=== PATIENT | female | born 1950 | race Caucasian/White ===

== ENCOUNTER → 2016-11-26 | Outpatient (CLI) | payer MEDICARE, BC ==
--- NOTE | 2016-11-26 14:54 | XR ---
EXAMINATION TYPE: XR chest 2V DATE OF EXAM: 11/26/2016 2:44 PM COMPARISON: NONE INDICATION: Short of breath TECHNIQUE: Single frontal view of the chest is obtained. FINDINGS: The heart size is normal. The pulmonary vasculature is normal. The lungs are clear. IMPRESSION: 1. No acute pulmonary process.
[2016-11-26 14:58] LABS: Anion Gap 9 mmol/L; Blood Urea Nitrogen 14 mg/dL (7-17); Calcium 9.4 mg/dL (8.4-10.2); Carbon Dioxide 26 mmol/L (22-30); Chloride 107 mmol/L (98-107); Glucose 111 mg/dL (74-99); Non-African American GFR(MDRD) >60 (>60 ml/min/1.73 sqM); Potassium 4.6 mmol/L (3.5-5.1); Sodium 142 mmol/L (137-145)
== END | disposition home or self-care (01) ==
LOC: LABWHC1 13:59
PROVIDERS: ATTEND Internal Medicine Cardiovascular Disease
DX: R06.02 Shortness of breath (principal); I10 Essential (primary) hypertension
CPT/HCPCS: 36415; 71020; 80048; 83880

== ENCOUNTER 2017-01-16 13:18 | Observation (INO) | payer MEDICARE, BC ==
[2017-01-16] MEDS ORDERED: NITROGLYCERIN OINT 1 INCH/GM PACKET TOPICAL STA (14:20)
[2017-01-16] MEDS ORDERED: ASPIRIN 81 MG CHEW PO STA (14:20)
--- NOTE | 2017-01-16 14:23 | ED ---
General Adult HPI - General Chief complaint: Chest Pain Stated complaint: Chest Pain Time Seen by Provider: 01/16/17 14:09 Source: patient, family, RN notes reviewed Mode of arrival: ambulatory Limitations: no limitations - History of Present Illness Initial comments: Patient is a pleasant 66-year-old female presenting to the emergency department complaining of chest discomfort. Onset was while mowing the lawn prior to arrival. Discomfort was 7/10 however is improved now to 3/10. Discomfort feels sharp. There is some radiation towards the back. Patient was short of breath however that has resolved. Patient has had some minimal shortness of breath over the past week or so. Otherwise no history of similar symptoms previously. Patient did have routine stress test done in the beginning of the week however results are unknown. No associated nausea or diaphoresis. No calf pain. - Related Data Home Medications Medication Instructions Recorded Confirmed Aspirin EC [Ecotrin] 81 mg PO QAM 01/22/16 01/16/17 Baclofen [Lioresal] 20 mg PO 01/22/16 01/16/17 Pioglitazone [Actos] 30 mg PO QA 01/22/16 01/16/17 Simvastatin [Zocor] 20 mg PO HS 01/22/16 01/16/17 Furosemide [Lasix] 40 mg PO [facility] 01/16/17 01/16/17 Lisinopril [Zestril] 2.5 mg PO DAILY 01/16/17 01/16/17 Magnesium Oxide [Magnesium] 250 mg PO [facility] 01/16/17 01/16/17 Metoprolol Tartrate [Lopressor] 25 mg PO BID 01/16/17 01/16/17 Multivitamins, Thera [Multivitamin 1 tab PO [facility] 01/16/17 01/16/17 (formulary)] Potassium Chloride ER [K-Dur 20] 20 meq PO M 01/16/17 01/16/17 Pramipexole [Mirapex] 0.25 mg PO 01/16/17 01/16/17 Allergies Allergy/AdvReac Type Severity Reaction Status Date / Time Penicillins Allergy Unknown Verified 01/16/17 14:34 Childhood Review of Systems ROS Statement: Those systems with pertinent positive or pertinent negative responses have been documented in the HPI. ROS Other: All systems not noted in ROS Statement are negative. Constitutional: Denies: fever Eyes: Denies: eye pain ENT: Denies: ear pain Respiratory: Reports: dyspnea. Denies: cough Cardiovascular: Reports: chest pain Endocrine: Denies: fatigue Gastrointestinal: Denies: abdominal pain Genitourinary: Denies: urgency Musculoskeletal: Reports: arthralgia Skin: Denies: rash Neurological: Denies: headache Past Medical History Past Medical History: Diabetes Mellitus, Osteoarthritis (OA) Additional Past Medical History / Comment(s): varicose veins, neuropathy History of Any Multi-Drug Resistant Organisms: None Reported Additional Past Surgical History / Comment(s): carpal tunnel release Past Psychological History: No Psychological Hx Reported Smoking Status: Former smoker Past Alcohol Use History: Occasional Past Drug Use History: None Reported General Exam Limitations: no limitations General appearance: alert, in no apparent distress Head exam: Present: atraumatic Eye exam: Present: normal appearance, PERRL ENT exam: Present: normal oropharynx Neck exam: Present: normal inspection Respiratory exam: Present: normal lung sounds bilaterally. Absent: chest wall tenderness Cardiovascular Exam: Present: regular rate, normal rhythm Expanded Peripheral pulses: 2+: Radial (R), Radial (L), Posterior Tibialis (R), Posterior Tibialis (L) GI/Abdominal exam: Present: soft. Absent: tenderness Extremities exam: Present: normal inspection. Absent: pedal edema, calf tenderness Neurological exam: Present: alert Psychiatric exam: Present: normal affect, normal mood Skin exam: Present: normal color Course Vital Signs 01/16/17 13:42 Temperature 98.1 F Pulse Rate 65 Respiratory 18 Rate Blood Pressure 142/65 O2 Sat by Pulse 94 L Oximetry EKG Findings - EKG Comments: EKG Findings:: Normal sinus rhythm 63. Normal intervals. Normal axis. Normal QRS. Nonspecific ST-T. Medical Decision Making - Medical Decision Making Patient reevaluated and resting comfortably in bed. Patient and family updated on results and plan. Case discussed in detail with Dr. Gibson, who will admit for Dr. Abbasi. Admission orders written. Cardiology will be consult - Lab Data Result diagrams: 01/16/17 14:25 01/16/17 14:25 Lab Results 01/16/17 01/16/17 01/16/17 Range/Units 14:25 14:25 14:25 WBC 3.6 L (3.8-10.6) k/uL RBC 4.35 (3.80-5.40) m/uL Hgb 13.4 (11.4-16.0) gm/dL Hct 41.2 (34.0-46.0) % MCV 94.7 (80.0-100.0) fL MCH 30.9 (25.0-35.0) pg MCHC 32.6 (31.0-37.0) g/dL RDW 14.6 (11.5-15.5) % Plt Count 107 L (150-450) k/uL Neutrophils % 52 % Lymphocytes % 28 % Monocytes % 8 % Eosinophils % 9 % Basophils % 1 % Neutrophils # 1.9 (1.3-7.7) k/uL Lymphocytes # 1.0 (1.0-4.8) k/uL Monocytes # 0.3 (0-1.0) k/uL Eosinophils # 0.3 (0-0.7) k/uL Basophils # 0.0 (0-0.2) k/uL PT (9.0-12.0) sec INR (<1.1) APTT (22.0-30.0) sec D-Dimer (<0.60) mg/L FEU Sodium 140 (137-145) mmol/L Potassium 4.7 (3.5-5.1) mmol/L Chloride 108 H (98-107) mmol/L Carbon Dioxide 23 (22-30) mmol/L Anion Gap 9 mmol/L BUN 17 (7-17) mg/dL Creatinine 0.70 (0.52-1.04) mg/dL Est GFR (MDRD) Af Amer >60 (>60 ml/min/1.73 sqM) Est GFR (MDRD) Non-Af >60 (>60 ml/min/1.73 sqM) Glucose 119 H (74-99) mg/dL Calcium 9.2 (8.4-10.2) mg/dL Magnesium 1.9 (1.6-2.3) mg/dL Total Bilirubin 1.8 H (0.2-1.3) mg/dL AST 55 H (14-36) U/L ALT 35 (9-52) U/L Alkaline Phosphatase 119 (38-126) U/L Total Creatine Kinase 140 H (30-135) U/L CK-MB (CK-2) 1.6 (0.0-2.4) ng/mL CK-MB (CK-2) Rel Index 1.1 Troponin I 0.014 (0.000-0.034) ng/mL NT-Pro-B Natriuret Pep pg/mL Total Protein 6.8 (6.3-8.2) g/dL Albumin 3.8 (3.5-5.0) g/dL 01/16/17 01/16/17 Range/Units 14:25 14:25 WBC (3.8-10.6) k/uL RBC (3.80-5.40) m/uL Hgb (11.4-16.0) gm/dL Hct (34.0-46.0) % MCV (80.0-100.0) fL MCH (25.0-35.0) pg MCHC (31.0-37.0) g/dL RDW (11.5-15.5) % Plt Count (150-450) k/uL Neutrophils % % Lymphocytes % % Monocytes % % Eosinophils % % Basophils % % Neutrophils # (1.3-7.7) k/uL Lymphocytes # (1.0-4.8) k/uL Monocytes # (0-1.0) k/uL Eosinophils # (0-0.7) k/uL Basophils # (0-0.2) k/uL PT 12.0 (9.0-12.0) sec INR 1.2 (<1.1) APTT 25.4 (22.0-30.0) sec D-Dimer 0.84 H (<0.60) mg/L FEU Sodium (137-145) mmol/L Potassium (3.5-5.1) mmol/L Chloride (98-107) mmol/L Carbon Dioxide (22-30) mmol/L Anion Gap mmol/L BUN (7-17) mg/dL Creatinine (0.52-1.04) mg/dL Est GFR (MDRD) Af Amer (>60 ml/min/1.73 sqM) Est GFR (MDRD) Non-Af (>60 ml/min/1.73 sqM) Glucose (74-99) mg/dL Calcium (8.4-10.2) mg/dL Magnesium (1.6-2.3) mg/dL Total Bilirubin (0.2-1.3) mg/dL AST (14-36) U/L ALT (9-52) U/L Alkaline Phosphatase (38-126) U/L Total Creatine Kinase (30-135) U/L CK-MB (CK-2) (0.0-2.4) ng/mL CK-MB (CK-2) Rel Index Troponin I (0.000-0.034) ng/mL NT-Pro-B Natriuret Pep 189 pg/mL Total Protein (6.3-8.2) g/dL Albumin (3.5-5.0) g/dL - Radiology Data Radiology results: image reviewed (Chest x-ray shows no acute process.) Critical Care Time Critical Care Time: Yes Total Critical Care Time: 31 Disposition Clinical Impression: Unstable angina pectoris Disposition: ADMITTED IP TO THIS HOSP Referrals: Hector Abbasi MD [Primary Care Provider] - 1-2 days Time of Disposition: 15:42
[2017-01-16 14:43] LABS: Basophils % (A) 1 %; CH 31.8; CHCM 33.7; Eosinophils # (A) 0.3 k/uL (0-0.7); Eosinophils % (A) 9 %; HCT 41.2 % (34.0-46.0); HDW 2.45; HGB 13.4 gm/dL (11.4-16.0); Luc % (Auto) 3; Lymphocytes % (A) 28 %; MCH 30.9 pg (25.0-35.0); MCHC 32.6 g/dL (31.0-37.0); MCV 94.7 fL (80.0-100.0); Mean Platelet Volume 7.7; Monocytes # (A) 0.3 k/uL (0-1.0); Monocytes % (A) 8 %; Neutrophils # (A) 1.9 k/uL (1.3-7.7); Neutrophils % (A) 52 %; RBC 4.35 m/uL (3.80-5.40); RDW 14.6 % (11.5-15.5); WBC 3.6 k/uL (3.8-10.6); WBC (Perox) 4.04
--- NOTE | 2017-01-16 14:49 | XR ---
EXAMINATION TYPE: XR chest 2V DATE OF EXAM: 01/16/2017 COMPARISON: Prior chest x-ray 26 November 2016 HISTORY: Chest pain and shortness of breath TECHNIQUE: Frontal and lateral views of the chest are obtained. FINDINGS: There is no focal air space opacity, pleural effusion, or pneumothorax seen. There are ove rlying cardiac leads. The cardiac silhouette size is stable, patient is rotated. The osseous struct ures are intact. IMPRESSION: No acute cardiopulmonary process. Stable exam, no acute abnormality
[2017-01-16 14:53] LABS: ALT 35 U/L (9-52); AST 55 U/L (14-36); Alkaline Phosphatase 119 U/L (38-126); Anion Gap 9 mmol/L; Blood Urea Nitrogen 17 mg/dL (7-17); Calcium 9.2 mg/dL (8.4-10.2); Carbon Dioxide 23 mmol/L (22-30); Chloride 108 mmol/L (98-107); Glucose 119 mg/dL (74-99); Magnesium 1.9 mg/dL (1.6-2.3); Non-African American GFR(MDRD) >60 (>60 ml/min/1.73 sqM); Potassium 4.7 mmol/L (3.5-5.1); Sodium 140 mmol/L (137-145); Total Bilirubin 1.8 mg/dL (0.2-1.3); Total Protein 6.8 g/dL (6.3-8.2)
[2017-01-16 14:55] LABS: INR 1.2 (<1.1); Partial Thromboplastin Time 25.4 sec (22.0-30.0)
[2017-01-16 15:12] LABS: Creatine Kinase MB 1.6 ng/mL (0.0-2.4)
[2017-01-16 15:17] LABS: Troponin I 0.014 ng/mL (0.000-0.034)
[2017-01-16] MEDS ORDERED: RX INFO: IV CONTRAST WAS GIVEN 1 EACH MISC MISCELLANE PRN (15:38)
[2017-01-16] MEDS ORDERED: NITROGLYCERIN SL TABS 0.4 MG TAB SUBLINGUAL PRN (15:42)
--- NOTE | 2017-01-16 16:41 | CT ---
EXAMINATION TYPE: CT angio chest DATE OF EXAM: 01/16/2017 COMPARISON: Chest x-ray same date HISTORY: 2 views of the chest CT DLP: 457.90 mGycm Automated exposure control for dose reduction was used. CONTRAST: CTA scan of the thorax is performed with IV Contrast, patient injected with 81 mL of Omnipaque 350, p ulmonary embolism protocol. MIP images are created and reviewed. 3D reconstructed images are create d on an independent workstation and reviewed. FINDINGS: LUNGS: The lungs are grossly clear, there is no concerning parenchymal mass or nodule identified. T here is no pleural effusion or pneumothorax seen. The tracheobronchial tree is patent. AORTA: No additional significant abnormality is seen. MEDIASTINUM: There is satisfactory enhancement of the pulmonary artery and its branches, there is no CT evidence for pulmonary embolism. There are no greater than 1 cm hilar or mediastinal lymph nodes. There are coronary artery calcifications present. 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 No pericardial effusion is seen. OTHER: The liver shows a nodular contour compatible with underlying cirrhosis. Spleen is enlarged.. There may be some ascites. IMPRESSION: CORRELATE FOR CIRRHOSIS. APPARENT ANATOMY. CORONARY ARTERY DISEASE. POSSIBLE UNDERLYING PORTAL HYPERT ENSION.
[2017-01-16] MEDS ORDERED: HEPARIN SODIUM,PORCINE 5,000 UNIT/ML 1 ML VIAL IV PRN (16:43)
[2017-01-16] MEDS ORDERED: HEPARIN SODIUM,PORCINE 5,000 UNIT/ML 1 ML VIAL IV ONE (16:43)
[2017-01-16] MEDS ORDERED: HEPARIN SODIUM,PORCINE/D5W PMX 25,000 UNIT in DEXTROSE/WATER 1 500ML.BAG IV SCH (16:45)
[2017-01-16 17:46] LABS: Glucose,Whole Blood 86 mg/dL (75-99)
[2017-01-16 18:00] VITALS: BMI 35.7
[2017-01-16] MEDS: METOPROLOL TARTRATE 25 MG TAB PO SCH (19:54)
[2017-01-16 20:02] LABS: Glucose,Whole Blood 201 mg/dL (75-99)
[2017-01-16] MEDS ORDERED: ATORVASTATIN 10 MG TAB PO SCH (21:00)
[2017-01-16] MEDS ORDERED: PRAMIPEXOLE 0.25 MG TAB PO SCH (21:00)
[2017-01-16] MEDS ORDERED: BACLOFEN 10 MG TAB PO SCH (21:00)
[2017-01-16] MEDS: INSULIN LISPRO (humaLOG) 300 UNIT/3 ML VIAL SQ SCH (21:14)
[2017-01-16 21:43] LABS: Creatine Kinase MB 1.5 ng/mL (0.0-2.4); Troponin I 0.015 ng/mL (0.000-0.034)
[2017-01-17] MEDS: NITROGLYCERIN OINT 1 INCH/GM PACKET TOPICAL SCH ×3 (00:06→12:14)
[2017-01-17 03:36] LABS: Basophils % (A) 1 %; CH 32.2; CHCM 34.6; Eosinophils # (A) 0.3 k/uL (0-0.7); Eosinophils % (A) 8 %; HCT 40.6 % (34.0-46.0); HDW 2.55; HGB 14.1 gm/dL (11.4-16.0); Luc % (Auto) 3; Lymphocytes # (A) 1.3 k/uL (1.0-4.8); Lymphocytes % (A) 38 %; MCH 32.4 pg (25.0-35.0); MCHC 34.6 g/dL (31.0-37.0); MCV 93.6 fL (80.0-100.0); Mean Platelet Volume 7.1; Monocytes # (A) 0.2 k/uL (0-1.0); Monocytes % (A) 7 %; Neutrophils # (A) 1.5 k/uL (1.3-7.7); Neutrophils % (A) 43 %; RBC 4.34 m/uL (3.80-5.40); RDW 14.7 % (11.5-15.5); WBC 3.5 k/uL (3.8-10.6); WBC (Perox) 3.61
[2017-01-17 03:39] LABS: Creatine Kinase 138 U/L (30-135)
[2017-01-17 03:49] LABS: Cholesterol 147 mg/dL (<200); HDL Cholesterol 94 mg/dL (40-60); Triglycerides 54 mg/dL (<150)
[2017-01-17 03:51] LABS: Creatine Kinase MB 1.2 ng/mL (0.0-2.4); Troponin I <0.012 ng/mL (0.000-0.034)
[2017-01-17 04:05] LABS: Manual Review Performed
[2017-01-17 06:49] LABS: Glucose,Whole Blood 132 mg/dL (75-99)
[2017-01-17 08:01] VITALS: RESP 16
[2017-01-17] MEDS: METOPROLOL TARTRATE 25 MG TAB PO SCH (08:02)
[2017-01-17] MEDS: INSULIN LISPRO (humaLOG) 300 UNIT/3 ML VIAL SQ SCH ×2 (08:05→12:14)
--- NOTE | 2017-01-17 08:08 | P.PN ---
Progress Note - Text Patient interviewed and examined Impression 66-year-old obese female resenting with exertional chest discomfort with a somewhat pleuritic nature lasting for one or 2 hours. First ECG has a baseline artifact that they may be very subtle ST segment depression inferolaterally. Second ECG is completely normal. LDL 42, no evidence for acute myocardial infarction , cardiac enzymes are normal. A recent stress test in the office last week, awaiting results. Diabetes adult onset Hypertension Computed tomography scan suggests liver cirrhosis with splenomegaly Plan Stop heparin await results of the stress test, if stress is normal she may go home and follow-up with Dr. Lindsay early this week See my full consultation
[2017-01-17] MEDS ORDERED: ASPIRIN 325 MG TAB PO SCH (09:00)
[2017-01-17] MEDS ORDERED: MAGNESIUM OXIDE 400 MG TAB PO SCH (09:00)
[2017-01-17] MEDS ORDERED: LISINOPRIL 2.5 MG TAB PO SCH (09:00)
[2017-01-17] MEDS ORDERED: POTASSIUM CHLORIDE ER 20 MEQ TAB.ER PO SCH (09:00)
[2017-01-17] MEDS ORDERED: FUROSEMIDE 40 MG TAB PO SCH (09:00)
[2017-01-17] MEDS ORDERED: PIOGLITAZONE 30 MG TAB PO SCH (09:00)
--- NOTE | 2017-01-17 11:00 | HP ---
DATE OF ADMISSION: 01/16/2017 I am covering for Dr. Abbasi. CHIEF COMPLAINT: Chest pain. This 66-year-old woman with a past history medical history of multiple medical problems including diabetes, hypertension, hyperlipidemia, history of degenerative joint disease , history of varicose veins, history of nicotine dependence, being followed by Dr. Abbasi in the outpatient setting recently had a cardiac stress test. The results are not available at this time. Today, the patient was complaining of discomfort about 7 out of 10 in intensity which improved to 3 out of 10 in intensity. right side of the chest mostly and radiating to the right back of the right side back. Discomfort mostly sharp in nature and increasing with respirations. Because of concerns, the patient came to [facility] and admitted for further evaluation and treatment. There is some minimal shortness of breath, no history of palpitations, no history of any headache, loss of consciousness, no history of any radiation of pain elsewhere. The initial troponins are negative. PAST MEDICAL HISTORY: History of recent stress test. Type 2 diabetes mellitus. Hypertension, hyperlipidemia, history of degenerative joint disease, history of varicose veins. MEDICATIONS: Prior to admission include home medications are: 1. Zocor 20 mg p.o. q.h.s. 2. Mirapex 0.5 mg. 3. K-Dur 20 meq p.o. in the morning. 4. Actos 30 mg in the morning. 5. Multivitamins 1 p.o. daily. 6. Lopressor 25 mg p.o. b.i.d. 7. Magnesium 250 mg in the morning. 8. Zestril 2.5 mg daily. 9. Lasix 40 mg in the morning. 10. Lioresal 20 mg q.h.s., 11. Ecotrin 81 mg p.o. daily. ALLERGIES: PENICILLIN. FAMILY HISTORY: No history of heart disease or strokes in the family. SOCIAL HISTORY: Previous history of smoking. No history of current smoking. No alcohol intake. REVIEW OF SYSTEMS: ENT: No diminishing hearing. No diminished vision. CARDIOVASCULAR: No angina. Otherwise as mentioned earlier. RESPIRATORY: As mentioned earlier. GI: No nausea. : No dysuria. CENTRAL NERVOUS SYSTEM: No numbness or weakness. ALLERGY/IMMUNOLOGY: No asthma or hayfever. MUSCULOSKELETAL: As mentioned earlier. HEMATOLOGY/ONCOLOGY: No history of anemia. ENDOCRINE: Diabetes mellitus. CONSTITUTIONAL: As mentioned earlier. DERMATOLOGY: Negative. RHEUMATOLOGY: Negative. PSYCHIATRY: As mentioned earlier. HISTORY OF PRESENT ILLNESS: The patient is alert and oriented times three. Pulse 59, blood pressure 141/52, respirations 18, temperature 98.2. Pulse ox 99% on room air. HEENT: Conjunctivae normal. Oral mucosa moist. NECK: No jugular venous distention. No carotid bruit. No lymph node enlargement. CARDIOVASCULAR: S1, S2 muffled. No S3, no S4. RESPIRATORY: Breath sounds diminished in the bases. No rhonchi. No crackles. ABDOMEN: Soft, nontender. No mass palpable. Legs: No edema, no swelling. CENTRAL NERVOUS SYSTEM: Higher functions as mentioned earlier. Moves all four limbs. No focal deficits. SKIN: No ulcer, rash or bleeding. LYMPHATICS: No lymph nodes palpable in the neck, axillae or groin. LABS: WBC 3.6, hemoglobin 13.4, total bilirubin is 1.8. AST 55. ASSESSMENT: 1. Left-sided chest pain; rule out unstable angina, rule out pleurisy. 2. History of recent stress test. 3. Increased bilirubin. 4. Increased AST. 5. Increased creatinine kinase. 6. Diabetes mellitus type 2. 7. Mild leukopenia. 8. Mild thrombocytopenia. 9. Hypertension. 10. Hyperlipidemia. 11. History of degenerative joint disease. 12. History of varicose veins. 13. Carpal tunnel syndrome. 14. Remote history of nicotine dependence. 15. Obesity with body mass index of 34.8. 16. FULL CODE. RECOMMENDATIONS AND DISCUSSION: This 66-year-old woman presented with multiple complex medical issues, we will monitor the patient closely, continue with current medications, continue symptomatic treatment. Otherwise, we will resume the home medications, rule out myocardial infarction. Unstable angina protocol. Closely follow with cardiology. Guarded prognosis because of the multiple complex medical issues. Further recommendations to follow. See orders for further details; I recommend the patient to follow-up closely with Dr. Abbasi in the outpatient setting as well. Prognosis guarded. See orders for further details. Discussed with family, understands and agrees. Discussed with staff. KAMRYN
--- NOTE | 2017-01-17 11:59 | CONS ---
DATE OF CONSULTATION: Ms. Thomas is a 66-year-old female, a patient of Dr. Lindsay, who came in with chest discomfort when she was mowing the lawn. She had discomfort in the middle of the chest which was somewhat pleuritic in nature and this pain had stopped and she came to the hospital. She had no dizziness, lightheadedness. No loss of consciousness. No palpitations. Past history of diabetes and hypertension. She recently had a stress test in the office. I obtained report of the stress test. This only shows a fixed defect. There is no reversible ischemia. Probably soft tissue attenuation. Medications at home include: 1. Simvastatin. 2. Mirapex. 3. Potassium. 4. Actos. 5. Multivitamin. 6. Metoprolol. 7. Magnesium. 8. Lisinopril. 9. Lasix. 10. Baclofen. 11. Aspirin. REVIEW OF SYSTEMS: No fever, chills, rigors. No cough or expectoration. No nausea and diarrhea. No hematuria, dysuria, strokes or seizures. No skin lesions or musculoskeletal complaints. On examination, her blood pressure is 128/69 millimeters of mercury, pulse rate is in the 60s, afebrile, 97.6 degrees Fahrenheit. Head and neck examination is normal. Heart sounds are normal. LUNGS: Clear to auscultation. EXTREMITIES: Warm. No edema. Please see the impression and plan separately.
[2017-01-17] MEDS ORDERED: MULTIVITAMINS, THERA 1 EACH TAB PO SCH (12:00)
[2017-01-17 12:02] LABS: Glucose,Whole Blood 80 mg/dL (75-99)
[2017-01-17 12:18] VITALS: BP 106/59; PULSE 51; TEMP 97.5
--- NOTE | 2017-01-18 15:19 | DS ---
DATE OF ADMISSION: 01/16/2017 DATE OF DISCHARGE: 01/17/2017 FINAL DIAGNOSES: 1. Left-sided chest pain, possibly musculoskeletal and possible pleurisy. 2. History of recent stress test with fixed defect. 3. Increased bilirubin. 4. Increased AST. 5. Increased creatine kinase. 6. Rule out portal hypertension. 7. Diabetes mellitus type 2. 8. Mild leukopenia. 9. Mild thrombocytopenia. 10. Hypertension. 11. Hyperlipidemia. 12. History of degenerative joint disease. 13. History of varicose veins. 14. Carpal tunnel syndrome. 15. Remote history of nicotine dependence. 16. Obesity with body mass of 34.9. 17. FULL CODE. DISCHARGE DISPOSITION: The patient will be discharged in a stable condition with guarded prognosis. Cardiology cleared the patient for discharge. HISTORY OF PRESENT ILLNESS: This 66-year-old gentleman with past medical history of multiple medical problems being followed with Dr. Abbasi in the outpatient setting admitted with chest pain. Myocardial infarction ruled out. The pain was mostly on the right side and Cardiology saw the patient. Recent stress test apparently showed a fixed defect. The patient also had a CTA that showed suspicion portal hypertension also. Vitals are stable. CARDIOVASCULAR: S1, S2. ABDOMEN: Soft. NERVOUS SYSTEM: No focal deficits. DISCHARGE ADVICE: 1. Diet is cardiac. 2. Activity limited until follow-up. 3. Follow up with Dr. Abbasi in 1 to 2 days. 4. Follow up with Dr. Lindsay, Cardiology, in one week. MEDICATIONS: 1. Ecotrin 81 mg q.a.m. 2. Lioresal 20 mg q.h.s. 3. Lasix 40 mg q.a.m. 4. Zestril 2.5 mg daily. 5. Magnesium oxide 250 mg p.o. daily. 6. Lopressor 25 mg p.o. b.i.d. 7. Multivitamin 1 p.o. daily. 8. Actos 30 mg q.a.m. 9. K-Dur 20 mEq q.a.m. 10. Mirapex 0.5 mg q.h.s. 11. Zocor 20 mg q.h.s. Further follow-up regarding apparent fixed defect in the stress test as well as suspicious portal hypertension as an outpatient with Dr. Abbasi and Cardiology. [facility]
== END 2017-01-17 13:02 | disposition home or self-care (01) ==
LOC: EC 13:18 → 3SUR 15:43
PROVIDERS: ADMIT Family Medicine; ATTEND Family Medicine
DX: R07.89 Other chest pain (principal); E11.9 Type 2 diabetes mellitus without complications; D72.819 Decreased white blood cell count, unspecified; D69.6 Thrombocytopenia, unspecified; E66.9 Obesity, unspecified; E78.5 Hyperlipidemia, unspecified; I10 Essential (primary) hypertension; R06.02 Shortness of breath; M25.50 Pain in unspecified joint; M19.90 Unspecified osteoarthritis, unspecified site; I83.90 Asymptomatic varicose veins of unspecified lower extremity; G62.9 Polyneuropathy, unspecified; Z79.82 Long term (current) use of aspirin; Z79.899 Other long term (current) drug therapy; Z87.891 Personal history of nicotine dependence; Z68.34 Body mass index [BMI] 34.0-34.9, adult; Z88.0 Allergy status to penicillin
CPT/HCPCS: 96365; 96366 ×2; 96376; 99285; 36415; 85379; 83880; 80061; 80053; 82550 ×2; 82553 ×2; 83735; 84484 ×2; 85025 ×2; 85610; 85730 ×2; 71020; 71275; G0378 ×2; J1644 ×2; Q9967; 93005

== ENCOUNTER 2017-01-26 10:21 | Day surgery (SDC) | payer MEDICARE, BC ==
[2017-01-22 11:44] VITALS: BMI 36.6
[~2017-01-26 10:21] MED LIST: ALPRAZolam 0.25 MG TAB PO PRN; ALPRAZolam 0.5 MG TAB PO PRN; ASPIRIN 325 MG TAB PO STA; ATORVASTATIN 80 MG TAB PO STA; NITROGLYCERIN SL TABS 0.4 MG TAB SUBLINGUAL PRN; SODIUM CHLORIDE 0.9% 1,000 ML in EMPTY BAG 1 BAG IV ONE
[2017-01-26 10:54] LABS: Glucose,Whole Blood 110 mg/dL (75-99)
[2017-01-26] MEDS ORDERED: MIDAZOLAM 2 MG/2 ML VIAL ONE (12:04)
[2017-01-26] MEDS ORDERED: diphenhydrAMINE 50 MG/ML 1 ML VIAL ONE (12:05)
[2017-01-26] MEDS ORDERED: LIDOCAINE 2% INJ 20 MG/ML (20 ML MDV) ONE (12:05)
[2017-01-26] MEDS: MIDAZOLAM 2 MG/2 ML VIAL IV ONE ×2 (12:08→12:52)
[2017-01-26] MEDS ORDERED: fentaNYL (PF) 50 MCG/ML 2 ML AMP ONE (12:09)
[2017-01-26] MEDS ORDERED: fentaNYL (PF) 50 MCG/ML 2 ML AMP IV ONE ×2 (12:11→12:14)
[2017-01-26] MEDS ORDERED: LIDOCAINE 2% INJ 20 MG/ML SQ ONE ×2 (12:14→12:18)
[2017-01-26] MEDS ORDERED: RX INFO: IV CONTRAST WAS GIVEN 1 EACH MISC MISCELLANE PRN (12:50)
[2017-01-26] MEDS ORDERED: HEPARIN SODIUM 1,000 UNIT/ML VIAL ONE (12:56)
[2017-01-26] MEDS ORDERED: SODIUM CHLORIDE 0.9% 1,000 ML IV SCH ×2 (13:00→13:35)
--- NOTE | 2017-01-26 13:04 | P.PCN ---
Date of Procedure: 01/26/17 Preoperative Diagnosis: Positive stress test and symptoms of chest pain and shortness of breath Postoperative Diagnosis: Critical lesion involving the first diagonal branch with intermediate lesion in the LAD. Mild disease involving the proximal RCA. Mild diffuse plaque and calcification Procedure(s) Performed: Left heart catheterization with selective coronary arteriography Implants: Indications for Procedure: Operative Findings: Description of Procedure: HISTORY: This is a 66-year-old female with history of hypertension, diabetes and hypercholesterolemia who was seen in the office for evaluation of symptoms of edema and shortness of breath. Subsequently she was admitted to [facility] with complaints of chest pain but with negative enzymes. She had a subsequent a nuclear stress test which was positive for ischemia on the EKGs with evidence of reversible ischemia involving the anterolateral wall. Patient is advised to have a cardiac catheterization for definitive diagnosis. CONSENT:I have discussed the risks, benefits and alternative therapies for the above-mentioned procedure and for both sedation/analgesia as well as necessary blood product administration, if indicated, as they pertain to this patient. The patient has indicated understanding and acceptance of the risks and procedures discussed. PROCEDURE: Patient was brought to the lab in a fasting state. Patient was given some IV sedation. The right groin is infiltrated with lidocaine and right femoral artery was entered using Seldinger technique. A 6-Finnish catheter was left in place and selective coronary arteriography and left ventriculography was performed. Patient tolerated the procedure well. Femoral angiogram was performed and Angio-Seal was applied for hemostasis. No immediate complications were noted . Patient is found to have critical lesion involving the diagonal and mild to moderate disease in the LAD. Because of the ostial lesion of the diagonal, It was felt that percutaneous intervention could result jeopardizing the LAD. Dr. Marie is doing. FFR to assess the significance of the LAD lesion. If the LAD lesion appears to be significant, patient may need revascularization with bypass to the LAD and diagonal. If not maximum medical therapy be continued. HEMODYNAMICS: The aortic pressure is 123/67. Left ankle end-diastolic pressure is 15. There was no gradient across the aortic valve SELECTIVE CORONARY ARTERIOGRAPHY: LEFT MAIN: This is a normal length and patent THE LEFT ANTERIOR DESCENDING CORONARY ARTERY:. This is a good caliber vessel with calcification and diffuse plaque in the proximal and midportion. It gives rise to good-sized first diagonal branch which has ostial stenosis of about 90-95%. The LAD itself has diffuse disease. Following the diagonal branch with probably about 40-50% lesion. Dr. Marie is doing FFR to assess the significance of this lesion. THE LEFT CIRCUMFLEX AND IS CORONARY ARTERY: This is a good caliber vessel free of any significant occlusive disease. THE RIGHT CORONARY ARTERY: This is a codominant vessel with mild ostial stenosis and mild calcification proximally. No critical lesions were noted. LEFT VENTRICULOGRAPHY: This revealed normal-sized cardiac silhouette with good systolic function. No segmental wall motion defects were noted. FINAL IMPRESSION: Critical lesion involving the first diagonal at the ostium. The LAD has an intermediate lesion. PLAN: Continue current medical therapy. FFR of the LAD. If the LAD lesion is significant, patient may undergo bypass surgery with the graft to the LAD and to the diagonal. If not maximum medical therapy would be considered . PROGNOSIS: Guarded
[2017-01-26] MEDS ORDERED: IOHEXOL 350 MG/ML 125ML BOTTLE INJ ONE (13:15)
[2017-01-26] MEDS ORDERED: ISOSORBIDE MONONITRATE ER 30 MG TAB.ER.24H PO STA (13:42)
[2017-01-26] MEDS ORDERED: LISINOPRIL 2.5 MG TAB PO STA (13:43)
[2017-01-26 14:11] LABS: Glucose,Whole Blood 90 mg/dL (75-99)
[2017-01-26 17:34] LABS: Glucose,Whole Blood 138 mg/dL (75-99)
[2017-01-26 19:40] VITALS: BP 148/59; RESP 18; TEMP 97.9
[2017-01-26 19:50] VITALS: PULSE 74
--- NOTE | 2017-01-27 10:03 | CE ---
DATE OF SERVICE: FRACTION FLOW RESERVE MEASUREMENT. Mrs. Thomas is a 66-year-old female with known history of hypertension, diabetes mellitus, who is complaining of progressive dyspnea on exertion, underwent myocardial perfusion imaging that revealed evidence of inducible ischemia involving the anterolateral wall with transient cavity dilatation. She underwent cardiac catheterization by Dr. Lindsay, was found to have critical stenosis involving the ostium of the diagonal branch with a lesion in the LAD proximally at the takeoff of the diagonal branch because of the location of the lesion and the appearance, recommendation made regarding fraction flow reserve measurement for further decision. The plan as well as the procedure was discussed with the patient and she was in full understanding and agreement. PROCEDURE: A 6 Albanian FR4 guiding catheter was introduced into the system. After cannulating the left main, the Doppler flow wire was introduced in the LAD, positioned distally. Following that, the IFR was measured and the IFR was 0.53 and 0.66. The FFR without any infusion of adenosine was 0.63 and those findings are consistent with severe hemodynamic lesion. At that point the guiding catheter and the guidewire were removed, the sheath was removed. Hemostasis was obtained with deployment of an Angio-Seal. There was no immediate complication. Patient is returned to her room in stable condition. Of note, patient received 5000 units of intravenous heparin. She has no chest discomfort. RESULT: Hemodynamically significant lesion involving the proximal LAD. RECOMMENDATION: In view of the finding, I have recommended to proceed with evaluation for possible coronary artery bypass grafting involving the LAD and diagonal branch in view of the location of the lesions as well as the history of diabetes mellitus. Those findings and recommendations were discussed with the patient and her family.
--- NOTE | 2017-01-27 10:07 | LTR ---
January 26, 2017 RE: WilliamLenora Dear Dr. Abbasi; I had the pleasure to perform fraction flow reserve measurement on Mrs. Thomas at [facility] on January 26, 2017 for her LAD lesion. She was found to have hemodynamically significant lesion. In view of that, she will undergo evaluation for possible coronary artery bypass grafting. I will keep you updated on her progress and thank you again for allowing me to participate in this patient's care. Please feel free to call for any questions. Sincerely yours, MICHAEL SHIRLEY MD
--- NOTE | 2017-02-01 07:14 | CDI ---
Per the anesthesia report/plan, local and IV sedation are check marked. Fentanyl is noted to be administered. Per new CMS ([employer] and Medicaid Services) guidelines there is a change by which the work of moderate/conscious sedation will be reimbursed separately. Further clarification of the documentation of IV sedation is needed for proper reporting purposes. Please clarify the type of sedation this patient received during the cardiac catheterization. Moderate/conscious sedation MAC (unconscious sedation) General Anesthesia Other (please specify) Please document your findings in an addendum to the Procedure Note. If you have any questions about this query, you may contact Director Learning Services, Shanae Salvador at between 8am and 6pm Wednesday-Wednesday Thank you for your time. YINKA Miranda
== END 2017-01-26 20:19 | disposition home or self-care (01) ==
LOC: CATHCVL 10:21 → 3OBS 13:15 → CATHCVL 20:19
PROVIDERS: ATTEND Internal Medicine Cardiovascular Disease
DX: I25.10 Atherosclerotic heart disease of native coronary artery without angina pectoris (principal); I25.84 Coronary atherosclerosis due to calcified coronary lesion; I10 Essential (primary) hypertension; E11.9 Type 2 diabetes mellitus without complications; E78.00 Pure hypercholesterolemia, unspecified; I73.9 Peripheral vascular disease, unspecified; E78.2 Mixed hyperlipidemia; E66.9 Obesity, unspecified; Z68.37 Body mass index [BMI] 37.0-37.9, adult; I50.32 Chronic diastolic (congestive) heart failure; Z88.0 Allergy status to penicillin; Z87.891 Personal history of nicotine dependence; Z82.49 Family history of ischemic heart disease and other diseases of the circulatory system; Z79.82 Long term (current) use of aspirin; Z79.899 Other long term (current) drug therapy
CPT/HCPCS: 93571; 93458; 99152; 99153 ×3; C1760; C1894; C1769; J2001; J2250; J3010; J1644; Q9967

== ENCOUNTER → 2017-02-18 | Outpatient (CLI) | payer MEDICARE, BC ==
[2017-02-18 08:25] LABS: EKG EKG PERFORMED
[2017-02-18 10:09] LABS: Appearance,Urine Cloudy (Clear); Bacteria,Urine Occasional /hpf; Bilirubin,Urine Negative (Negative); Glucose,Urine (UA) 4+ (Negative); INR 1.2 (<1.1); Ketones,Urine Negative (Negative); Leukocyte Esterase,Urine Large (Negative); Mucus,Urine Rare /hpf; Nitrite,Urine Negative (Negative); Partial Thromboplastin Time 26.2 sec (22.0-30.0); Particle Count 4989; Protein,Urine Negative (Negative); Prothrombin Time 12.1 sec (9.0-12.0); Specific Gravity,Urine 1.012 (1.001-1.035); Squamous Epithelial Cell,Urine 2 /hpf (0-4); UA Billing (MACRO vs. MICRO) MICRO; Urobilinogen,Urine <2.0 mg/dL (<2.0); WBC,Urine 5 /hpf (0-5)
[2017-02-18 10:13] LABS: ALT 37 U/L (9-52); AST 53 U/L (14-36); Alkaline Phosphatase 139 U/L (38-126); Anion Gap 12 mmol/L; Blood Urea Nitrogen 16 mg/dL (7-17); Calcium 9.1 mg/dL (8.4-10.2); Carbon Dioxide 25 mmol/L (22-30); Chloride 105 mmol/L (98-107); Cholesterol 180 mg/dL (<200); Glucose 167 mg/dL (74-99); HDL Cholesterol 95 mg/dL (40-60); Non-African American GFR(MDRD) >60 (>60 ml/min/1.73 sqM); Potassium 4.2 mmol/L (3.5-5.1); Sodium 142 mmol/L (137-145); Total Bilirubin 2.3 mg/dL (0.2-1.3); Total Protein 7.1 g/dL (6.3-8.2); Triglycerides 103 mg/dL (<150)
--- NOTE | 2017-02-18 10:37 | XR ---
EXAMINATION TYPE: XR chest 2V DATE OF EXAM: 02/18/2017 COMPARISON: 01/16/2017 INDICATION: Presurgical testing TECHNIQUE: Frontal and lateral views of the chest are obtained. FINDINGS: The heart size is normal. The pulmonary vasculature is normal. The lungs are clear. IMPRESSION: 1. No acute pulmonary process.
[2017-02-18 10:45] LABS: Hepatitis B Surface Ag Index 0.06
[2017-02-18 10:48] LABS: CH 31.9; HCT 40.9 % (34.0-46.0); HDW 2.52; HGB 13.6 gm/dL (11.4-16.0); MCH 31.4 pg (25.0-35.0); MCHC 33.3 g/dL (31.0-37.0); MCV 94.3 fL (80.0-100.0); Mean Platelet Volume 7.8; RBC 4.34 m/uL (3.80-5.40); RDW 14.5 % (11.5-15.5); WBC 3.5 k/uL (3.8-10.6)
[2017-02-18 10:50] LABS: Hepatitis B Core IgM Index 0.04
[2017-02-18 11:01] LABS: Hepatitis C Virus IgG Ab Negative (Negative); Hepatitis C Virus IgG Index 0.03
[2017-02-18 12:27] LABS: Hemoglobin A1C 6.6 % (4.2-6.1)
--- NOTE | 2017-02-24 10:12 | P.ARTDOP ---
Arterial Doppler LOWER EXTREMITY ARTERIAL DOPPLER: DATE OF SERVICE: 02/18/2017 Reason for study: Pre-CABG. Doppler waveforms: Multiphasic bilaterally throughout. Pressure gradients: None. Ankle-brachial indices: Greater than 1 bilaterally. Toe pressures: 120 on the right, 140 on the left Impression: Normal study.
--- NOTE | 2017-02-24 10:17 | P.VSCSTY ---
Greater Saphenous Vein Mapping This is bilateral lower extremity greater saphenous vein mapping. Date of service 02/18/2017 Vein quality and ultrasound appearance greater saphenous in the mid thigh and middle mid calf on the left could not be compressed and has echogenic material within suggestive of previous occlusion from superficial phlebitis. There is a patent area between these 2 locations. Vein through most of the right leg is rather large for use as conduit.. Vein size groin right 17.6 x 14.2 groin left 11.6 x 12.2 High thigh right 14.6 x 12.8 high thigh left 10.4 x 8.9 Mid thigh right 10.9 x 9.1 mid thigh left 9.2 x 7.7. It is noncompressible and there is visible clot within the vein Above-knee right 11.8 x 9.8 above- knee left 4.6 x 3.5 Below knee right 12.3 x 10.1 below-knee left 5.4 x 5.2 Mid calf right 8.1 x 6.7 mid calf left visible lumen Ankle right 5.3 x 3.0 ankle left 8.8 x 7.3 Impression vein on the right leg except very distally is rather large for use as corner a conduit. Vein on the left leg has possibly a small segment between the mid thigh and the mid calf that may be usable. Very distally on the right there may be a segment of vein usable. Questionable vein both lower extremities. Clinical correlation is strongly recommended..
== END | disposition home or self-care (01) ==
LOC: LABPAT 07:54
PROVIDERS: ATTEND Thoracic Surgery (Cardiothoracic Vascular Surgery)
DX: Z01.810 Encounter for preprocedural cardiovascular examination (principal); Z01.818 Encounter for other preprocedural examination
CPT/HCPCS: 71020; 80053; 80061; 80074; 81001; 83036; 83735; 83880; 84443; 84484; 85027; 85610; 85730; 87070; 87086; 93005; 93923; 93970; 94150

== ENCOUNTER → 2017-03-22 | Outpatient (CLI) | payer MEDICARE, BC ==
[2017-03-22 13:06] LABS: ALT 40 U/L (9-52); AST 44 U/L (14-36); Alkaline Phosphatase 117 U/L (38-126); Anion Gap 7 mmol/L; Blood Urea Nitrogen 14 mg/dL (7-17); Carbon Dioxide 27 mmol/L (22-30); Chloride 108 mmol/L (98-107); Glucose 134 mg/dL (74-99); Magnesium 1.8 mg/dL (1.6-2.3); Non-African American GFR(MDRD) >60 (>60 ml/min/1.73 sqM); Potassium 3.9 mmol/L (3.5-5.1); Sodium 142 mmol/L (137-145)
[2017-03-22 14:12] LABS: CH 31.3; CHCM 33.7; HCT 37.9 % (34.0-46.0); HDW 2.65; HGB 13.1 gm/dL (11.4-16.0); MCH 32.1 pg (25.0-35.0); MCHC 34.4 g/dL (31.0-37.0); MCV 93.3 fL (80.0-100.0); Mean Platelet Volume 7.6; RBC 4.06 m/uL (3.80-5.40); RDW 14.5 % (11.5-15.5); WBC 4.1 k/uL (3.8-10.6)
== END | disposition home or self-care (01) ==
LOC: LABPAT 09:41
PROVIDERS: ATTEND Thoracic Surgery (Cardiothoracic Vascular Surgery)
DX: I25.10 Atherosclerotic heart disease of native coronary artery without angina pectoris (principal)
CPT/HCPCS: 36415; 80053; 83735; 85027; 86850; 86900; 86901; 86920

== ENCOUNTER 2017-03-30 08:00 | Inpatient (IN) | payer MEDICARE, BC ==
[2017-04-01] MEDS ORDERED: NITROGLYCERIN-D5W PMX 25 MG/250 ML BTL IV ONE (05:00)
[2017-04-01] MEDS ORDERED: CLEVIDIPINE BUTYRATE 25 MG in EMPTY BAG 1 BAG IV ONE (05:00)
[2017-04-01] MEDS ORDERED: PROTAMINE SULFATE 10 MG/ML 25 ML VIAL IV ONE (05:00)
[2017-04-01] MEDS ORDERED: CHLORHEXIDINE GLUCONATE 15 ML CUP MUCOUS MEM ONE (05:00)
[2017-04-01] MEDS ORDERED: CALCIUM CHLORIDE 100 MG/ML 10 ML SYRINGE IV ONE (05:00)
[2017-04-01] MEDS ORDERED: SODIUM BICARB 8.4% 50 ML SYR (1 MEQ/ML) IV ONE (05:00)
[2017-04-01] MEDS ORDERED: PROTAMINE SULFATE 250 MG in EMPTY BAG 1 BAG IV ONE (05:00)
[2017-04-01] MEDS ORDERED: NITROGLYCERIN-D5W PMX 50 MG in DEXTROSE/WATER 1 250ML.BAG IV ONE (05:00)
[2017-04-01] MEDS ORDERED: PAPAVERINE 360 MG in SODIUM CHLORIDE 0.9% 90 ML IV ONE (05:00)
[2017-04-01] MEDS ORDERED: ceFAZolin 2,000 MG in SODIUM CHLORIDE 0.9% 30 ML IVPB ONE ×4 (05:00)
[2017-04-01] MEDS ORDERED: SODIUM CHLORIDE 0.9% 1,000 ML IV ONE (05:00)
[2017-04-01] MEDS ORDERED: DEXTROSE 5% IN WATER 1,000 ML with POTASSIUM CHLORIDE 25 MEQ, SODIUM CHLORIDE 4MEQ/ML V... IV ONE ×6 (05:00)
[2017-04-01] MEDS ORDERED: INSULIN REGULAR 100 UNIT in SODIUM CHLORIDE 0.9% 100 ML IV ONE (05:00)
[2017-04-01] MEDS ORDERED: LACTATED RINGERS 1,000 ML IV ONE (05:00)
[2017-04-01] MEDS ORDERED: PROPOFOL 1,000 MG/100 ML VIAL IV ONE (05:00)
[2017-04-01] MEDS ORDERED: ASPIRIN 325 MG TAB PO ONE (05:00)
[2017-04-01] MEDS ORDERED: ATORVASTATIN 10 MG TAB PO ONE (05:00)
[2017-04-01] MEDS ORDERED: ALBUMIN HUMAN 5% 500 ML IVPB ONE (05:00)
[2017-04-01] MEDS ORDERED: PHENYLEPHRINE 40 MG in SODIUM CHLORIDE 0.9% 250 ML IV ONE (05:00)
[2017-04-01] MEDS ORDERED: AMINOCAPROIC ACID 250 MG/ML 20 ML VIAL IV ONE (05:00)
[2017-04-01] MEDS ORDERED: NITROGLYCERIN SL TABS 0.4 MG TAB SUBLINGUAL ONE (05:00)
[2017-04-01] MEDS ORDERED: DEXTROSE 5% IN WATER 1,000 ML with POTASSIUM CHLORIDE 110 MEQ, MAGNESIUM SULFATE 16 MEQ... IV ONE ×5 (05:00)
[2017-04-01] MEDS ORDERED: ALBUMIN HUMAN 5% 250 ML IVPB ONE (05:00)
[2017-04-01] MEDS ORDERED: ceFAZolin 1,000 MG in SODIUM CHLORIDE 0.9% IRRIGATIO 1,000 ML IRRIGATION ONE (05:00)
[2017-04-01] MEDS ORDERED: MAGNESIUM SULFATE MG 500 MG/ML VIAL IV ONE (05:00)
[2017-04-01] MEDS ORDERED: PHENYLEPHRINE-0.9% NACL SYG 1 MG/10 ML SYRINGE IV ONE (05:00)
[2017-04-01] MEDS ORDERED: NOREPINEPHRIN 4 MG-0.9% NS PMX 4 MG/250 ML ML IV ONE (05:00)
[2017-04-01] MEDS ORDERED: MANNITOL 25% 12.5 GM/50 ML VIAL IV ONE (05:00)
[2017-04-01] MEDS ORDERED: ALBUMIN HUMAN 25% 50 ML IV ONE (05:00)
[2017-04-01] MEDS ORDERED: HEPARIN SODIUM,PORCINE 5,000 UNIT in SODIUM CHLORIDE 0.9% 500 ML IV ONE (05:00)
[2017-04-01] MEDS ORDERED: MUPIROCIN 2% OINT 22 GM TUBE NASAL ONE (05:00)
[2017-04-01] MEDS ORDERED: METOPROLOL TARTRATE 12.5 MG TAB PO ONE (05:00)
[2017-04-01] MEDS ORDERED: HEPARIN SODIUM 1,000 UN/ML (10ML VL) IV ONE (05:00)
[2017-04-01] MEDS ORDERED: DILTIAZEM 125 MG in SODIUM CHLORIDE 0.9% 100 ML IV ONE (05:00)
[2017-04-01] MEDS ORDERED: AMINOCAPROIC ACID 5,000 MG in DEXTROSE 5% IN WATER 50 ML IV ONE ×2 (05:00)
[2017-04-01 12:16] LABS: Glucose,Whole Blood 122 mg/dL (75-99)
[2017-04-01 14:41] LABS: Glucose,Whole Blood 90 mg/dL (75-99)
[2017-04-01 14:52] LABS: Glucose,Whole Blood 112 mg/dL (75-99)
[2017-04-01 16:24] LABS: Glucose,Whole Blood 102 mg/dL (75-99)
[2017-04-01 16:58] LABS: Glucose,Whole Blood 162 mg/dL (75-99)
[2017-04-01] MEDS ORDERED: GELATIN SPONGE,ABSORB (LARGE) 1 EACH SPONGE TOPICAL ONE (17:51)
[2017-04-01] MEDS ORDERED: THROMBIN (BOVINE) 5,000 UNIT VIAL TOPICAL ONE (17:52)
[2017-04-01 18:18] LABS: Glucose,Whole Blood 199 mg/dL (75-99)
[2017-04-01] MEDS ORDERED: PROPOFOL 1,000 MG/100 ML VIAL IV SCH (18:36)
[2017-04-01] MEDS ORDERED: CALCIUM GLUCONATE 2,000 MG in SODIUM CHLORIDE 0.9% 100 ML IVPB PRN (18:36)
[2017-04-01] MEDS ORDERED: Magnesium Replacement Protocol 1 EACH MISC MISCELLANE PRN (18:36)
[2017-04-01] MEDS ORDERED: BENZOCAINE/MENTHOL LOZENG 1 EACH LOZENGE MUCOUS MEM PRN (18:36)
[2017-04-01] MEDS ORDERED: ALBUMIN HUMAN 5% 250 ML in EMPTY BAG 1 BAG IVPB PRN (18:36)
[2017-04-01] MEDS ORDERED: NITROGLYCERIN-D5W PMX 50 MG in DEXTROSE/WATER 1 250ML.BAG IV SCH (18:36)
[2017-04-01] MEDS ORDERED: METOCLOPRAMIDE 5 MG/ML 2 ML VIAL IVP PRN (18:36)
[2017-04-01] MEDS ORDERED: Phosphorus Replacement Protoco 1 EACH MISC MISCELLANE PRN (18:36)
[2017-04-01] MEDS ORDERED: MORPHINE SULFATE 2 MG/ML SYRINGE IVP PRN (18:36)
[2017-04-01] MEDS ORDERED: Potassium Replacement Protocol 1 EACH MISC MISCELLANE PRN (18:36)
[2017-04-01 19:30] LABS: Glucose,Whole Blood 109 mg/dL (75-99)
[2017-04-01 19:41] LABS: Basophils % (A) 0 %; CH 31.1; CHCM 33.2; Eosinophils # (A) 0.1 k/uL (0-0.7); Eosinophils % (A) 1 %; HCT 28.2 % (34.0-46.0); HDW 2.79; Luc # (Auto) 0.07; Luc % (Auto) 1; Lymphocytes # (A) 1.5 k/uL (1.0-4.8); Lymphocytes % (A) 18 %; MCH 31.8 pg (25.0-35.0); MCHC 33.8 g/dL (31.0-37.0); MCV 94.1 fL (80.0-100.0); Mean Platelet Volume 8.9; Monocytes # (A) 0.5 k/uL (0-1.0); Monocytes % (A) 6 %; Neutrophils # (A) 6.3 k/uL (1.3-7.7); Neutrophils % (A) 75 %; RDW 14.6 % (11.5-15.5); WBC 8.5 k/uL (3.8-10.6); WBC (Perox) 8.58
[2017-04-01 19:42] LABS: HGB 9.5 gm/dL (11.4-16.0); Ionized Calcium 4.5 mg/dL (4.5-5.3)
[2017-04-01 19:52] LABS: ALT 33 U/L (9-52); AST 53 U/L (14-36); Alkaline Phosphatase 55 U/L (38-126); Anion Gap 7 mmol/L; Blood Urea Nitrogen 11 mg/dL (7-17); Calcium 7.7 mg/dL (8.4-10.2); Carbon Dioxide 25 mmol/L (22-30); Chloride 107 mmol/L (98-107); Glucose 116 mg/dL (74-99); Magnesium 2.1 mg/dL (1.6-2.3); Non-African American GFR(MDRD) >60 (>60 ml/min/1.73 sqM); Potassium 3.8 mmol/L (3.5-5.1); Sodium 139 mmol/L (137-145); Total Bilirubin 1.6 mg/dL (0.2-1.3); Total Protein 4.4 g/dL (6.3-8.2)
[2017-04-01 19:57] LABS: ABG Base Excess -0.7 mmol/L; ABG HCO3 24 mmol/L (21-25); ABG PCO2 47 mmHg (35-45); ABG PH 7.34 (7.35-7.45); ABG PO2 307 mmHg (83-108); ABG TCO2 26 mmol/L (19-24)
[2017-04-01] MEDS: IPRATROPIUM-ALBUTEROL 3 ML NEB INHALATION SCH ×2 (20:00→23:03)
[2017-04-01] MEDS: LACTATED RINGERS 1,000 ML IV SCH (20:00)
[2017-04-01 20:01] LABS: INR 1.7 (<1.2); Partial Thromboplastin Time 31.2 sec (22.0-30.0)
[2017-04-01] MEDS: MUPIROCIN 2% OINT 22 GM TUBE NASAL SCH (20:02)
--- NOTE | 2017-04-01 20:07 | XR ---
EXAMINATION TYPE: XR chest 1V portable DATE OF EXAM: 04/01/2017 COMPARISON: 02/18/2017 HISTORY: Postoperative cardiac surgery TECHNIQUE: Single frontal view of the chest is obtained. Portable semiupright position. FINDINGS: ET tube tip superimposed over the mid trachea. Right IJ [place] catheter tip superimposed over the RPA. Mediastinal drains are present, left chest tube. Sternal sutures and mediastinal clips and EKG leads and NG tube present. Cardiac silhouette mildly enlarged, similar to the prior study. Radiograph was obtained in the portable semiupright position. The mediastinum is midline. No pneumoth orax or other abnormal gas collections are evident. The lungs appear clear and well expanded bilaterally. IMPRESSION: NO DEFINITE ACUTE PULMONARY OR PLEURAL PROCESS.
[2017-04-01 20:12] LABS: Glucose,Whole Blood 105 mg/dL (75-99)
[2017-04-01 21:07] LABS: Glucose,Whole Blood 106 mg/dL (75-99)
[2017-04-01 22:27] LABS: Glucose,Whole Blood 129 mg/dL (75-99)
[2017-04-01] MEDS: INSULIN REGULAR 100 UNIT in SODIUM CHLORIDE 0.9% 100 ML IV SCH (22:28)
[2017-04-01 22:35] LABS: Basophils % (A) 0 %; CH 31.2; CHCM 33.3; Eosinophils % (A) 1 %; HDW 2.86; HGB 10.2 gm/dL (11.4-16.0); Luc % (Auto) 2; Lymphocytes # (A) 0.8 k/uL (1.0-4.8); Lymphocytes % (A) 13 %; MCH 31.9 pg (25.0-35.0); MCHC 33.9 g/dL (31.0-37.0); MCV 94.1 fL (80.0-100.0); Mean Platelet Volume 7.5; Monocytes # (A) 0.4 k/uL (0-1.0); Monocytes % (A) 7 %; Neutrophils # (A) 4.9 k/uL (1.3-7.7); Neutrophils % (A) 78 %; RBC 3.19 m/uL (3.80-5.40); RDW 14.7 % (11.5-15.5); WBC 6.3 k/uL (3.8-10.6); WBC (Perox) 6.58
[2017-04-01 22:39] LABS: INR 1.4 (<1.2); Partial Thromboplastin Time 30.1 sec (22.0-30.0)
[2017-04-01 22:53] LABS: Ionized Calcium 4.6 mg/dL (4.5-5.3)
[2017-04-01 23:06] LABS: ALT 61 U/L (9-52); AST 100 U/L (14-36); Alkaline Phosphatase 64 U/L (38-126); Anion Gap 8 mmol/L; Blood Urea Nitrogen 12 mg/dL (7-17); Calcium 8.1 mg/dL (8.4-10.2); Carbon Dioxide 23 mmol/L (22-30); Chloride 109 mmol/L (98-107); Glucose 121 mg/dL (74-99); Non-African American GFR(MDRD) >60 (>60 ml/min/1.73 sqM); Potassium 4.2 mmol/L (3.5-5.1); Sodium 140 mmol/L (137-145); Total Bilirubin 2.2 mg/dL (0.2-1.3); Total Protein 4.9 g/dL (6.3-8.2)
[2017-04-01 23:14] LABS: Glucose,Whole Blood 138 mg/dL (75-99)
[2017-04-01] MEDS: ACETAMINOPHEN IV (For NPO) 1,000 MG in EMPTY BAG 1 BAG IVPB SCH (23:52)
[2017-04-01] MEDS: HEPARIN SODIUM,PORCINE 5,000 UNIT/ML 1 ML VIAL SQ SCH (23:52)
[2017-04-02 00:05] LABS: Glucose,Whole Blood 142 mg/dL (75-99)
[2017-04-02] MEDS: ceFAZolin 2 GM in SODIUM CHLORIDE 0.9% 100 ML IVPB SCH ×3 (00:11→16:26)
[2017-04-02 01:10] LABS: Glucose,Whole Blood 150 mg/dL (75-99)
[2017-04-02 01:24] LABS: Ionized Calcium 4.6 mg/dL (4.5-5.3)
[2017-04-02 01:25] LABS: Basophils % (A) 0 %; CH 31.3; CHCM 33.5; Eosinophils % (A) 0 %; HCT 30.5 % (34.0-46.0); HDW 2.87; Luc # (Auto) 0.04; Luc % (Auto) 1; Lymphocytes # (A) 0.5 k/uL (1.0-4.8); Lymphocytes % (A) 9 %; MCHC 32.9 g/dL (31.0-37.0); MCV 94.2 fL (80.0-100.0); Mean Platelet Volume 7.6; Monocytes # (A) 0.3 k/uL (0-1.0); Monocytes % (A) 6 %; Neutrophils # (A) 4.5 k/uL (1.3-7.7); Neutrophils % (A) 85 %; RBC 3.24 m/uL (3.80-5.40); RDW 14.8 % (11.5-15.5); WBC 5.3 k/uL (3.8-10.6); WBC (Perox) 5.56
[2017-04-02 01:26] LABS: INR 1.4 (<1.2); Partial Thromboplastin Time 32.1 sec (22.0-30.0); Prothrombin Time 13.8 sec (9.0-12.0)
[2017-04-02 01:42] LABS: Anion Gap 9 mmol/L; Blood Urea Nitrogen 12 mg/dL (7-17); Calcium 8.2 mg/dL (8.4-10.2); Carbon Dioxide 23 mmol/L (22-30); Chloride 108 mmol/L (98-107); Glucose 144 mg/dL (74-99); Non-African American GFR(MDRD) >60 (>60 ml/min/1.73 sqM); Potassium 4.2 mmol/L (3.5-5.1); Sodium 140 mmol/L (137-145)
[2017-04-02 02:13] LABS: Glucose,Whole Blood 155 mg/dL (75-99)
[2017-04-02] MEDS: IPRATROPIUM-ALBUTEROL 3 ML NEB INHALATION SCH (03:25)
[2017-04-02 03:33] LABS: Glucose,Whole Blood 153 mg/dL (75-99)
[2017-04-02 04:37] LABS: Glucose,Whole Blood 150 mg/dL (75-99)
[2017-04-02 04:43] LABS: ABG Base Excess -0.4 mmol/L; ABG HCO3 24 mmol/L (21-25); ABG PCO2 38 mmHg (35-45); ABG PH 7.41 (7.35-7.45); ABG PO2 110 mmHg (83-108); ABG TCO2 25 mmol/L (19-24)
[2017-04-02 04:44] LABS: Basophils % (A) 0 %; CHCM 33.6; Eosinophils % (A) 0 %; HCT 31.1 % (34.0-46.0); HDW 2.77; Luc # (Auto) 0.05; Luc % (Auto) 1; Lymphocytes # (A) 0.5 k/uL (1.0-4.8); Lymphocytes % (A) 8 %; MCH 30.8 pg (25.0-35.0); MCHC 32.1 g/dL (31.0-37.0); MCV 95.9 fL (80.0-100.0); Mean Platelet Volume 8.6; Monocytes # (A) 0.3 k/uL (0-1.0); Monocytes % (A) 6 %; Neutrophils # (A) 5.1 k/uL (1.3-7.7); Neutrophils % (A) 85 %; RBC 3.24 m/uL (3.80-5.40); RDW 15.2 % (11.5-15.5); WBC (Perox) 5.75
[2017-04-02 04:50] LABS: Ionized Calcium 4.6 mg/dL (4.5-5.3)
[2017-04-02 04:55] LABS: INR 1.4 (<1.2); Partial Thromboplastin Time 27.4 sec (22.0-30.0)
[2017-04-02] MEDS: ACETAMINOPHEN IV (For NPO) 1,000 MG in EMPTY BAG 1 BAG IVPB SCH ×4 (04:58→19:10)
[2017-04-02 05:00] LABS: ALT 78 U/L (9-52); AST 138 U/L (14-36); Alkaline Phosphatase 55 U/L (38-126); Anion Gap 7 mmol/L; Blood Urea Nitrogen 13 mg/dL (7-17); Calcium 8.1 mg/dL (8.4-10.2); Carbon Dioxide 24 mmol/L (22-30); Chloride 108 mmol/L (98-107); Glucose 141 mg/dL (74-99); Magnesium 1.9 mg/dL (1.6-2.3); Non-African American GFR(MDRD) >60 (>60 ml/min/1.73 sqM); Potassium 4.1 mmol/L (3.5-5.1); Sodium 139 mmol/L (137-145); Total Protein 4.9 g/dL (6.3-8.2)
[2017-04-02 05:23] LABS: Glucose,Whole Blood 145 mg/dL (75-99)
[2017-04-02] MEDS: MAGNESIUM SULFATE-D5W PMX 1 GM in DEXTROSE/WATER 1 100ML.BAG IVPB SCH ×2 (05:55→06:35)
[2017-04-02 06:13] LABS: Glucose,Whole Blood 161 mg/dL (75-99)
--- NOTE | 2017-04-02 07:10 | XR ---
EXAMINATION TYPE: XR chest 1V portable DATE OF EXAM: 04/02/2017 CLINICAL HISTORY: Difficulty breathing progress study. Postoperative cardiac surgery TECHNIQUE: Single AP portable upright view of the chest is obtained. COMPARISON: Chest x-ray from one day earlier FINDINGS: There is interval extubation with removal of endotracheal and orogastric tubes. There is p ersistent left-sided chest tube, right internal jugular [place] catheter, sternal wires and mediast inal clips, and cardiac closure device. There is persistent cardiomegaly with mild central vascular congestion. There is persistent bibasilar opacity felt to reflect small effusions and associated bibasilar atelectasis and/or infiltrate. No s izable pneumothorax is seen. Osseous structures are intact. IMPRESSION: Interval extubation. There is cardiomegaly with mild central vascular congestion with sma ll bilateral pleural effusions and associated bibasilar atelectasis and/or infiltrate all redemonstra elham.
[2017-04-02 07:23] LABS: Glucose,Whole Blood 148 mg/dL (75-99)
[2017-04-02] MEDS ORDERED: FUROSEMIDE 10 MG/ML 4 ML VIAL IV STA ×2 (08:02→19:06)
[2017-04-02] MEDS: CLEVIDIPINE BUTYRATE 25 MG in EMPTY BAG 1 BAG IV SCH ×2 (08:03→18:48)
[2017-04-02 08:04] LABS: Glucose,Whole Blood 119 mg/dL (75-99)
[2017-04-02] MEDS: HEPARIN SODIUM,PORCINE 5,000 UNIT/ML 1 ML VIAL SQ SCH ×2 (08:16→16:23)
[2017-04-02] MEDS: ASPIRIN 325 MG TAB PO SCH (08:23)
[2017-04-02] MEDS: METOPROLOL TARTRATE 12.5 MG TAB PO SCH ×2 (08:23→22:16)
[2017-04-02] MEDS: MUPIROCIN 2% OINT 22 GM TUBE NASAL SCH ×2 (08:23→22:16)
--- NOTE | 2017-04-02 08:34 | P.PN ---
Subjective Principal diagnosis: Acute inferior ST elevation NC This is a pleasant 66-year-old gentleman who presented to the hospital for chest discomfort and was diagnosed with acute inferior STEMI. He underwent an emergent heart catheterization and stenting of the RCA. He is asymptomatic from a cardiovascular standpoint of view and denies having any chest pain or discomfort or difficulty breathing. Objective - Vital Signs Vital signs: Vital Signs Temp 98.4 F 04/02/17 07:00 Pulse 87 04/02/17 07:00 Resp 19 04/02/17 07:00 BP 124/56 04/01/17 11:32 Pulse Ox 98 04/02/17 07:17 Intake & Output 04/01/17 04/02/17 04/02/17 18:59 06:59 18:59 Intake Total 1685.410 206.549 Output Total 1350 1289 75 Balance -1350 396.410 131.549 Weight 100.7 kg 106.1 kg Intake: IV 1660.4 190.5 ACETAMINOPHEN IV (For NPO 200 ) 1,000 mg In Empty Bag 1 bag @ 400 mls/hr IVPB Q6HR [facility] Rx#:[id number] CO/CI 0.9 Nomal Saline 390 30 Injectate Lactated Ringers 50ml/hr 600 50 Magnesium Sulfate-D5w Pmx 100 100 1 gm In Dextrose/Water 1 100ml.bag @ 100 mls/hr IVPB Q1H [facility] Rx#: [id number] Nitroglycerine/D5W 5 mcg/ 21.0 1.5 min Normal Saline 500ml for 108 9 pressure bag Phenylephrine (Lopez- 22.6 Synephrine) 40 mg/250 ml Propofol 1000 mg in 100 118.8 ml ceFAZolin 2,000 mg In 100 Sodium Chloride 0.9% 30 ml @ Per Protocol IVPB ONCE ONE Rx#:[id number] Intake, IV Titration 25.010 16.049 Amount Insulin Regular 100 unit 25.010 16.049 In Sodium Chloride 0.9% 100 ml @ Per Protocol IV .Q0M [facility] Rx#:[id number] Output: Chest Tube Drainage 553 40 Chest Tube Left Left 553 40 Pleural/Mediastinal Drainage 30 Left Medial Knee 30 Urine 350 706 35 Estimated Blood Loss 1000 Other: Voiding Method Indwelling Catheter ABP, PAP, CO, CI - Last Documented Arterial Blood Pressure 108/50 Pulmonary Artery Pressure 28/15 Cardiac Output 7.1 Cardiac Index 3.4 - Constitutional General appearance: Present: no acute distress - Respiratory Respiratory: bilateral: CTA - Cardiovascular Rhythm: regular Heart sounds: normal: S1, S2 - Labs CBC & Chem 7: 04/02/17 04:10 04/02/17 04:10 Labs: Abnormal Lab Results - Last 24 Hours (Table) 03/22/17 04/01/17 04/01/17 Range/Units 11:30 11:29 14:51 RBC (3.80-5.40) m/uL Hgb (11.4-16.0) gm/dL Hct (34.0-46.0) % Plt Count (150-450) k/uL Lymphocytes # (1.0-4.8) k/uL PT (9.0-12.0) sec INR (<1.2) APTT (22.0-30.0) sec ABG pH (7.35-7.45) ABG pCO2 (35-45) mmHg ABG pO2 (83-108) mmHg ABG Total CO2 (19-24) mmol/L ABG O2 Saturation (94-97) % Chloride (98-107) mmol/L Glucose (74-99) mg/dL POC Glucose (mg/dL) 122 H 112 H (75-99) mg/dL Calcium (8.4-10.2) mg/dL Total Bilirubin (0.2-1.3) mg/dL AST (14-36) U/L ALT (9-52) U/L Total Protein (6.3-8.2) g/dL Albumin (3.5-5.0) g/dL Crossmatch See Detail 04/01/17 04/01/17 04/01/17 Range/Units 16:11 16:54 18:15 RBC (3.80-5.40) m/uL Hgb (11.4-16.0) gm/dL Hct (34.0-46.0) % Plt Count (150-450) k/uL Lymphocytes # (1.0-4.8) k/uL PT (9.0-12.0) sec INR (<1.2) APTT (22.0-30.0) sec ABG pH (7.35-7.45) ABG pCO2 (35-45) mmHg ABG pO2 (83-108) mmHg ABG Total CO2 (19-24) mmol/L ABG O2 Saturation (94-97) % Chloride (98-107) mmol/L Glucose (74-99) mg/dL POC Glucose (mg/dL) 102 H 162 H 199 H (75-99) mg/dL Calcium (8.4-10.2) mg/dL Total Bilirubin (0.2-1.3) mg/dL AST (14-36) U/L ALT (9-52) U/L Total Protein (6.3-8.2) g/dL Albumin (3.5-5.0) g/dL Crossmatch 04/01/17 04/01/17 04/01/17 Range/Units 19:00 19:00 19:00 RBC 3.00 L (3.80-5.40) m/uL Hgb 9.5 L D (11.4-16.0) gm/dL Hct 28.2 L (34.0-46.0) % Plt Count 94 L (150-450) k/uL Lymphocytes # (1.0-4.8) k/uL PT 16.0 H (9.0-12.0) sec INR 1.7 H (<1.2) APTT 31.2 H (22.0-30.0) sec ABG pH (7.35-7.45) ABG pCO2 (35-45) mmHg ABG pO2 (83-108) mmHg ABG Total CO2 (19-24) mmol/L ABG O2 Saturation (94-97) % Chloride (98-107) mmol/L Glucose 116 H (74-99) mg/dL POC Glucose (mg/dL) (75-99) mg/dL Calcium 7.7 L (8.4-10.2) mg/dL Total Bilirubin 1.6 H (0.2-1.3) mg/dL AST 53 H (14-36) U/L ALT (9-52) U/L Total Protein 4.4 L (6.3-8.2) g/dL Albumin 2.7 L (3.5-5.0) g/dL Crossmatch 04/01/17 04/01/17 04/01/17 Range/Units 19:26 19:40 20:10 RBC (3.80-5.40) m/uL Hgb (11.4-16.0) gm/dL Hct (34.0-46.0) % Plt Count (150-450) k/uL Lymphocytes # (1.0-4.8) k/uL PT (9.0-12.0) sec INR (<1.2) APTT (22.0-30.0) sec ABG pH 7.34 L (7.35-7.45) ABG pCO2 47 H (35-45) mmHg ABG pO2 307 H (83-108) mmHg ABG Total CO2 26 H (19-24) mmol/L ABG O2 Saturation 100.0 H (94-97) % Chloride (98-107) mmol/L Glucose (74-99) mg/dL POC Glucose (mg/dL) 109 H 105 H (75-99) mg/dL Calcium (8.4-10.2) mg/dL Total Bilirubin (0.2-1.3) mg/dL AST (14-36) U/L ALT (9-52) U/L Total Protein (6.3-8.2) g/dL Albumin (3.5-5.0) g/dL Crossmatch 04/01/17 04/01/17 04/01/17 Range/Units 21:05 22:18 22:18 RBC (3.80-5.40) m/uL Hgb (11.4-16.0) gm/dL Hct (34.0-46.0) % Plt Count (150-450) k/uL Lymphocytes # (1.0-4.8) k/uL PT 14.0 H (9.0-12.0) sec INR 1.4 H (<1.2) APTT 30.1 H (22.0-30.0) sec ABG pH (7.35-7.45) ABG pCO2 (35-45) mmHg ABG pO2 (83-108) mmHg ABG Total CO2 (19-24) mmol/L ABG O2 Saturation (94-97) % Chloride 109 H (98-107) mmol/L Glucose 121 H (74-99) mg/dL POC Glucose (mg/dL) 106 H (75-99) mg/dL Calcium 8.1 L (8.4-10.2) mg/dL Total Bilirubin 2.2 H (0.2-1.3) mg/dL AST 100 H (14-36) U/L ALT 61 H (9-52) U/L Total Protein 4.9 L (6.3-8.2) g/dL Albumin 3.1 L (3.5-5.0) g/dL Crossmatch 04/01/17 04/01/17 04/01/17 Range/Units 22:18 22:21 23:12 RBC 3.19 L (3.80-5.40) m/uL Hgb 10.2 L (11.4-16.0) gm/dL Hct 30.0 L (34.0-46.0) % Plt Count 90 L (150-450) k/uL Lymphocytes # 0.8 L (1.0-4.8) k/uL PT (9.0-12.0) sec INR (<1.2) APTT (22.0-30.0) sec ABG pH (7.35-7.45) ABG pCO2 (35-45) mmHg ABG pO2 (83-108) mmHg ABG Total CO2 (19-24) mmol/L ABG O2 Saturation (94-97) % Chloride (98-107) mmol/L Glucose (74-99) mg/dL POC Glucose (mg/dL) 129 H 138 H (75-99) mg/dL Calcium (8.4-10.2) mg/dL Total Bilirubin (0.2-1.3) mg/dL AST (14-36) U/L ALT (9-52) U/L Total Protein (6.3-8.2) g/dL Albumin (3.5-5.0) g/dL Crossmatch 04/02/17 04/02/17 04/02/17 Range/Units 00:03 01:05 01:05 RBC (3.80-5.40) m/uL Hgb (11.4-16.0) gm/dL Hct (34.0-46.0) % Plt Count (150-450) k/uL Lymphocytes # (1.0-4.8) k/uL PT 13.8 H (9.0-12.0) sec INR 1.4 H (<1.2) APTT 32.1 H (22.0-30.0) sec ABG pH (7.35-7.45) ABG pCO2 (35-45) mmHg ABG pO2 (83-108) mmHg ABG Total CO2 (19-24) mmol/L ABG O2 Saturation (94-97) % Chloride 108 H (98-107) mmol/L Glucose 144 H (74-99) mg/dL POC Glucose (mg/dL) 142 H (75-99) mg/dL Calcium 8.2 L (8.4-10.2) mg/dL Total Bilirubin (0.2-1.3) mg/dL AST (14-36) U/L ALT (9-52) U/L Total Protein (6.3-8.2) g/dL Albumin (3.5-5.0) g/dL Crossmatch 04/02/17 04/02/17 04/02/17 Range/Units 01:05 01:08 02:11 RBC 3.24 L (3.80-5.40) m/uL Hgb 10.0 L (11.4-16.0) gm/dL Hct 30.5 L (34.0-46.0) % Plt Count 76 L (150-450) k/uL Lymphocytes # 0.5 L (1.0-4.8) k/uL PT (9.0-12.0) sec INR (<1.2) APTT (22.0-30.0) sec ABG pH (7.35-7.45) ABG pCO2 (35-45) mmHg ABG pO2 (83-108) mmHg ABG Total CO2 (19-24) mmol/L ABG O2 Saturation (94-97) % Chloride (98-107) mmol/L Glucose (74-99) mg/dL POC Glucose (mg/dL) 150 H 155 H (75-99) mg/dL Calcium (8.4-10.2) mg/dL Total Bilirubin (0.2-1.3) mg/dL AST (14-36) U/L ALT (9-52) U/L Total Protein (6.3-8.2) g/dL Albumin (3.5-5.0) g/dL Crossmatch 04/02/17 04/02/17 04/02/17 Range/Units 03:30 04:10 04:10 RBC 3.24 L (3.80-5.40) m/uL Hgb 10.0 L (11.4-16.0) gm/dL Hct 31.1 L (34.0-46.0) % Plt Count 76 L (150-450) k/uL Lymphocytes # 0.5 L (1.0-4.8) k/uL PT (9.0-12.0) sec INR (<1.2) APTT (22.0-30.0) sec ABG pH (7.35-7.45) ABG pCO2 (35-45) mmHg ABG pO2 (83-108) mmHg ABG Total CO2 (19-24) mmol/L ABG O2 Saturation (94-97) % Chloride 108 H (98-107) mmol/L Glucose 141 H (74-99) mg/dL POC Glucose (mg/dL) 153 H (75-99) mg/dL Calcium 8.1 L (8.4-10.2) mg/dL Total Bilirubin 2.0 H (0.2-1.3) mg/dL AST 138 H (14-36) U/L ALT 78 H (9-52) U/L Total Protein 4.9 L (6.3-8.2) g/dL Albumin 2.9 L (3.5-5.0) g/dL Crossmatch 04/02/17 04/02/17 04/02/17 Range/Units 04:10 04:24 04:31 RBC (3.80-5.40) m/uL Hgb (11.4-16.0) gm/dL Hct (34.0-46.0) % Plt Count (150-450) k/uL Lymphocytes # (1.0-4.8) k/uL PT 14.0 H (9.0-12.0) sec INR 1.4 H (<1.2) APTT (22.0-30.0) sec ABG pH (7.35-7.45) ABG pCO2 (35-45) mmHg ABG pO2 110 H (83-108) mmHg ABG Total CO2 25 H (19-24) mmol/L ABG O2 Saturation 98.0 H (94-97) % Chloride (98-107) mmol/L Glucose (74-99) mg/dL POC Glucose (mg/dL) 150 H (75-99) mg/dL Calcium (8.4-10.2) mg/dL Total Bilirubin (0.2-1.3) mg/dL AST (14-36) U/L ALT (9-52) U/L Total Protein (6.3-8.2) g/dL Albumin (3.5-5.0) g/dL Crossmatch 04/02/17 04/02/17 04/02/17 Range/Units 05:21 06:11 07:04 RBC (3.80-5.40) m/uL Hgb (11.4-16.0) gm/dL Hct (34.0-46.0) % Plt Count (150-450) k/uL Lymphocytes # (1.0-4.8) k/uL PT (9.0-12.0) sec INR (<1.2) APTT (22.0-30.0) sec ABG pH (7.35-7.45) ABG pCO2 (35-45) mmHg ABG pO2 (83-108) mmHg ABG Total CO2 (19-24) mmol/L ABG O2 Saturation (94-97) % Chloride (98-107) mmol/L Glucose (74-99) mg/dL POC Glucose (mg/dL) 145 H 161 H 148 H (75-99) mg/dL Calcium (8.4-10.2) mg/dL Total Bilirubin (0.2-1.3) mg/dL AST (14-36) U/L ALT (9-52) U/L Total Protein (6.3-8.2) g/dL Albumin (3.5-5.0) g/dL Crossmatch 04/02/17 Range/Units 08:02 RBC (3.80-5.40) m/uL Hgb (11.4-16.0) gm/dL Hct (34.0-46.0) % Plt Count (150-450) k/uL Lymphocytes # (1.0-4.8) k/uL PT (9.0-12.0) sec INR (<1.2) APTT (22.0-30.0) sec ABG pH (7.35-7.45) ABG pCO2 (35-45) mmHg ABG pO2 (83-108) mmHg ABG Total CO2 (19-24) mmol/L ABG O2 Saturation (94-97) % Chloride (98-107) mmol/L Glucose (74-99) mg/dL POC Glucose (mg/dL) 119 H (75-99) mg/dL Calcium (8.4-10.2) mg/dL Total Bilirubin (0.2-1.3) mg/dL AST (14-36) U/L ALT (9-52) U/L Total Protein (6.3-8.2) g/dL Albumin (3.5-5.0) g/dL Crossmatch Assessment and Plan Plan: This is an acute inferior ST elevation [place] and status post PCI of the RCA. We'll follow-up on the echocardiogram. Continue dual antiplatelet therapy and statin. Follow up with the patient.
--- NOTE | 2017-04-02 08:40 | P.CRDCN ---
History of Present Illness Consult date: 04/02/17 Chief complaint: Status post CABG History of present illness: This is a pleasant 66-year-old female patient who sees Dr. Lindsay on a regular basis was admitted to the hospital yesterday and underwent elective coronary artery that is grafting 2 with WHITAKER to LAD and SVG to diagonal. The patient was extubated earlier this morning. Hemodynamically she continues to be stable. She continues to be in normal sinus mechanism. She continues to make good urine. Past Medical History Past Medical History: Diabetes Mellitus, Hyperlipidemia, Hypertension, Osteoarthritis (OA) Additional Past Medical History / Comment(s): neuropathy lower extremities, SOB w/exertion is improved, hx. elevated liver enzymes, recent problem w/acute low back pain & right leg pain that is much improved-still going to physical therapy History of Any Multi-Drug Resistant Organisms: None Reported Past Surgical History: Heart Catheterization, Orthopedic Surgery Additional Past Surgical History / Comment(s): carpal tunnel release, laser surgery on varicose veins Past Anesthesia/Blood Transfusion Reactions: No Reported Reaction Smoking Status: Former smoker - Past Family History Mother Brother(s) Family Medical History: Cancer Medications and Allergies Home Medications Medication Instructions Recorded Confirmed Type Aspirin EC [Ecotrin Low Dose] 81 mg PO [facility] 01/22/16 04/01/17 History Baclofen [Lioresal] 20 mg PO 01/22/16 04/01/17 History Simvastatin [Zocor] 20 mg PO 01/22/16 04/01/17 History Furosemide [Lasix] 40 mg PO [facility] 01/16/17 04/01/17 History Lisinopril [Zestril] 2.5 mg PO DAILY 01/16/17 04/01/17 History Magnesium Oxide [Magnesium] 250 mg PO [facility] 01/16/17 04/01/17 History Metoprolol Tartrate [Lopressor] 25 mg PO BID 01/16/17 04/01/17 History Multivitamins, Thera [Multivitamin 1 tab PO [facility] 01/16/17 04/01/17 History (formulary)] Potassium Chloride ER [K-Dur 20] 20 meq PO [facility] 01/16/17 04/01/17 History Pramipexole [Mirapex] 0.25 mg PO 01/16/17 04/01/17 History Isosorbide Mononitrate ER [Imdur] 30 mg PO DAILY 01/26/17 04/01/17 History Pioglitazone [Actos] 30 mg PO DAILY 03/25/17 04/01/17 History Allergies Allergy/AdvReac Type Severity Reaction Status Date / Time Penicillins Allergy Unknown Verified 04/01/17 11:41 Childhood Physical Exam Vitals: Vital Signs Temp Pulse Pulse Pulse Pulse Resp BP 04/02/17 07:17 04/02/17 07:00 98.4 F 87 19 04/02/17 06:45 88 21 04/02/17 06:30 89 16 04/02/17 06:15 88 22 04/02/17 06:00 98.4 F 90 22 04/02/17 05:45 90 19 04/02/17 05:30 91 18 04/02/17 05:15 91 18 04/02/17 05:00 98.8 F 92 21 04/02/17 04:45 93 20 04/02/17 04:30 84 20 04/02/17 04:15 89 20 04/02/17 04:00 98.8 F 87 18 04/02/17 03:45 85 16 04/02/17 03:38 87 04/02/17 03:30 81 16 04/02/17 03:25 82 04/02/17 03:15 81 18 04/02/17 03:00 98.8 F 83 86 20 04/02/17 02:45 87 20 04/02/17 02:30 87 20 04/02/17 02:15 86 21 04/02/17 02:00 99.1 F 86 87 19 04/02/17 01:45 87 20 04/02/17 01:30 87 19 04/02/17 01:15 88 20 04/02/17 01:00 99.3 F 91 88 20 04/02/17 00:45 90 19 04/02/17 00:30 89 20 04/02/17 00:15 88 20 04/02/17 00:00 99.3 F 91 88 20 04/01/17 23:45 91 21 04/01/17 23:30 89 21 04/01/17 23:18 86 04/01/17 23:15 85 20 04/01/17 23:03 84 04/01/17 23:00 99.3 F 86 20 04/01/17 22:45 84 21 04/01/17 22:30 99.1 F 84 21 04/01/17 22:15 84 20 04/01/17 22:00 98.8 F 84 18 04/01/17 21:50 83 20 04/01/17 21:40 83 21 04/01/17 21:30 82 20 04/01/17 21:20 81 20 04/01/17 21:10 80 21 04/01/17 21:00 97.8 F 79 20 04/01/17 20:50 79 18 04/01/17 20:40 78 18 04/01/17 20:30 76 20 04/01/17 20:20 75 22 04/01/17 20:13 73 04/01/17 20:10 73 12 04/01/17 20:01 73 04/01/17 20:00 97.5 F L 73 12 04/01/17 19:50 70 12 04/01/17 19:40 69 12 04/01/17 19:30 68 12 04/01/17 19:20 77 12 04/01/17 19:15 95.5 F L 100 12 04/01/17 11:32 98.0 F 67 63 18 124/56 BP Pulse Ox 04/02/17 07:17 98 04/02/17 07:00 98 04/02/17 06:45 95 04/02/17 06:30 98 04/02/17 06:15 96 04/02/17 06:00 98 04/02/17 05:45 98 04/02/17 05:30 97 04/02/17 05:15 98 04/02/17 05:00 99 04/02/17 04:45 97 04/02/17 04:30 98 04/02/17 04:15 99 04/02/17 04:00 98 04/02/17 03:45 98 04/02/17 03:38 04/02/17 03:30 100 04/02/17 03:25 04/02/17 03:15 97 04/02/17 03:00 97 04/02/17 02:45 96 04/02/17 02:30 97 04/02/17 02:15 98 04/02/17 02:00 98 04/02/17 01:45 98 04/02/17 01:30 97 04/02/17 01:15 97 04/02/17 01:00 98 04/02/17 00:45 99 04/02/17 00:30 99 04/02/17 00:15 100 04/02/17 00:00 99 04/01/17 23:45 100 04/01/17 23:30 100 04/01/17 23:18 04/01/17 23:15 100 04/01/17 23:03 04/01/17 23:00 04/01/17 22:45 04/01/17 22:30 100 04/01/17 22:15 100 04/01/17 22:00 04/01/17 21:50 100 04/01/17 21:40 04/01/17 21:30 04/01/17 21:20 100 04/01/17 21:10 100 04/01/17 21:00 04/01/17 20:50 04/01/17 20:40 04/01/17 20:30 04/01/17 20:20 04/01/17 20:13 04/01/17 20:10 04/01/17 20:01 04/01/17 20:00 04/01/17 19:50 04/01/17 19:40 04/01/17 19:30 04/01/17 19:20 04/01/17 19:15 100 04/01/17 11:32 123/57 98 Intake and Output 04/01/17 04/02/17 04/02/17 22:59 06:59 14:59 Intake Total 489.6 1195.810 206.549 Output Total 1938 701 75 Balance -1448.4 494.810 131.549 Intake: IV 489.6 1170.8 190.5 ACETAMINOPHEN IV (For NPO 200 ) 1,000 mg In Empty Bag 1 bag @ 400 mls/hr IVPB Q6HR [facility] Rx#:[id number] CO/CI 0.9 Nomal Saline 150 240 30 Injectate Lactated Ringers 50ml/hr 200 400 50 Magnesium Sulfate-D5w Pmx 100 100 1 gm In Dextrose/Water 1 100ml.bag @ 100 mls/hr IVPB Q1H [facility] Rx#: [id number] Nitroglycerine/D5W 5 mcg/ 9.0 12.0 1.5 min Normal Saline 500ml for 36 72 9 pressure bag Phenylephrine (Lopez- 22.6 Synephrine) 40 mg/250 ml Propofol 1000 mg in 100 72 46.8 ml ceFAZolin 2,000 mg In 100 Sodium Chloride 0.9% 30 ml @ Per Protocol IVPB ONCE ONE Rx#:[id number] Intake, IV Titration 25.010 16.049 Amount Insulin Regular 100 unit 25.010 16.049 In Sodium Chloride 0.9% 100 ml @ Per Protocol IV .Q0M [facility] Rx#:[id number] Output: Chest Tube Drainage 233 320 40 Chest Tube Left Left 233 320 40 Pleural/Mediastinal Drainage 30 Left Medial Knee 30 Urine 705 351 35 Estimated Blood Loss 1000 Other: Voiding Method Indwelling Catheter Indwelling Catheter Weight 100.7 kg 106.1 kg ABP, PAP, CO, CI - Last 8 Hours Arterial Blood Pressure 108/50 Arterial Blood Pressure 90/46 Arterial Blood Pressure 108/46 Arterial Blood Pressure 106/46 Arterial Blood Pressure 104/45 Arterial Blood Pressure 85/43 Arterial Blood Pressure 101/48 Arterial Blood Pressure 123/56 Arterial Blood Pressure 123/52 Arterial Blood Pressure 122/61 Arterial Blood Pressure 96/49 Arterial Blood Pressure 108/52 Arterial Blood Pressure 114/48 Arterial Blood Pressure 117/52 Arterial Blood Pressure 114/52 Arterial Blood Pressure 99/48 Arterial Blood Pressure 116/52 Arterial Blood Pressure 117/55 Arterial Blood Pressure 130/56 Arterial Blood Pressure 131/58 Arterial Blood Pressure 137/59 Arterial Blood Pressure 129/56 Arterial Blood Pressure 123/55 Arterial Blood Pressure 128/58 Arterial Blood Pressure 129/58 Arterial Blood Pressure 122/56 Pulmonary Artery Pressure 28/15 Pulmonary Artery Pressure 30/14 Pulmonary Artery Pressure 31/12 Pulmonary Artery Pressure 30/12 Pulmonary Artery Pressure 31/12 Pulmonary Artery Pressure 30/13 Pulmonary Artery Pressure 34/16 Pulmonary Artery Pressure 34/15 Pulmonary Artery Pressure 34/14 Pulmonary Artery Pressure 33/16 Pulmonary Artery Pressure 30/15 Pulmonary Artery Pressure 33/15 Pulmonary Artery Pressure 35/15 Pulmonary Artery Pressure 33/15 Pulmonary Artery Pressure 30/14 Pulmonary Artery Pressure 34/17 Pulmonary Artery Pressure 34/23 Pulmonary Artery Pressure 39/23 Pulmonary Artery Pressure 39/22 Pulmonary Artery Pressure 40/22 Pulmonary Artery Pressure 40/22 Pulmonary Artery Pressure 40/23 Pulmonary Artery Pressure 39/22 Pulmonary Artery Pressure 40/24 Pulmonary Artery Pressure 46/23 Pulmonary Artery Pressure 44/23 Cardiac Output 7.1 Cardiac Output 5.8 Cardiac Output 6.3 Cardiac Output 6.3 Cardiac Output 6.6 Cardiac Output 7.8 Cardiac Output 7.5 Cardiac Index 3.4 Cardiac Index 2.8 Cardiac Index 3.2 Cardiac Index 3.8 Cardiac Index 3.6 - Constitutional General appearance: no acute distress - Respiratory Respiratory: bilateral: diminished - Cardiovascular Rhythm: regular Heart sounds: normal: S1, S2 Results 04/02/17 04:10 04/02/17 04:10 Cardiac Enzymes 04/01/17 04/01/17 04/02/17 Range/Units 19:00 22:18 04:10 AST 53 H 100 H 138 H (14-36) U/L Coagulation 04/01/17 04/01/17 04/02/17 Range/Units 19:00 22:18 01:05 PT 16.0 H 14.0 H 13.8 H (9.0-12.0) sec APTT 31.2 H 30.1 H 32.1 H (22.0-30.0) sec 04/02/17 Range/Units 04:10 PT 14.0 H (9.0-12.0) sec APTT 27.4 (22.0-30.0) sec CBC 04/01/17 04/01/17 04/02/17 Range/Units 19:00 22:18 01:05 WBC 8.5 6.3 5.3 (3.8-10.6) k/uL RBC 3.00 L 3.19 L 3.24 L (3.80-5.40) m/uL Hgb 9.5 L D 10.2 L 10.0 L (11.4-16.0) gm/dL Hct 28.2 L 30.0 L 30.5 L (34.0-46.0) % Plt Count 94 L 90 L 76 L (150-450) k/uL 04/02/17 Range/Units 04:10 WBC 6.0 (3.8-10.6) k/uL RBC 3.24 L (3.80-5.40) m/uL Hgb 10.0 L (11.4-16.0) gm/dL Hct 31.1 L (34.0-46.0) % Plt Count 76 L (150-450) k/uL Comprehensive Metabolic Panel 04/01/17 04/01/17 04/02/17 Range/Units 19:00 22:18 01:05 Sodium 139 140 140 (137-145) mmol/L Potassium 3.8 4.2 4.2 (3.5-5.1) mmol/L Chloride 107 109 H 108 H (98-107) mmol/L Carbon Dioxide 25 23 23 (22-30) mmol/L BUN 11 12 12 (7-17) mg/dL Creatinine 0.59 0.60 0.60 (0.52-1.04) mg/dL Glucose 116 H 121 H 144 H (74-99) mg/dL Calcium 7.7 L 8.1 L 8.2 L (8.4-10.2) mg/dL AST 53 H 100 H (14-36) U/L ALT 33 61 H (9-52) U/L Alkaline Phosphatase 55 64 (38-126) U/L Total Protein 4.4 L 4.9 L (6.3-8.2) g/dL Albumin 2.7 L 3.1 L (3.5-5.0) g/dL 04/02/17 Range/Units 04:10 Sodium 139 (137-145) mmol/L Potassium 4.1 (3.5-5.1) mmol/L Chloride 108 H (98-107) mmol/L Carbon Dioxide 24 (22-30) mmol/L BUN 13 (7-17) mg/dL Creatinine 0.60 (0.52-1.04) mg/dL Glucose 141 H (74-99) mg/dL Calcium 8.1 L (8.4-10.2) mg/dL AST 138 H (14-36) U/L ALT 78 H (9-52) U/L Alkaline Phosphatase 55 (38-126) U/L Total Protein 4.9 L (6.3-8.2) g/dL Albumin 2.9 L (3.5-5.0) g/dL Current Medications Generic Name Dose Route Start Last Admin Trade Name Freq PRN Reason Stop Dose Admin Hydrocodone Bitart/Acetaminophen 2 each 04/02/17 17:50 Friendship 5-325 PO Q4HR PRN Severe Pain Hydrocodone Bitart/Acetaminophen 1 each 04/02/17 17:50 Friendship 5-325 PO Q4HR PRN Moderate Pain Albuterol/Ipratropium 3 ml 04/02/17 17:51 Duoneb 0.5 Mg-3 Mg/3 Ml Soln INHALATION RT-Q2H PRN Shortness Of Breath Or Wheezing Aspirin 325 mg 04/02/17 09:00 04/02/17 08:23 Aspirin PO 325 mg DAILY [facility] Administration Atorvastatin Calcium 40 mg 04/02/17 17:00 Lipitor PO DAILY [facility] Benzocaine/Menthol 1 each 04/01/17 18:36 Cepacol Lozenge MUCOUS MEM Q2H PRN Sore Throat Bisacodyl 10 mg 04/02/17 17:50 Dulcolax RECTAL DAILY PRN Constipation Clopidogrel Bisulfate 75 mg 04/02/17 18:00 Plavix PO DAILY [facility] Heparin Sodium (Porcine) 5,000 unit 04/02/17 00:00 04/02/17 08:16 Heparin SQ 5,000 unit Q8HR [facility] Administration Acetaminophen 1,000 mg/ IV 100 mls @ 400 mls/hr 04/01/17 19:00 04/02/17 08:20 Solution IVPB 04/02/17 19:01 400 mls/hr Q6HR [facility] Administration Albumin Human 250 ml/ IV 250 mls @ 250 mls/hr 04/01/17 18:36 Solution IVPB 04/03/17 18:37 Q1HR PRN For Volume Calcium Gluconate 2,000 mg/ 120 mls @ 100 mls/hr 04/01/17 18:36 Sodium Chloride IVPB 04/02/17 18:37 ONCE PRN Ionized Calcium less than 4.4 Cefazolin Sodium 2 gm/ Sodium 100 mls @ 100 mls/hr 04/02/17 00:00 04/02/17 08 :07 Chloride IVPB 04/02/17 16:59 100 mls/hr Q8HR [facility] Administration Clevidipine 25 mg/ IV Solution 50 mls @ 2 mls/hr 04/01/17 18:36 04/02/17 08: 03 IV Not Given .Q24H [facility] Protocol 1 MG/HR Insulin Human Regular 100 unit 101 mls @ 0 mls/hr 04/01/17 18:36 04/02/17 08: 10 / Sodium Chloride IV 6 unit/hr .Q0M [facility] 6.06 mls/hr Protocol Titration Per Protocol Lactated Ringer's 1,000 mls @ 20 mls/hr 04/01/17 18:36 04/01/17 20:00 Lactated Ringers IV 50 mls/hr .Q24H [facility] Administration Magnesium Hydroxide 2,400 mg 04/02/17 17:50 Milk Of Magnesia PO BID PRN Constipation Metoclopramide HCl 10 mg 04/01/17 18:36 Reglan IVP Q4H PRN Nausea And Vomiting Metoprolol Tartrate 12.5 mg 04/02/17 09:00 04/02/17 08:23 Lopressor PO 12.5 mg BID [facility] Administration Miscellaneous Information 1 each 04/01/17 18:36 Magnesium Per Protocol MISCELLANE DAILY PRN Per Protocol Protocol Miscellaneous Information 1 each 04/01/17 18:36 Phosphorus Per Protocol MISCELLANE DAILY PRN Per Protocol Protocol Miscellaneous Information 1 each 04/01/17 18:36 Potassium Per Protocol MISCELLANE DAILY PRN Per Protocol Protocol Morphine Sulfate 2 mg 04/01/17 18:36 04/02/17 03:16 Morphine Sulfate (Inj) IVP 2 mg Q2H PRN Administration Severe Pain Mupirocin 1 applic 04/01/17 21:00 04/02/17 08:23 Bactroban Oint NASAL 04/04/17 21:01 1 applic BID [facility] Administration Ondansetron HCl 4 mg 04/01/17 18:36 Zofran IVP Q6HR PRN Nausea And Vomiting Oxycodone HCl 10 mg 04/01/17 18:36 Oxyir PO 04/02/17 18:37 Q4H PRN Severe Pain Oxycodone HCl 5 mg 04/01/17 18:36 Oxyir PO 04/02/17 18:37 Q4H PRN Moderate Pain Pantoprazole Sodium 40 mg 04/02/17 09:00 04/02/17 08:09 Protonix IVP 40 mg DAILY [facility] Administration Senna/Docusate Sodium 2 each 04/02/17 21:00 Senokot-S PO HS [facility] Sodium Chloride 10 ml 04/01/17 21:00 04/02/17 08:23 Saline Flush IV 10 ml BID [facility] Administration Intake and Output 04/01/17 04/02/17 04/02/17 22:59 06:59 14:59 Intake Total 489.6 1195.810 206.549 Output Total 1938 701 75 Balance -1448.4 494.810 131.549 Intake: IV 489.6 1170.8 190.5 ACETAMINOPHEN IV (For NPO 200 ) 1,000 mg In Empty Bag 1 bag @ 400 mls/hr IVPB Q6HR [facility] Rx#:[id number] CO/CI 0.9 Nomal Saline 150 240 30 Injectate Lactated Ringers 50ml/hr 200 400 50 Magnesium Sulfate-D5w Pmx 100 100 1 gm In Dextrose/Water 1 100ml.bag @ 100 mls/hr IVPB Q1H [facility] Rx#: [id number] Nitroglycerine/D5W 5 mcg/ 9.0 12.0 1.5 min Normal Saline 500ml for 36 72 9 pressure bag Phenylephrine (Lopez- 22.6 Synephrine) 40 mg/250 ml Propofol 1000 mg in 100 72 46.8 ml ceFAZolin 2,000 mg In 100 Sodium Chloride 0.9% 30 ml @ Per Protocol IVPB ONCE ONE Rx#:[id number] Intake, IV Titration 25.010 16.049 Amount Insulin Regular 100 unit 25.010 16.049 In Sodium Chloride 0.9% 100 ml @ Per Protocol IV .Q0M [facility] Rx#:[id number] Output: Chest Tube Drainage 233 320 40 Chest Tube Left Left 233 320 40 Pleural/Mediastinal Drainage 30 Left Medial Knee 30 Urine 705 351 35 Estimated Blood Loss 1000 Other: Voiding Method Indwelling Catheter Indwelling Catheter Weight 100.7 kg 106.1 kg 04/02/17 04:10 04/02/17 04:10 Assessment and Plan Plan: This is a pleasant 66-year-old female patient who is status post CABG 2 as described above. I will continue the current medical treatment was dual antiplatelet therapy, beta roz, and statin. Continue follow-up with the patient.
[2017-04-02] MEDS ORDERED: PANTOPRAZOLE 40 MG/10 ML VIAL IVP SCH (09:00)
[2017-04-02 09:08] LABS: Glucose,Whole Blood 105 mg/dL (75-99)
[2017-04-02] MEDS: ONDANSETRON 4 MG/2 ML VIAL IVP PRN ×2 (09:57→16:23)
[2017-04-02 10:02] LABS: Glucose,Whole Blood 110 mg/dL (75-99)
[2017-04-02 10:41] VITALS: BMI 38.9
[2017-04-02 11:15] LABS: Glucose,Whole Blood 137 mg/dL (75-99)
[2017-04-02 12:11] LABS: Glucose,Whole Blood 128 mg/dL (75-99)
[2017-04-02 13:07] LABS: Glucose,Whole Blood 134 mg/dL (75-99)
[2017-04-02 14:12] LABS: Glucose,Whole Blood 125 mg/dL (75-99)
--- NOTE | 2017-04-02 14:37 | P.CNPUL ---
History of Present Illness Consult date: 04/02/17 Chief complaint: Ventilator management, post bypass surgery History of present illness: A 66-year-old female patient who was worked up for coronary artery disease on outpatient basis and the patient was found to have a positive stress test and based on that a cardiac catheterization was done and the patient was found to have 90-95% ostial stenosis, diffuse disease involving the LAD. Left ventricle ejection fraction was around 65-70%. Based on that the patient was referred to cardiac revascularization surgery. Surgery was done yesterday by Dr. Wolf and the patient had WHITAKER to LAD and saphenous vein graft to diagonal. The patient was brought into the intensive care unit and a hemodynamically stable condition. She was on an assist-control mode of ventilation. The necessary vent changes were done and overnight the patient was gradually weaned off the mechanical ventilator and spoke to his breathing trial was done and around 400 AM this morning the patient was extubated and currently she is on oxygen 2 L/m nasal cannula with a pulse ox of 96%. The chest x-ray from this morning is showing cardiomegaly with mild central vascular congestion and small pleural effusions and bibasilar atelectatic changes. The patient has a mediastinal and left pleural chest tube and the chest tube has drained around 310 mL since early this morning. The patient is using incentive spirometer. She has no pain issues. No other complaints otherwise for now. The patient was taken off nitroglycerin drip. The [facility] catheter was also pulled out this morning. Review of Systems 12 point review of system was done and the positive findings are almost above in history of present illness. She has postsurgical chest wall pain at this point which is well-controlled and the pain is around 3 out of 10 in severity. No history of any cough or sputum production. No hemoptysis. No pleurisy. No change in mental status. No focal logical deficits. No nausea. No vomiting. No abdominal pain. No abdominal distention. Past Medical History Past Medical History: Diabetes Mellitus, Hyperlipidemia, Hypertension, Osteoarthritis (OA) Additional Past Medical History / Comment(s): Coronary artery disease, neuropathy lower extremities, low back pain & right leg pain , diabetes mellitus , hypertension, hyperlipidemia History of Any Multi-Drug Resistant Organisms: None Reported Past Surgical History: Heart Catheterization, Orthopedic Surgery Additional Past Surgical History / Comment(s): carpal tunnel release, laser surgery on varicose veins Past Anesthesia/Blood Transfusion Reactions: No Reported Reaction Smoking Status: Former smoker - Past Family History Mother Brother(s) Family Medical History: Cancer Medications and Allergies Home Medications Medication Instructions Recorded Confirmed Type Aspirin EC [Ecotrin Low Dose] 81 mg PO [facility] 01/22/16 04/01/17 History Baclofen [Lioresal] 20 mg PO 01/22/16 04/01/17 History Simvastatin [Zocor] 20 mg PO HS 01/22/16 04/01/17 History Furosemide [Lasix] 40 mg PO [facility] 01/16/17 04/01/17 History Lisinopril [Zestril] 2.5 mg PO DAILY 01/16/17 04/01/17 History Magnesium Oxide [Magnesium] 250 mg PO [facility] 01/16/17 04/01/17 History Metoprolol Tartrate [Lopressor] 25 mg PO BID 01/16/17 04/01/17 History Multivitamins, Thera [Multivitamin 1 tab PO [facility] 01/16/17 04/01/17 History (formulary)] Potassium Chloride ER [K-Dur 20] 20 meq PO [facility] 01/16/17 04/01/17 History Pramipexole [Mirapex] 0.25 mg PO 01/16/17 04/01/17 History Isosorbide Mononitrate ER [Imdur] 30 mg PO DAILY 01/26/17 04/01/17 History Pioglitazone [Actos] 30 mg PO DAILY 03/25/17 04/01/17 History Allergies Allergy/AdvReac Type Severity Reaction Status Date / Time Penicillins Allergy Unknown Verified 04/01/17 11:41 Childhood Physical Exam Vitals: Vital Signs Temp Pulse Pulse Pulse Resp Pulse Ox 04/02/17 14:00 76 15 96 04/02/17 13:00 77 14 97 04/02/17 12:00 77 14 98 04/02/17 11:00 76 12 99 04/02/17 10:30 76 19 98 04/02/17 10:00 77 25 H 97 04/02/17 09:30 75 22 04/02/17 09:00 98.2 F 79 18 97 04/02/17 08:30 98.2 F 88 19 98 04/02/17 08:00 98.2 F 90 19 99 08/11/17 07:30 91 7 L 84 L 04/02/17 07:17 98 04/02/17 07:00 98.4 F 87 19 98 04/02/17 06:45 88 21 95 04/02/17 06:30 89 16 98 04/02/17 06:15 88 22 96 04/02/17 06:00 98.4 F 90 22 98 04/02/17 05:45 90 19 98 04/02/17 05:30 91 18 97 04/02/17 05:15 91 18 98 04/02/17 05:00 98.8 F 92 21 99 04/02/17 04:45 93 20 97 04/02/17 04:30 84 20 98 04/02/17 04:15 89 20 99 04/02/17 04:00 98.8 F 87 18 98 04/02/17 03:45 85 16 98 04/02/17 03:38 87 04/02/17 03:30 81 16 100 04/02/17 03:25 82 04/02/17 03:15 81 18 97 04/02/17 03:00 98.8 F 83 86 20 97 04/02/17 02:45 87 20 96 04/02/17 02:30 87 20 97 04/02/17 02:15 86 21 98 04/02/17 02:00 99.1 F 86 87 19 98 04/02/17 01:45 87 20 98 04/02/17 01:30 87 19 97 04/02/17 01:15 88 20 97 04/02/17 01:00 99.3 F 91 88 20 98 04/02/17 00:45 90 19 99 04/02/17 00:30 89 20 99 04/02/17 00:15 88 20 100 04/02/17 00:00 99.3 F 91 88 20 99 04/01/17 23:45 91 21 100 04/01/17 23:30 89 21 100 04/01/17 23:18 86 04/01/17 23:15 85 20 100 04/01/17 23:03 84 04/01/17 23:00 99.3 F 86 20 100 04/01/17 22:45 84 21 100 04/01/17 22:30 99.1 F 84 21 100 04/01/17 22:15 84 20 100 04/01/17 22:00 98.8 F 84 18 100 04/01/17 21:50 83 20 100 04/01/17 21:40 83 21 100 04/01/17 21:30 82 20 100 04/01/17 21:20 81 20 100 04/01/17 21:10 80 21 100 04/01/17 21:00 97.8 F 79 20 100 04/01/17 20:50 79 18 100 04/01/17 20:40 78 18 100 04/01/17 20:30 76 20 100 04/01/17 20:20 75 22 100 04/01/17 20:13 73 04/01/17 20:10 73 12 100 04/01/17 20:01 73 04/01/17 20:00 97.5 F L 73 12 100 04/01/17 19:50 70 12 100 04/01/17 19:40 69 12 100 04/01/17 19:30 68 12 100 04/01/17 19:20 77 12 100 04/01/17 19:15 95.5 F L 100 12 100 Intake and Output 04/01/17 04/02/17 04/02/17 22:59 06:59 14:59 Intake Total 489.6 1195.810 692.448 Output Total 1938 701 853 Balance -1448.4 494.810 -160.552 Intake: IV 489.6 1170.8 652.5 ACETAMINOPHEN IV (For NPO 200 100 ) 1,000 mg In Empty Bag 1 bag @ 400 mls/hr IVPB Q6HR [facility] Rx#:[id number] CO/CI 0.9 Nomal Saline 150 240 50 Injectate Lactated Ringers 50ml/hr 200 400 250 Magnesium Sulfate-D5w Pmx 100 100 1 gm In Dextrose/Water 1 100ml.bag @ 100 mls/hr IVPB Q1H [facility] Rx#: [id number] Nitroglycerine/D5W 5 mcg/ 9.0 12.0 1.5 min Normal Saline 500ml for 36 72 51 pressure bag Phenylephrine (Lopez- 22.6 Synephrine) 40 mg/250 ml Propofol 1000 mg in 100 72 46.8 ml ceFAZolin 2,000 mg In 100 100 Sodium Chloride 0.9% 30 ml @ Per Protocol IVPB ONCE ONE Rx#:[id number] Intake, IV Titration 25.010 39.948 Amount Insulin Regular 100 unit 25.010 39.948 In Sodium Chloride 0.9% 100 ml @ Per Protocol IV .Q0M [facility] Rx#:[id number] Output: Chest Tube Drainage 233 320 310 Chest Tube Left Left 233 320 310 Pleural/Mediastinal Drainage 30 Left Medial Knee 30 Urine 705 351 543 Estimated Blood Loss 1000 Other: Voiding Method Indwelling Catheter Indwelling Catheter Indwelling Catheter Weight 100.7 kg 106.1 kg 106.1 kg Patient Weight 04/03/17 06:59 Weight 106.1 kg ABP, PAP, CO, CI - Last 8 Hours Arterial Blood Pressure 101/45 Arterial Blood Pressure 101/39 Arterial Blood Pressure 101/42 Arterial Blood Pressure 96/45 Arterial Blood Pressure 98/45 Arterial Blood Pressure 102/47 Arterial Blood Pressure 99/45 Arterial Blood Pressure 123/56 Arterial Blood Pressure 124/47 Arterial Blood Pressure 113/53 Arterial Blood Pressure 98/51 Arterial Blood Pressure 108/50 Arterial Blood Pressure 90/46 Arterial Blood Pressure 108/46 Pulmonary Artery Pressure 34/16 Pulmonary Artery Pressure 31/14 Pulmonary Artery Pressure 29/15 Pulmonary Artery Pressure 29/14 Pulmonary Artery Pressure 28/15 Pulmonary Artery Pressure 30/14 Pulmonary Artery Pressure 31/12 Cardiac Output 5.5 Cardiac Output 5.5 Cardiac Output 5.5 Cardiac Output 5.5 Cardiac Output 5.5 Cardiac Output 5.5 Cardiac Output 5.5 Cardiac Output 7.3 Cardiac Output 7.3 Cardiac Output 7.3 Cardiac Output 7.1 Cardiac Index 2.7 Cardiac Index 3.5 Head exam was generally normal. There was no scleral icterus or corneal arcus. Mucous membranes were moist.Neck was supple and without jugular venous distension, thyromegaly, or carotid bruits. Carotids were easily palpable bilaterally. There was no adenopathy. There is a right IJ Cordis in place. No neck stiffness. No goiter or neck masses. Lungs sounds are diminished bilaterally and the patient has a mediastinal and left pleural chest tube. Sternum stable clean and intact.Cardiac exam revealed the PMI to be normally situated and sized. The rhythm was regular and no extrasystoles were noted during several minutes of auscultation. The first and second heart sounds were normal and physiologic splitting of the second heart sound was noted. There were no murmurs, rubs, clicks, or gallops.Abdominal exam revealed normal bowel sounds. The abdomen was soft, non-tender, and without masses, organomegaly, or appreciable enlargement of the abdominal aorta.Examination of the extremities revealed easily palpable radial, femoral and pedal pulses. There was no cyanosis , clubbing or edema. Results - Laboratory Findings CBC and BMP: 04/02/17 04:10 04/02/17 13:07 ABG ABG pH 7.41 (7.35-7.45) 04/02/17 04:31 ABG pCO2 38 mmHg (35-45) 04/02/17 04:31 ABG pO2 110 mmHg (83-108) H 04/02/17 04:31 ABG O2 Saturation 98.0 % (94-97) H 04/02/17 04:31 PT/INR, D-dimer PT 14.0 sec (9.0-12.0) H 04/02/17 04:10 INR 1.4 (<1.2) H 04/02/17 04:10 Abnormal lab findings: Abnormal Labs 03/22/17 04/01/17 04/01/17 11:30 11:29 14:51 RBC Hgb Hct Plt Count Lymphocytes # PT INR APTT ABG pH ABG pCO2 ABG pO2 ABG Total CO2 ABG O2 Saturation Chloride Glucose POC Glucose (mg/dL) 122 H 112 H Calcium Total Bilirubin AST ALT Total Protein Albumin Crossmatch See Detail 04/01/17 04/01/17 04/01/17 16:11 16:54 18:15 RBC Hgb Hct Plt Count Lymphocytes # PT INR APTT ABG pH ABG pCO2 ABG pO2 ABG Total CO2 ABG O2 Saturation Chloride Glucose POC Glucose (mg/dL) 102 H 162 H 199 H Calcium Total Bilirubin AST ALT Total Protein Albumin Crossmatch 04/01/17 04/01/17 04/01/17 19:00 19:00 19:00 RBC 3.00 L Hgb 9.5 L D Hct 28.2 L Plt Count 94 L Lymphocytes # PT 16.0 H INR 1.7 H APTT 31.2 H ABG pH ABG pCO2 ABG pO2 ABG Total CO2 ABG O2 Saturation Chloride Glucose 116 H POC Glucose (mg/dL) Calcium 7.7 L Total Bilirubin 1.6 H AST 53 H ALT Total Protein 4.4 L Albumin 2.7 L Crossmatch 04/01/17 04/01/17 04/01/17 19:26 19:40 20:10 RBC Hgb Hct Plt Count Lymphocytes # PT INR APTT ABG pH 7.34 L ABG pCO2 47 H ABG pO2 307 H ABG Total CO2 26 H ABG O2 Saturation 100.0 H Chloride Glucose POC Glucose (mg/dL) 109 H 105 H Calcium Total Bilirubin AST ALT Total Protein Albumin Crossmatch 04/01/17 04/01/17 04/01/17 21:05 22:18 22:18 RBC Hgb Hct Plt Count Lymphocytes # PT 14.0 H INR 1.4 H APTT 30.1 H ABG pH ABG pCO2 ABG pO2 ABG Total CO2 ABG O2 Saturation Chloride 109 H Glucose 121 H POC Glucose (mg/dL) 106 H Calcium 8.1 L Total Bilirubin 2.2 H AST 100 H ALT 61 H Total Protein 4.9 L Albumin 3.1 L Crossmatch 04/01/17 04/01/17 04/01/17 22:18 22:21 23:12 RBC 3.19 L Hgb 10.2 L Hct 30.0 L Plt Count 90 L Lymphocytes # 0.8 L PT INR APTT ABG pH ABG pCO2 ABG pO2 ABG Total CO2 ABG O2 Saturation Chloride Glucose POC Glucose (mg/dL) 129 H 138 H Calcium Total Bilirubin AST ALT Total Protein Albumin Crossmatch 04/02/17 04/02/17 04/02/17 00:03 01:05 01:05 RBC Hgb Hct Plt Count Lymphocytes # PT 13.8 H INR 1.4 H APTT 32.1 H ABG pH ABG pCO2 ABG pO2 ABG Total CO2 ABG O2 Saturation Chloride 108 H Glucose 144 H POC Glucose (mg/dL) 142 H Calcium 8.2 L Total Bilirubin AST ALT Total Protein Albumin Crossmatch 04/02/17 04/02/17 04/02/17 01:05 01:08 02:11 RBC 3.24 L Hgb 10.0 L Hct 30.5 L Plt Count 76 L Lymphocytes # 0.5 L PT INR APTT ABG pH ABG pCO2 ABG pO2 ABG Total CO2 ABG O2 Saturation Chloride Glucose POC Glucose (mg/dL) 150 H 155 H Calcium Total Bilirubin AST ALT Total Protein Albumin Crossmatch 04/02/17 04/02/17 04/02/17 03:30 04:10 04:10 RBC 3.24 L Hgb 10.0 L Hct 31.1 L Plt Count 76 L Lymphocytes # 0.5 L PT INR APTT ABG pH ABG pCO2 ABG pO2 ABG Total CO2 ABG O2 Saturation Chloride 108 H Glucose 141 H POC Glucose (mg/dL) 153 H Calcium 8.1 L Total Bilirubin 2.0 H AST 138 H ALT 78 H Total Protein 4.9 L Albumin 2.9 L Crossmatch 04/02/17 04/02/17 04/02/17 04:10 04:24 04:31 RBC Hgb Hct Plt Count Lymphocytes # PT 14.0 H INR 1.4 H APTT ABG pH ABG pCO2 ABG pO2 110 H ABG Total CO2 25 H ABG O2 Saturation 98.0 H Chloride Glucose POC Glucose (mg/dL) 150 H Calcium Total Bilirubin AST ALT Total Protein Albumin Crossmatch 04/02/17 04/02/17 04/02/17 05:21 06:11 07:04 RBC Hgb Hct Plt Count Lymphocytes # PT INR APTT ABG pH ABG pCO2 ABG pO2 ABG Total CO2 ABG O2 Saturation Chloride Glucose POC Glucose (mg/dL) 145 H 161 H 148 H Calcium Total Bilirubin AST ALT Total Protein Albumin Crossmatch 04/02/17 04/02/17 04/02/17 08:02 09:05 10:00 RBC Hgb Hct Plt Count Lymphocytes # PT INR APTT ABG pH ABG pCO2 ABG pO2 ABG Total CO2 ABG O2 Saturation Chloride Glucose POC Glucose (mg/dL) 119 H 105 H 110 H Calcium Total Bilirubin AST ALT Total Protein Albumin Crossmatch 04/02/17 04/02/17 04/02/17 11:13 12:09 13:03 RBC Hgb Hct Plt Count Lymphocytes # PT INR APTT ABG pH ABG pCO2 ABG pO2 ABG Total CO2 ABG O2 Saturation Chloride Glucose POC Glucose (mg/dL) 137 H 128 H 134 H Calcium Total Bilirubin AST ALT Total Protein Albumin Crossmatch 04/02/17 14:11 RBC Hgb Hct Plt Count Lymphocytes # PT INR APTT ABG pH ABG pCO2 ABG pO2 ABG Total CO2 ABG O2 Saturation Chloride Glucose POC Glucose (mg/dL) 125 H Calcium Total Bilirubin AST ALT Total Protein Albumin Crossmatch - Diagnostic Findings Chest x-ray: image reviewed Assessment and Plan Plan: Assessment 1 coronary artery bypass surgery, two-vessel bypass, postop day #1. Patient was weaned off the mechanical ventilator and the patient was extubated without any major difficulties. Currently on 2 L of oxygen nasal cannula. Chest tubes are still in place and the patient is a mediastinal and the left pleural chest tube. Hemodynamically stable. 2 diabetes mellitus, still on insulin drip for blood sugar control 3 hyperlipidemia 4 hypertension 5 chronic back pain 6 neuropathy. Plan Encouraged use of incentive spirometer. Discontinue nitroglycerin drip. Monitor the output from the chest tubes. Insulin drip for blood sugar control. Advance diet as tolerated. Adequate pain control. Aspirin, Plavix, metoprolol, Lipitor, and we'll continue to follow. The patient be To follow 24 hours.
[2017-04-02] MEDS: POTASSIUM CHLORIDE 10 MEQ in WATER FOR INJECTION 1 100ML.BAG IVPB SCH ×2 (14:46→16:23)
--- NOTE | 2017-04-02 15:06 | P.PN ---
Subjective Principal diagnosis: Symptomatic multivessel coronary artery disease. Type 2 diabetes mellitus. Hyperlipidemia. Hypertension. Osteoarthritis. Neuropathy. Varicose veins with laser surgery. Previous tobacco dependence. POD #1 elective coronary artery bypass graft surgery, left internal mammary artery to the left anterior descending artery, reverse saphenous vein graft from the aorta to the diagonal artery. Exclusion of the left atrial appendage with AtriClip. Intraoperative transesophageal echocardiogram. Patient's currently sitting up in chair in no acute distress. Was extubated this morning. Denies pain, shortness of breath. Objective - Vital Signs Vital signs: Vital Signs Temp 98.2 F 04/02/17 09:00 Pulse 77 04/02/17 12:00 Resp 16 04/02/17 12:00 BP 124/56 04/01/17 11:32 Pulse Ox 98 04/02/17 12:00 Intake & Output 04/01/17 04/02/17 04/02/17 18:59 06:59 18:59 Intake Total 1685.410 634.126 Output Total 1350 1289 793 Balance -1350 396.410 -158.874 Weight 100.7 kg 106.1 kg 106.1 kg Intake: IV 1660.4 606.5 ACETAMINOPHEN IV (For NPO 200 100 ) 1,000 mg In Empty Bag 1 bag @ 400 mls/hr IVPB Q6HR KIKE Rx#:[id number] CO/CI 0.9 Nomal Saline 390 50 Injectate Lactated Ringers 50ml/hr 600 210 Magnesium Sulfate-D5w Pmx 100 100 1 gm In Dextrose/Water 1 100ml.bag @ 100 mls/hr IVPB Q1H KIKE Rx#: [id number] Nitroglycerine/D5W 5 mcg/ 21.0 1.5 min Normal Saline 500ml for 108 45 pressure bag Phenylephrine (Lopez- 22.6 Synephrine) 40 mg/250 ml Propofol 1000 mg in 100 118.8 ml ceFAZolin 2,000 mg In 100 100 Sodium Chloride 0.9% 30 ml @ Per Protocol IVPB ONCE ONE Rx#:[id number] Intake, IV Titration 25.010 27.626 Amount Insulin Regular 100 unit 25.010 27.626 In Sodium Chloride 0.9% 100 ml @ Per Protocol IV .Q0M KIKE Rx#:[id number] Output: Chest Tube Drainage 553 300 Chest Tube Left Left 553 300 Pleural/Mediastinal Drainage 30 Left Medial Knee 30 Urine 350 706 493 Estimated Blood Loss 1000 Other: Voiding Method Indwelling Catheter Indwelling Catheter ABP, PAP, CO, CI - Last Documented Arterial Blood Pressure 101/42 Pulmonary Artery Pressure 34/16 Cardiac Output 5.5 Cardiac Index 2.7 - Constitutional General appearance: Present: cooperative, no acute distress, obese - Respiratory Details: Lungs sounds diminished bilaterally. Respirations even, nonlabored. Currently on 2 L nasal cannula with oxygen saturation 96%. Able to achieve 750 mL on her incentive spirometry. Left pleural/mediastinal chest tube to -20 cm wall suction, 280 mL serosanguineous drainage overnight, 600 mL since surgery. - Cardiovascular Details: S1, S2 present. Regular rate and rhythm, normal sinus rhythm on telemetry. Sternum stable. A/V epicardial pacemaker wires present. No edema present. Palpable pulses bilaterally. Left radial arterial line, right internal jugular Cordis present. Teds/SCDs present. - Gastrointestinal Gastrointestinal Comment(s): Abdomen soft, nontender, nondistended. Active bowel sounds 4 quadrants. Tolerating diet. - Genitourinary Genitourinary Comment(s): Cota present draining clear, yellow urine. IV Lasix given this morning with excellent diuresis. - Neurologic Neurologic: Present: CNII-XII intact - Musculoskeletal Musculoskeletal: Present: gait normal, strength equal bilaterally - Psychiatric Psychiatric: Present: A&O x's 3, appropriate affect, intact judgment & insight - Allied health notes Allied health notes reviewed: nursing - Labs CBC & Chem 7: 04/02/17 04:10 04/02/17 13:07 Labs: Abnormal Lab Results - Last 24 Hours (Table) 03/22/17 04/01/17 04/01/17 Range/Units 11:30 14:51 16:11 RBC (3.80-5.40) m/uL Hgb (11.4-16.0) gm/dL Hct (34.0-46.0) % Plt Count (150-450) k/uL Lymphocytes # (1.0-4.8) k/uL PT (9.0-12.0) sec INR (<1.2) APTT (22.0-30.0) sec ABG pH (7.35-7.45) ABG pCO2 (35-45) mmHg ABG pO2 (83-108) mmHg ABG Total CO2 (19-24) mmol/L ABG O2 Saturation (94-97) % Chloride (98-107) mmol/L Glucose (74-99) mg/dL POC Glucose (mg/dL) 112 H 102 H (75-99) mg/dL Calcium (8.4-10.2) mg/dL Total Bilirubin (0.2-1.3) mg/dL AST (14-36) U/L ALT (9-52) U/L Total Protein (6.3-8.2) g/dL Albumin (3.5-5.0) g/dL Crossmatch See Detail 04/01/17 04/01/17 04/01/17 Range/Units 16:54 18:15 19:00 RBC 3.00 L (3.80-5.40) m/uL Hgb 9.5 L D (11.4-16.0) gm/dL Hct 28.2 L (34.0-46.0) % Plt Count 94 L (150-450) k/uL Lymphocytes # (1.0-4.8) k/uL PT (9.0-12.0) sec INR (<1.2) APTT (22.0-30.0) sec ABG pH (7.35-7.45) ABG pCO2 (35-45) mmHg ABG pO2 (83-108) mmHg ABG Total CO2 (19-24) mmol/L ABG O2 Saturation (94-97) % Chloride (98-107) mmol/L Glucose (74-99) mg/dL POC Glucose (mg/dL) 162 H 199 H (75-99) mg/dL Calcium (8.4-10.2) mg/dL Total Bilirubin (0.2-1.3) mg/dL AST (14-36) U/L ALT (9-52) U/L Total Protein (6.3-8.2) g/dL Albumin (3.5-5.0) g/dL Crossmatch 04/01/17 04/01/17 04/01/17 Range/Units 19:00 19:00 19:26 RBC (3.80-5.40) m/uL Hgb (11.4-16.0) gm/dL Hct (34.0-46.0) % Plt Count (150-450) k/uL Lymphocytes # (1.0-4.8) k/uL PT 16.0 H (9.0-12.0) sec INR 1.7 H (<1.2) APTT 31.2 H (22.0-30.0) sec ABG pH (7.35-7.45) ABG pCO2 (35-45) mmHg ABG pO2 (83-108) mmHg ABG Total CO2 (19-24) mmol/L ABG O2 Saturation (94-97) % Chloride (98-107) mmol/L Glucose 116 H (74-99) mg/dL POC Glucose (mg/dL) 109 H (75-99) mg/dL Calcium 7.7 L (8.4-10.2) mg/dL Total Bilirubin 1.6 H (0.2-1.3) mg/dL AST 53 H (14-36) U/L ALT (9-52) U/L Total Protein 4.4 L (6.3-8.2) g/dL Albumin 2.7 L (3.5-5.0) g/dL Crossmatch 04/01/17 04/01/17 04/01/17 Range/Units 19:40 20:10 21:05 RBC (3.80-5.40) m/uL Hgb (11.4-16.0) gm/dL Hct (34.0-46.0) % Plt Count (150-450) k/uL Lymphocytes # (1.0-4.8) k/uL PT (9.0-12.0) sec INR (<1.2) APTT (22.0-30.0) sec ABG pH 7.34 L (7.35-7.45) ABG pCO2 47 H (35-45) mmHg ABG pO2 307 H (83-108) mmHg ABG Total CO2 26 H (19-24) mmol/L ABG O2 Saturation 100.0 H (94-97) % Chloride (98-107) mmol/L Glucose (74-99) mg/dL POC Glucose (mg/dL) 105 H 106 H (75-99) mg/dL Calcium (8.4-10.2) mg/dL Total Bilirubin (0.2-1.3) mg/dL AST (14-36) U/L ALT (9-52) U/L Total Protein (6.3-8.2) g/dL Albumin (3.5-5.0) g/dL Crossmatch 04/01/17 04/01/17 04/01/17 Range/Units 22:18 22:18 22:18 RBC 3.19 L (3.80-5.40) m/uL Hgb 10.2 L (11.4-16.0) gm/dL Hct 30.0 L (34.0-46.0) % Plt Count 90 L (150-450) k/uL Lymphocytes # 0.8 L (1.0-4.8) k/uL PT 14.0 H (9.0-12.0) sec INR 1.4 H (<1.2) APTT 30.1 H (22.0-30.0) sec ABG pH (7.35-7.45) ABG pCO2 (35-45) mmHg ABG pO2 (83-108) mmHg ABG Total CO2 (19-24) mmol/L ABG O2 Saturation (94-97) % Chloride 109 H (98-107) mmol/L Glucose 121 H (74-99) mg/dL POC Glucose (mg/dL) (75-99) mg/dL Calcium 8.1 L (8.4-10.2) mg/dL Total Bilirubin 2.2 H (0.2-1.3) mg/dL AST 100 H (14-36) U/L ALT 61 H (9-52) U/L Total Protein 4.9 L (6.3-8.2) g/dL Albumin 3.1 L (3.5-5.0) g/dL Crossmatch 04/01/17 04/01/17 04/02/17 Range/Units 22:21 23:12 00:03 RBC (3.80-5.40) m/uL Hgb (11.4-16.0) gm/dL Hct (34.0-46.0) % Plt Count (150-450) k/uL Lymphocytes # (1.0-4.8) k/uL PT (9.0-12.0) sec INR (<1.2) APTT (22.0-30.0) sec ABG pH (7.35-7.45) ABG pCO2 (35-45) mmHg ABG pO2 (83-108) mmHg ABG Total CO2 (19-24) mmol/L ABG O2 Saturation (94-97) % Chloride (98-107) mmol/L Glucose (74-99) mg/dL POC Glucose (mg/dL) 129 H 138 H 142 H (75-99) mg/dL Calcium (8.4-10.2) mg/dL Total Bilirubin (0.2-1.3) mg/dL AST (14-36) U/L ALT (9-52) U/L Total Protein (6.3-8.2) g/dL Albumin (3.5-5.0) g/dL Crossmatch 04/02/17 04/02/17 04/02/17 Range/Units 01:05 01:05 01:05 RBC 3.24 L (3.80-5.40) m/uL Hgb 10.0 L (11.4-16.0) gm/dL Hct 30.5 L (34.0-46.0) % Plt Count 76 L (150-450) k/uL Lymphocytes # 0.5 L (1.0-4.8) k/uL PT 13.8 H (9.0-12.0) sec INR 1.4 H (<1.2) APTT 32.1 H (22.0-30.0) sec ABG pH (7.35-7.45) ABG pCO2 (35-45) mmHg ABG pO2 (83-108) mmHg ABG Total CO2 (19-24) mmol/L ABG O2 Saturation (94-97) % Chloride 108 H (98-107) mmol/L Glucose 144 H (74-99) mg/dL POC Glucose (mg/dL) (75-99) mg/dL Calcium 8.2 L (8.4-10.2) mg/dL Total Bilirubin (0.2-1.3) mg/dL AST (14-36) U/L ALT (9-52) U/L Total Protein (6.3-8.2) g/dL Albumin (3.5-5.0) g/dL Crossmatch 04/02/17 04/02/17 04/02/17 Range/Units 01:08 02:11 03:30 RBC (3.80-5.40) m/uL Hgb (11.4-16.0) gm/dL Hct (34.0-46.0) % Plt Count (150-450) k/uL Lymphocytes # (1.0-4.8) k/uL PT (9.0-12.0) sec INR (<1.2) APTT (22.0-30.0) sec ABG pH (7.35-7.45) ABG pCO2 (35-45) mmHg ABG pO2 (83-108) mmHg ABG Total CO2 (19-24) mmol/L ABG O2 Saturation (94-97) % Chloride (98-107) mmol/L Glucose (74-99) mg/dL POC Glucose (mg/dL) 150 H 155 H 153 H (75-99) mg/dL Calcium (8.4-10.2) mg/dL Total Bilirubin (0.2-1.3) mg/dL AST (14-36) U/L ALT (9-52) U/L Total Protein (6.3-8.2) g/dL Albumin (3.5-5.0) g/dL Crossmatch 04/02/17 04/02/17 04/02/17 Range/Units 04:10 04:10 04:10 RBC 3.24 L (3.80-5.40) m/uL Hgb 10.0 L (11.4-16.0) gm/dL Hct 31.1 L (34.0-46.0) % Plt Count 76 L (150-450) k/uL Lymphocytes # 0.5 L (1.0-4.8) k/uL PT 14.0 H (9.0-12.0) sec INR 1.4 H (<1.2) APTT (22.0-30.0) sec ABG pH (7.35-7.45) ABG pCO2 (35-45) mmHg ABG pO2 (83-108) mmHg ABG Total CO2 (19-24) mmol/L ABG O2 Saturation (94-97) % Chloride 108 H (98-107) mmol/L Glucose 141 H (74-99) mg/dL POC Glucose (mg/dL) (75-99) mg/dL Calcium 8.1 L (8.4-10.2) mg/dL Total Bilirubin 2.0 H (0.2-1.3) mg/dL AST 138 H (14-36) U/L ALT 78 H (9-52) U/L Total Protein 4.9 L (6.3-8.2) g/dL Albumin 2.9 L (3.5-5.0) g/dL Crossmatch 04/02/17 04/02/17 04/02/17 Range/Units 04:24 04:31 05:21 RBC (3.80-5.40) m/uL Hgb (11.4-16.0) gm/dL Hct (34.0-46.0) % Plt Count (150-450) k/uL Lymphocytes # (1.0-4.8) k/uL PT (9.0-12.0) sec INR (<1.2) APTT (22.0-30.0) sec ABG pH (7.35-7.45) ABG pCO2 (35-45) mmHg ABG pO2 110 H (83-108) mmHg ABG Total CO2 25 H (19-24) mmol/L ABG O2 Saturation 98.0 H (94-97) % Chloride (98-107) mmol/L Glucose (74-99) mg/dL POC Glucose (mg/dL) 150 H 145 H (75-99) mg/dL Calcium (8.4-10.2) mg/dL Total Bilirubin (0.2-1.3) mg/dL AST (14-36) U/L ALT (9-52) U/L Total Protein (6.3-8.2) g/dL Albumin (3.5-5.0) g/dL Crossmatch 04/02/17 04/02/17 04/02/17 Range/Units 06:11 07:04 08:02 RBC (3.80-5.40) m/uL Hgb (11.4-16.0) gm/dL Hct (34.0-46.0) % Plt Count (150-450) k/uL Lymphocytes # (1.0-4.8) k/uL PT (9.0-12.0) sec INR (<1.2) APTT (22.0-30.0) sec ABG pH (7.35-7.45) ABG pCO2 (35-45) mmHg ABG pO2 (83-108) mmHg ABG Total CO2 (19-24) mmol/L ABG O2 Saturation (94-97) % Chloride (98-107) mmol/L Glucose (74-99) mg/dL POC Glucose (mg/dL) 161 H 148 H 119 H (75-99) mg/dL Calcium (8.4-10.2) mg/dL Total Bilirubin (0.2-1.3) mg/dL AST (14-36) U/L ALT (9-52) U/L Total Protein (6.3-8.2) g/dL Albumin (3.5-5.0) g/dL Crossmatch 04/02/17 04/02/17 04/02/17 Range/Units 09:05 10:00 11:13 RBC (3.80-5.40) m/uL Hgb (11.4-16.0) gm/dL Hct (34.0-46.0) % Plt Count (150-450) k/uL Lymphocytes # (1.0-4.8) k/uL PT (9.0-12.0) sec INR (<1.2) APTT (22.0-30.0) sec ABG pH (7.35-7.45) ABG pCO2 (35-45) mmHg ABG pO2 (83-108) mmHg ABG Total CO2 (19-24) mmol/L ABG O2 Saturation (94-97) % Chloride (98-107) mmol/L Glucose (74-99) mg/dL POC Glucose (mg/dL) 105 H 110 H 137 H (75-99) mg/dL Calcium (8.4-10.2) mg/dL Total Bilirubin (0.2-1.3) mg/dL AST (14-36) U/L ALT (9-52) U/L Total Protein (6.3-8.2) g/dL Albumin (3.5-5.0) g/dL Crossmatch 04/02/17 Range/Units 12:09 RBC (3.80-5.40) m/uL Hgb (11.4-16.0) gm/dL Hct (34.0-46.0) % Plt Count (150-450) k/uL Lymphocytes # (1.0-4.8) k/uL PT (9.0-12.0) sec INR (<1.2) APTT (22.0-30.0) sec ABG pH (7.35-7.45) ABG pCO2 (35-45) mmHg ABG pO2 (83-108) mmHg ABG Total CO2 (19-24) mmol/L ABG O2 Saturation (94-97) % Chloride (98-107) mmol/L Glucose (74-99) mg/dL POC Glucose (mg/dL) 128 H (75-99) mg/dL Calcium (8.4-10.2) mg/dL Total Bilirubin (0.2-1.3) mg/dL AST (14-36) U/L ALT (9-52) U/L Total Protein (6.3-8.2) g/dL Albumin (3.5-5.0) g/dL Crossmatch - Imaging and Cardiology Chest x-ray: report reviewed, image reviewed Assessment and Plan (1) Coronary artery disease Status: Acute (2) Hyperlipidemia Status: Acute (3) Hypertension Status: Acute (4) Obesity (BMI 30-39.9) Status: Acute (5) Type 2 diabetes mellitus Status: Acute (6) Unstable angina pectoris Status: Acute Plan: 1. Continue aspirin, statin, Plavix, heparin subcu, beta roz. Will maximize beta roz therapy as tolerated. 2. [place]-Antwon catheter discontinued this morning. 3. Wean oxygen as tolerated. Continue to encourage incentive spirometry use. 4. Increase activity, out of bed to chair. Physical therapy to follow. 5. GI/DVT prophylaxis. 6. Insulin management per primary care service. 7. Will monitor daily labs and x-rays. 8. More recommendations as patient progresses. Time with Patient: Greater than 30
[2017-04-02 15:07] LABS: Glucose,Whole Blood 106 mg/dL (75-99)
--- NOTE | 2017-04-02 15:24 | OP ---
DATE OF SERVICE: 04/01/2017 ATTENDING SURGEON: GINA QUEEN MD PREOPERATIVE DIAGNOSIS: Unstable angina, 2-vessel coronary artery disease. POSTOPERATIVE DIAGNOSIS: Unstable angina, 2-vessel coronary artery disease. PROCEDURE: Coronary artery bypass grafting x2 with left internal mammary to left anterior descending artery, reverse saphenous vein graft off the aorta to the diagonal artery with endoscopic vein harvesting and intraoperative PATRICE. ANESTHESIA: General. BLOOD LOSS: 500 mL. SUMMARY: Patient was taken to the operating room, placed in supine position. General endotracheal anesthetic was placed in the [place] Antwon catheter. Arterial line, adequate IV access and a Cota catheter, patient is prepped and draped in the sterile fashion using beta paint and sterile towels. Greater saphenous vein was harvested from the left lower extremity, endovascular vein harvesting technique. All branches were doubly tied and divided and the incision is closed in 2 layers. Saphenous vein was also harvested via the open technique near the right ankle. The incision was also closed in 3 layers. Midline incision in chest was made, the sternum divided. Pericardium was opened. ( ) was soft. The left pleural space was opened. The upper left internal mammary artery harvested as the pedicle from the xiphoid to the left ( ) vein. It was of 2 mm quality with excellent flow. The patient was heparinized ( ). The aorta and vena cava were cannulated and gradient cardioplegic catheter positioned. Patient was placed on bypass, crossclamped, the heart arrested with 1 L of antegrade cardioplegia. Antegrade cardioplegia was delivered 300 mL at the end of each 20 minute interval. The base of the left atrial appendage was the measured and measures to 35 mm antral clip. The clip was brought into the field, opened, secured at the base obliterating the left atrial appendage. Distal anastomosis were constructed. Reverse saphenous vein graft anastomosis to the diagonal artery was constructed using a 7-0 Prolene running suture, caliber of this vessel was 1.5 to 1.75 mm. Left internal mammary was beveled and the distal anastomosis to the left anterior descending artery constructed using an 8-0 Prolene running suture. Caliber of this vessel was 1.75 mm. Under a single crossclamp, a single proximal anastomosis was constructed in the ascending aorta using 6-0 Prolene running suture. Patient was placed head down. The aortic root was vented, warm blood run antegrade cardioplegia was run, crossclamp was removed, once beating normal sinus rhythm, patient was brought off bypass. Came off bypass uneventfully with good hemodynamics. ( ) was delivered, patient decannulated. Ventricular pacing wires were placed. Medial sternal left pleural chest tubes were placed. At this point the sternum was closed with 7 #6 sternal wires. ( ) fascia closed in 3 layers. No complications. The patient tolerated the procedure well. Was taken to the Cardiovascular intensive care unit in stable condition. KAMRYN
[2017-04-02 16:01] LABS: ABG HCO3 24 mmol/L (21-25); ABG Oxygen Saturation 99.9 % (94-97); ABG PCO2 34 mmHg (35-45); ABG PH 7.46 (7.35-7.45); ABG PO2 312 mmHg (83-108); ABG TCO2 25 mmol/L (19-24)
[2017-04-02 16:02] LABS: ABG Base Excess 0.2 mmol/L; ABG HCO3 24 mmol/L (21-25); ABG Oxygen Saturation 99.9 % (94-97); ABG PCO2 37 mmHg (35-45); ABG PH 7.43 (7.35-7.45); ABG PO2 246 mmHg (83-108); ABG TCO2 25 mmol/L (19-24)
[2017-04-02 16:03] LABS: ABG HCO3 23 mmol/L (21-25); ABG Oxygen Saturation 99.9 % (94-97); ABG PCO2 34 mmHg (35-45); ABG PH 7.43 (7.35-7.45); ABG PO2 335 mmHg (83-108); ABG TCO2 24 mmol/L (19-24)
[2017-04-02 16:04] LABS: ABG Base Excess -2.5 mmol/L; ABG HCO3 22 mmol/L (21-25); ABG Oxygen Saturation 99.9 % (94-97); ABG PCO2 40 mmHg (35-45); ABG PH 7.36 (7.35-7.45); ABG PO2 276 mmHg (83-108); ABG TCO2 23 mmol/L (19-24)
[2017-04-02 16:31] LABS: Glucose,Whole Blood 121 mg/dL (75-99)
[2017-04-02] MEDS ORDERED: ATORVASTATIN 40 MG TAB PO SCH (17:00)
[2017-04-02] MEDS ORDERED: BISACODYL 10 MG SUPP RECTAL PRN (17:50)
[2017-04-02] MEDS ORDERED: HYDROcodone/APAP 5-325MG 1 EACH TAB PO PRN ×2 (17:50)
[2017-04-02] MEDS ORDERED: MAGNESIUM HYDROXIDE 2,400 MG/10 ML CUP PO PRN (17:50)
[2017-04-02] MEDS ORDERED: IPRATROPIUM-ALBUTEROL 3 ML NEB INHALATION PRN (17:51)
[2017-04-02 18:45] LABS: Glucose,Whole Blood 177 mg/dL (75-99)
[2017-04-02] MEDS: CLOPIDOGREL 75 MG TAB PO SCH (18:46)
[2017-04-02 19:17] LABS: Glucose,Whole Blood 195 mg/dL (75-99)
[2017-04-02 20:17] LABS: Glucose,Whole Blood 162 mg/dL (75-99)
[2017-04-02] MEDS ORDERED: ATROPINE SULFATE 0.1 MG/ML 10ML SYRINGE ONE (21:03)
[2017-04-02 22:15] LABS: Glucose,Whole Blood 88 mg/dL (75-99)
[2017-04-02] MEDS: LACTATED RINGERS 1,000 ML IV SCH (22:16)
[2017-04-02] MEDS: SENNOSIDES-DOCUSATE SODIUM 1 EACH TAB PO SCH (22:17)
[2017-04-02] MEDS: PRAMIPEXOLE 0.25 MG TAB PO SCH (22:27)
[2017-04-02 23:13] LABS: Glucose,Whole Blood 83 mg/dL (75-99)
[2017-04-03] MEDS: HEPARIN SODIUM,PORCINE 5,000 UNIT/ML 1 ML VIAL SQ SCH ×4 (01:17→23:13)
[2017-04-03 01:23] LABS: Glucose,Whole Blood 121 mg/dL (75-99)
[2017-04-03] MEDS: INSULIN REGULAR 100 UNIT in SODIUM CHLORIDE 0.9% 100 ML IV SCH (01:23)
[2017-04-03 01:49] LABS: Glucose,Whole Blood 123 mg/dL (75-99)
[2017-04-03 03:01] LABS: Glucose,Whole Blood 113 mg/dL (75-99)
[2017-04-03 04:12] LABS: Glucose,Whole Blood 112 mg/dL (75-99)
[2017-04-03 04:52] LABS: Ionized Calcium 4.6 mg/dL (4.5-5.3)
[2017-04-03 04:54] LABS: Basophils % (A) 0 %; CH 31.9; CHCM 33.6; Eosinophils % (A) 0 %; HDW 2.91; Luc # (Auto) 0.18; Luc % (Auto) 2; Lymphocytes # (A) 1.2 k/uL (1.0-4.8); Lymphocytes % (A) 14 %; MCHC 32.4 g/dL (31.0-37.0); MCV 95.8 fL (80.0-100.0); Mean Platelet Volume 8.6; Monocytes # (A) 0.7 k/uL (0-1.0); Monocytes % (A) 8 %; Neutrophils # (A) 6.6 k/uL (1.3-7.7); Neutrophils % (A) 76 %; RBC 3.23 m/uL (3.80-5.40); RDW 15.6 % (11.5-15.5); WBC 8.7 k/uL (3.8-10.6); WBC (Perox) 8.39
[2017-04-03 05:05] LABS: ALT 218 U/L (9-52); AST 465 U/L (14-36); Alkaline Phosphatase 54 U/L (38-126); Anion Gap 4 mmol/L; Bilirubin, Delta 0.4 mg/dL (0.0-0.2); Blood Urea Nitrogen 16 mg/dL (7-17); Calcium 7.6 mg/dL (8.4-10.2); Carbon Dioxide 27 mmol/L (22-30); Chloride 104 mmol/L (98-107); Glucose 110 mg/dL (74-99); Magnesium 1.9 mg/dL (1.6-2.3); Non-African American GFR(MDRD) >60 (>60 ml/min/1.73 sqM); Potassium 4.1 mmol/L (3.5-5.1); Sodium 135 mmol/L (137-145); Total Bilirubin 2.3 mg/dL (0.2-1.3); Total Protein 4.5 g/dL (6.3-8.2)
[2017-04-03] MEDS ORDERED: Magnesium Replacement Protocol 1 EACH MISC MISCELLANE PRN (05:28)
[2017-04-03 05:37] LABS: Glucose,Whole Blood 127 mg/dL (75-99)
[2017-04-03 06:21] LABS: Glucose,Whole Blood 121 mg/dL (75-99)
[2017-04-03] MEDS: MAGNESIUM SULFATE-D5W PMX 1 GM in DEXTROSE/WATER 1 100ML.BAG IVPB SCH ×2 (07:16→08:03)
--- NOTE | 2017-04-03 07:33 | XR ---
EXAMINATION TYPE: XR chest 1V portable DATE OF EXAM: 04/03/2017 Comparison: 04/02/2017 Clinical History: 66-year-old female Post Operative Cardiac Surgery Findings: Median sternotomy wires and post-CABG clips in the mediastinum. Mediastinal drain and left chest tube remain in place. No appreciable pneumothorax. [place]-Antwon catheter removed. The right IJ sheath remain s in place. Heart remains mildly enlarged. Diffuse interstitial/vascular prominence, small right pleural effusion and prominent patchy left lower lung opacity. Impression: Continued CHF with pulmonary vascular congestion. Small right pleural effusion and bibasilar areas of atelectasis and/or consolidation.
[2017-04-03 07:54] LABS: Glucose,Whole Blood 116 mg/dL (75-99)
[2017-04-03] MEDS: ASPIRIN 325 MG TAB PO SCH (08:03)
[2017-04-03] MEDS: PANTOPRAZOLE 40 MG TABLET PO SCH (08:03)
[2017-04-03] MEDS: CLOPIDOGREL 75 MG TAB PO SCH (08:03)
[2017-04-03] MEDS: METOPROLOL TARTRATE 12.5 MG TAB PO SCH ×2 (08:03→20:36)
[2017-04-03] MEDS: MUPIROCIN 2% OINT 22 GM TUBE NASAL SCH ×2 (08:04→20:41)
[2017-04-03 09:03] LABS: Glucose,Whole Blood 146 mg/dL (75-99)
[2017-04-03] MEDS: INSULN ASP PRT/INSULIN ASPART 100 UNIT/ML 10 ML VIAL SQ SCH (09:34)
[2017-04-03] MEDS ORDERED: FUROSEMIDE 10 MG/ML 4 ML VIAL IV STA (10:02)
--- NOTE | 2017-04-03 11:21 | CONS ---
DATE OF SERVICE: 04/02/2017 I am covering for Dr. Abbasi. REASON FOR CONSULTATION: Advice regarding diabetes mellitus and other medical issues requested by Cardiothoracic surgery. HISTORY OF PRESENT ILLNESS: This 63-year-old woman with past medical history of multiple medical problems including diabetes mellitus, hypertension, hyperlipidemia, history of DJD being followed by Dr. Abbasi in the outpatient setting underwent CAD, CABG. The patient extubated this morning. The patients chest tube is in place. The patient was taking Actos for diabetes mellitus. Currently the patients sugar is controlled from anywhere from 5.5 to 6.5 units of insulin per hour. The sugars have been fluctuating between 100 and 134 at this time. There is no history of any fevers. No history of headache, loss of consciousness, seizures. PAST MEDICAL HISTORY: History of diabetes mellitus, hypertension, hyperlipidemia, DJD. Medications prior to admission include home medications: 1. Zocor 20 mg q.h.s 2. Mirapex 0.25 mg q.h.s 3. K-Dur 20 mg q.a.m. 4. Actos 30 mg daily. 5. Multivitamins 1 p.o daily. 6. Lopressor 20 mg b.i.d. 7. Magnesium 250 mg q.a.m. 8. Zestril 2.5 mg daily. 9. Imdur 30 mg p.o. 10. Lasix 40 mg q.a.m. 11. Lioresal 20 mg p.o. daily. 12. Ecotrin 81 mg p.o. q.a.m. ALLERGIES: PENICILLIN. FAMILY HISTORY: History of cancer in the family. SOCIAL HISTORY: Previous history of smoking. No history of alcohol intake. REVIEW OF SYSTEMS: ENT: No diminished hearing or vision. CARDIOVASCULAR: As mentioned earlier. RESPIRATORY: As mentioned earlier. GI: No nausea. : No dysuria. NERVOUS SYSTEM: No numbness or weakness. ALLERGY/IMMUNOLOGY: No asthma or hayfever. MUSCULOSKELETAL: As mentioned earlier. HEMATOLOGY/ONCOLOGY: No history of anemia. ENDOCRINE: As mentioned earlier. CONSTITUTIONAL: As mentioned earlier. DERMATOLOGY: Negative. RHEUMATOLOGY: Negative. PSYCHIATRY: As mentioned earlier. PHYSICAL EXAMINATION: The patient is alert and oriented x3. Pulse is 77, blood pressure 112/40, respirations 12, temperature 97.9, pulse ox 96% on 2-L. HEENT: Conjunctivae normal. NECK: No jugular venous distention. CARDIOVASCULAR: S1, S2 muffled. RESPIRATORY: Breath sounds diminished at the bases. Scattered rhonchi. Chest tube is in situ. ABDOMEN: Soft, nontender. LEGS: No edema, no swelling. NERVOUS SYSTEM: No focal deficits. LABS: Accu-Cheks are noted. Hemoglobin 10, INR 1.4. ABGs noted. ASSESSMENT: 1. Coronary artery disease, status post coronary artery bypass grafting. 2. Mild hyperbilirubinemia. 3. Increased AST and ALT. 4. Status post coronary artery disease, CABG. 5. Diabetes mellitus type 2. 6. Hypertension. 7. Hyperlipidemia 8. History of chronic back pain. 9. Neuropathy. RECOMMENDATIONS AND DISCUSSION: In this 63-year-old woman who presents with multiple complex medical issues we well monitor the patient closely. Continue the current medications. Continue symptomatic treatment. Otherwise at this time , I would also recommend monitor the hepatic function panel on daily basis and avoid hepatic toxic medications. Otherwise continue the rest of the medications. As far as diabetes is concerned I recommend to continue insulin drip at this time and once the patient is stabilized and able to take p.o intake a short protocol regimen may be initiated. Will follow the patient closely with you. The patient may also be asked to follow up with Dr. Abbasi closely after discharge. Thank you Dr. Alonso for letting us participate in the care of this patient. KAMRYN
--- NOTE | 2017-04-03 11:47 | P.PN ---
Subjective Principal diagnosis: Symptomatic multivessel coronary artery disease, Type 2 diabetes mellitus, Hyperlipidemia, Hypertension, Osteoarthritis, Neuropathy, Varicose veins with laser surgery, Previous tobacco dependence. POD #2 elective coronary artery bypass graft surgery 2 vessels, with placement of her left internal mammary artery to the left anterior descending coronary artery, a reverse greater saphenous vein graft from the aorta to the diagonal artery. Exclusion of the left atrial appendage with a 35 mm AtriClip. Intraoperative transesophageal echocardiogram. Patient is currently sitting up to the bedside chair. No acute distress. She is tolerating oral intake without complaints of nausea. She denies complaints of pain or shortness of breath at this time. Objective - Vital Signs Vital signs: Vital Signs Temp 98.0 F 04/03/17 08:00 Pulse 77 04/03/17 11:00 Resp 19 04/03/17 11:00 BP 120/55 04/02/17 20:00 Pulse Ox 96 04/03/17 11:00 Intake & Output 04/02/17 04/03/17 04/03/17 18:59 06:59 18:59 Intake Total 1039.729 726.659 167.395 Output Total 1248 1423 235 Balance -208.271 -696.341 -67.605 Weight 106.1 kg 108.7 kg Intake: IV 882.5 698 154 ACETAMINOPHEN IV (For NPO 100 100 ) 1,000 mg In Empty Bag 1 bag @ 400 mls/hr IVPB Q6HR [facility] Rx#:[id number] CO/CI 0.9 Nomal Saline 50 Injectate Lactated Ringers 50ml/hr 450 520 130 Magnesium Sulfate-D5w Pmx 100 1 gm In Dextrose/Water 1 100ml.bag @ 100 mls/hr IVPB Q1H [facility] Rx#: [id number] Nitroglycerine/D5W 5 mcg/ 1.5 min Normal Saline 500ml for 81 78 24 pressure bag ceFAZolin 2,000 mg In 100 Sodium Chloride 0.9% 30 ml @ Per Protocol IVPB ONCE ONE Rx#:[id number] Intake, IV Titration 157.229 28.659 13.395 Amount Insulin Regular 100 unit 57.229 28.659 13.395 In Sodium Chloride 0.9% 100 ml @ Per Protocol IV .Q0M [facility] Rx#:[id number] Potassium Chloride 10 meq 100 In Water For Injection 1 100ml.bag @ 100 mls/hr IVPB Q1H [facility] Rx#: [id number] Output: Chest Tube Drainage 500 370 140 Chest Tube Left Left 500 370 140 Pleural/Mediastinal Drainage 20 Left Medial Knee 20 Urine 728 1053 95 Other: Voiding Method Indwelling Catheter Indwelling Catheter ABP, PAP, CO, CI - Last Documented Arterial Blood Pressure 123/42 Pulmonary Artery Pressure 34/16 Cardiac Output 5.5 Cardiac Index 2.7 - Constitutional General appearance: Present: cooperative, no acute distress, obese - EENT Eyes: Present: PERRLA, normal appearance ENT: Present: hearing grossly normal - Neck Details: Right internal jugular cordis to continuous CVP monitoring. Her current CVP is 16. No JVD present. - Respiratory Details: Essentially clear throughout, diminished to her bilateral bases. Respirations are symmetrical and unlabored. Her oxygen saturations are 97% on 2 L nasal cannula. Her mediastinal and left pleural chest tubes remained to continuous low wall suction, no air leak present. 240 mL output in the last 8 hours, 1000 mL output in the last 24 hours. Her chest tubes are draining thin serosanguineous drainage. - Cardiovascular Details: Regular rhythm and rate, normal S1 and S2, negative for S3, gallop or murmur. Her sternum is stable. AV epicardial pacemaker wires present and are grounded. +2 edema to her bilateral lower extremity Rich. Knee-high HELIO hose and sequential compression devices in place to her bilateral lower extremities. - Gastrointestinal Gastrointestinal Comment(s): Abdomen is soft, nontender, and nondistended. Active bowel sounds to all 4 abdominal quadrants. She is tolerating her diet. - Genitourinary Genitourinary Comment(s): Adequate urine output, Cota catheter for accurate I&O. Clear yellow urine. - Integumentary Integumentary Comment(s): Midline sternal incision clean dry and well approximated. Dermabond dressing intact, with 4 x 4 gauze dressing clean and dry and intact. Left leg incisions clean dry and well approximated. No drainage noted. Right lower leg incision clean dry and well approximated. No drainage noted. Left lower leg BENNIE drain intact draining thin serosanguineous drainage, 50 mL output in the last 24 hours. - Musculoskeletal Musculoskeletal: Present: gait normal, generalized weakness, strength equal bilaterally - Psychiatric Psychiatric: Present: A&O x's 3, appropriate affect, intact judgment & insight - Allied health notes Allied health notes reviewed: nursing - Labs CBC & Chem 7: 04/03/17 04:42 04/03/17 04:42 Labs: Abnormal Lab Results - Last 24 Hours (Table) 04/01/17 04/01/17 04/01/17 Range/Units 14:46 16:12 16:54 RBC (3.80-5.40) m/uL Hgb (11.4-16.0) gm/dL Hct (34.0-46.0) % RDW (11.5-15.5) % Plt Count (150-450) k/uL ABG pH 7.46 H (7.35-7.45) ABG pCO2 34 L 34 L (35-45) mmHg ABG pO2 312 H 246 H 335 H (83-108) mmHg ABG Total CO2 25 H 25 H (19-24) mmol/L ABG O2 Saturation 99.9 H 99.9 H 99.9 H (94-97) % ABG Hematocrit 32 L 26 L (34.0-46.0) % ABG Sodium (135-146) mmol/L Sodium (137-145) mmol/L Glucose (74-99) mg/dL POC Glucose (mg/dL) (75-99) mg/dL Calcium (8.4-10.2) mg/dL Total Bilirubin (0.2-1.3) mg/dL Unconjugated Bilirubin (0.0-1.1) mg/dL Delta Bilirubin (0.0-0.2) mg/dL AST (14-36) U/L ALT (9-52) U/L Total Protein (6.3-8.2) g/dL Albumin (3.5-5.0) g/dL 04/01/17 04/02/17 04/02/17 Range/Units 18:15 12:09 13:03 RBC (3.80-5.40) m/uL Hgb (11.4-16.0) gm/dL Hct (34.0-46.0) % RDW (11.5-15.5) % Plt Count (150-450) k/uL ABG pH (7.35-7.45) ABG pCO2 (35-45) mmHg ABG pO2 276 H (83-108) mmHg ABG Total CO2 (19-24) mmol/L ABG O2 Saturation 99.9 H (94-97) % ABG Hematocrit (34.0-46.0) % ABG Sodium 159 H (135-146) mmol/L Sodium (137-145) mmol/L Glucose (74-99) mg/dL POC Glucose (mg/dL) 128 H 134 H (75-99) mg/dL Calcium (8.4-10.2) mg/dL Total Bilirubin (0.2-1.3) mg/dL Unconjugated Bilirubin (0.0-1.1) mg/dL Delta Bilirubin (0.0-0.2) mg/dL AST (14-36) U/L ALT (9-52) U/L Total Protein (6.3-8.2) g/dL Albumin (3.5-5.0) g/dL 04/02/17 04/02/17 04/02/17 Range/Units 14:11 15:05 16:28 RBC (3.80-5.40) m/uL Hgb (11.4-16.0) gm/dL Hct (34.0-46.0) % RDW (11.5-15.5) % Plt Count (150-450) k/uL ABG pH (7.35-7.45) ABG pCO2 (35-45) mmHg ABG pO2 (83-108) mmHg ABG Total CO2 (19-24) mmol/L ABG O2 Saturation (94-97) % ABG Hematocrit (34.0-46.0) % ABG Sodium (135-146) mmol/L Sodium (137-145) mmol/L Glucose (74-99) mg/dL POC Glucose (mg/dL) 125 H 106 H 121 H (75-99) mg/dL Calcium (8.4-10.2) mg/dL Total Bilirubin (0.2-1.3) mg/dL Unconjugated Bilirubin (0.0-1.1) mg/dL Delta Bilirubin (0.0-0.2) mg/dL AST (14-36) U/L ALT (9-52) U/L Total Protein (6.3-8.2) g/dL Albumin (3.5-5.0) g/dL 04/02/17 04/02/17 04/02/17 Range/Units 18:24 19:13 20:15 RBC (3.80-5.40) m/uL Hgb (11.4-16.0) gm/dL Hct (34.0-46.0) % RDW (11.5-15.5) % Plt Count (150-450) k/uL ABG pH (7.35-7.45) ABG pCO2 (35-45) mmHg ABG pO2 (83-108) mmHg ABG Total CO2 (19-24) mmol/L ABG O2 Saturation (94-97) % ABG Hematocrit (34.0-46.0) % ABG Sodium (135-146) mmol/L Sodium (137-145) mmol/L Glucose (74-99) mg/dL POC Glucose (mg/dL) 177 H 195 H 162 H (75-99) mg/dL Calcium (8.4-10.2) mg/dL Total Bilirubin (0.2-1.3) mg/dL Unconjugated Bilirubin (0.0-1.1) mg/dL Delta Bilirubin (0.0-0.2) mg/dL AST (14-36) U/L ALT (9-52) U/L Total Protein (6.3-8.2) g/dL Albumin (3.5-5.0) g/dL 04/03/17 04/03/17 04/03/17 Range/Units 01:19 01:47 02:58 RBC (3.80-5.40) m/uL Hgb (11.4-16.0) gm/dL Hct (34.0-46.0) % RDW (11.5-15.5) % Plt Count (150-450) k/uL ABG pH (7.35-7.45) ABG pCO2 (35-45) mmHg ABG pO2 (83-108) mmHg ABG Total CO2 (19-24) mmol/L ABG O2 Saturation (94-97) % ABG Hematocrit (34.0-46.0) % ABG Sodium (135-146) mmol/L Sodium (137-145) mmol/L Glucose (74-99) mg/dL POC Glucose (mg/dL) 121 H 123 H 113 H (75-99) mg/dL Calcium (8.4-10.2) mg/dL Total Bilirubin (0.2-1.3) mg/dL Unconjugated Bilirubin (0.0-1.1) mg/dL Delta Bilirubin (0.0-0.2) mg/dL AST (14-36) U/L ALT (9-52) U/L Total Protein (6.3-8.2) g/dL Albumin (3.5-5.0) g/dL 04/03/17 04/03/17 04/03/17 Range/Units 04:10 04:42 04:42 RBC 3.23 L (3.80-5.40) m/uL Hgb 10.0 L (11.4-16.0) gm/dL Hct 31.0 L (34.0-46.0) % RDW 15.6 H (11.5-15.5) % Plt Count 90 L (150-450) k/uL ABG pH (7.35-7.45) ABG pCO2 (35-45) mmHg ABG pO2 (83-108) mmHg ABG Total CO2 (19-24) mmol/L ABG O2 Saturation (94-97) % ABG Hematocrit (34.0-46.0) % ABG Sodium (135-146) mmol/L Sodium 135 L (137-145) mmol/L Glucose 110 H (74-99) mg/dL POC Glucose (mg/dL) 112 H (75-99) mg/dL Calcium 7.6 L (8.4-10.2) mg/dL Total Bilirubin 2.3 H (0.2-1.3) mg/dL Unconjugated Bilirubin 1.9 H (0.0-1.1) mg/dL Delta Bilirubin 0.4 H (0.0-0.2) mg/dL AST 465 H (14-36) U/L ALT 218 H (9-52) U/L Total Protein 4.5 L (6.3-8.2) g/dL Albumin 2.6 L (3.5-5.0) g/dL 04/03/17 04/03/17 04/03/17 Range/Units 05:35 06:19 07:53 RBC (3.80-5.40) m/uL Hgb (11.4-16.0) gm/dL Hct (34.0-46.0) % RDW (11.5-15.5) % Plt Count (150-450) k/uL ABG pH (7.35-7.45) ABG pCO2 (35-45) mmHg ABG pO2 (83-108) mmHg ABG Total CO2 (19-24) mmol/L ABG O2 Saturation (94-97) % ABG Hematocrit (34.0-46.0) % ABG Sodium (135-146) mmol/L Sodium (137-145) mmol/L Glucose (74-99) mg/dL POC Glucose (mg/dL) 127 H 121 H 116 H (75-99) mg/dL Calcium (8.4-10.2) mg/dL Total Bilirubin (0.2-1.3) mg/dL Unconjugated Bilirubin (0.0-1.1) mg/dL Delta Bilirubin (0.0-0.2) mg/dL AST (14-36) U/L ALT (9-52) U/L Total Protein (6.3-8.2) g/dL Albumin (3.5-5.0) g/dL 04/03/17 Range/Units 09:01 RBC (3.80-5.40) m/uL Hgb (11.4-16.0) gm/dL Hct (34.0-46.0) % RDW (11.5-15.5) % Plt Count (150-450) k/uL ABG pH (7.35-7.45) ABG pCO2 (35-45) mmHg ABG pO2 (83-108) mmHg ABG Total CO2 (19-24) mmol/L ABG O2 Saturation (94-97) % ABG Hematocrit (34.0-46.0) % ABG Sodium (135-146) mmol/L Sodium (137-145) mmol/L Glucose (74-99) mg/dL POC Glucose (mg/dL) 146 H (75-99) mg/dL Calcium (8.4-10.2) mg/dL Total Bilirubin (0.2-1.3) mg/dL Unconjugated Bilirubin (0.0-1.1) mg/dL Delta Bilirubin (0.0-0.2) mg/dL AST (14-36) U/L ALT (9-52) U/L Total Protein (6.3-8.2) g/dL Albumin (3.5-5.0) g/dL - Imaging and Cardiology Chest x-ray: report reviewed, image reviewed Assessment and Plan (1) Coronary artery disease Status: Acute (2) Hyperlipidemia Status: Acute (3) Hypertension Status: Acute (4) Obesity (BMI 30-39.9) Status: Acute (5) Type 2 diabetes mellitus Status: Acute (6) Unstable angina pectoris Status: Acute Plan: 1. Continue aspirin, Plavix, heparin subcu, and metoprolol tartrate. We will hold her Lipitor today as her liver enzymes are elevated. 2. We will give her Lasix 40 mg IV 1 today. 3. Wean oxygen as tolerated. Continue to encourage incentive spirometry use. 4. Increase activity, out of bed to chair. Physical therapy to follow. 5. GI/DVT prophylaxis. 6. Insulin management per primary care service. 7. We will monitor daily labs and x-rays. 8. We will split her chest tubes. 9. More recommendations as patient progresses. Time with Patient: Greater than 30
[2017-04-03 12:36] LABS: Glucose,Whole Blood 149 mg/dL (75-99)
[2017-04-03] MEDS: INSULIN LISPRO (humaLOG) 300 UNIT/3 ML VIAL SQ SCH ×4 (12:56→22:19)
[2017-04-03] MEDS: MULTIVITAMINS, THERA 1 EACH TAB PO SCH (12:58)
--- NOTE | 2017-04-03 13:25 | P.PN ---
Subjective A 66-year-old female patient who was worked up for coronary artery disease on outpatient basis and the patient was found to have a positive stress test and based on that a cardiac catheterization was done and the patient was found to have 90-95% ostial stenosis, diffuse disease involving the LAD. Left ventricle ejection fraction was around 65-70%. Based on that the patient was referred to cardiac revascularization surgery. Surgery was done yesterday by Dr. Wolf and the patient had WHITAKER to LAD and saphenous vein graft to diagonal. The patient was brought into the intensive care unit and a hemodynamically stable condition. She was on an assist-control mode of ventilation. The necessary vent changes were done and overnight the patient was gradually weaned off the mechanical ventilator and spoke to his breathing trial was done and around 400 AM this morning the patient was extubated and currently she is on oxygen 2 L/m nasal cannula with a pulse ox of 96%. The chest x-ray from this morning is showing cardiomegaly with mild central vascular congestion and small pleural effusions and bibasilar atelectatic changes. The patient has a mediastinal and left pleural chest tube and the chest tube has drained around 310 mL since early this morning. The patient is using incentive spirometer. She has no pain issues. No other complaints otherwise for now. The patient was taken off nitroglycerin drip. The [place] catheter was also pulled out this morning. On 04/03/2017 I'm seeing this patient in follow-up. The patient is doing well. The patient has no specific complaints. The patient is able to sit up on a chair. Chest tubes are all in place. She is ambulating and is pulling at thousand on her incentive spirometer. No acute distress. Tolerating diet. No nausea. No vomiting. No chest pain. The patient has a normal cardiac rhythm. Blood sugars are also controlled and the patient has been switched to subcu insulin, it combination of NPH and NovoLog 7030. The chest x-ray from today shows CHF with mild pulmonary vascular congestion. The patient has also small right-sided pleural effusion. The patient be given a dose of Lasix 40 mg IV push. The [place] catheter has been removed. The right IJ sheath is still in place. Objective - Vital Signs Vital signs: Vital Signs Temp 98.0 F 04/03/17 08:00 Pulse 79 04/03/17 12:00 Resp 20 04/03/17 12:00 BP 120/55 04/02/17 20:00 Pulse Ox 96 04/03/17 12:00 Intake & Output 04/02/17 04/03/17 04/03/17 18:59 06:59 18:59 Intake Total 1039.729 726.659 239.395 Output Total 1248 1423 835 Balance -208.271 -696.341 -595.605 Weight 106.1 kg 108.7 kg 108.7 kg Intake: IV 882.5 698 226 ACETAMINOPHEN IV (For NPO 100 100 ) 1,000 mg In Empty Bag 1 bag @ 400 mls/hr IVPB Q6HR [facility] Rx#:[id number] CO/CI 0.9 Nomal Saline 50 Injectate Lactated Ringers 50ml/hr 450 520 190 Magnesium Sulfate-D5w Pmx 100 1 gm In Dextrose/Water 1 100ml.bag @ 100 mls/hr IVPB Q1H [facility] Rx#: [id number] Nitroglycerine/D5W 5 mcg/ 1.5 min Normal Saline 500ml for 81 78 36 pressure bag ceFAZolin 2,000 mg In 100 Sodium Chloride 0.9% 30 ml @ Per Protocol IVPB ONCE ONE Rx#:[id number] Intake, IV Titration 157.229 28.659 13.395 Amount Insulin Regular 100 unit 57.229 28.659 13.395 In Sodium Chloride 0.9% 100 ml @ Per Protocol IV .Q0M [facility] Rx#:[id number] Potassium Chloride 10 meq 100 In Water For Injection 1 100ml.bag @ 100 mls/hr IVPB Q1H [facility] Rx#: [id number] Output: Chest Tube Drainage 500 370 140 Chest Tube Left Left 500 370 140 Pleural/Mediastinal Drainage 20 Left Medial Knee 20 Urine 728 1053 695 Other: Voiding Method Indwelling Catheter Indwelling Catheter Indwelling Catheter ABP, PAP, CO, CI - Last Documented Arterial Blood Pressure 123/44 Pulmonary Artery Pressure 34/16 Cardiac Output 5.5 Cardiac Index 2.7 - Exam Head exam was generally normal. There was no scleral icterus or corneal arcus. Mucous membranes were moist.Neck was supple and without jugular venous distension, thyromegaly, or carotid bruits. Carotids were easily palpable bilaterally. There was no adenopathy. There is a right IJ Cordis in place. No neck stiffness. No goiter or neck masses. Lungs sounds are diminished bilaterally and the patient has a mediastinal and left pleural chest tube. Sternum stable clean and intact.Cardiac exam revealed the PMI to be normally situated and sized. The rhythm was regular and no extrasystoles were noted during several minutes of auscultation. The first and second heart sounds were normal and physiologic splitting of the second heart sound was noted. There were no murmurs, rubs, clicks, or gallops.Abdominal exam revealed normal bowel sounds. The abdomen was soft, non-tender, and without masses, organomegaly, or appreciable enlargement of the abdominal aorta.Examination of the extremities revealed easily palpable radial, femoral and pedal pulses. There was no cyanosis , clubbing or edema. - Labs CBC & Chem 7: 04/03/17 04:42 04/03/17 04:42 Labs: Abnormal Lab Results - Last 24 Hours (Table) 04/01/17 04/01/17 04/01/17 Range/Units 14:46 16:12 16:54 RBC (3.80-5.40) m/uL Hgb (11.4-16.0) gm/dL Hct (34.0-46.0) % RDW (11.5-15.5) % Plt Count (150-450) k/uL ABG pH 7.46 H (7.35-7.45) ABG pCO2 34 L 34 L (35-45) mmHg ABG pO2 312 H 246 H 335 H (83-108) mmHg ABG Total CO2 25 H 25 H (19-24) mmol/L ABG O2 Saturation 99.9 H 99.9 H 99.9 H (94-97) % ABG Hematocrit 32 L 26 L (34.0-46.0) % ABG Sodium (135-146) mmol/L Sodium (137-145) mmol/L Glucose (74-99) mg/dL POC Glucose (mg/dL) (75-99) mg/dL Calcium (8.4-10.2) mg/dL Total Bilirubin (0.2-1.3) mg/dL Unconjugated Bilirubin (0.0-1.1) mg/dL Delta Bilirubin (0.0-0.2) mg/dL AST (14-36) U/L ALT (9-52) U/L Total Protein (6.3-8.2) g/dL Albumin (3.5-5.0) g/dL 04/01/17 04/02/17 04/02/17 Range/Units 18:15 14:11 15:05 RBC (3.80-5.40) m/uL Hgb (11.4-16.0) gm/dL Hct (34.0-46.0) % RDW (11.5-15.5) % Plt Count (150-450) k/uL ABG pH (7.35-7.45) ABG pCO2 (35-45) mmHg ABG pO2 276 H (83-108) mmHg ABG Total CO2 (19-24) mmol/L ABG O2 Saturation 99.9 H (94-97) % ABG Hematocrit (34.0-46.0) % ABG Sodium 159 H (135-146) mmol/L Sodium (137-145) mmol/L Glucose (74-99) mg/dL POC Glucose (mg/dL) 125 H 106 H (75-99) mg/dL Calcium (8.4-10.2) mg/dL Total Bilirubin (0.2-1.3) mg/dL Unconjugated Bilirubin (0.0-1.1) mg/dL Delta Bilirubin (0.0-0.2) mg/dL AST (14-36) U/L ALT (9-52) U/L Total Protein (6.3-8.2) g/dL Albumin (3.5-5.0) g/dL 04/02/17 04/02/17 04/02/17 Range/Units 16:28 18:24 19:13 RBC (3.80-5.40) m/uL Hgb (11.4-16.0) gm/dL Hct (34.0-46.0) % RDW (11.5-15.5) % Plt Count (150-450) k/uL ABG pH (7.35-7.45) ABG pCO2 (35-45) mmHg ABG pO2 (83-108) mmHg ABG Total CO2 (19-24) mmol/L ABG O2 Saturation (94-97) % ABG Hematocrit (34.0-46.0) % ABG Sodium (135-146) mmol/L Sodium (137-145) mmol/L Glucose (74-99) mg/dL POC Glucose (mg/dL) 121 H 177 H 195 H (75-99) mg/dL Calcium (8.4-10.2) mg/dL Total Bilirubin (0.2-1.3) mg/dL Unconjugated Bilirubin (0.0-1.1) mg/dL Delta Bilirubin (0.0-0.2) mg/dL AST (14-36) U/L ALT (9-52) U/L Total Protein (6.3-8.2) g/dL Albumin (3.5-5.0) g/dL 04/02/17 04/03/17 04/03/17 Range/Units 20:15 01:19 01:47 RBC (3.80-5.40) m/uL Hgb (11.4-16.0) gm/dL Hct (34.0-46.0) % RDW (11.5-15.5) % Plt Count (150-450) k/uL ABG pH (7.35-7.45) ABG pCO2 (35-45) mmHg ABG pO2 (83-108) mmHg ABG Total CO2 (19-24) mmol/L ABG O2 Saturation (94-97) % ABG Hematocrit (34.0-46.0) % ABG Sodium (135-146) mmol/L Sodium (137-145) mmol/L Glucose (74-99) mg/dL POC Glucose (mg/dL) 162 H 121 H 123 H (75-99) mg/dL Calcium (8.4-10.2) mg/dL Total Bilirubin (0.2-1.3) mg/dL Unconjugated Bilirubin (0.0-1.1) mg/dL Delta Bilirubin (0.0-0.2) mg/dL AST (14-36) U/L ALT (9-52) U/L Total Protein (6.3-8.2) g/dL Albumin (3.5-5.0) g/dL 04/03/17 04/03/17 04/03/17 Range/Units 02:58 04:10 04:42 RBC (3.80-5.40) m/uL Hgb (11.4-16.0) gm/dL Hct (34.0-46.0) % RDW (11.5-15.5) % Plt Count (150-450) k/uL ABG pH (7.35-7.45) ABG pCO2 (35-45) mmHg ABG pO2 (83-108) mmHg ABG Total CO2 (19-24) mmol/L ABG O2 Saturation (94-97) % ABG Hematocrit (34.0-46.0) % ABG Sodium (135-146) mmol/L Sodium 135 L (137-145) mmol/L Glucose 110 H (74-99) mg/dL POC Glucose (mg/dL) 113 H 112 H (75-99) mg/dL Calcium 7.6 L (8.4-10.2) mg/dL Total Bilirubin 2.3 H (0.2-1.3) mg/dL Unconjugated Bilirubin 1.9 H (0.0-1.1) mg/dL Delta Bilirubin 0.4 H (0.0-0.2) mg/dL AST 465 H (14-36) U/L ALT 218 H (9-52) U/L Total Protein 4.5 L (6.3-8.2) g/dL Albumin 2.6 L (3.5-5.0) g/dL 04/03/17 04/03/17 04/03/17 Range/Units 04:42 05:35 06:19 RBC 3.23 L (3.80-5.40) m/uL Hgb 10.0 L (11.4-16.0) gm/dL Hct 31.0 L (34.0-46.0) % RDW 15.6 H (11.5-15.5) % Plt Count 90 L (150-450) k/uL ABG pH (7.35-7.45) ABG pCO2 (35-45) mmHg ABG pO2 (83-108) mmHg ABG Total CO2 (19-24) mmol/L ABG O2 Saturation (94-97) % ABG Hematocrit (34.0-46.0) % ABG Sodium (135-146) mmol/L Sodium (137-145) mmol/L Glucose (74-99) mg/dL POC Glucose (mg/dL) 127 H 121 H (75-99) mg/dL Calcium (8.4-10.2) mg/dL Total Bilirubin (0.2-1.3) mg/dL Unconjugated Bilirubin (0.0-1.1) mg/dL Delta Bilirubin (0.0-0.2) mg/dL AST (14-36) U/L ALT (9-52) U/L Total Protein (6.3-8.2) g/dL Albumin (3.5-5.0) g/dL 04/03/17 04/03/17 04/03/17 Range/Units 07:53 09:01 12:32 RBC (3.80-5.40) m/uL Hgb (11.4-16.0) gm/dL Hct (34.0-46.0) % RDW (11.5-15.5) % Plt Count (150-450) k/uL ABG pH (7.35-7.45) ABG pCO2 (35-45) mmHg ABG pO2 (83-108) mmHg ABG Total CO2 (19-24) mmol/L ABG O2 Saturation (94-97) % ABG Hematocrit (34.0-46.0) % ABG Sodium (135-146) mmol/L Sodium (137-145) mmol/L Glucose (74-99) mg/dL POC Glucose (mg/dL) 116 H 146 H 149 H (75-99) mg/dL Calcium (8.4-10.2) mg/dL Total Bilirubin (0.2-1.3) mg/dL Unconjugated Bilirubin (0.0-1.1) mg/dL Delta Bilirubin (0.0-0.2) mg/dL AST (14-36) U/L ALT (9-52) U/L Total Protein (6.3-8.2) g/dL Albumin (3.5-5.0) g/dL Assessment and Plan Plan: Assessment 1 coronary artery bypass surgery, two-vessel bypass, postop day #2. Chest tubes are still in place and the patient is a mediastinal and the left pleural chest tube. Hemodynamically stable. 2 diabetes mellitus, patient has been switched to long-acting insulin in the blood sugars under good control for now. 3 hyperlipidemia 4 hypertension 5 chronic back pain 6 neuropathy. Plan Continue using the incentive spirometer. Continue aspirin and Plavix. Give the patient 40 mg of IV Lasix. Increased level level of activity as tolerated. We'll monitor the output from the chest tube and CT surgery will be splitting the chest tubes to accurately measure the output and proceed accordingly. Chest x-ray was reviewed. Clinically stable.
[2017-04-03] MEDS ORDERED: SUCCINYLCHOLINE CHLORIDE 100 MG/5 ML SYR IV ONE (13:56)
[2017-04-03] MEDS ORDERED: fentaNYL (PF) 50 MCG/ML 2 ML AMP ONE (13:56)
[2017-04-03] MEDS ORDERED: MIDAZOLAM 2 MG/2 ML VIAL ONE (13:56)
[2017-04-03] MEDS ORDERED: PHENYLEPHRINE-0.9% NACL SYG 1 MG/10 ML SYRINGE ONE (13:56)
[2017-04-03] MEDS ORDERED: LIDOCAINE 2% SYG (PF) 100 MG/5 ML ONE (13:56)
[2017-04-03] MEDS ORDERED: fentaNYL (PF) 50 MCG/ML 50 ML VIAL ONE (13:56)
[2017-04-03] MEDS ORDERED: MAGNESIUM SULFATE 4 MEQ/ML 2 ML VIAL ONE (13:56)
[2017-04-03] MEDS ORDERED: WATER FOR INJECTION, STERILE 10 ML VIAL IV ONE (13:56)
[2017-04-03] MEDS ORDERED: VECURONIUM 10 MG VIAL IV ONE (13:56)
[2017-04-03] MEDS ORDERED: PROPOFOL 10 MG/ML 20 ML VIAL IV ONE (13:56)
[2017-04-03 16:40] LABS: Glucose,Whole Blood 148 mg/dL (75-99)
--- NOTE | 2017-04-03 20:02 | P.PN ---
Subjective This is a pleasant 66-year-old female patient who sees Dr. Lindsay on a regular basis was admitted to the hospital yesterday and underwent elective coronary artery that is grafting 2 with WHITAKER to LAD and SVG to diagonal. The patient was extubated. Hemodynamically she continues to be stable. She continues to be in normal sinus mechanism. The statin was stopped in view of elevated LFT. Objective - Vital Signs Vital signs: Vital Signs Temp 97.1 F L 04/03/17 16:00 Pulse 85 04/03/17 16:00 Resp 19 04/03/17 16:00 BP 121/57 04/03/17 16:00 Pulse Ox 96 04/03/17 16:00 Intake & Output 04/03/17 04/03/17 04/04/17 06:59 18:59 06:59 Intake Total 726.659 239.395 Output Total 1423 1912 Balance -696.341 -1672.605 Weight 108.7 kg 108.7 kg Intake: IV 698 226 ACETAMINOPHEN IV (For NPO 100 ) 1,000 mg In Empty Bag 1 bag @ 400 mls/hr IVPB Q6HR [facility] Rx#:[id number] Lactated Ringers 50ml/hr 520 190 Normal Saline 500ml for 78 36 pressure bag Intake, IV Titration 28.659 13.395 Amount Insulin Regular 100 unit 28.659 13.395 In Sodium Chloride 0.9% 100 ml @ Per Protocol IV .Q0M [facility] Rx#:[id number] Output: Chest Tube Drainage 370 367 Chest Tube Left Left 370 310 Pleural/Mediastinal Left Pleural/Mediastinal 28 Mediastinal 29 Urine 1053 1545 Other: Voiding Method Indwelling Catheter Indwelling Catheter ABP, PAP, CO, CI - Last Documented Arterial Blood Pressure 133/49 Pulmonary Artery Pressure 34/16 Cardiac Output 5.5 Cardiac Index 2.7 - Constitutional General appearance: Present: no acute distress - Respiratory Respiratory: bilateral: diminished - Cardiovascular Rhythm: regular - Labs CBC & Chem 7: 04/03/17 04:42 04/03/17 04:42 Labs: Abnormal Lab Results - Last 24 Hours (Table) 04/02/17 04/03/17 04/03/17 Range/Units 20:15 01:19 01:47 RBC (3.80-5.40) m/uL Hgb (11.4-16.0) gm/dL Hct (34.0-46.0) % RDW (11.5-15.5) % Plt Count (150-450) k/uL Sodium (137-145) mmol/L Glucose (74-99) mg/dL POC Glucose (mg/dL) 162 H 121 H 123 H (75-99) mg/dL Hemoglobin A1c (4.2-6.1) % Calcium (8.4-10.2) mg/dL Total Bilirubin (0.2-1.3) mg/dL Unconjugated Bilirubin (0.0-1.1) mg/dL Delta Bilirubin (0.0-0.2) mg/dL AST (14-36) U/L ALT (9-52) U/L Total Protein (6.3-8.2) g/dL Albumin (3.5-5.0) g/dL 04/03/17 04/03/17 04/03/17 Range/Units 02:58 04:10 04:22 RBC (3.80-5.40) m/uL Hgb (11.4-16.0) gm/dL Hct (34.0-46.0) % RDW (11.5-15.5) % Plt Count (150-450) k/uL Sodium (137-145) mmol/L Glucose (74-99) mg/dL POC Glucose (mg/dL) 113 H 112 H (75-99) mg/dL Hemoglobin A1c 7.0 H (4.2-6.1) % Calcium (8.4-10.2) mg/dL Total Bilirubin (0.2-1.3) mg/dL Unconjugated Bilirubin (0.0-1.1) mg/dL Delta Bilirubin (0.0-0.2) mg/dL AST (14-36) U/L ALT (9-52) U/L Total Protein (6.3-8.2) g/dL Albumin (3.5-5.0) g/dL 04/03/17 04/03/17 04/03/17 Range/Units 04:42 04:42 05:35 RBC 3.23 L (3.80-5.40) m/uL Hgb 10.0 L (11.4-16.0) gm/dL Hct 31.0 L (34.0-46.0) % RDW 15.6 H (11.5-15.5) % Plt Count 90 L (150-450) k/uL Sodium 135 L (137-145) mmol/L Glucose 110 H (74-99) mg/dL POC Glucose (mg/dL) 127 H (75-99) mg/dL Hemoglobin A1c (4.2-6.1) % Calcium 7.6 L (8.4-10.2) mg/dL Total Bilirubin 2.3 H (0.2-1.3) mg/dL Unconjugated Bilirubin 1.9 H (0.0-1.1) mg/dL Delta Bilirubin 0.4 H (0.0-0.2) mg/dL AST 465 H (14-36) U/L ALT 218 H (9-52) U/L Total Protein 4.5 L (6.3-8.2) g/dL Albumin 2.6 L (3.5-5.0) g/dL 04/03/17 04/03/17 04/03/17 Range/Units 06:19 07:53 09:01 RBC (3.80-5.40) m/uL Hgb (11.4-16.0) gm/dL Hct (34.0-46.0) % RDW (11.5-15.5) % Plt Count (150-450) k/uL Sodium (137-145) mmol/L Glucose (74-99) mg/dL POC Glucose (mg/dL) 121 H 116 H 146 H (75-99) mg/dL Hemoglobin A1c (4.2-6.1) % Calcium (8.4-10.2) mg/dL Total Bilirubin (0.2-1.3) mg/dL Unconjugated Bilirubin (0.0-1.1) mg/dL Delta Bilirubin (0.0-0.2) mg/dL AST (14-36) U/L ALT (9-52) U/L Total Protein (6.3-8.2) g/dL Albumin (3.5-5.0) g/dL 04/03/17 04/03/17 Range/Units 12:32 16:37 RBC (3.80-5.40) m/uL Hgb (11.4-16.0) gm/dL Hct (34.0-46.0) % RDW (11.5-15.5) % Plt Count (150-450) k/uL Sodium (137-145) mmol/L Glucose (74-99) mg/dL POC Glucose (mg/dL) 149 H 148 H (75-99) mg/dL Hemoglobin A1c (4.2-6.1) % Calcium (8.4-10.2) mg/dL Total Bilirubin (0.2-1.3) mg/dL Unconjugated Bilirubin (0.0-1.1) mg/dL Delta Bilirubin (0.0-0.2) mg/dL AST (14-36) U/L ALT (9-52) U/L Total Protein (6.3-8.2) g/dL Albumin (3.5-5.0) g/dL Assessment and Plan Plan: Continue the current treatment and follow up with the patient.
[2017-04-03] MEDS: PRAMIPEXOLE 0.25 MG TAB PO SCH (20:42)
[2017-04-03] MEDS ORDERED: DEXTROSE 5% IN WATER 100 ML with AMIODARONE 150 MG IV ONE (20:45)
[2017-04-03] MEDS: AMIODARONE 450 MG in DEXTROSE 5% IN WATER 250 ML IV SCH ×2 (21:10)
[2017-04-03 21:29] LABS: Glucose,Whole Blood 190 mg/dL (75-99)
[2017-04-03] MEDS: SENNOSIDES-DOCUSATE SODIUM 1 EACH TAB PO SCH (22:18)
[2017-04-03] MEDS: INSULIN NPH 300 UNIT/3 ML VIAL SQ SCH (22:20)
[2017-04-03] MEDS: traMADol 50 MG TAB PO PRN (23:23)
[2017-04-04 01:35] LABS: Glucose,Whole Blood 172 mg/dL (75-99)
[2017-04-04 05:51] LABS: Glucose,Whole Blood 141 mg/dL (75-99)
[2017-04-04 06:40] LABS: Basophils % (A) 0 %; CH 31.3; Eosinophils # (A) 0.1 k/uL (0-0.7); Eosinophils % (A) 1 %; HCT 32.3 % (34.0-46.0); HDW 2.92; HGB 10.6 gm/dL (11.4-16.0); Luc # (Auto) 0.21; Luc % (Auto) 3; Lymphocytes # (A) 1.5 k/uL (1.0-4.8); Lymphocytes % (A) 19 %; MCH 31.4 pg (25.0-35.0); MCHC 32.8 g/dL (31.0-37.0); MCV 95.6 fL (80.0-100.0); Monocytes # (A) 0.6 k/uL (0-1.0); Monocytes % (A) 8 %; Neutrophils # (A) 5.7 k/uL (1.3-7.7); Neutrophils % (A) 70 %; RBC 3.38 m/uL (3.80-5.40); RDW 15.1 % (11.5-15.5); WBC 8.2 k/uL (3.8-10.6); WBC (Perox) 8.54
[2017-04-04] MEDS: AMIODARONE 450 MG in DEXTROSE 5% IN WATER 250 ML IV SCH ×2 (06:52)
[2017-04-04] MEDS: INSULIN LISPRO (humaLOG) 300 UNIT/3 ML VIAL SQ SCH ×5 (06:53→22:58)
[2017-04-04 07:03] LABS: ALT 217 U/L (9-52); AST 342 U/L (14-36); Alkaline Phosphatase 58 U/L (38-126); Anion Gap 6 mmol/L; Bilirubin, Delta 0.6 mg/dL (0.0-0.2); Blood Urea Nitrogen 21 mg/dL (7-17); Calcium 7.7 mg/dL (8.4-10.2); Carbon Dioxide 27 mmol/L (22-30); Chloride 100 mmol/L (98-107); Glucose 128 mg/dL (74-99); Magnesium 1.9 mg/dL (1.6-2.3); Non-African American GFR(MDRD) >60 (>60 ml/min/1.73 sqM); Sodium 133 mmol/L (137-145); Total Bilirubin 2.5 mg/dL (0.2-1.3); Total Protein 4.9 g/dL (6.3-8.2)
[2017-04-04] MEDS: ASPIRIN 325 MG TAB PO SCH (08:17)
[2017-04-04] MEDS: CLOPIDOGREL 75 MG TAB PO SCH (08:17)
[2017-04-04] MEDS: MULTIVITAMINS, THERA 1 EACH TAB PO SCH (08:17)
[2017-04-04] MEDS: METOPROLOL TARTRATE 12.5 MG TAB PO SCH (08:17)
[2017-04-04] MEDS: PANTOPRAZOLE 40 MG TABLET PO SCH (08:17)
[2017-04-04] MEDS: MUPIROCIN 2% OINT 22 GM TUBE NASAL SCH ×2 (08:18→20:17)
[2017-04-04] MEDS: HEPARIN SODIUM,PORCINE 5,000 UNIT/ML 1 ML VIAL SQ SCH ×3 (08:18→22:58)
[2017-04-04] MEDS: INSULN ASP PRT/INSULIN ASPART 100 UNIT/ML 10 ML VIAL SQ SCH (08:18)
--- NOTE | 2017-04-04 08:35 | XR ---
EXAMINATION TYPE: XR chest 1V portable DATE OF EXAM: 04/04/2017 Comparison: 04/03/2017 Clinical History: 66-year-old female Postop CABG Findings: Median sternotomy wires are present with post-CABG clips in the mediastinum. Mediastinal drain and le ft-sided chest tube remain in place. No appreciable pneumothorax. Heart remains enlarged. [id number] right and small left pleural effusions persist. Bibasilar o pacities. Retained epicardial pacer leads. Impression: 1. Improving pulmonary vascular congestion. 2. Continued small to moderate right and small left pleural effusions with adjacent atelectasis and/o r consolidation.
--- NOTE | 2017-04-04 10:36 | P.PN ---
Subjective Principal diagnosis: Acute inferior ST elevation PR This is a pleasant 66-year-old female patient who sees Dr. Lindsay on a regular basis was admitted to the hospital yesterday and underwent elective coronary artery that is grafting 2 with WHITAKER to LAD and SVG to diagonal. The patient went into an A. fib with RVR yesterday and she was started on amiodarone IV and converted back to normal sinus mechanism. Clinically she seems to be doing good and denies having any chest pain or discomfort at this point. Objective - Vital Signs Vital signs: Vital Signs Temp 98 F 04/04/17 08:00 Pulse 77 04/04/17 08:00 Resp 18 04/04/17 08:00 BP 113/53 04/04/17 08:00 Pulse Ox 98 04/04/17 08:00 Intake & Output 04/03/17 04/04/17 04/04/17 18:59 06:59 18:59 Intake Total 239.395 463.33 180 Output Total 1912 653 350 Balance -1672.605 -189.67 -170 Weight 108.7 kg 106.8 kg Intake: IV 226 180 0.9 @ 20mls 180 Lactated Ringers 50ml/hr 190 Normal Saline 500ml for 36 pressure bag Intake, IV Titration 13.395 283.33 Amount Amiodarone 450 mg In 283.33 Dextrose 5% in Water 250 ml @ 1 MG/MIN 33.33 mls/ hr IV .Q7H31M [facility] Rx#: [id number] Insulin Regular 100 unit 13.395 In Sodium Chloride 0.9% 100 ml @ Per Protocol IV .Q0M [facility] Rx#:[id number] Oral 180 Output: Chest Tube Drainage 367 255 Chest Tube Left Left 310 Pleural/Mediastinal Left Pleural/Mediastinal 28 115 Mediastinal 29 140 Drainage 98 Left Lateral Chest 53 Lower Medial Chest 45 Urine 1545 300 350 Other: Voiding Method Indwelling Catheter Toilet ABP, PAP, CO, CI - Last Documented Arterial Blood Pressure 133/49 Pulmonary Artery Pressure 34/16 Cardiac Output 5.5 Cardiac Index 2.7 - Constitutional General appearance: Present: no acute distress - Respiratory Respiratory: bilateral: CTA - Cardiovascular Rhythm: regular Heart sounds: normal: S1, S2 - Labs CBC & Chem 7: 04/04/17 06:04 04/04/17 06:04 Labs: Abnormal Lab Results - Last 24 Hours (Table) 04/03/17 04/03/17 04/03/17 Range/Units 04:22 12:32 16:37 RBC (3.80-5.40) m/uL Hgb (11.4-16.0) gm/dL Hct (34.0-46.0) % Plt Count (150-450) k/uL Sodium (137-145) mmol/L BUN (7-17) mg/dL Glucose (74-99) mg/dL POC Glucose (mg/dL) 149 H 148 H (75-99) mg/dL Hemoglobin A1c 7.0 H (4.2-6.1) % Calcium (8.4-10.2) mg/dL Total Bilirubin (0.2-1.3) mg/dL Unconjugated Bilirubin (0.0-1.1) mg/dL Delta Bilirubin (0.0-0.2) mg/dL AST (14-36) U/L ALT (9-52) U/L Total Protein (6.3-8.2) g/dL Albumin (3.5-5.0) g/dL 04/03/17 04/04/17 04/04/17 Range/Units 21:28 01:33 05:49 RBC (3.80-5.40) m/uL Hgb (11.4-16.0) gm/dL Hct (34.0-46.0) % Plt Count (150-450) k/uL Sodium (137-145) mmol/L BUN (7-17) mg/dL Glucose (74-99) mg/dL POC Glucose (mg/dL) 190 H 172 H 141 H (75-99) mg/dL Hemoglobin A1c (4.2-6.1) % Calcium (8.4-10.2) mg/dL Total Bilirubin (0.2-1.3) mg/dL Unconjugated Bilirubin (0.0-1.1) mg/dL Delta Bilirubin (0.0-0.2) mg/dL AST (14-36) U/L ALT (9-52) U/L Total Protein (6.3-8.2) g/dL Albumin (3.5-5.0) g/dL 04/04/17 04/04/17 Range/Units 06:04 06:04 RBC 3.38 L (3.80-5.40) m/uL Hgb 10.6 L (11.4-16.0) gm/dL Hct 32.3 L (34.0-46.0) % Plt Count 129 L (150-450) k/uL Sodium 133 L (137-145) mmol/L BUN 21 H (7-17) mg/dL Glucose 128 H (74-99) mg/dL POC Glucose (mg/dL) (75-99) mg/dL Hemoglobin A1c (4.2-6.1) % Calcium 7.7 L (8.4-10.2) mg/dL Total Bilirubin 2.5 H (0.2-1.3) mg/dL Unconjugated Bilirubin 1.9 H (0.0-1.1) mg/dL Delta Bilirubin 0.6 H (0.0-0.2) mg/dL AST 342 H (14-36) U/L ALT 217 H (9-52) U/L Total Protein 4.9 L (6.3-8.2) g/dL Albumin 2.7 L (3.5-5.0) g/dL Assessment and Plan Plan: This is a pleasant 66-year-old female patient who is a post op day #3 after coronary artery that is grafting. She had an episode of A. fib yesterday but she has been maintaining normal sinus mechanism. The liver function test came in to be slightly abnormal yesterday and the statin was held. I am going to stop the amiodarone in view of the abnormal liver function test and increase the dose of metoprolol and follow-up with the patient. We'll continue the dual antiplatelet therapy with aspirin and Plavix.
[2017-04-04] MEDS: MAGNESIUM SULFATE-D5W PMX 1 GM in DEXTROSE/WATER 1 100ML.BAG IVPB SCH ×2 (11:27→12:26)
[2017-04-04] MEDS: METOPROLOL TARTRATE 25 MG TAB PO SCH ×2 (11:39→20:19)
[2017-04-04 11:51] LABS: Glucose,Whole Blood 179 mg/dL (75-99)
--- NOTE | 2017-04-04 13:10 | P.PN ---
Subjective A 66-year-old female patient who was worked up for coronary artery disease on outpatient basis and the patient was found to have a positive stress test and based on that a cardiac catheterization was done and the patient was found to have 90-95% ostial stenosis, diffuse disease involving the LAD. Left ventricle ejection fraction was around 65-70%. Based on that the patient was referred to cardiac revascularization surgery. Surgery was done yesterday by Dr. Wolf and the patient had WHITAKER to LAD and saphenous vein graft to diagonal. The patient was brought into the intensive care unit and a hemodynamically stable condition. She was on an assist-control mode of ventilation. The necessary vent changes were done and overnight the patient was gradually weaned off the mechanical ventilator and spoke to his breathing trial was done and around 400 AM this morning the patient was extubated and currently she is on oxygen 2 L/m nasal cannula with a pulse ox of 96%. The chest x-ray from this morning is showing cardiomegaly with mild central vascular congestion and small pleural effusions and bibasilar atelectatic changes. The patient has a mediastinal and left pleural chest tube and the chest tube has drained around 310 mL since early this morning. The patient is using incentive spirometer. She has no pain issues. No other complaints otherwise for now. The patient was taken off nitroglycerin drip. The [place] catheter was also pulled out this morning. On 04/03/2017 I'm seeing this patient in follow-up. The patient is doing well. The patient has no specific complaints. The patient is able to sit up on a chair. Chest tubes are all in place. She is ambulating and is pulling at thousand on her incentive spirometer. No acute distress. Tolerating diet. No nausea. No vomiting. No chest pain. The patient has a normal cardiac rhythm. Blood sugars are also controlled and the patient has been switched to subcu insulin, it combination of NPH and NovoLog 7030. The chest x-ray from today shows CHF with mild pulmonary vascular congestion. The patient has also small right-sided pleural effusion. The patient be given a dose of Lasix 40 mg IV push. The [place] catheter has been removed. The right IJ sheath is still in place. On 04/04/2017 I'm seeing this patient in follow-up. Chest x-ray showing better pleural effusion. The chest tubes in still in place and the drainage is still active. The combined output from the chest tubes has been more than 500 mL and based on that the chest his will be kept in place. The patient was given diuretics yesterday and the patient is a negative fluid balance. No chest pain. She is using incentive spirometer and she is improving slowly. She had a episode of atrial fibrillation yesterday and since then her rhythm is back to sinus. Liver function tests are improving as the patient is currently off statin. Amiodarone was stopped by cardiology. No other significant events overnight. Objective - Vital Signs Vital signs: Vital Signs Temp 98 F 04/04/17 08:00 Pulse 77 04/04/17 08:00 Resp 18 04/04/17 08:00 BP 113/53 04/04/17 08:00 Pulse Ox 98 04/04/17 08:00 Intake & Output 04/03/17 04/04/17 04/04/17 18:59 06:59 18:59 Intake Total 239.395 463.33 300 Output Total 1912 653 650 Balance -1672.605 -189.67 -350 Weight 108.7 kg 106.8 kg Intake: IV 226 180 0.9 @ 20mls 180 Lactated Ringers 50ml/hr 190 Normal Saline 500ml for 36 pressure bag Intake, IV Titration 13.395 283.33 Amount Amiodarone 450 mg In 283.33 Dextrose 5% in Water 250 ml @ 1 MG/MIN 33.33 mls/ hr IV .Q7H31M [facility] Rx#: [id number] Insulin Regular 100 unit 13.395 In Sodium Chloride 0.9% 100 ml @ Per Protocol IV .Q0M [facility] Rx#:[id number] Oral 300 Output: Chest Tube Drainage 367 255 Chest Tube Left Left 310 Pleural/Mediastinal Left Pleural/Mediastinal 28 115 Mediastinal 29 140 Drainage 98 Left Lateral Chest 53 Lower Medial Chest 45 Urine 1545 300 650 Other: Voiding Method Indwelling Catheter Toilet ABP, PAP, CO, CI - Last Documented Arterial Blood Pressure 133/49 Pulmonary Artery Pressure 34/16 Cardiac Output 5.5 Cardiac Index 2.7 - Exam Head exam was generally normal. There was no scleral icterus or corneal arcus. Mucous membranes were moist.Neck was supple and without jugular venous distension, thyromegaly, or carotid bruits. Carotids were easily palpable bilaterally. There was no adenopathy. There is a right IJ Cordis in place. No neck stiffness. No goiter or neck masses. Lungs sounds are diminished bilaterally and the patient has a mediastinal and left pleural chest tube. Sternum stable clean and intact.Cardiac exam revealed the PMI to be normally situated and sized. The rhythm was regular and no extrasystoles were noted during several minutes of auscultation. The first and second heart sounds were normal and physiologic splitting of the second heart sound was noted. There were no murmurs, rubs, clicks, or gallops.Abdominal exam revealed normal bowel sounds. The abdomen was soft, non-tender, and without masses, organomegaly, or appreciable enlargement of the abdominal aorta.Examination of the extremities revealed easily palpable radial, femoral and pedal pulses. There was no cyanosis , clubbing or edema. - Labs CBC & Chem 7: 04/04/17 06:04 04/04/17 06:04 Labs: Abnormal Lab Results - Last 24 Hours (Table) 04/03/17 04/03/17 04/03/17 Range/Units 04:22 16:37 21:28 RBC (3.80-5.40) m/uL Hgb (11.4-16.0) gm/dL Hct (34.0-46.0) % Plt Count (150-450) k/uL Sodium (137-145) mmol/L BUN (7-17) mg/dL Glucose (74-99) mg/dL POC Glucose (mg/dL) 148 H 190 H (75-99) mg/dL Hemoglobin A1c 7.0 H (4.2-6.1) % Calcium (8.4-10.2) mg/dL Total Bilirubin (0.2-1.3) mg/dL Unconjugated Bilirubin (0.0-1.1) mg/dL Delta Bilirubin (0.0-0.2) mg/dL AST (14-36) U/L ALT (9-52) U/L Total Protein (6.3-8.2) g/dL Albumin (3.5-5.0) g/dL 04/04/17 04/04/17 04/04/17 Range/Units 01:33 05:49 06:04 RBC 3.38 L (3.80-5.40) m/uL Hgb 10.6 L (11.4-16.0) gm/dL Hct 32.3 L (34.0-46.0) % Plt Count 129 L (150-450) k/uL Sodium (137-145) mmol/L BUN (7-17) mg/dL Glucose (74-99) mg/dL POC Glucose (mg/dL) 172 H 141 H (75-99) mg/dL Hemoglobin A1c (4.2-6.1) % Calcium (8.4-10.2) mg/dL Total Bilirubin (0.2-1.3) mg/dL Unconjugated Bilirubin (0.0-1.1) mg/dL Delta Bilirubin (0.0-0.2) mg/dL AST (14-36) U/L ALT (9-52) U/L Total Protein (6.3-8.2) g/dL Albumin (3.5-5.0) g/dL 04/04/17 04/04/17 Range/Units 06:04 11:48 RBC (3.80-5.40) m/uL Hgb (11.4-16.0) gm/dL Hct (34.0-46.0) % Plt Count (150-450) k/uL Sodium 133 L (137-145) mmol/L BUN 21 H (7-17) mg/dL Glucose 128 H (74-99) mg/dL POC Glucose (mg/dL) 179 H (75-99) mg/dL Hemoglobin A1c (4.2-6.1) % Calcium 7.7 L (8.4-10.2) mg/dL Total Bilirubin 2.5 H (0.2-1.3) mg/dL Unconjugated Bilirubin 1.9 H (0.0-1.1) mg/dL Delta Bilirubin 0.6 H (0.0-0.2) mg/dL AST 342 H (14-36) U/L ALT 217 H (9-52) U/L Total Protein 4.9 L (6.3-8.2) g/dL Albumin 2.7 L (3.5-5.0) g/dL Assessment and Plan Plan: Assessment 1 coronary artery bypass surgery, two-vessel bypass, postop day #3. Chest tubes are still in place and the patient is a mediastinal and the left pleural chest tube. Hemodynamically stable. The patient is still having increased output from the chest tubes. The chest to be kept in place patient be given dose of Lasix today. On the chest x-ray there is small better pleural effusions. No major respiratory distress. She is using incentive spirometer. 2 diabetes mellitus, patient has been switched to long-acting insulin in the blood sugars under good control for now. 3 hyperlipidemia 4 hypertension 5 chronic back pain 6 neuropathy. 7 abnormal LFTs which is improving 8 single episode of atrial fibrillation current rhythm is sinus. Plan Continue using the incentive spirometer. Continue aspirin and Plavix. Give the patient 40 mg of IV Lasix. Keep the chest tubes in place for another 24 hours. Statins are on hold based on the LFTs. Monitor the cardiac rhythm and watch for any atrial fibrillation. We'll continue to follow.
[2017-04-04] MEDS: FUROSEMIDE 10 MG/ML 4 ML VIAL IV SCH ×2 (14:39→20:17)
[2017-04-04 16:54] LABS: Glucose,Whole Blood 128 mg/dL (75-99)
[2017-04-04] MEDS: SENNOSIDES-DOCUSATE SODIUM 1 EACH TAB PO SCH (20:16)
[2017-04-04] MEDS: PRAMIPEXOLE 0.25 MG TAB PO SCH (20:18)
[2017-04-04] MEDS: traMADol 50 MG TAB PO PRN (20:28)
[2017-04-04 21:28] LABS: Glucose,Whole Blood 131 mg/dL (75-99)
--- NOTE | 2017-04-04 22:00 | PN ---
DATE OF SERVICE: 04/03/17 I am covering for Dr. Abbasi. This 67-year-old woman who was admitted after CAD/CABG is being closely monitored. The patient was extubated. The patient is monitored on telemetry. At this time, elevated. No chest pain. No palpitations. Past medical history reviewed. REVIEW OF SYSTEMS: Cardiology: As mentioned earlier. Respiratory: As mentioned earlier. GI: As mentioned earlier. : No dysuria. Nervous system: No numbness, weakness. Current medications include: 1. [place] 5 mg q4 prn 2. DuoNeb q.i.d. and prn 3. Aspirin 320 mg daily. 4. Dulcolax 10 mg prn 5. Plavix 75 mg daily. 6. Heparin 5000 subcu q8. 7. NovoLog 70/30 22 units with three shot regimen. 8. Milk of Magnesia. 9. Lopressor. 10. Multivitamins. 11. Zofran. 12. Protonix. 13. Mirapex. PHYSICAL EXAMINATION: On exam, the patient is alert and oriented times three. Pulse 83, blood pressure 133/49. Respiratory rate 14. Temperature normal. Pulse ox 97% on 2 L. HEENT: Conjunctivae pale. NECK: no JVD. CARDIOVASCULAR: S1, S2 muffled. RESPIRATORY: Breath sounds diminished at the bases. A few scattered rhonchi and crackles. Abdomen is soft. Nontender. LEGS: No edema. No swelling. Nervous system: No focal deficits. LABS: WBC 8.6, hemoglobin 10, sodium 135, LFTs are 465 and 218. ASSESSMENT: 1. Coronary artery disease, status post coronary artery bypass graft. 2. Hyperbilirubinemia. 3. Increased AST/ALT. 4. Status post coronary artery disease, CABG. 5. Diabetes mellitus. 6. Hypertension. 7. Hyperlipidemia. RECOMMENDATIONS AND DISCUSSION: Continue the current medications. Continue with monitoring and symptomatic treatment. Otherwise, at this time, I recommend monitor the LFTs closely. Otherwise, I would also recommend to avoid ( ) toxic medications. Hepatic function panel has been recommended. Recommend use Ultram, avoid Tylenol. We will continue to monitor. Further recommendation to follow. We will repeat LFTs and further recommendations to follow. Otherwise monitor the blood sugars closely. Watch for hypoglycemia. The patient po intake is improving at this time. MTDD
[2017-04-04] MEDS: INSULIN NPH 300 UNIT/3 ML VIAL SQ SCH (22:58)
[2017-04-05] MEDS: traMADol 50 MG TAB PO PRN ×3 (00:24→20:31)
[2017-04-05 01:47] LABS: Glucose,Whole Blood 109 mg/dL (75-99)
[2017-04-05 05:38] LABS: Glucose,Whole Blood 117 mg/dL (75-99)
[2017-04-05 06:32] LABS: Anisocytosis Slight; Basophils % (A) 0 %; CH 32.2; CHCM 33.4; Eosinophils # (A) 0.3 k/uL (0-0.7); Eosinophils % (A) 4 %; HCT 32.1 % (34.0-46.0); HDW 3.01; HGB 10.3 gm/dL (11.4-16.0); Luc # (Auto) 0.13; Luc % (Auto) 2; Lymphocytes # (A) 1.5 k/uL (1.0-4.8); Lymphocytes % (A) 25 %; MCH 31.2 pg (25.0-35.0); MCHC 32.1 g/dL (31.0-37.0); Mean Platelet Volume 8.3; Monocytes # (A) 0.4 k/uL (0-1.0); Monocytes % (A) 7 %; Neutrophils # (A) 3.8 k/uL (1.3-7.7); Neutrophils % (A) 62 %; RBC 3.31 m/uL (3.80-5.40); RDW 16.1 % (11.5-15.5); WBC 6.1 k/uL (3.8-10.6)
[2017-04-05] MEDS: INSULIN LISPRO (humaLOG) 300 UNIT/3 ML VIAL SQ SCH ×5 (06:42→21:44)
[2017-04-05 06:58] LABS: ALT 143 U/L (9-52); AST 178 U/L (14-36); Alkaline Phosphatase 73 U/L (38-126); Anion Gap 5 mmol/L; Blood Urea Nitrogen 21 mg/dL (7-17); Calcium 7.6 mg/dL (8.4-10.2); Carbon Dioxide 32 mmol/L (22-30); Chloride 98 mmol/L (98-107); Glucose 103 mg/dL (74-99); Non-African American GFR(MDRD) >60 (>60 ml/min/1.73 sqM); Potassium 3.6 mmol/L (3.5-5.1); Sodium 135 mmol/L (137-145); Total Bilirubin 2.2 mg/dL (0.2-1.3); Total Protein 4.9 g/dL (6.3-8.2)
[2017-04-05] MEDS: INSULN ASP PRT/INSULIN ASPART 100 UNIT/ML 10 ML VIAL SQ SCH (07:06)
[2017-04-05] MEDS: PANTOPRAZOLE 40 MG TABLET PO SCH (07:06)
--- NOTE | 2017-04-05 07:50 | P.PN ---
Subjective Principal diagnosis: CAD This is a continue progress note on a 66-year-old white female who is postoperative day #4 for open heart bypass. The patient is tolerating diet today. No sniffing chest pain per se. She does feel sleepy otherwise. No new voiding difficulties. Objective - Vital Signs Vital signs: Vital Signs Temp 97.1 F L 04/05/17 04:00 Pulse 70 04/05/17 04:00 Resp 16 04/05/17 04:00 BP 130/62 04/05/17 04:00 Pulse Ox 99 04/05/17 04:00 Intake & Output 04/04/17 04/05/17 04/05/17 18:59 06:59 18:59 Intake Total 500 Output Total 1720 590 Balance -1220 -590 Weight 105.5 kg Intake: Intake, IV Titration 200 Amount Magnesium Sulfate-D5w Pmx 200 1 gm In Dextrose/Water 1 100ml.bag @ 100 mls/hr IVPB Q1H [facility] Rx#: [id number] Oral 300 Output: Chest Tube Drainage 70 40 Left Pleural/Mediastinal 70 40 Urine 1650 550 Other: Voiding Method Toilet ABP, PAP, CO, CI - Last Documented Arterial Blood Pressure 133/49 Pulmonary Artery Pressure 34/16 Cardiac Output 5.5 Cardiac Index 2.7 - Constitutional General appearance: Present: obese - EENT Eyes: Absent: abnormal pupil - Respiratory Respiratory: bilateral: diminished - Cardiovascular Rhythm: regular Heart sounds: normal: S1, S2 - Gastrointestinal General gastrointestinal: Present: soft. Absent: tenderness - Integumentary Integumentary: Absent: cellulitis - Neurologic Neurologic: Present: CNII-XII intact - Labs CBC & Chem 7: 04/05/17 06:11 04/05/17 06:11 Labs: Abnormal Lab Results - Last 24 Hours (Table) 04/04/17 04/04/17 04/04/17 Range/Units 11:48 16:37 21:26 RBC (3.80-5.40) m/uL Hgb (11.4-16.0) gm/dL Hct (34.0-46.0) % RDW (11.5-15.5) % Plt Count (150-450) k/uL Sodium (137-145) mmol/L Carbon Dioxide (22-30) mmol/L BUN (7-17) mg/dL Glucose (74-99) mg/dL POC Glucose (mg/dL) 179 H 128 H 131 H (75-99) mg/dL Calcium (8.4-10.2) mg/dL Total Bilirubin (0.2-1.3) mg/dL AST (14-36) U/L ALT (9-52) U/L Total Protein (6.3-8.2) g/dL Albumin (3.5-5.0) g/dL 04/05/17 04/05/17 04/05/17 Range/Units 01:45 05:37 06:11 RBC (3.80-5.40) m/uL Hgb (11.4-16.0) gm/dL Hct (34.0-46.0) % RDW (11.5-15.5) % Plt Count (150-450) k/uL Sodium 135 L (137-145) mmol/L Carbon Dioxide 32 H (22-30) mmol/L BUN 21 H (7-17) mg/dL Glucose 103 H (74-99) mg/dL POC Glucose (mg/dL) 109 H 117 H (75-99) mg/dL Calcium 7.6 L (8.4-10.2) mg/dL Total Bilirubin 2.2 H (0.2-1.3) mg/dL AST 178 H (14-36) U/L ALT 143 H (9-52) U/L Total Protein 4.9 L (6.3-8.2) g/dL Albumin 2.7 L (3.5-5.0) g/dL 04/05/17 Range/Units 06:11 RBC 3.31 L (3.80-5.40) m/uL Hgb 10.3 L (11.4-16.0) gm/dL Hct 32.1 L (34.0-46.0) % RDW 16.1 H (11.5-15.5) % Plt Count 140 L (150-450) k/uL Sodium (137-145) mmol/L Carbon Dioxide (22-30) mmol/L BUN (7-17) mg/dL Glucose (74-99) mg/dL POC Glucose (mg/dL) (75-99) mg/dL Calcium (8.4-10.2) mg/dL Total Bilirubin (0.2-1.3) mg/dL AST (14-36) U/L ALT (9-52) U/L Total Protein (6.3-8.2) g/dL Albumin (3.5-5.0) g/dL Assessment and Plan (1) Coronary artery disease Status: Acute (2) Hyperlipidemia Status: Acute (3) Hypertension Status: Acute (4) Obesity (BMI 30-39.9) Status: Acute (5) Type 2 diabetes mellitus Status: Acute Plan: Her blood sugars fairly well-controlled outpatient vail. Otherwise, continue to follow from a medical perspective. Anticipate discharge in next 24-48 hours if continuing trajectory of progress. See orders otherwise. Time with Patient: Less than 30
--- NOTE | 2017-04-05 07:59 | XR ---
EXAMINATION TYPE: XR chest 1V portable DATE OF EXAM: 04/05/2017 COMPARISON: NONE HISTORY: Postop. Follow-up. Chest pain. TECHNIQUE: Single frontal view of the chest is obtained. FINDINGS: Left-sided thoracostomy tube is seen with no residual pneumothorax. There is pulmonary per inflation and bilateral pleural effusions, moderate on the right and small on the left with intrafis sural fluid on the left. Redemonstration of midline sternotomy wires, mediastinal clips, and cardiome conrad. Mediastinal drain has been removed. Surgical charlie are seen within the left upper quadrant. P ulmonary vascular congestion has resolved. IMPRESSION: Persistent moderate right and small left pleural effusions with associated bibasilar atelectasis. Res olved pulmonary vascular congestion.
[2017-04-05] MEDS: HEPARIN SODIUM,PORCINE 5,000 UNIT/ML 1 ML VIAL SQ SCH ×3 (08:53→23:42)
[2017-04-05] MEDS: CLOPIDOGREL 75 MG TAB PO SCH (08:54)
[2017-04-05] MEDS: METOPROLOL TARTRATE 25 MG TAB PO SCH ×2 (08:54→20:06)
[2017-04-05] MEDS: ASPIRIN 325 MG TAB PO SCH (08:54)
--- NOTE | 2017-04-05 11:00 | P.PN ---
Subjective Principal diagnosis: Acute inferior ST elevation NM This is a pleasant 66-year-old female patient who sees Dr. Lindsay on a regular basis was admitted to the hospital yesterday and underwent elective coronary artery that is grafting 2 with WHITAKER to LAD and SVG to diagonal. The patient went into an A. fib with RVR yesterday and she was started on amiodarone IV and converted back to normal sinus mechanism. Clinically she seems to be doing good and denies having any chest pain or discomfort at this point. The liver function test has been trending down and we are continue holding the statin. Beside that the patient continues to be on dual antiplatelet therapy Objective - Vital Signs Vital signs: Vital Signs Temp 97.1 F L 04/05/17 04:00 Pulse 71 04/05/17 09:52 Resp 16 04/05/17 04:00 BP 133/51 04/05/17 09:52 Pulse Ox 95 04/05/17 09:52 Intake & Output 04/04/17 04/05/17 04/05/17 18:59 06:59 18:59 Intake Total 500 240 Output Total 1720 590 Balance -1220 -590 240 Weight 105.5 kg Intake: Intake, IV Titration 200 Amount Magnesium Sulfate-D5w Pmx 200 1 gm In Dextrose/Water 1 100ml.bag @ 100 mls/hr IVPB Q1H [facility] Rx#: [id number] Oral 300 240 Output: Chest Tube Drainage 70 40 Left Pleural/Mediastinal 70 40 Urine 1650 550 Other: Voiding Method Toilet ABP, PAP, CO, CI - Last Documented Arterial Blood Pressure 133/49 Pulmonary Artery Pressure 34/16 Cardiac Output 5.5 Cardiac Index 2.7 - Constitutional General appearance: Present: no acute distress - Respiratory Respiratory: bilateral: CTA - Cardiovascular Rhythm: regular Heart sounds: normal: S1, S2 - Labs CBC & Chem 7: 04/05/17 06:11 04/05/17 06:11 Labs: Abnormal Lab Results - Last 24 Hours (Table) 04/04/17 04/04/17 04/04/17 Range/Units 11:48 16:37 21:26 RBC (3.80-5.40) m/uL Hgb (11.4-16.0) gm/dL Hct (34.0-46.0) % RDW (11.5-15.5) % Plt Count (150-450) k/uL Sodium (137-145) mmol/L Carbon Dioxide (22-30) mmol/L BUN (7-17) mg/dL Glucose (74-99) mg/dL POC Glucose (mg/dL) 179 H 128 H 131 H (75-99) mg/dL Calcium (8.4-10.2) mg/dL Total Bilirubin (0.2-1.3) mg/dL AST (14-36) U/L ALT (9-52) U/L Total Protein (6.3-8.2) g/dL Albumin (3.5-5.0) g/dL 04/05/17 04/05/17 04/05/17 Range/Units 01:45 05:37 06:11 RBC (3.80-5.40) m/uL Hgb (11.4-16.0) gm/dL Hct (34.0-46.0) % RDW (11.5-15.5) % Plt Count (150-450) k/uL Sodium 135 L (137-145) mmol/L Carbon Dioxide 32 H (22-30) mmol/L BUN 21 H (7-17) mg/dL Glucose 103 H (74-99) mg/dL POC Glucose (mg/dL) 109 H 117 H (75-99) mg/dL Calcium 7.6 L (8.4-10.2) mg/dL Total Bilirubin 2.2 H (0.2-1.3) mg/dL AST 178 H (14-36) U/L ALT 143 H (9-52) U/L Total Protein 4.9 L (6.3-8.2) g/dL Albumin 2.7 L (3.5-5.0) g/dL 04/05/17 Range/Units 06:11 RBC 3.31 L (3.80-5.40) m/uL Hgb 10.3 L (11.4-16.0) gm/dL Hct 32.1 L (34.0-46.0) % RDW 16.1 H (11.5-15.5) % Plt Count 140 L (150-450) k/uL Sodium (137-145) mmol/L Carbon Dioxide (22-30) mmol/L BUN (7-17) mg/dL Glucose (74-99) mg/dL POC Glucose (mg/dL) (75-99) mg/dL Calcium (8.4-10.2) mg/dL Total Bilirubin (0.2-1.3) mg/dL AST (14-36) U/L ALT (9-52) U/L Total Protein (6.3-8.2) g/dL Albumin (3.5-5.0) g/dL Assessment and Plan Plan: This is a pleasant 66-year-old female patient who is a post op day #3 after coronary artery that is grafting. She had an episode of A. fib yesterday but she has been maintaining normal sinus mechanism. The liver function tests has been trending down and we are continue holding the statin.
[2017-04-05 11:19] LABS: Glucose,Whole Blood 130 mg/dL (75-99)
[2017-04-05] MEDS: MULTIVITAMINS, THERA 1 EACH TAB PO SCH (11:44)
[2017-04-05] MEDS: FUROSEMIDE 10 MG/ML 2 ML VIAL IV SCH ×2 (12:38→20:04)
[2017-04-05] MEDS ORDERED: Potassium Replacement Protocol 1 EACH MISC MISCELLANE PRN (12:58)
[2017-04-05] MEDS ORDERED: POTASSIUM CHLORIDE ER 20 MEQ TAB.ER PO SCH (13:00)
--- NOTE | 2017-04-05 13:56 | P.PN ---
Subjective Principal diagnosis: Symptomatic multivessel coronary artery disease, Type 2 diabetes mellitus, Hyperlipidemia, Hypertension, Osteoarthritis, Neuropathy, Varicose veins with laser surgery, Previous tobacco dependence. POD #4 elective coronary artery bypass graft surgery 2 vessels, with placement of her left internal mammary artery to the left anterior descending coronary artery, a reverse greater saphenous vein graft from the aorta to the diagonal artery. Exclusion of the left atrial appendage with a 35 mm AtriClip. Intraoperative transesophageal echocardiogram. Postoperative paroxysmal atrial fibrillation, and aired out, of surgery. Patient is sitting up to the bedside chair. No acute distress. She denies complaints of pain or shortness of breath. Objective - Vital Signs Vital signs: Vital Signs Temp 98.2 F 04/05/17 08:00 Pulse 71 04/05/17 09:52 Resp 18 04/05/17 08:00 BP 133/51 04/05/17 09:52 Pulse Ox 95 04/05/17 09:52 Intake & Output 04/04/17 04/05/17 04/05/17 18:59 06:59 18:59 Intake Total 500 240 Output Total 1720 590 0 Balance -1220 -590 240 Weight 105.5 kg Intake: Intake, IV Titration 200 Amount Magnesium Sulfate-D5w Pmx 200 1 gm In Dextrose/Water 1 100ml.bag @ 100 mls/hr IVPB Q1H [facility] Rx#: [id number] Oral 300 240 Output: Chest Tube Drainage 70 40 0 Left Pleural/Mediastinal 70 40 0 Urine 1650 550 Other: Voiding Method Toilet Toilet ABP, PAP, CO, CI - Last Documented Arterial Blood Pressure 133/49 Pulmonary Artery Pressure 34/16 Cardiac Output 5.5 Cardiac Index 2.7 - Constitutional General appearance: Present: cooperative, no acute distress, obese - EENT Eyes: Present: PERRLA, normal appearance ENT: Present: hearing grossly normal - Neck Details: No JVD present. - Respiratory Details: Lungs sounds are essentially clear to her upper lobes, diminished to her bilateral bases with few scattered rales. Respirations are symmetrical and nonlabored. Her oxygen saturations are 95% on room air. She is achieving 1000 mL on her incentive spirometry. Left pleural chest tube remains in place to low continuous wall suction -20 cm H2O. Draining thin serosanguineous drainage. 40 mL output in the last 8 hours, 110 mL output in the last 24 hours. - Cardiovascular Details: Regular rhythm and rate. S1 and S2 present, negative for S3, gallop or murmur. Atrial and ventricular epicardial pacemaker wires are present and grounded. Sternum is stable. Heart hugger is in place and she is demonstrating appropriate use of her heart hugger. Knee-high HELIO hose and sequential compression devices in place to her bilateral lower extremities. - Gastrointestinal Gastrointestinal Comment(s): Abdomen is soft, nontender, and nondistended. Positive bowel sounds all 4 abdominal quadrants. She is toleratingall intake. - Genitourinary Genitourinary Comment(s): Adequate, clear yellow urine. - Integumentary Integumentary Comment(s): Sternal incision clean dry and well approximated. Dermabond dressing in place. Left leg incisions clean dry and well approximated. No drainage noted. Right lower leg dressing clean and dry and well approximated. +1 edema to her bilateral lower extremities. - Musculoskeletal Musculoskeletal: Present: gait normal, strength equal bilaterally - Psychiatric Psychiatric: Present: A&O x's 3, appropriate affect, intact judgment & insight - Allied health notes Allied health notes reviewed: nursing - Labs CBC & Chem 7: 04/05/17 06:11 04/05/17 06:11 Labs: Abnormal Lab Results - Last 24 Hours (Table) 04/04/17 04/04/17 04/05/17 Range/Units 16:37 21:26 01:45 RBC (3.80-5.40) m/uL Hgb (11.4-16.0) gm/dL Hct (34.0-46.0) % RDW (11.5-15.5) % Plt Count (150-450) k/uL Sodium (137-145) mmol/L Carbon Dioxide (22-30) mmol/L BUN (7-17) mg/dL Glucose (74-99) mg/dL POC Glucose (mg/dL) 128 H 131 H 109 H (75-99) mg/dL Calcium (8.4-10.2) mg/dL Total Bilirubin (0.2-1.3) mg/dL AST (14-36) U/L ALT (9-52) U/L Total Protein (6.3-8.2) g/dL Albumin (3.5-5.0) g/dL 04/05/17 04/05/17 04/05/17 Range/Units 05:37 06:11 06:11 RBC 3.31 L (3.80-5.40) m/uL Hgb 10.3 L (11.4-16.0) gm/dL Hct 32.1 L (34.0-46.0) % RDW 16.1 H (11.5-15.5) % Plt Count 140 L (150-450) k/uL Sodium 135 L (137-145) mmol/L Carbon Dioxide 32 H (22-30) mmol/L BUN 21 H (7-17) mg/dL Glucose 103 H (74-99) mg/dL POC Glucose (mg/dL) 117 H (75-99) mg/dL Calcium 7.6 L (8.4-10.2) mg/dL Total Bilirubin 2.2 H (0.2-1.3) mg/dL AST 178 H (14-36) U/L ALT 143 H (9-52) U/L Total Protein 4.9 L (6.3-8.2) g/dL Albumin 2.7 L (3.5-5.0) g/dL 04/05/17 Range/Units 11:17 RBC (3.80-5.40) m/uL Hgb (11.4-16.0) gm/dL Hct (34.0-46.0) % RDW (11.5-15.5) % Plt Count (150-450) k/uL Sodium (137-145) mmol/L Carbon Dioxide (22-30) mmol/L BUN (7-17) mg/dL Glucose (74-99) mg/dL POC Glucose (mg/dL) 130 H (75-99) mg/dL Calcium (8.4-10.2) mg/dL Total Bilirubin (0.2-1.3) mg/dL AST (14-36) U/L ALT (9-52) U/L Total Protein (6.3-8.2) g/dL Albumin (3.5-5.0) g/dL - Imaging and Cardiology Chest x-ray: report reviewed, image reviewed Assessment and Plan (1) Coronary artery disease Status: Acute (2) Hyperlipidemia Status: Acute (3) Hypertension Status: Acute (4) Obesity (BMI 30-39.9) Status: Acute (5) Type 2 diabetes mellitus Status: Acute (6) Unstable angina pectoris Status: Acute Plan: 1. Continue aspirin, Plavix, heparin subcu, and metoprolol tartrate. We will continue to hold her Lipitor today as her liver enzymes are elevated. 2. We will give her Lasix 20 mg IV twice a day 2 doses. 3. Wean oxygen as tolerated. Continue to encourage incentive spirometry use. 4. Increase activity, out of bed to chair. Physical therapy to follow. 5. GI/DVT prophylaxis. 6. Insulin management per primary care service. 7. We will monitor daily labs and x-rays. 8. We will remove her left pleural chest tube.. 9. We will remove her epicardial pacemaker wires and she will be on bed rest for 1 hour post epicardial pacemaker wire removal. 10. More recommendations as patient progresses. Discharge planning in place, possible discharge home within the next 24 hours. Time with Patient: Greater than 30
--- NOTE | 2017-04-05 14:05 | P.PN ---
Subjective Principal diagnosis: Status post CABG, postoperative day #4 A 66-year-old female patient who was worked up for coronary artery disease on outpatient basis and the patient was found to have a positive stress test and based on that a cardiac catheterization was done and the patient was found to have 90-95% ostial stenosis, diffuse disease involving the LAD. Left ventricle ejection fraction was around 65-70%. Based on that the patient was referred to cardiac revascularization surgery. Surgery was done yesterday by Dr. Wolf and the patient had WHITAKER to LAD and saphenous vein graft to diagonal. The patient was brought into the intensive care unit and a hemodynamically stable condition. She was on an assist-control mode of ventilation. The necessary vent changes were done and overnight the patient was gradually weaned off the mechanical ventilator and spoke to his breathing trial was done and around 400 AM this morning the patient was extubated and currently she is on oxygen 2 L/m nasal cannula with a pulse ox of 96%. The chest x-ray from this morning is showing cardiomegaly with mild central vascular congestion and small pleural effusions and bibasilar atelectatic changes. The patient has a mediastinal and left pleural chest tube and the chest tube has drained around 310 mL since early this morning. The patient is using incentive spirometer. She has no pain issues. No other complaints otherwise for now. The patient was taken off nitroglycerin drip. The [place] catheter was also pulled out this morning. On 04/03/2017 I'm seeing this patient in follow-up. The patient is doing well. The patient has no specific complaints. The patient is able to sit up on a chair. Chest tubes are all in place. She is ambulating and is pulling at thousand on her incentive spirometer. No acute distress. Tolerating diet. No nausea. No vomiting. No chest pain. The patient has a normal cardiac rhythm. Blood sugars are also controlled and the patient has been switched to subcu insulin, it combination of NPH and NovoLog 7030. The chest x-ray from today shows CHF with mild pulmonary vascular congestion. The patient has also small right-sided pleural effusion. The patient be given a dose of Lasix 40 mg IV push. The [place]on catheter has been removed. The right IJ sheath is still in place. On 04/04/2017 I'm seeing this patient in follow-up. Chest x-ray showing better pleural effusion. The chest tubes in still in place and the drainage is still active. The combined output from the chest tubes has been more than 500 mL and based on that the chest his will be kept in place. The patient was given diuretics yesterday and the patient is a negative fluid balance. No chest pain. She is using incentive spirometer and she is improving slowly. She had a episode of atrial fibrillation yesterday and since then her rhythm is back to sinus. Liver function tests are improving as the patient is currently off statin. Amiodarone was stopped by cardiology. No other significant events overnight. On 04/05/2017, patient seems to be doing well, clinically asymptomatic. Chest tubes have been removed. Patient is ambulatory. And she is doing great overall. CBC is relatively unremarkable basic metabolic profile is relatively normal. Chest x-ray showed mostly small bilateral pleural effusions and bibasilar atelectasis. Objective - Vital Signs Vital signs: Vital Signs Temp 98.2 F 04/05/17 08:00 Pulse 71 04/05/17 09:52 Resp 18 04/05/17 08:00 BP 133/51 04/05/17 09:52 Pulse Ox 95 04/05/17 09:52 Intake & Output 04/04/17 04/05/17 04/05/17 18:59 06:59 18:59 Intake Total 500 240 Output Total 1720 590 0 Balance -1220 -590 240 Weight 105.5 kg Intake: Intake, IV Titration 200 Amount Magnesium Sulfate-D5w Pmx 200 1 gm In Dextrose/Water 1 100ml.bag @ 100 mls/hr IVPB Q1H [facility] Rx#: [id number] Oral 300 240 Output: Chest Tube Drainage 70 40 0 Left Pleural/Mediastinal 70 40 0 Urine 1650 550 Other: Voiding Method Toilet Toilet ABP, PAP, CO, CI - Last Documented Arterial Blood Pressure 133/49 Pulmonary Artery Pressure 34/16 Cardiac Output 5.5 Cardiac Index 2.7 - Exam Head exam was generally normal. There was no scleral icterus or corneal arcus. Mucous membranes were moist.Neck was supple and without jugular venous distension, thyromegaly, or carotid bruits. Carotids were easily palpable bilaterally. There was no adenopathy. There is a right IJ Cordis in place. No neck stiffness. No goiter or neck masses. Lungs sounds are diminished bilaterally and the patient has a mediastinal and left pleural chest tube. Sternum stable clean and intact.Cardiac exam revealed the PMI to be normally situated and sized. The rhythm was regular and no extrasystoles were noted during several minutes of auscultation. The first and second heart sounds were normal and physiologic splitting of the second heart sound was noted. There were no murmurs, rubs, clicks, or gallops.Abdominal exam revealed normal bowel sounds. The abdomen was soft, non-tender, and without masses, organomegaly, or appreciable enlargement of the abdominal aorta.Examination of the extremities revealed easily palpable radial, femoral and pedal pulses. There was no cyanosis , clubbing or edema. - Labs CBC & Chem 7: 04/05/17 06:11 04/05/17 06:11 Labs: Abnormal Lab Results - Last 24 Hours (Table) 04/04/17 04/04/17 04/05/17 Range/Units 16:37 21:26 01:45 RBC (3.80-5.40) m/uL Hgb (11.4-16.0) gm/dL Hct (34.0-46.0) % RDW (11.5-15.5) % Plt Count (150-450) k/uL Sodium (137-145) mmol/L Carbon Dioxide (22-30) mmol/L BUN (7-17) mg/dL Glucose (74-99) mg/dL POC Glucose (mg/dL) 128 H 131 H 109 H (75-99) mg/dL Calcium (8.4-10.2) mg/dL Total Bilirubin (0.2-1.3) mg/dL AST (14-36) U/L ALT (9-52) U/L Total Protein (6.3-8.2) g/dL Albumin (3.5-5.0) g/dL 04/05/17 04/05/17 04/05/17 Range/Units 05:37 06:11 06:11 RBC 3.31 L (3.80-5.40) m/uL Hgb 10.3 L (11.4-16.0) gm/dL Hct 32.1 L (34.0-46.0) % RDW 16.1 H (11.5-15.5) % Plt Count 140 L (150-450) k/uL Sodium 135 L (137-145) mmol/L Carbon Dioxide 32 H (22-30) mmol/L BUN 21 H (7-17) mg/dL Glucose 103 H (74-99) mg/dL POC Glucose (mg/dL) 117 H (75-99) mg/dL Calcium 7.6 L (8.4-10.2) mg/dL Total Bilirubin 2.2 H (0.2-1.3) mg/dL AST 178 H (14-36) U/L ALT 143 H (9-52) U/L Total Protein 4.9 L (6.3-8.2) g/dL Albumin 2.7 L (3.5-5.0) g/dL 04/05/17 Range/Units 11:17 RBC (3.80-5.40) m/uL Hgb (11.4-16.0) gm/dL Hct (34.0-46.0) % RDW (11.5-15.5) % Plt Count (150-450) k/uL Sodium (137-145) mmol/L Carbon Dioxide (22-30) mmol/L BUN (7-17) mg/dL Glucose (74-99) mg/dL POC Glucose (mg/dL) 130 H (75-99) mg/dL Calcium (8.4-10.2) mg/dL Total Bilirubin (0.2-1.3) mg/dL AST (14-36) U/L ALT (9-52) U/L Total Protein (6.3-8.2) g/dL Albumin (3.5-5.0) g/dL Assessment and Plan Plan: 1 coronary artery bypass surgery, two-vessel bypass, postop day #4. Hemodynamically stable. On the chest x-ray there is small better pleural effusions. No major respiratory distress. She is using incentive spirometer. 2 diabetes mellitus, patient has been switched to long-acting insulin in the blood sugars under good control for now. 3 hyperlipidemia 4 hypertension 5 chronic back pain 6 neuropathy. 7 abnormal LFTs which is improving 8 single episode of atrial fibrillation current rhythm is sinus. Recommendation: Continue incentive spirometry, continue present meds, continue ambulation, we'll continue to follow. Time with Patient: Less than 30
--- NOTE | 2017-04-05 14:45 | PN ---
DATE OF SERVICE: 04/04/2017 I an covering for Dr. Abbasi. This is a 66-year-old woman who was admitted after CAD, CABG, is being closely monitored. Blood sugar has been monitored closely. LFT's are mildly elevated. No chest pain or palpitation, no fever. On exam, alert and oriented x3. Pulse 73, blood pressure 133/65, respirations 19, temperature is 98.4, pulse ox 98% on 2 L. HEENT: Conjunctivae normal. NECK: No jugular venous distension. CARDIOVASCULAR SYSTEM: S1, S2. RESPIRATORY: Breath sounds diminished at the bases, a few scattered rhonchi, no crackles. ABDOMEN: Soft, nontender. LEGS: No edema, no swelling. NERVOUS SYSTEM: No focal deficits. Labs are WBC is 8.2, hemoglobin is 10.6, glucose is 128 and AST is 342, ALT is 217. ASSESSMENT: 1. Coronary artery disease, status post coronary artery bypass grafting. 2. Mild hyperbilirubinemia. 3. Increased AST, ALT. 4. Diabetes mellitus type 2. 5. Hypertension, essential. 6. Hyperlipidemia. 7. History of chronic back pain. 8. History of neuropathy. RECOMMENDATION: Recommend to continue with the current medication and continue with the symptomatic treatment. Otherwise, monitor closely. medications and closely monitor. Dr. Abbasi will follow. [facility]
[2017-04-05 16:35] LABS: Glucose,Whole Blood 115 mg/dL (75-99)
[2017-04-05] MEDS: PRAMIPEXOLE 0.25 MG TAB PO SCH (20:06)
[2017-04-05] MEDS: SENNOSIDES-DOCUSATE SODIUM 1 EACH TAB PO SCH (20:06)
[2017-04-05 20:41] VITALS: RESP 16
[2017-04-05 21:17] LABS: Glucose,Whole Blood 145 mg/dL (75-99)
[2017-04-05] MEDS: INSULIN NPH 300 UNIT/3 ML VIAL SQ SCH (21:43)
[2017-04-06 02:21] LABS: Glucose,Whole Blood 101 mg/dL (75-99)
[2017-04-06 06:08] LABS: Glucose,Whole Blood 103 mg/dL (75-99)
[2017-04-06] MEDS: INSULIN LISPRO (humaLOG) 300 UNIT/3 ML VIAL SQ SCH (06:52)
[2017-04-06] MEDS: PANTOPRAZOLE 40 MG TABLET PO SCH (07:09)
[2017-04-06] MEDS: INSULN ASP PRT/INSULIN ASPART 100 UNIT/ML 10 ML VIAL SQ SCH (07:09)
[2017-04-06 07:19] LABS: Anisocytosis Slight; Basophils % (A) 0 %; CHCM 33.7; Eosinophils # (A) 0.2 k/uL (0-0.7); Eosinophils % (A) 4 %; HCT 31.5 % (34.0-46.0); HDW 3.14; HGB 10.2 gm/dL (11.4-16.0); Luc # (Auto) 0.17; Luc % (Auto) 3; Lymphocytes # (A) 1.6 k/uL (1.0-4.8); Lymphocytes % (A) 28 %; MCHC 32.4 g/dL (31.0-37.0); MCV 95.8 fL (80.0-100.0); Mean Platelet Volume 8.1; Monocytes # (A) 0.5 k/uL (0-1.0); Monocytes % (A) 9 %; Neutrophils # (A) 3.1 k/uL (1.3-7.7); Neutrophils % (A) 55 %; RBC 3.29 m/uL (3.80-5.40); RDW 16.2 % (11.5-15.5); WBC 5.5 k/uL (3.8-10.6); WBC (Perox) 5.87
[2017-04-06 07:27] LABS: Anion Gap 6 mmol/L; Blood Urea Nitrogen 19 mg/dL (7-17); Calcium 7.7 mg/dL (8.4-10.2); Carbon Dioxide 31 mmol/L (22-30); Chloride 96 mmol/L (98-107); Glucose 89 mg/dL (74-99); Magnesium 1.8 mg/dL (1.6-2.3); Non-African American GFR(MDRD) >60 (>60 ml/min/1.73 sqM); Potassium 3.8 mmol/L (3.5-5.1); Sodium 133 mmol/L (137-145)
--- NOTE | 2017-04-06 07:40 | XR ---
EXAMINATION TYPE: XR chest 2V DATE OF EXAM: 04/06/2017 COMPARISON: April 05, 2017 HISTORY: Shortness of breath TECHNIQUE: Frontal and lateral views of the chest are obtained. FINDINGS: Scattered senescent parenchymal changes noted. Hyperinflation compatible with COPD. Left-sided chest tube has been removed. No evidence for sizable pneumothorax. Bilateral pleural effus ions and pleural-parenchymal opacities right greater than left remain unchanged. Heart size is stable. Mediastinal structures are stable and grossly unremarkable. No evidence for hilar prominence. Degenerative changes dorsal spine. IMPRESSION: 1. Left-sided chest tube has been removed. No evidence for sizable pneumothorax. Bilateral pleural ef fusions and pleural-parenchymal opacities right greater than left remain unchanged.
[2017-04-06] MEDS ORDERED: Magnesium Replacement Protocol 1 EACH MISC MISCELLANE PRN (08:20)
[2017-04-06] MEDS ORDERED: Potassium Replacement Protocol 1 EACH MISC MISCELLANE PRN (08:21)
[2017-04-06 08:29] LABS: Total Bilirubin 2.2 mg/dL (0.2-1.3)
[2017-04-06] MEDS: HEPARIN SODIUM,PORCINE 5,000 UNIT/ML 1 ML VIAL SQ SCH (08:32)
[2017-04-06] MEDS: METOPROLOL TARTRATE 25 MG TAB PO SCH (08:33)
[2017-04-06] MEDS: CLOPIDOGREL 75 MG TAB PO SCH (08:33)
[2017-04-06] MEDS: ASPIRIN 325 MG TAB PO SCH (08:33)
[2017-04-06] MEDS: MULTIVITAMINS, THERA 1 EACH TAB PO SCH (08:34)
[2017-04-06] MEDS: traMADol 50 MG TAB PO PRN (08:34)
[2017-04-06] MEDS ORDERED: POTASSIUM CHLORIDE ER 20 MEQ TAB.ER PO SCH (09:00)
[2017-04-06 09:25] VITALS: TEMP 96.5
[2017-04-06] MEDS: MAGNESIUM SULFATE-D5W PMX 1 GM in DEXTROSE/WATER 1 100ML.BAG IVPB SCH ×2 (10:43→11:57)
--- NOTE | 2017-04-06 11:29 | P.PN ---
Subjective Principal diagnosis: Acute inferior ST elevation HI This is a pleasant 66-year-old female patient who sees Dr. Lindsay on a regular basis was admitted to the hospital yesterday and underwent elective coronary artery that is grafting 2 with WHITAKER to LAD and SVG to diagonal. The patient went into an A. fib with RVR yesterday and she was started on amiodarone IV and converted back to normal sinus mechanism. Clinically she seems to be doing good and denies having any chest pain or discomfort at this point. The liver function test has been trending down and we are continue holding the statin. Beside that the patient continues to be on dual antiplatelet therapy Objective - Vital Signs Vital signs: Vital Signs Temp 96.5 F L 04/06/17 08:00 Pulse 73 04/06/17 08:00 Resp 16 04/06/17 08:00 BP 113/53 04/06/17 08:00 Pulse Ox 93 L 04/06/17 08:00 Intake & Output 04/05/17 04/06/17 04/06/17 18:59 06:59 18:59 Intake Total 720 Output Total 0 Balance 720 Weight 105.6 kg Intake: Oral 720 Output: Chest Tube Drainage 0 Left Pleural/Mediastinal 0 Other: Voiding Method Toilet Toilet Toilet # Voids 2 ABP, PAP, CO, CI - Last Documented Arterial Blood Pressure 133/49 Pulmonary Artery Pressure 34/16 Cardiac Output 5.5 Cardiac Index 2.7 - Constitutional General appearance: Present: no acute distress - Respiratory Respiratory: bilateral: CTA - Cardiovascular Rhythm: regular Heart sounds: normal: S1, S2 - Labs CBC & Chem 7: 04/06/17 06:03 04/06/17 06:03 Labs: Abnormal Lab Results - Last 24 Hours (Table) 04/05/17 04/05/17 04/06/17 Range/Units 16:33 21:03 02:10 RBC (3.80-5.40) m/uL Hgb (11.4-16.0) gm/dL Hct (34.0-46.0) % RDW (11.5-15.5) % Sodium (137-145) mmol/L Chloride (98-107) mmol/L Carbon Dioxide (22-30) mmol/L BUN (7-17) mg/dL POC Glucose (mg/dL) 115 H 145 H 101 H (75-99) mg/dL Calcium (8.4-10.2) mg/dL Total Bilirubin (0.2-1.3) mg/dL AST (14-36) U/L ALT (9-52) U/L 04/06/17 04/06/17 04/06/17 Range/Units 05:56 06:03 06:03 RBC 3.29 L (3.80-5.40) m/uL Hgb 10.2 L (11.4-16.0) gm/dL Hct 31.5 L (34.0-46.0) % RDW 16.2 H (11.5-15.5) % Sodium 133 L (137-145) mmol/L Chloride 96 L (98-107) mmol/L Carbon Dioxide 31 H (22-30) mmol/L BUN 19 H (7-17) mg/dL POC Glucose (mg/dL) 103 H (75-99) mg/dL Calcium 7.7 L (8.4-10.2) mg/dL Total Bilirubin (0.2-1.3) mg/dL AST (14-36) U/L ALT (9-52) U/L 04/06/17 Range/Units 06:03 RBC (3.80-5.40) m/uL Hgb (11.4-16.0) gm/dL Hct (34.0-46.0) % RDW (11.5-15.5) % Sodium (137-145) mmol/L Chloride (98-107) mmol/L Carbon Dioxide (22-30) mmol/L BUN (7-17) mg/dL POC Glucose (mg/dL) (75-99) mg/dL Calcium (8.4-10.2) mg/dL Total Bilirubin 2.2 H (0.2-1.3) mg/dL AST 102 H (14-36) U/L ALT 111 H (9-52) U/L Assessment and Plan Plan: This is a pleasant 66-year-old female patient who is a post op day #3 after coronary artery that is grafting. She had an episode of A. fib yesterday but she has been maintaining normal sinus mechanism. The patient is going to be discharged home today.
[2017-04-06] MEDS ORDERED: POTASSIUM CHLORIDE ER 10 MEQ TAB.ER.PRT PO SCH (11:39)
[2017-04-06] MEDS ORDERED: FUROSEMIDE 40 MG TAB PO SCH (11:39)
[2017-04-06 11:47] VITALS: BP 101/50; PULSE 61
[2017-04-06] MEDS ORDERED: LISINOPRIL 2.5 MG TAB PO SCH (12:00)
[2017-04-06 12:06] LABS: Glucose,Whole Blood 132 mg/dL (75-99)
--- NOTE | 2017-04-06 12:39 | P.PN ---
Subjective Principal diagnosis: Status post CABG, postoperative day #5 A 66-year-old female patient who was worked up for coronary artery disease on outpatient basis and the patient was found to have a positive stress test and based on that a cardiac catheterization was done and the patient was found to have 90-95% ostial stenosis, diffuse disease involving the LAD. Left ventricle ejection fraction was around 65-70%. Based on that the patient was referred to cardiac revascularization surgery. Surgery was done yesterday by Dr. Wolf and the patient had WHITAKER to LAD and saphenous vein graft to diagonal. The patient was brought into the intensive care unit and a hemodynamically stable condition. She was on an assist-control mode of ventilation. The necessary vent changes were done and overnight the patient was gradually weaned off the mechanical ventilator and spoke to his breathing trial was done and around 400 AM this morning the patient was extubated and currently she is on oxygen 2 L/m nasal cannula with a pulse ox of 96%. The chest x-ray from this morning is showing cardiomegaly with mild central vascular congestion and small pleural effusions and bibasilar atelectatic changes. The patient has a mediastinal and left pleural chest tube and the chest tube has drained around 310 mL since early this morning. The patient is using incentive spirometer. She has no pain issues. No other complaints otherwise for now. The patient was taken off nitroglycerin drip. The Port[place]-Antwon catheter was also pulled out this morning. On 04/03/2017 I'm seeing this patient in follow-up. The patient is doing well. The patient has no specific complaints. The patient is able to sit up on a chair. Chest tubes are all in place. She is ambulating and is pulling at thousand on her incentive spirometer. No acute distress. Tolerating diet. No nausea. No vomiting. No chest pain. The patient has a normal cardiac rhythm. Blood sugars are also controlled and the patient has been switched to subcu insulin, it combination of NPH and NovoLog [id number]. The chest x-ray from today shows CHF with mild pulmonary vascular congestion. The patient has also small right-sided pleural effusion. The patient be given a dose of Lasix 40 mg IV push. The Port[place]-Antwon catheter has been removed. The right IJ sheath is still in place. On 04/04/2017 I'm seeing this patient in follow-up. Chest x-ray showing better pleural effusion. The chest tubes in still in place and the drainage is still active. The combined output from the chest tubes has been more than 500 mL and based on that the chest his will be kept in place. The patient was given diuretics yesterday and the patient is a negative fluid balance. No chest pain. She is using incentive spirometer and she is improving slowly. She had a episode of atrial fibrillation yesterday and since then her rhythm is back to sinus. Liver function tests are improving as the patient is currently off statin. Amiodarone was stopped by cardiology. No other significant events overnight. On 04/05/2017, patient seems to be doing well, clinically asymptomatic. Chest tubes have been removed. Patient is ambulatory. And she is doing great overall. CBC is relatively unremarkable basic metabolic profile is relatively normal. Chest x-ray showed mostly small bilateral pleural effusions and bibasilar atelectasis. On 04/06/2017, patient is doing well, chest x-ray is showing definite improvement , patient is relatively asymptomatic, no shortness of breath no cough no wheezing, and she is being considered for discharge planning today. Labs were all reviewed including CBC and metabolic profile. Chest x-ray showed no evidence of pneumothorax, small bilateral effusions noted but improved. Objective - Vital Signs Vital signs: Vital Signs Temp 96.5 F L 04/06/17 08:00 Pulse 61 04/06/17 11:51 Resp 16 04/06/17 11:51 BP 101/50 04/06/17 11:45 Pulse Ox 96 04/06/17 12:27 Intake & Output 04/05/17 04/06/17 04/06/17 18:59 06:59 18:59 Intake Total 720 Output Total 0 Balance 720 Weight 105.6 kg Intake: Oral 720 Output: Chest Tube Drainage 0 Left Pleural/Mediastinal 0 Other: Voiding Method Toilet Toilet Toilet # Voids 2 ABP, PAP, CO, CI - Last Documented Arterial Blood Pressure 133/49 Pulmonary Artery Pressure 34/16 Cardiac Output 5.5 Cardiac Index 2.7 - Exam Physical Exam revealed a 66-year-old female in no distress. HEENT:[Neck is supple.] [No neck masses.] [No thyromegaly.] [No JVD.] Chest: [Slightly diminished breath sounds at the bases no crackles or rhonchi or wheezes.] Cardiac Exam: [Normal S1 and S2, no S3 gallop, no murmur.] Abdomen: [Soft, nontender, no megaly, no rebound, no guarding, normal bowel sounds.] Extremities: [No clubbing, no edema, no cyanosis.] Neurological Exam: [No focal neurologic deficit.] - Labs CBC & Chem 7: 04/06/17 06:03 04/06/17 06:03 Labs: Abnormal Lab Results - Last 24 Hours (Table) 04/05/17 04/05/17 04/06/17 Range/Units 16:33 21:03 02:10 RBC (3.80-5.40) m/uL Hgb (11.4-16.0) gm/dL Hct (34.0-46.0) % RDW (11.5-15.5) % Sodium (137-145) mmol/L Chloride (98-107) mmol/L Carbon Dioxide (22-30) mmol/L BUN (7-17) mg/dL POC Glucose (mg/dL) 115 H 145 H 101 H (75-99) mg/dL Calcium (8.4-10.2) mg/dL Total Bilirubin (0.2-1.3) mg/dL AST (14-36) U/L ALT (9-52) U/L 04/06/17 04/06/17 04/06/17 Range/Units 05:56 06:03 06:03 RBC 3.29 L (3.80-5.40) m/uL Hgb 10.2 L (11.4-16.0) gm/dL Hct 31.5 L (34.0-46.0) % RDW 16.2 H (11.5-15.5) % Sodium 133 L (137-145) mmol/L Chloride 96 L (98-107) mmol/L Carbon Dioxide 31 H (22-30) mmol/L BUN 19 H (7-17) mg/dL POC Glucose (mg/dL) 103 H (75-99) mg/dL Calcium 7.7 L (8.4-10.2) mg/dL Total Bilirubin (0.2-1.3) mg/dL AST (14-36) U/L ALT (9-52) U/L 04/06/17 04/06/17 Range/Units 06:03 11:53 RBC (3.80-5.40) m/uL Hgb (11.4-16.0) gm/dL Hct (34.0-46.0) % RDW (11.5-15.5) % Sodium (137-145) mmol/L Chloride (98-107) mmol/L Carbon Dioxide (22-30) mmol/L BUN (7-17) mg/dL POC Glucose (mg/dL) 132 H (75-99) mg/dL Calcium (8.4-10.2) mg/dL Total Bilirubin 2.2 H (0.2-1.3) mg/dL AST 102 H (14-36) U/L ALT 111 H (9-52) U/L Assessment and Plan Plan: 1 coronary artery bypass surgery, two-vessel bypass, postop day #5 Hemodynamically stable. 2 diabetes mellitus, patient has been switched to long-acting insulin in the blood sugars under good control for now. 3 hyperlipidemia 4 hypertension 5 chronic back pain 6 neuropathy. 7 abnormal LFTs which is improving 8 single episode of atrial fibrillation current rhythm is sinus. Recommendation: Continue incentive spirometry, agree with discharge planning today, follow up on outpatient basis with Dr. Ingram. Time with Patient: Less than 30
--- NOTE | 2017-04-06 12:58 | P.PN ---
Subjective Principal diagnosis: Symptomatic multivessel coronary artery disease. Type 2 diabetes mellitus. Hyperlipidemia. Hypertension. Osteoarthritis. Neuropathy. Varicose veins with laser surgery. Previous tobacco dependence. POD #5 elective coronary artery bypass graft surgery x 2, left internal mammary artery to the left anterior descending artery, reverse saphenous vein graft off the aorta to the diagonal artery. Exclusion of the left atrial appendage with 35 mm AtriClip. Intraoperative transesophageal echocardiogram. Post operative atrial fibrillation, inherent outcome of surgery. Pt currently sitting up in the chair in no acute distress. Denies pain, shortness of breath. Objective - Vital Signs Vital signs: Vital Signs Temp 97 F L 04/06/17 04:00 Pulse 72 04/06/17 04:00 Resp 16 04/06/17 04:00 BP 119/57 04/06/17 04:00 Pulse Ox 94 L 04/06/17 04:00 Intake & Output 04/05/17 04/06/17 04/06/17 18:59 06:59 18:59 Intake Total 720 Output Total 0 Balance 720 Weight 105.6 kg Intake: Oral 720 Output: Chest Tube Drainage 0 Left Pleural/Mediastinal 0 Other: Voiding Method Toilet Toilet # Voids 2 ABP, PAP, CO, CI - Last Documented Arterial Blood Pressure 133/49 Pulmonary Artery Pressure 34/16 Cardiac Output 5.5 Cardiac Index 2.7 - Constitutional General appearance: Present: cooperative, no acute distress, obese - Respiratory Details: Lungs sounds diminished bilaterally. Respirations even, nonlabored. Currently on room air with oxygen saturation 94%. Able to achieve 1000 mL on her incentive spirometry. - Cardiovascular Details: S1, S2 present. Regular rate and rhythm, normal sinus rhythm on telemetry. Sternum stable. Palpable pulses bilaterally. Trace bilateral lower extremity edema present. Heart hugger in place with patient able to demonstrate appropriate use. Teds/SCDs present. - Gastrointestinal Gastrointestinal Comment(s): Abd soft/non-tender/non-distended. Active BS x 4 quad. Tolerating diet. Positive flatus. - Genitourinary Genitourinary Comment(s): Continues to void clear yellow urine. - Integumentary Integumentary Comment(s): Ant chest incision well approximated with Dermabond. - Neurologic Neurologic: Present: CNII-XII intact - Musculoskeletal Musculoskeletal: Present: gait normal, strength equal bilaterally - Psychiatric Psychiatric: Present: A&O x's 3, appropriate affect, intact judgment & insight - Allied health notes Allied health notes reviewed: nursing - Labs CBC & Chem 7: 04/06/17 06:03 04/06/17 06:03 Labs: Abnormal Lab Results - Last 24 Hours (Table) 04/05/17 04/05/17 04/05/17 Range/Units 11:17 16:33 21:03 RBC (3.80-5.40) m/uL Hgb (11.4-16.0) gm/dL Hct (34.0-46.0) % RDW (11.5-15.5) % Sodium (137-145) mmol/L Chloride (98-107) mmol/L Carbon Dioxide (22-30) mmol/L BUN (7-17) mg/dL POC Glucose (mg/dL) 130 H 115 H 145 H (75-99) mg/dL Calcium (8.4-10.2) mg/dL Total Bilirubin (0.2-1.3) mg/dL AST (14-36) U/L ALT (9-52) U/L 04/06/17 04/06/17 04/06/17 Range/Units 02:10 05:56 06:03 RBC 3.29 L (3.80-5.40) m/uL Hgb 10.2 L (11.4-16.0) gm/dL Hct 31.5 L (34.0-46.0) % RDW 16.2 H (11.5-15.5) % Sodium (137-145) mmol/L Chloride (98-107) mmol/L Carbon Dioxide (22-30) mmol/L BUN (7-17) mg/dL POC Glucose (mg/dL) 101 H 103 H (75-99) mg/dL Calcium (8.4-10.2) mg/dL Total Bilirubin (0.2-1.3) mg/dL AST (14-36) U/L ALT (9-52) U/L 04/06/17 04/06/17 Range/Units 06:03 06:03 RBC (3.80-5.40) m/uL Hgb (11.4-16.0) gm/dL Hct (34.0-46.0) % RDW (11.5-15.5) % Sodium 133 L (137-145) mmol/L Chloride 96 L (98-107) mmol/L Carbon Dioxide 31 H (22-30) mmol/L BUN 19 H (7-17) mg/dL POC Glucose (mg/dL) (75-99) mg/dL Calcium 7.7 L (8.4-10.2) mg/dL Total Bilirubin 2.2 H (0.2-1.3) mg/dL AST 102 H (14-36) U/L ALT 111 H (9-52) U/L - Imaging and Cardiology Chest x-ray: report reviewed, image reviewed Assessment and Plan (1) Coronary artery disease Status: Acute (2) Hyperlipidemia Status: Acute (3) Hypertension Status: Acute (4) Obesity (BMI 30-39.9) Status: Acute (5) Type 2 diabetes mellitus Status: Acute (6) Unstable angina pectoris Status: Acute Plan: 1. Continue aspirin, Plavix, heparin subcu, beta roz. Will maximize beta roz therapy as tolerated. Statin therapy on hold 2/2 elevated liver enzymes. Will resume when able. 2. Amio discontinues 2/2 conversion to NSR within 1/2 hour as well as elevated liver enzymes. 3. Continue to encourage incentive spirometry use. 4. Increase activity, ambulate in hallway. Physical therapy following. 5. GI/DVT prophylaxis. 6. Insulin management per primary care service. 7. Will replace K, MG. 8. Likely will discharge to home this afternoon. Time with Patient: Greater than 30
--- NOTE | 2017-04-06 15:08 | P.DS ---
Providers Date of admission: 04/01/17 10:58 Attending physician: Loi Russell Consults: 04/01/17 18:36 Consult Physician Routine Consulting Provider: Aminta Ingram Consult Reason/Comments: Stereo Equipment Installer Consult: post cardiac surgery Do you want consulting provider notified?: Yes Consult Physician Routine Consulting Provider: Hector Abbasi Consult Reason/Comments: medical management Do you want consulting provider notified?: Yes Consult Physician Routine Consulting Provider: Yung Justin Consult Reason/Comments: Whizzer Hand Consult: post cardiac surgery Do you want consulting provider notified?: Yes Primary care physician: Hector Abbasi - Discharge Diagnosis(es) (1) Coronary artery disease Current Visit: No Status: Acute (2) Hyperlipidemia Current Visit: No Status: Acute (3) Hypertension Current Visit: No Status: Acute (4) Obesity (BMI 30-39.9) Current Visit: No Status: Acute (5) Type 2 diabetes mellitus Current Visit: No Status: Acute (6) Unstable angina pectoris Current Visit: No Status: Acute Hospital Course: FINAL DIAGNOSIS: 1. Symptomatic multivessel coronary artery disease 2. Type 2 diabetes mellitus 3. Hyperlipidemia 4. Hypertension 5. Osteoarthritis 6. Neuropathy. 7. Varicose veins with major surgery. 8. Previous tobacco dependence. 9. Postoperative atrial fibrillation PRINCIPAL PROCEDURE: 1. Elective coronary artery bypass graft surgery 2, left internal mammary artery to the left anterior descending artery, reverse saphenous vein graft off the aorta to the diagonal artery. 2. Exclusion of the left atrial appendage with 35 mm AtriClip. 3. Intraoperative transesophageal echocardiogram HISTORY OF PRESENT ILLNESS: This 66-year-old lady presented to the emergency room in December 2016 with complaints of chest pain. She had been cutting her grass and developed shortness of breath and chest pain, both of which were relieved with rest. She did come in to the emergency room and was ruled out for myocardial infarction with plans for follow-up with cardiology. Upon this follow-up she had a stress test which was abnormal demonstrating a partial reversible defect involving the anterior lateral segment suggestive of ischemia with left ventricular dilatation during the stress portion and an ejection fraction of 60-70%. Based on the results of the study she was recommended to have a heart catheterization which Dr. Lindsay performed on 01/26/2017. Cardiac catheterization demonstrated a first diagonal branch with an ostial stenosis of 90-95%, diffuse disease of the LAD with positive FFR. Dr. Russell was consulted for the possibility of surgical revascularization. She was recommended to have coronary artery bypass graft surgery. An extensive discussion was had with the patient, risks and benefits were explained, and consent was obtained to proceed with surgery. HOSPITAL COURSE: The patient was brought to the hospital on 04/01/2017, taken to the preoperative area, prepared in the usual fashion, and subsequently taken to the operating room where Dr. Russell performed an elective coronary artery bypass graft surgery 2, left internal mammary artery to left anterior descending artery, reverse saphenous vein graft off the aorta to the diagonal artery, exclusion of the left atrial appendage with a 35 mm optical, and intraoperative transesophageal echocardiogram. Upon completion of the surgery the patient was transferred to the cardiovascular intensive care unit where she was recovered, monitored hemodynamically, and where she progressed to cardiac rehabilitation phase 1. She did have an episode of atrial fibrillation which was treated accordingly. She was extubated, all lines, tubes, and drips were discontinued when appropriate, and she was transferred to [address] [place] [address] for further monitoring and rehabilitation. Her oxygen was titrated down, she continued to work with physical therapy, and was ready to be discharged home on postoperative day #5 with [facility] to follow. She received written and verbal instruction regarding her medications, activity restrictions, signs and symptoms requiring physician notification, and follow-up appointments. COMPLICATIONS: The patient experienced postoperative atrial fibrillation which was treated accordingly. DISCHARGE INSTRUCTIONS: 1. No driving for 4 weeks, or until physician gives their ok. 2. The patient should sleep in their own bed, no medical bed needed. 3. Stairs are not an issue. If the bedroom is upstairs, it is advised that the patient go up at night and down in the morning for the first week. Go slowly, using handrail and take 1 step at a time. 4. HELIO hose are to be worn for 30 days or until physician discontinues. 5. Heart hugger is to be worn 100% of the time until physician discontinues.( except when showering) 6. No lifting, pushing, or pulling more than 10 pounds for 12 weeks. The physician will advise of any restriction changes. 7. The patient is expected to continue the prescribed walking program. 8. Continue pain control per as needed orders. 9. Continue with incentive spirometry and splinting/heart hugger until otherwise directed by the physician. 10. Must shower daily using liquid antibacterial soap and a separate white washcloth for each individual incision. 11. Routine sternal incision care. No powders, lotions, ointments on incisions. 12. Please call surgeon/ELEVATOR SERVICE MECHANIC for temp greater than 101 F or purulent drainage from incisions. 13. All prescriptions given by surgeon for 30 days. Refills need to be filled through shell sorter/primary care physician. HOME HEALTH SERVICES TO PROVIDE: RN SKILLED HOME CARE SERVICES FOR POST-OP SURGICAL PATIENTS WITH THE FOLLOWING: Coronary Artery Bypass Surgery (CABG), Mitral Valve Replacement/ Repair ( MVR), Aortic Valve Replacement/Repair (AVR) RN TO CONTINUE EDUCATION FROM ``ROAD TO A HEALTH HEART PATIENT EDUCATION MANUAL (GIVEN TO PATIENT IN THE HOSPITAL) MEDICATION RECONCILIATION WITH EDUCATION NEEDED ON FIRST HOME VISIT EMPHASIZE IMPORTANCE OF WEARING BREAST SUPPORT/HEART HUGGER ENCOURAGE USE OF INCENTIVE SPIROMETER 10 X EVERY HOUR WHILE AWAKE ENCOURAGE UTILIZATION OF LOWER EXTREMITY COMPRESSION STOCKINGS/HELIO HOSE and ELEVATE LEGS ABOVE LEVEL OF HEART WHILE AT REST. ENCOURAGE AMBULATION 3-5x/day INCREASING TOLERATES, WHILE AVOID EXTREMES IN TEMPERATURE FREQUENCY: RN TO OPEN THE PATIENT WITHIN 24 HOURS OF DISCHARGE FROM THE HOSPITAL WITH TELEHEALTH INSTALLED AT [facility], RN TO VISIT 2-3 X A WEEK FOR 4 WEEKS ESTABLISHED BY PATIENT NEEDS. LABORATORY: CBC, CMP TO BE DRAWN ON THE THIRD DAY HOME, Wednesday04/09/2017 (RAN STAT) FAX RESULTS TO [phone]. TELEHEALTH PARAMETERS: WEIGHT: NOTIFY MD OF WEIGHT GAIN OF 2 LBS IN 24 HOURS OR 5 LBS IN ONE WEEK HR: NOTIFY MD OF HR <55 BPM OR HR>100 BPM BP: NOTIFY MD IF BP <90/55 OR BP>140/100 O2 SAT: NOTIFY MD IF PO2<93% ON ROOM AIR SEND TELEHEALTH REPORT TO TRUCK DESPATCHER AND CARDIOVASCULAR SURGEON THE FIRST WEEK OF CARE AND THEN BI-WEEKLY. PLEASE ADDITIONALLY COMMUNICATE ANY ABNORMALS AND NEW FINDINGS TO THE SURGEONS OFFICE. A Red armband has been placed on the patient. It should be worn for 30 days post surgery and will be removed by the cardiac surgeons. If an ER visit is necessary, please make sure the number on the Red armband is called. Plan - Discharge Summary New Discharge Prescriptions: New Aspirin 325 mg PO DAILY #30 tab Clopidogrel [Plavix] 75 mg PO DAILY #30 tab Furosemide [Lasix] 40 mg PO DAILY #6 tab Pantoprazole [Protonix] 40 mg PO AC-BRKFST #30 tab Sennosides-Docusate Sodium [Senokot-S] 2 each PO HS tab traMADol HCl [Ultram] 50 mg PO Q4H PRN #120 tab PRN Reason: Pain Continue Baclofen [Lioresal] 20 mg PO HS Metoprolol Tartrate [Lopressor] 25 mg PO BID Lisinopril [Zestril] 2.5 mg PO DAILY Multivitamins, Thera [Multivitamin (formulary)] 1 tab PO QAM Magnesium Oxide [Magnesium] 250 mg PO QAM Pramipexole [Mirapex] 0.25 mg PO HS Pioglitazone [Actos] 30 mg PO DAILY Potassium Chloride ER [K-Dur 20] 20 meq PO QAM 6 Days Discontinued Simvastatin [Zocor] 20 mg PO HS Aspirin EC [Ecotrin Low Dose] 81 mg PO QAM Furosemide [Lasix] 40 mg PO QAM Isosorbide Mononitrate ER [Imdur] 30 mg PO DAILY Discharge Medication List Baclofen [Lioresal] 20 mg PO HS 01/22/16 [History] Lisinopril [Zestril] 2.5 mg PO DAILY 01/16/17 [History] Magnesium Oxide [Magnesium] 250 mg PO QAM 01/16/17 [History] Metoprolol Tartrate [Lopressor] 25 mg PO BID 01/16/17 [History] Multivitamins, Thera [Multivitamin (formulary)] 1 tab PO QAM 01/16/17 [History] Pramipexole [Mirapex] 0.25 mg PO HS 01/16/17 [History] Pioglitazone [Actos] 30 mg PO DAILY 03/25/17 [History] Aspirin 325 mg PO DAILY #30 tab 04/06/17 [Rx] Clopidogrel [Plavix] 75 mg PO DAILY #30 tab 04/06/17 [Rx] Furosemide [Lasix] 40 mg PO DAILY #6 tab 04/06/17 [Rx] Pantoprazole [Protonix] 40 mg PO AC-BRKFST #30 tab 04/06/17 [Rx] Potassium Chloride ER [K-Dur 20] 20 meq PO QAM 6 Days 04/06/17 [Rx] Sennosides-Docusate Sodium [Senokot-S] 2 each PO HS tab 04/06/17 [Rx] traMADol HCl [Ultram] 50 mg PO Q4H PRN #120 tab 04/06/17 [Rx] Follow up Appointment(s)/Referral(s): Kristal Osborn NPC [Nurse Practitioner] - 04/09/17 12:15 pm Hector Abbasi MD [Primary Care Provider] - 04/13/17 8:50 am [facility], [NON-STAFF] - Loi Russell MD [STAFF PHYSICIAN] - 04/27/17 2:00 pm Chirag Lindsay MD [STAFF PHYSICIAN] - 04/23/17 4:00 pm Aminta Ingram MD [STAFF PHYSICIAN] - 05/04/17 10:00 am Ambulatory/Diagnostic Orders: Complete Blood Count w/diff [LAB.AMB] Time Frame: 3 Days, Location: Determined By Patient Comprehensive Metabolic Panel [LAB.AMB] Time Frame: 3 Days, Location: Determined By Patient Discharge Disposition: HOME WITH HOME HEALTH SERVICES
--- NOTE | 2017-04-07 14:04 | P.PN ---
Progress Note - Text preoperative 5 meter walk test: #1 3.65 sec, #2 4.09 sec, #3 3.46 sec
== END 2017-04-06 16:32 | disposition home health service (06) | DRG 236 ==
LOC: 2ORMAIN 04-01 10:58 → 6ICU 04-01 17:40 → 6SEL 04-03 15:14
PROVIDERS: ADMIT Thoracic Surgery (Cardiothoracic Vascular Surgery); ATTEND Thoracic Surgery (Cardiothoracic Vascular Surgery)
PROC: 06BQ4ZZ Excision of Left Saphenous Vein, Percutaneous Endoscopic Approach (ICD-10-PCS; principal; 2017-04-01 13:55)
PROC: 021009W Bypass Coronary Artery, One Artery from Aorta with Autologous Venous Tissue, Open Approach (ICD-10-PCS; principal; 2017-04-01 13:55)
PROC: B246ZZ4 Ultrasonography of Right and Left Heart, Transesophageal (ICD-10-PCS; principal; 2017-04-01 13:55)
PROC: 02L70CK Occlusion of Left Atrial Appendage with Extraluminal Device, Open Approach (ICD-10-PCS; principal; 2017-04-01 13:55)
PROC: 02100Z9 Bypass Coronary Artery, One Artery from Left Internal Mammary, Open Approach (ICD-10-PCS; principal; 2017-04-01 13:55)
PROC: 5A1221Z Performance of Cardiac Output, Continuous (ICD-10-PCS; principal; 2017-04-01 13:55)
DX: I21.19 ST elevation (STEMI) myocardial infarction involving other coronary artery of inferior wall (principal); E11.40 Type 2 diabetes mellitus with diabetic neuropathy, unspecified; I11.0 Hypertensive heart disease with heart failure; I50.9 Heart failure, unspecified; R17 Unspecified jaundice; I48.0 Paroxysmal atrial fibrillation; J98.11 Atelectasis; I25.110 Atherosclerotic heart disease of native coronary artery with unstable angina pectoris; E66.9 Obesity, unspecified; E78.5 Hyperlipidemia, unspecified; G89.29 Other chronic pain; M19.90 Unspecified osteoarthritis, unspecified site; Z79.899 Other long term (current) drug therapy; Z80.9 Family history of malignant neoplasm, unspecified; Z87.891 Personal history of nicotine dependence; Z88.0 Allergy status to penicillin; Z79.84 Long term (current) use of oral hypoglycemic drugs
CPT/HCPCS: 36620; 71010; 71020; 80048; 80053; 82247; 82248; 82330; 82805; 83036; 83735; 84132; 84450; 84460; 85025; 85520; 85610; 85730; 86850; 86891; 86900; 86901; 86920; 94002; 94003; 94640; 94760

== ENCOUNTER → 2017-04-09 | Outpatient (CLI) | payer MEDICARE, BC ==
[2017-04-09 12:22] LABS: ALT 73 U/L (9-52); AST 59 U/L (14-36); Alkaline Phosphatase 110 U/L (38-126); Anion Gap 12 mmol/L; Blood Urea Nitrogen 20 mg/dL (7-17); Calcium 8.5 mg/dL (8.4-10.2); Carbon Dioxide 26 mmol/L (22-30); Chloride 99 mmol/L (98-107); Glucose 154 mg/dL (74-99); Non-African American GFR(MDRD) >60 (>60 ml/min/1.73 sqM); Potassium 3.5 mmol/L (3.5-5.1); Sodium 137 mmol/L (137-145); Total Bilirubin 2.2 mg/dL (0.2-1.3); Total Protein 6.1 g/dL (6.3-8.2)
[2017-04-09 13:08] LABS: Basophils % (A) 1 %; CH 30.8; CHCM 33.7; Eosinophils # (A) 0.1 k/uL (0-0.7); Eosinophils % (A) 2 %; HCT 35.3 % (34.0-46.0); HDW 3.68; HGB 11.9 gm/dL (11.4-16.0); Hypochromasia Slight; Luc # (Auto) 0.12; Luc % (Auto) 2; Lymphocytes % (A) 17 %; MCHC 33.6 g/dL (31.0-37.0); MCV 92.3 fL (80.0-100.0); Mean Platelet Volume 7.5; Monocytes # (A) 0.4 k/uL (0-1.0); Monocytes % (A) 7 %; Neutrophils # (A) 4.1 k/uL (1.3-7.7); Neutrophils % (A) 71 %; Poikilocytosis Slight; RBC 3.82 m/uL (3.80-5.40); RDW 15.3 % (11.5-15.5); WBC 5.8 k/uL (3.8-10.6); WBC (Perox) 5.96
== END | disposition home or self-care (01) ==
LOC: LABWHC1 11:06
PROVIDERS: ATTEND Nurse Practitioner Acute Care
DX: Z48.812 Encounter for surgical aftercare following surgery on the circulatory system (principal)
CPT/HCPCS: 36415; 80053; 85025

== ENCOUNTER → 2017-04-15 | Outpatient (CLI) | payer MEDICARE, BC | END | disposition home or self-care (01) | DX: Z53.9 Procedure and treatment not carried out, unspecified reason (principal) ==

== ENCOUNTER → 2017-04-18 | Outpatient (CLI) | payer MEDICARE, BC ==
[2017-04-18 20:49] LABS: Anion Gap 7 mmol/L; Blood Urea Nitrogen 17 mg/dL (7-17); Calcium 8.2 mg/dL (8.4-10.2); Carbon Dioxide 27 mmol/L (22-30); Chloride 101 mmol/L (98-107); Glucose 106 mg/dL (74-99); Non-African American GFR(MDRD) >60 (>60 ml/min/1.73 sqM); Potassium 3.4 mmol/L (3.5-5.1); Sodium 135 mmol/L (137-145)
== END | disposition home or self-care (01) ==
LOC: LABMAIN 16:13
PROVIDERS: ATTEND Internal Medicine Cardiovascular Disease
DX: R60.0 Localized edema (principal)
CPT/HCPCS: 36415; 80048

== ENCOUNTER 2017-05-05 11:12 | Day surgery (SDC) | payer MEDICARE, BC ==
--- NOTE | 2017-05-05 12:02 | US ---
EXAMINATION TYPE: US chest DATE OF EXAM: 05/05/2017 COMPARISON: NONE CLINICAL HISTORY: J91.8 Pleural Effusion. SOB, post open heart EXAM MEASUREMENTS: Left Pleural Effusion fluid pocket: 11.2 cm Left skin to fluid thickness: 6.4 cm Left side marked for possible thoracentesis outside the dept. Pulmonologists are able to review the images in the patient?s EMR. IMPRESSIONS: Left-sided pleural effusion.
[2017-05-05 12:19] VITALS: PULSE 78; RESP 18
[2017-05-05 12:21] VITALS: BP 112/66; TEMP 98
--- NOTE | 2017-05-05 12:24 | XR ---
EXAMINATION TYPE: XR chest 1V portable DATE OF EXAM: 05/05/2017 HISTORY: Shortness of breath. COMPARISON: April 06, 2017 TECHNIQUE: Single view of the chest is submitted. FINDINGS: No evidence for pneumothorax. Small bilateral pleural effusions noted. Demonstrated are scattered senescent parenchymal change. There is no evidence for focal infiltrate. The heart is stable. Hilar and mediastinal structures are within normal limits. Degenerative changes are seen of the dorsal spine. IMPRESSION: 1. No evidence for pneumothorax. Small bilateral pleural effusions noted.
--- NOTE | 2017-05-05 19:34 | PCN ---
PROCEDURE NOTE PROCEDURE PERFORMED: Thoracentesis. PREOP DIAGNOSIS: Left-sided pleural effusion. POSTOP DIAGNOSIS: Left side pleural effusion. DESCRIPTION OF PROCEDURE: INDICATION: Pleural effusion. A time-out was completed verifying correct patient, procedure, site, positioning , and implant (s) or special equipment if applicable. Ultrasound guidance was used and appropriate fluid pocket was identified and marked. Patient was positioned, prepped and draped in usual sterile fashion. Lidocaine was used to anesthetize the area. A Thoracentesis catheter was introduced into the pleural space and fluid was removed. Blood loss was none. A chest x-ray was ordered to evaluate for pneumothorax. Total Fluid Removed: 650 mL Color of Fluid: Bloody Fluid was/was not sent for appropriate laboratory tests. Patient tolerated the procedure well and there were no complications This was done with ultrasound guidance. A total of 650 mL of bloody pleural effusion was aspirated successfully from the left lung. No complications. This was done on the left side. MMODL / IJN: [id number] /
== END 2017-05-05 13:51 | disposition home or self-care (01) ==
LOC: PROCWHC3 11:12
PROVIDERS: ATTEND Internal Medicine Critical Care Medicine
DX: J90 Pleural effusion, not elsewhere classified (principal); I25.10 Atherosclerotic heart disease of native coronary artery without angina pectoris; I10 Essential (primary) hypertension; E78.2 Mixed hyperlipidemia; E11.9 Type 2 diabetes mellitus without complications; Z95.1 Presence of aortocoronary bypass graft; Z87.891 Personal history of nicotine dependence; Z79.899 Other long term (current) drug therapy; Z79.02 Long term (current) use of antithrombotics/antiplatelets; Z79.82 Long term (current) use of aspirin
CPT/HCPCS: 32554; 71010; 76604

== ENCOUNTER → 2017-06-01 | Outpatient (CLI) | payer MEDICARE, BC ==
[2017-06-01 17:25] LABS: Anion Gap 11 mmol/L; Blood Urea Nitrogen 15 mg/dL (7-17); Calcium 9.1 mg/dL (8.4-10.2); Carbon Dioxide 25 mmol/L (22-30); Chloride 105 mmol/L (98-107); Glucose 151 mg/dL (74-99); Non-African American GFR(MDRD) >60 (>60 ml/min/1.73 sqM); Sodium 141 mmol/L (137-145)
== END | disposition home or self-care (01) ==
LOC: LABWHC1 16:28
PROVIDERS: ATTEND Internal Medicine Cardiovascular Disease
DX: I50.9 Heart failure, unspecified (principal)
CPT/HCPCS: 36415; 80048; 83880

== ENCOUNTER → 2017-06-10 | Outpatient (CLI) | payer MEDICARE, BC ==
--- NOTE | 2017-06-10 14:45 | US ---
EXAMINATION TYPE: US venous doppler duplex LE LT DATE OF EXAM: 06/10/2017 2:14 PM COMPARISON: NONE CLINICAL HISTORY: I82.402 DVT left Leg. very short of breath, no prev dvt, left calf swelling SIDE PERFORMED: left TECHNIQUE: The lower extremity deep venous system is examined utilizing real time linear array sonog andrea with graded compression, doppler sonography and color-flow sonography. VESSELS IMAGED: External Iliac Vein (EIV) Common Femoral Vein Deep Femoral Vein Femoral Vein Popliteal Vein Proximal Calf Veins Left Leg: negative for LLE dvt; results called to Greta in the office at the time of the exam. IMPRESSION: 1. Left lower extremity negative for deep venous thrombosis based on ultrasound findings.
== END ==
LOC: RADUSWWP 13:35
PROVIDERS: ATTEND Psychiatry & Neurology Neurology
DX: I82.402 Acute embolism and thrombosis of unspecified deep veins of left lower extremity (principal)

== ENCOUNTER → 2017-07-19 | Outpatient (CLI) | payer MEDICARE, BC ==
[2017-07-19 14:57] LABS: ALT 32 U/L (9-52); AST 41 U/L (14-36); Alkaline Phosphatase 129 U/L (38-126); Anion Gap 10 mmol/L; Blood Urea Nitrogen 30 mg/dL (7-17); Calcium 9.2 mg/dL (8.4-10.2); Carbon Dioxide 26 mmol/L (22-30); Chloride 104 mmol/L (98-107); Glucose 109 mg/dL (74-99); Non-African American GFR(MDRD) >60 (>60 ml/min/1.73 sqM); Sodium 140 mmol/L (137-145); Total Bilirubin 1.2 mg/dL (0.2-1.3); Total Protein 7.3 g/dL (6.3-8.2)
[2017-07-19 15:11] LABS: Anisocytosis Moderate; Basophils % (A) 0 %; CH 21.8; CHCM 29.1; Eosinophils # (A) 0.1 k/uL (0-0.7); Eosinophils % (A) 3 %; HCT 30.5 % (34.0-46.0); HDW 3.06; HGB 8.8 gm/dL (11.4-16.0); Hypochromasia Marked; Luc # (Auto) 0.08; Luc % (Auto) 2; Lymphocytes # (A) 0.8 k/uL (1.0-4.8); Lymphocytes % (A) 24 %; MCH 21.7 pg (25.0-35.0); MCHC 28.9 g/dL (31.0-37.0); Mean Platelet Volume 8.8; Microcytosis Moderate; Monocytes # (A) 0.3 k/uL (0-1.0); Monocytes % (A) 8 %; Neutrophils # (A) 2.1 k/uL (1.3-7.7); Neutrophils % (A) 62 %; RBC 4.06 m/uL (3.80-5.40); WBC 3.4 k/uL (3.8-10.6); WBC (Perox) 3.63
[2017-07-19 15:14] LABS: MCV 75.1 fL (80.0-100.0)
== END | disposition home or self-care (01) ==
LOC: LABWHC1 14:09
PROVIDERS: ATTEND Internal Medicine Critical Care Medicine
DX: R06.09 Other forms of dyspnea (principal)
CPT/HCPCS: 36415; 71020; 80053; 85025; 99214

== ENCOUNTER 2017-08-19 09:58 | Day surgery (SDC) | payer MEDICARE, BC ==
[2017-08-19 10:42] VITALS: TEMP 98.3
[2017-08-19 10:44] LABS: Mean Platelet Volume 7.8; Platelet Count 132 k/uL (150-450)
[2017-08-19 11:07] LABS: Glucose,Whole Blood 144 mg/dL (75-99)
[2017-08-19 11:29] LABS: Partial Thromboplastin Time 23.7 sec (22.0-30.0)
[2017-08-19 11:39] LABS: INR 1.3 (<1.2); Prothrombin Time 12.6 sec (9.0-12.0)
[2017-08-19 11:56] VITALS: RESP 14
[2017-08-19 12:12] VITALS: BP 119/53; PULSE 65
--- NOTE | 2017-08-19 12:27 | XR ---
EXAMINATION TYPE: XR chest 1V DATE OF EXAM: 08/19/2017 COMPARISON: Prior chest x-ray 08/05/2017 HISTORY: Status post left thoracentesis TECHNIQUE: Single frontal view of the chest is obtained. FINDINGS: Interval improvement in aeration at the left lung base. The heart remains enlarged. Blunti ng of the costophrenic angles is present. There is no pneumothorax. Interstitium and central vascular ity mildly increased. IMPRESSION: No evident complication status post thoracentesis. Correlate to exclude pulmonary venous hypertension and interstitial edema.
--- NOTE | 2017-08-19 12:44 | US ---
EXAMINATION TYPE: US thoracentesis DATE OF EXAM: 08/19/2017 COMPARISON: NONE HISTORY: Pleural effusion. FINDINGS: Maximal barrier technique was utilized. The skin overlying a suitable pocket of fluid was localized and the overlying skin prepped and draped. Lidocaine was used for local anesthesia. Ultras ound was used with sterile technique. A 5 Fr catheter over guide needle was advanced into the pleura l fluid collection using ultrasound guidance and the needle removed, catheter advanced. Approximatel y 0.7 liter(s) of serous fluid was removed. Catheter was withdrawn and hemostasis achieved. There i s no immediate complication. The patient discharged in stable condition without complication. IMPRESSION: STATUS POST ULTRASOUND GUIDED THORACENTESIS, POST PROCEDURE CHEST X-RAY PENDING. THIS MI OCEDURE WAS PERFORMED BY THE UNDERSIGNED. Specimen sent for laboratory analysis.
[2017-08-19 15:39] LABS: Appearance,BF Hazy; Color,BF Yellow; Nucleated Cells, Body Fluid 27 /uL
[2017-08-19 15:40] LABS: RBC, Body Fluid 719 /uL
[2017-08-19 15:42] LABS: Mononuclear WBC,Body Fluid 94 %; Polynuclear WBC,Body Fluid 6 %; Total Cells Counted,Body Fluid 100
[2017-08-19 19:24] LABS: Total Protein, Body Fluid 2500 mg/dL
== END 2017-08-19 12:30 | disposition home or self-care (01) ==
LOC: RADPROMAIN 09:58
PROVIDERS: ATTEND Internal Medicine Critical Care Medicine
DX: J90 Pleural effusion, not elsewhere classified (principal); Z95.1 Presence of aortocoronary bypass graft; I07.1 Rheumatic tricuspid insufficiency; I25.10 Atherosclerotic heart disease of native coronary artery without angina pectoris; I10 Essential (primary) hypertension; E11.9 Type 2 diabetes mellitus without complications; Z79.84 Long term (current) use of oral hypoglycemic drugs; E78.5 Hyperlipidemia, unspecified; D64.9 Anemia, unspecified; M19.90 Unspecified osteoarthritis, unspecified site; Z87.891 Personal history of nicotine dependence; Z79.82 Long term (current) use of aspirin; Z79.899 Other long term (current) drug therapy; Z88.0 Allergy status to penicillin
CPT/HCPCS: 32555; 71010; 82945; 83615; 84157; 85049; 85610; 85730; 87070; 87075; 87116; 87205; 87206; 88108; 88305; 89050

== ENCOUNTER → 2017-09-08 | Outpatient (CLI) | payer MEDICARE, BC ==
[2017-09-08 13:49] LABS: Anion Gap 12 mmol/L; Blood Urea Nitrogen 21 mg/dL (7-17); Calcium 9.5 mg/dL (8.4-10.2); Carbon Dioxide 29 mmol/L (22-30); Chloride 102 mmol/L (98-107); Glucose 98 mg/dL (74-99); Potassium 4.2 mmol/L (3.5-5.1); Sodium 143 mmol/L (137-145)
== END | disposition home or self-care (01) ==
LOC: LABWHC1 13:17
PROVIDERS: ATTEND Nurse Practitioner Adult Health
DX: R60.0 Localized edema (principal)
CPT/HCPCS: 36415; 80048

== ENCOUNTER → 2017-10-01 | Outpatient (CLI) | payer MEDICARE, BC ==
[2017-10-01 12:07] LABS: Anisocytosis Moderate; Basophils % (A) 0 %; Eosinophils # (A) 0.2 k/uL (0-0.7); Eosinophils % (A) 4 %; HCT 40.8 % (34.0-46.0); HGB 12.7 gm/dL (11.4-16.0); Lymphocytes % (A) 24 %; MCH 27.3 pg (25.0-35.0); MCV 88.1 fL (80.0-100.0); Microcytosis Slight; Monocytes # (A) 0.3 k/uL (0-1.0); Monocytes % (A) 7 %; Neutrophils # (A) 2.6 k/uL (1.3-7.7); Neutrophils % (A) 64 %; Platelet Count 161 k/uL (150-450); RBC 4.64 m/uL (3.80-5.40); RDW 20.4 % (11.5-15.5); WBC 4.2 k/uL (3.8-10.6)
[2017-10-01 13:38] LABS: ALT 25 U/L (9-52); AST 53 U/L (14-36); Alkaline Phosphatase 161 U/L (38-126); Anion Gap 10 mmol/L; Blood Urea Nitrogen 31 mg/dL (7-17); C Reactive Protein 10.7 mg/L (<10.0); Calcium 9.7 mg/dL (8.4-10.2); Carbon Dioxide 37 mmol/L (22-30); Chloride 91 mmol/L (98-107); Glucose 99 mg/dL (74-99); Potassium 3.7 mmol/L (3.5-5.1); Sodium 138 mmol/L (137-145); Total Bilirubin 1.3 mg/dL (0.2-1.3); Total Protein 8.1 g/dL (6.3-8.2)
[2017-10-01 13:43] LABS: Erythrocyte Sedimentation Rate 44 mm/hr (0-20)
== END | disposition home or self-care (01) ==
LOC: LABWHC1 11:49
PROVIDERS: ATTEND Internal Medicine Cardiovascular Disease
DX: I50.9 Heart failure, unspecified (principal); D64.9 Anemia, unspecified; E13.621 Other specified diabetes mellitus with foot ulcer; L97.919 Non-pressure chronic ulcer of unspecified part of right lower leg with unspecified severity
CPT/HCPCS: 36415; 80053; 84134; 85025; 85652; 86140

== ENCOUNTER → 2017-10-27 | Outpatient (CLI) | payer MEDICARE, BC ==
[2017-10-27 08:49] LABS: Potassium 3.7 mmol/L (3.5-5.1)
== END | disposition home or self-care (01) ==
LOC: LABWHC1 07:53
PROVIDERS: ATTEND Internal Medicine Cardiovascular Disease
DX: I50.9 Heart failure, unspecified (principal)
CPT/HCPCS: 36415; 80048

== ENCOUNTER → 2017-10-27 | Outpatient (CLI) | payer MEDICARE, BC ==
--- NOTE | 2017-10-29 12:02 | NM ---
EXAMINATION TYPE: NM bone 3 phase DATE OF EXAM: 10/27/2017 COMPARISON: NONE HISTORY: History of diabetes melitis, venous stripping 4 coronary artery surgery, foot ulceration, an d right ankle pain medially. Triple phase bone scintigraphy was performed following the injection of26.7 mCi Tc 99m MDP. Immediat e images and 6 hours post injection images acquired. FINDINGS: There is no asymmetric flow to either lower extremity. There is slightly asymmetric blood pools of th e right lower extremity, and there is diffuse symmetric accumulation of radiotracer within the tarsal s, hindfoot, first metatarsal phalangeal joint and distal first interphalangeal joints. No focal radi otracer accumulation on all 3 phases to indicate focal osteomyelitis. IMPRESSION: 1. No scintigraphic evidence of focal osteomyelitis. 2. Diffuse symmetric delayed uptake within the hindfoot, tarsal bones, first metatarsophalangeal join ts, and first distal interphalangeal joints most fitting of osteoarthropathy, reflex sympathetic dyst rophy, or Charcot joints.
== END | disposition home or self-care (01) ==
LOC: RADNMMAIN 07:23
PROVIDERS: ATTEND Family Medicine
DX: M19.042 Primary osteoarthritis, left hand (principal); M19.041 Primary osteoarthritis, right hand; R94.5 Abnormal results of liver function studies; E11.621 Type 2 diabetes mellitus with foot ulcer; E11.69 Type 2 diabetes mellitus with other specified complication; M86.9 Osteomyelitis, unspecified
CPT/HCPCS: 78315; A9503

== ENCOUNTER 2017-12-21 11:12 | Day surgery (SDC) | payer MEDICARE, BC ==
[2017-12-20 09:01] VITALS: BMI 32.4
[~2017-12-21 11:12] MED LIST changes: -ALPRAZolam 0.25 MG TAB PO PRN; -ALPRAZolam 0.5 MG TAB PO PRN; -ASPIRIN 325 MG TAB PO STA; -ATORVASTATIN 80 MG TAB PO STA; +LIDOCAINE 1% 20 ML VIAL (10MG/ML) FOR IV START INTRADERMA PRN; -NITROGLYCERIN SL TABS 0.4 MG TAB SUBLINGUAL PRN; -SODIUM CHLORIDE 0.9% 1,000 ML in EMPTY BAG 1 BAG IV ONE
[2017-12-21 11:40] VITALS: TEMP 98.6
[2017-12-21 11:46] LABS: Glucose,Whole Blood 107 mg/dL (75-99)
[2017-12-21] MEDS: LACTATED RINGERS 1,000 ML IV SCH ×2 (11:46→12:03)
[2017-12-21] MEDS ORDERED: PROPOFOL 10 MG/ML 20 ML VIAL IV ONE (12:05)
--- NOTE | 2017-12-21 12:50 | P.OP ---
Date of Procedure: 12/21/17 Preoperative Diagnosis: Screening for colon cancer Postoperative Diagnosis: 1 hepatic flexure polyp. 2 cecal polyp. 3 in colon polyp. 4 proximal transverse colon polyp 5 moderate diverticulosis. 6. Internal and external hemorrhoids mild. Procedure(s) Performed: Colonoscopy and snare polypectomy 5 Anesthesia: MAC Surgeon: Jacob Richard Estimated Blood Loss (ml): 0 Pathology: other (Colon polyps 5) Condition: stable Disposition: same day Indications for Procedure: Screening for colon cancer. Operative Findings: Multiple polyps 5. Moderate diverticulosis. Mild internal and external hemorrhoids. Description of Procedure: The patient is a 67-year-old white female comes in for screening colonoscopy. Otherwise asymptomatic. Informed consent was obtained. With the patient in the left lateral position rectal digital exam exam was normal. There are no palpable masses. Has some mild external hemorrhoids. The video colonoscope was inserted transanally and advanced all the way to the cecum which was entered without visualized as was the ileocecal valve. Procedure was somewhat difficult because of tortuosity and some redundancy. The mucosa were thoroughly examined. Findings. 1 there was a polyp about the 3-4 mm in diameter opposite the ileocecal valve sessile that was removed completely with the snare cautery with good hemostasis. 2 hepatic flexure polyp also about 3-4 mm in diameter that went was removed with the snare cautery with good hemostasis. 32 ascending colon polyps. Close to one another each about 3-4 mm in diameter that was removed completely with the snare cautery with good hemostasis. The graft for proximal transverse colon polyp sessile about 4 mm in diameter that was removed completely with the snare cautery with good hemostasis. I moderate diverticulosis uncomplicated. 6 mild internal and external hemorrhoids. The patient tolerated procedure well without any evident complication. Recommendation. High-fiber diet. Follow-up colonoscopy in about the 2 years in view of multiple polyps.
[2017-12-21 13:24] VITALS: BP 135/100; PULSE 60; RESP 18
== END 2017-12-21 13:31 | disposition home or self-care (01) ==
LOC: ORWHC2ENDO 11:12
PROVIDERS: ATTEND Surgery
DX: Z12.11 Encounter for screening for malignant neoplasm of colon (principal); D12.0 Benign neoplasm of cecum; D12.3 Benign neoplasm of transverse colon; D12.2 Benign neoplasm of ascending colon; K63.5 Polyp of colon; K57.30 Diverticulosis of large intestine without perforation or abscess without bleeding; K64.4 Residual hemorrhoidal skin tags; K64.8 Other hemorrhoids; Z80.0 Family history of malignant neoplasm of digestive organs; I10 Essential (primary) hypertension; E78.00 Pure hypercholesterolemia, unspecified; E11.9 Type 2 diabetes mellitus without complications; Z79.84 Long term (current) use of oral hypoglycemic drugs; Z85.41 Personal history of malignant neoplasm of cervix uteri; Z95.1 Presence of aortocoronary bypass graft; I25.10 Atherosclerotic heart disease of native coronary artery without angina pectoris; Z87.891 Personal history of nicotine dependence; E66.9 Obesity, unspecified; Z68.31 Body mass index [BMI] 31.0-31.9, adult; Z79.82 Long term (current) use of aspirin; Z79.899 Other long term (current) drug therapy; Z88.0 Allergy status to penicillin
CPT/HCPCS: 88305; 45385; J2704

== ENCOUNTER → 2017-12-28 | Outpatient (CLI) | payer MEDICARE, BC ==
[2017-12-28 09:25] LABS: Albumin 3.5 g/dL (3.5-5.0); Bilirubin, Delta 0.6 mg/dL (0.0-0.2); Bilirubin,Unconjugated 1.5 mg/dL (0.0-1.1); Total Bilirubin 2.1 mg/dL (0.2-1.3); Total Protein 6.6 g/dL (6.3-8.2)
== END | disposition home or self-care (01) ==
LOC: LABWHC1 08:20
PROVIDERS: ATTEND Internal Medicine Cardiovascular Disease
DX: E78.5 Hyperlipidemia, unspecified (principal); E11.9 Type 2 diabetes mellitus without complications; I25.10 Atherosclerotic heart disease of native coronary artery without angina pectoris
CPT/HCPCS: 36415; 80061; 80076

== ENCOUNTER → 2018-10-19 | Outpatient (CLI) | payer MEDICARE, BC ==
[2018-10-19 17:00] LABS: Albumin 3.5 g/dL (3.80-4.90); Albumin/Globulin Ratio 1.4 (1.60-3.17); Anion Gap 10.2 mmol/L (4.00-12.00); Calcium 8.8 mg/dL (8.7-10.3); Carbon Dioxide 24.8 mmol/L (21.6-31.8); Globulin 2.5 g/dL (1.6-3.3); LDL Cholesterol,Calculated 85.6 mg/dL (0.0-131.0); Potassium 3.9 mmol/L (3.5-5.5); Total Bilirubin 1.5 mg/dL (0.2-1.2); VLDL Calculation 18.4 mg/dL (5.00-40.00)
== END | disposition home or self-care (01) ==
LOC: LABWHC1 09:08
PROVIDERS: ATTEND Internal Medicine Cardiovascular Disease
DX: E78.5 Hyperlipidemia, unspecified (principal); I25.10 Atherosclerotic heart disease of native coronary artery without angina pectoris
CPT/HCPCS: 36415; 80053; 80061

== ENCOUNTER → 2019-04-27 | Outpatient (CLI) | payer MEDICARE, BC ==
[2019-04-27 08:45] LABS: Basophils % (A) 1 %; Eosinophils # (A) 0.5 k/uL (0-0.7); Eosinophils % (A) 12 %; HCT 40.2 % (34.0-46.0); HGB 13.6 gm/dL (11.4-16.0); Lymphocytes # (A) 0.9 k/uL (1.0-4.8); Lymphocytes % (A) 23 %; MCH 31.5 pg (25.0-35.0); MCHC 33.9 g/dL (31.0-37.0); Mean Platelet Volume 6.9; Monocytes # (A) 0.3 k/uL (0-1.0); Monocytes % (A) 7 %; Neutrophils # (A) 2.1 k/uL (1.3-7.7); Neutrophils % (A) 55 %; Platelet Count 103 k/uL (150-450); RBC 4.33 m/uL (3.80-5.40); RDW 14.4 % (11.5-15.5); WBC 3.8 k/uL (3.8-10.6)
[2019-04-27 16:18] LABS: African American GFR (CKD) 103.2 (60.0-200.0); Albumin 3.8 g/dL (3.80-4.90); Albumin/Globulin Ratio 1.52 (1.60-3.17); Anion Gap 7.9 mmol/L (4.00-12.00); BUN/Creat Ratio 22.86 Ratio (12.00-20.00); Calcium 9.1 mg/dL (8.7-10.3); Carbon Dioxide 26.1 mmol/L (21.6-31.8); Globulin 2.5 g/dL (1.6-3.3); Potassium 4.2 mmol/L (3.5-5.5); Total Protein 6.3 g/dL (6.2-8.2)
[2019-04-27 18:05] LABS: Iron Saturation 21.86 (12.00-45.00)
[2019-04-27 18:14] LABS: Protein, Total 6.3 g/dL (6.2-8.2)
[2019-04-28 11:57] LABS: Liver/Kidney Microsome Antibod 1.3 UNITS (<=20)
[2019-04-28 12:09] LABS: Ceruloplasmin 25.2 mg/dL (20.0-60.0)
[2019-04-28 14:10] LABS: Albumin 3.39 g/dL (3.80-4.90); Gamma Globulin 1.24 g/dL (0.70-1.50)
== END | disposition home or self-care (01) ==
LOC: LABWHC1 08:13
PROVIDERS: ATTEND Internal Medicine
DX: R74.8 Abnormal levels of other serum enzymes (principal); R17 Unspecified jaundice
CPT/HCPCS: 36415; 80053; 80074; 82103; 82390; 82728; 83516; 83540; 83550; 84165; 85025; 86038; 86376

== ENCOUNTER → 2019-08-10 | Outpatient (CLI) | payer MEDICARE, BC ==
--- NOTE | 2019-08-10 10:24 | BD ---
EXAMINATION TYPE: Axial Bone Density DATE OF EXAM: 08/10/2019 COMPARISON: 12.01.2011 CLINICAL HISTORY: 69 YR OLD FEMALE....ICD-10 CODE: Z78.0 POST MENOPAUSAL Height: 64.2 Weight: 206 FRAX RISK QUESTIONS: Family History (Parent hip fracture): YES RISK FACTORS HISTORY OF: Family History of Osteoporosis: YES, GRANDMOTHER WITH HIP FX Postmenopausal woman: YES AT ABOUT 51 YR OLD Lost more than 2 inches in height since high school: YES Hyperparathyroidism: NO Adrenal Insufficiency: NO MEDICATIONS: Additional Medications: BP MEDS, HEART MEDS, ORAL DIABETIC MEDS, STATIN FOR CHOLESTEROL, MULTIVITAMIN , Additional History: OPEN HEART SURG. 2017 AND GB SURG 2018, DIABETIC EXAM MEASUREMENTS: Bone mineral densitometry was performed using the [employer] System. Bone mineral density as measured about the Lumbar spine is: ----- L1-L4(G/cm2): 1.526 T Score Values are as follows: ----- L1: 2.2 ----- L2: 2.5 ----- L3: 3.5 ----- L4: 3.1 ----- L1-L4: 2.9 Bone mineral density has: Increased 9.4% since study of: 12.01.2011 Bone mineral density about the R hip (g/cm2): 1.045 Bone mineral density about the L hip (g/cm2): 1.075 T Score values are as follows: -----R Neck: 0.5 -----L Neck: 0.5 -----R Total: 0.3 -----L Total: 0.5 Bone mineral density has: Increased 2.3% since study of: 12.01.2011 FRAX%s: THERE IS A 9.8% CHANCE FOR A MAJOR OSTEOPOROTIC FX AND A 0.4% FOR HIP.....PROBABILITY FOR F X IN 10 YRS TIME IMPRESSION: Normal (Values between +1 and -1 indicate normal bone mass). Consider repeating this study in 5 year s or sooner if there is some new clinical indication. NOTE: T-SCORE=SD OF THE YOUNG ADULT MEAN.
--- NOTE | 2019-08-11 15:00 | MM ---
Reason for exam: screening (asymptomatic). Last mammogram was performed 5 years and 8 months ago. History: Patient is postmenopausal and history of other cancer. Physical Findings: A clinical breast exam by your physician is recommended on an annual basis and results should be correlated with mammographic findings. MG Screening Mammo w CAD Bilateral CC and MLO view(s) were taken. Prior study comparison: December 04, 2013, bilateral digital screening mammo w/CAD. December 01, 2012, bilateral digital screening mammo w/CAD. There are scattered fibroglandular densities. There is no discrete abnormality. No significant changes when compared with prior studies. ASSESSMENT: Negative, BI-RAD 1 RECOMMENDATION: Routine screening mammogram of both breasts in 1 year.
== END | disposition home or self-care (01) ==
LOC: RADMAMWWP 08:39
PROVIDERS: ATTEND Obstetrics & Gynecology
DX: Z12.31 Encounter for screening mammogram for malignant neoplasm of breast (principal); Z78.0 Asymptomatic menopausal state
CPT/HCPCS: 77067; 77080

== ENCOUNTER → 2020-02-08 | Outpatient (CLI) | payer BC, MEDICARE ==
[2020-02-08 09:54] LABS: Basophils % (A) 1 %; Eosinophils # (A) 0.4 k/uL (0-0.7); Eosinophils % (A) 9 %; HGB 13.6 gm/dL (11.4-16.0); Lymphocytes # (A) 0.9 k/uL (1.0-4.8); Lymphocytes % (A) 24 %; MCH 32.8 pg (25.0-35.0); MCHC 34.1 g/dL (31.0-37.0); MCV 96.4 fL (80.0-100.0); Mean Platelet Volume 7.8; Monocytes # (A) 0.3 k/uL (0-1.0); Monocytes % (A) 8 %; Neutrophils # (A) 2.2 k/uL (1.3-7.7); Neutrophils % (A) 56 %; Platelet Count 100 k/uL (150-450); RBC 4.16 m/uL (3.80-5.40); RDW 13.8 % (11.5-15.5); WBC 3.9 k/uL (3.8-10.6)
[2020-02-08 09:57] LABS: INR 1.2 (<1.2); Prothrombin Time 12.4 sec (9.0-12.0)
[2020-02-08 10:14] LABS: ALT 30 U/L (4-34); AST 55 U/L (14-36); African American GFR (CKD) >90 (>60 ml/min/1.73 sqM); Albumin 3.7 g/dL (3.5-5.0); Alkaline Phosphatase 154 U/L (38-126); Anion Gap 6 mmol/L; Blood Urea Nitrogen 19 mg/dL (7-17); Calcium 9.3 mg/dL (8.4-10.2); Carbon Dioxide 27 mmol/L (22-30); Chloride 105 mmol/L (98-107); Glucose 140 mg/dL (74-99); Non-African American GFR(CKD) 78 (>60 ml/min/1.73 sqM); Potassium 4.1 mmol/L (3.5-5.1); Sodium 138 mmol/L (137-145); Total Bilirubin 2.8 mg/dL (0.2-1.3); Total Protein 7.2 g/dL (6.3-8.2)
--- NOTE | 2020-02-08 10:54 | US ---
EXAMINATION TYPE: US abdomen complete DATE OF EXAM: 02/08/2020 COMPARISON: US 2012 CLINICAL HISTORY: R74.8 Abnormal levels of other serum enzymes. Abnormal labs, GB removed EXAM MEASUREMENTS: Liver Length: 17.4 cm CBD: 1.2 cm Spleen: 15.0 cm Right Kidney: 10.9 x 4.1 x 4.8 cm Left Kidney: 11.1 x 5.3 x 5.3 cm Pancreas: 2-3mm panc duct visualized, body wnl, head and tail obscured by overlying bowel gas Liver: Nodular contour, heterogeneous, scant amount fluid superior left lobe Gallbladder: Surgically absent Evidence for sonographic Goncalves's sign: No CBD: Dilated for post abi Spleen: enlarged Right Kidney: wnl Left Kidney: wnl Upper IVC: wnl Abd Aorta: Proximal portion wnl, mid and distal obscured by overlying bowel gas The visualized liver is heterogeneous. No worrisome intrahepatic ductal dilatation. Trace surrounding ascites. The intrahepatic portion of the IVC and visualized proximal abdominal aorta are within norm al limits. Gallbladder is surgically absent. Common bile duct is mildly dilated at 12 mm even after cholecystectomy. The visualized portions of the pancreas are homogenous. The spleen is now enlarged without surrounding ascites or suspicious focal splenic mass. Kidneys are symmetric and free of hyd ronephrosis. No renal lesions are seen. IMPRESSION: New splenomegaly. Heterogeneous hyperechoic appearance of liver with lobulated contour an d trace perihepatic ascites raising concern for underlying hepatocellular disease. Correlate clinical ly. Imaging guided random biopsy for tissue analysis can be performed if desired.
== END | disposition home or self-care (01) ==
LOC: RADUSWWP 08:55
PROVIDERS: ATTEND Internal Medicine
DX: R16.1 Splenomegaly, not elsewhere classified (principal); R18.8 Other ascites; R74.8 Abnormal levels of other serum enzymes
CPT/HCPCS: 36415; 76700; 80053; 82105; 85025; 85610

== ENCOUNTER → 2020-06-26 | Outpatient (CLI) | payer MEDICARE ==
[2020-06-26 16:46] LABS: African American GFR (CKD) 101.7 (60.0-200.0); Albumin 3.4 g/dL (3.80-4.90); Albumin/Globulin Ratio 1.17 (1.60-3.17); Anion Gap 9.9 mmol/L (4.00-12.00); Calcium 9.2 mg/dL (8.7-10.3); Carbon Dioxide 26.1 mmol/L (21.6-31.8); Chol/HDL Ratio 2.83; Globulin 2.9 g/dL (1.6-3.3); Non-African American GFR(CKD) 87.8 (60.0-200.0); Potassium 4.2 mmol/L (3.5-5.5); Total Bilirubin 2.4 mg/dL (0.2-1.2); Total Protein 6.3 g/dL (6.2-8.2)
== END | disposition home or self-care (01) ==
LOC: LABWHC1 07:44
PROVIDERS: ATTEND Internal Medicine Cardiovascular Disease
DX: I11.0 Hypertensive heart disease with heart failure (principal); I50.9 Heart failure, unspecified; E78.5 Hyperlipidemia, unspecified
CPT/HCPCS: 36415; 80053; 80061; 85379

== ENCOUNTER 2020-07-03 06:27 | Day surgery (SDC) | payer MEDICARE ==
[2020-07-01 15:56] VITALS: BMI 35.7
[~2020-07-03 06:27] MED LIST changes: +LACTATED RINGERS 1,000 ML IV SCH; +LIDOCAINE 1% (10MG/ML) FOR IV START INTRADERMA PRN; -LIDOCAINE 1% 20 ML VIAL (10MG/ML) FOR IV START INTRADERMA PRN; +MOXIFLOXACIN HCL 0.5% DROPS 3 ML BTL OP ONE; +TETRACAINE 0.5% OPHTH (PF) DROPS 4 ML BTL OP ONE; +TIMOLOL 0.5% OPHTH DROPS 5 ML BTL OP ONE
[2020-07-03 07:00] VITALS: RESP 16; TEMP 98
[2020-07-03] MEDS: CYCLOPENTOLATE 1% OPHTH SOLN 2 ML BTL OP ONE ×3 (07:05→07:11)
[2020-07-03] MEDS: PHENYLEPHRINE 2.5% OPHTH DRP 2ML OP NR ×3 (07:14→07:20)
[2020-07-03 07:22] LABS: Glucose,Whole Blood 150 mg/dL (75-99)
[2020-07-03] MEDS ORDERED: MIDAZOLAM 2 MG/2 ML VIAL ONE (07:23)
[2020-07-03] MEDS ORDERED: fentaNYL (PF) 50 MCG/ML 2 ML AMP ONE (07:23)
[2020-07-03] MEDS ORDERED: EPINEPHrine (PF) 0.3 ML in BALANCED SALT IRRIG SOLN COMB2 500 ML IRRIGATION ONE (07:40)
[2020-07-03] MEDS ORDERED: HYALURONATE SODIUM INTRAOCULAR 1 EACH SYRINGE (12MG/ML) INTRAOCULA ONE (07:45)
[2020-07-03] MEDS ORDERED: BALANCED SALT IRRIG SOLN COMB2 15 ML IRRIG.SOLN IRRIGATION ONE (07:45)
[2020-07-03] MEDS ORDERED: LIDOCAINE 1% (PF) 10MG/ML VIAL MISCELLANE ONE (07:46)
--- NOTE | 2020-07-03 07:51 | P.OP ---
Date of Procedure: 07/03/20 Preoperative Diagnosis: NS & CS & PSC Postoperative Diagnosis: same Procedure(s) Performed: PIOL, OD Implants: MX60 15.00 Anesthesia: MAC Surgeon: Kt Velasquez Estimated Blood Loss (ml): 0 Pathology: none sent Condition: stable Disposition: same day Indications for Procedure: blurry vision Operative Findings: no complications
[2020-07-03 08:15] VITALS: BP 137/61; PULSE 61
--- NOTE | 2020-07-04 00:09 | OP ---
OPERATIVE REPORT DATE OF SURGERY: July 03, 2020. SURGEON: Dr. Kt Velasquez PREOPERATIVE DIAGNOSIS: Nuclear sclerosis, cortical sclerosis and posterior subcapsular cataract. POSTOPERATIVE DIAGNOSIS: Nuclear sclerosis, cortical sclerosis and posterior subcapsular cataract. PROCEDURE: Phacoemulsification of cataract and intraocular lens implant of the right eye. ESTIMATED BLOOD LOSS: Zero. SPECIMEN TAKEN: None. NARRATIVE: After obtaining the appropriate consent, the patient was brought to the operating room where the patient was placed under cardiac monitoring and prepped and draped in the usual sterile manner. At the 11 o'clock position a 15 degree super sharp blade was used to create a paracentesis followed by instillation of 1% Xylocaine MPF 50:50 mix with BSS into the anterior chamber. This was followed by Amvisc to stabilize the anterior chamber. At the 9 o'clock position a self-sealing corneal flap incision was created using 2.8 mm abbie keratome. A cystotome was used to initiate a continuous tear capsulorrhexis which was completed with the Utrata forceps. A Binkhorst cannula was used to hydrodissect the lens nucleus followed by hydrodelineation. Phacoemulsification of the lens was performed utilizing phaco chop in 18.12 seconds at 24% power. The remaining cortical material was removed using the irrigation aspiration mode followed by additional 1% Xylocaine MPF into the anterior chamber followed by viscoelastic to stabilize the capsular bag. A [employer] MX60E 15.0 diopters posterior chamber lens was placed into the capsular bag without difficulty. The remaining viscoelastic material was removed from the anterior chamber with the irrigation/aspiration. Balanced salt solution was used to normalize the intraocular pressure. The incision was checked for watertight integrity. The patient then received two drops of 0.5% timolol followed by two drops Vigamox, was lightly patched and shielded in the usual manner. There were no complications from the procedure. The patient tolerated the procedure well and was returned to recovery in good condition. MMODL / IJN: [id number] /
== END 2020-07-03 08:27 | disposition home or self-care (01) ==
LOC: OR 06:27
PROVIDERS: ATTEND Ophthalmology
DX: H25.13 Age-related nuclear cataract, bilateral (principal); H25.042 Posterior subcapsular polar age-related cataract, left eye; H53.19 Other subjective visual disturbances; H43.392 Other vitreous opacities, left eye; H00.023 Hordeolum internum right eye, unspecified eyelid; H00.026 Hordeolum internum left eye, unspecified eyelid; H52.223 Regular astigmatism, bilateral; H52.4 Presbyopia; H52.13 Myopia, bilateral; I10 Essential (primary) hypertension; I25.10 Atherosclerotic heart disease of native coronary artery without angina pectoris; E11.42 Type 2 diabetes mellitus with diabetic polyneuropathy; F41.9 Anxiety disorder, unspecified; L71.9 Rosacea, unspecified; F32.9 Major depressive disorder, single episode, unspecified; Z95.1 Presence of aortocoronary bypass graft; Z79.82 Long term (current) use of aspirin; Z79.84 Long term (current) use of oral hypoglycemic drugs; Z79.899 Other long term (current) drug therapy; Z98.890 Other specified postprocedural states; Z88.0 Allergy status to penicillin; Z83.518 Family history of other specified eye disorder; Z80.9 Family history of malignant neoplasm, unspecified; Z82.49 Family history of ischemic heart disease and other diseases of the circulatory system; Z87.891 Personal history of nicotine dependence; Z97.3 Presence of spectacles and contact lenses
CPT/HCPCS: 66984; C1780; J2250; J0171; J3010; J2001

== ENCOUNTER → 2020-09-27 | Outpatient (CLI) | payer MEDICARE ==
[2020-09-27 14:12] LABS: Basophils % (A) 1 %; Eosinophils # (A) 0.3 k/uL (0-0.7); Eosinophils % (A) 7 %; HCT 41.8 % (34.0-46.0); HGB 14.2 gm/dL (11.4-16.0); Lymphocytes % (A) 23 %; MCH 32.2 pg (25.0-35.0); MCHC 33.9 g/dL (31.0-37.0); MCV 94.9 fL (80.0-100.0); Mean Platelet Volume 7.6; Monocytes # (A) 0.3 k/uL (0-1.0); Monocytes % (A) 8 %; Neutrophils # (A) 2.5 k/uL (1.3-7.7); Neutrophils % (A) 60 %; RDW 13.8 % (11.5-15.5); WBC 4.1 k/uL (3.8-10.6)
[2020-09-27 14:34] LABS: Platelet Count 83 k/uL (150-450)
== END | disposition home or self-care (01) ==
LOC: LABWHC1 13:04
PROVIDERS: ATTEND Family Medicine
DX: D69.6 Thrombocytopenia, unspecified (principal)
CPT/HCPCS: 36415; 85025

== ENCOUNTER → 2020-12-12 | Outpatient (CLI) | payer MEDICARE ==
--- NOTE | 2020-12-12 09:55 | US ---
EXAMINATION TYPE: US abdomen complete DATE OF EXAM: 12/12/2020 COMPARISON: Ultrasound abdomen February 08, 2020 CLINICAL HISTORY: D69.6 Thrombocytopenia, R16.1 Splenomegaly. EXAM MEASUREMENTS: Liver Length: 16.3 cm Gallbladder Wall: Surgically absent CBD: 0.8 cm Spleen: 16.7 cm Right Kidney: 11.4 x 4.8 x 4.8 cm Left Kidney: 11.0 x 5.5 x 4.8 cm Pancreas: Partially obscured by overlying bowel gas Liver: heterogeneous, nodular Gallbladder: Surgically absent Evidence for sonographic Goncalves's sign: no CBD: wnl Spleen: enlarged Right Kidney: No hydronephrosis or masses seen, limited visualization Left Kidney: No hydronephrosis or masses seen, limited visualization Upper IVC: wnl Abd Aorta: Partially obscured by overlying bowel gas, portions visualized wnl Mild ascites. The visualized liver is markedly heterogeneously hyperechoic. Tiny amount of surrounding ascites seen on current study is new from Prior. Evaluation for focal masses suboptimal due to the heterogeneity. The intrahepatic portion of the IVC and visualized proximal and mid abdominal aorta are within derian l limits. Gallbladder is surgically absent. Common bile duct is unremarkable. The visualized portio ns of the pancreas are slightly heterogeneous similar to prior. Persistent splenomegaly at 15.7 cm cu rrent study. No surrounding ascites. Kidneys are symmetric and free of hydronephrosis. No renal lesi ons are seen on images a. IMPRESSION: Markedly heterogeneous hyperechoic appearance of the liver redemonstrated with persistent splenomegaly. New tiny amount of perihepatic ascites. Findings favor cirrhosis and underlying portal venous hypertension. Correlate clinically.
== END | disposition home or self-care (01) ==
LOC: RADUSWWP 08:14
PROVIDERS: ATTEND Internal Medicine Hematology & Oncology
DX: R16.1 Splenomegaly, not elsewhere classified (principal); R18.8 Other ascites; K76.6 Portal hypertension; R93.2 Abnormal findings on diagnostic imaging of liver and biliary tract; E11.9 Type 2 diabetes mellitus without complications; I10 Essential (primary) hypertension
CPT/HCPCS: 76700

== ENCOUNTER → 2021-02-05 | Outpatient (CLI) | payer MEDICARE ==
[2021-02-05 17:17] LABS: African American GFR (CKD) >90 (>60 ml/min/1.73 sqM); Blood Urea Nitrogen 19 mg/dL (7-17); Non-African American GFR(CKD) 89 (>60 ml/min/1.73 sqM)
--- NOTE | 2021-02-05 22:41 | CT ---
EXAMINATION TYPE: CT abdomen pelvis w con DATE OF EXAM: 02/05/2021 COMPARISON: Ultrasound 12/12/2020 HISTORY: Elevated CA-125 level, ascites. Vaginal bleeding. CT DLP: 1636.9 mGycm Automated exposure control for dose reduction was used. TECHNIQUE: Helical acquisition of images from the lung bases through the pelvis have been completed. CONTRAST: Performed with Oral Contrast and with IV Contrast, patient injected with 100 mL of Isovue 300. FINDINGS: There are varices along the lesser curvature of the stomach, gastroesophageal and distal es ophageal regions. LUNG BASES: No significant abnormality is appreciated. AORTA: No significant abnormality is appreciated. LIVER/GB: Liver shows a nodular contour in keeping with cirrhosis, gallbladder is absent. PANCREAS: No significant abnormality is seen. SPLEEN: Spleen is again enlarged.. ADRENALS: No significant abnormality is seen. KIDNEYS: No significant abnormality is seen. REPRODUCTIVE ORGANS: No significant abnormality is seen BOWEL: Difficult to exclude mucosal thickening along the colon, there may be lack of distention or m uscular hypertrophy FREE AIR: No Free Air visible. ASCITES: Small amount of ascites is present.. PELVIC ADENOPATHY: None visualized. RETROPERITONEAL ADENOPATHY: No Retroperitoneal Adenopathy visible. URINARY BLADDER: No significant abnormality is seen. OSSEOUS STRUCTURES: Degenerative disc changes are present within the lumbar spine, there is facet ar thropathy. IMPRESSION: CIRRHOSIS, EVIDENCE OF PORTAL HYPERTENSION WITH SPLENOMEGALY. ASCITES. POSTOP CHANGES.
== END | disposition home or self-care (01) ==
LOC: RADCTMAIN 16:36
PROVIDERS: ATTEND Obstetrics & Gynecology
DX: K74.60 Unspecified cirrhosis of liver (principal); K76.6 Portal hypertension; R18.8 Other ascites; R16.1 Splenomegaly, not elsewhere classified; N93.9 Abnormal uterine and vaginal bleeding, unspecified
CPT/HCPCS: 82565; 84520; 74177; 36415; Q9967 ×2

== ENCOUNTER → 2021-03-12 | Day surgery (SDC) | payer MEDICARE ==
[~2021-03-12] MED LIST changes: +ALPRAZolam 0.25 MG TAB PO STA; +HYDROmorphone 0.5 MG/0.5 ML SYRINGE IVP STA; -LACTATED RINGERS 1,000 ML IV SCH; -LIDOCAINE 1% (10MG/ML) FOR IV START INTRADERMA PRN; -MOXIFLOXACIN HCL 0.5% DROPS 3 ML BTL OP ONE; -TETRACAINE 0.5% OPHTH (PF) DROPS 4 ML BTL OP ONE; -TIMOLOL 0.5% OPHTH DROPS 5 ML BTL OP ONE
[2021-03-12 08:57] LABS: Mean Platelet Volume 8.4; Platelet Count 101 k/uL (150-450)
[2021-03-12 09:19] LABS: INR 1.4 (<1.2); Prothrombin Time 14.4 sec (9.0-12.0)
[2021-03-12 10:12] VITALS: RESP 18; TEMP 97.9
--- NOTE | 2021-03-12 10:44 | US ---
EXAMINATION TYPE: US biopsy liver DATE OF EXAM: 03/12/2021 HISTORY: Cirrhosis, abnormal CT. Correlation CT 02/05/2021 PROCEDURE: Maximal barrier technique was utilized. After informed consent, the skin overlying a suit able path to the liver was localized using ultrasound, the skin was prepped and draped. Ultrasound w as utilized with sterile technique. Lidocaine was used for local anesthesia. A skin ema made with a scalpel. Under direct ultrasound guidance, an 18-gauge needle was advanced into the left lobe of th e liver and core biopsy obtained. Hemostasis was achieved. There was no immediate complication and patient remained in stable condition. Specimen submitted in formalin to Pathology. The liver shows a heterogeneous appearance. IMPRESSION: STATUS POST ULTRASOUND GUIDED CORE BIOPSY OF THE LEFT LOBE OF THE LIVER, PATHOLOGY MIRTA Carrillo PERFORMED BY THE UNDERSIGNED.
[2021-03-12 12:31] VITALS: BP 134/60; PULSE 56
--- NOTE | 2021-03-12 13:49 | US ---
EXAMINATION TYPE: US paracentesis abd w/image DATE OF EXAM: 03/12/2021 COMPARISON: NONE HISTORY: Ascites. PROCEDURE: Maximal barrier technique was utilized. The skin overlying a suitable pocket of fluid was localized with ultrasound and the overlying skin was prepped and draped. Ultrasound was utilized with sterile technique. Lidocaine was used for local anesthesia and a skin ema made with a scalpel. Catheter was advanced under direct ultrasound guidance into a suitable pocket of fluid and approximately 3.4 liter s of serous fluid were removed, small amount of blood was noted mixed with a fluid following the live r biopsy which cleared spontaneously.. Catheter was withdrawn and hemostasis achieved. There is no immediate complication; the patient is discharged in stable condition. IMPRESSION: STATUS POST ULTRASOUND GUIDED PARACENTESIS FOR PALLIATION OF ASCITES. THIS PROCEDURE WA S PERFORMED BY THE UNDERSIGNED. Specimen sent for laboratory analysis.
== END ==
LOC: RADPROMAIN 07:52
PROVIDERS: ATTEND Obstetrics & Gynecology
DX: R18.8 Other ascites (principal); N93.9 Abnormal uterine and vaginal bleeding, unspecified; K74.60 Unspecified cirrhosis of liver
CPT/HCPCS: 88108; 88305; 82947; 85049; 85610; 88313; 88307; 36415; 47000; 49083; J1170; 76942

== ENCOUNTER 2021-04-08 10:47 | Emergency (ER) | payer MEDICARE ==
[2021-04-08 10:51] VITALS: TEMP 97.6
--- NOTE | 2021-04-08 13:12 | XR ---
EXAMINATION TYPE: XR chest 2V DATE OF EXAM: 04/08/2021 COMPARISON: Chest x-ray and CTA chest February 11, 2019. HISTORY: Shortness of breath. TECHNIQUE: Frontal and lateral views of the chest are obtained. FINDINGS: Overlying sternal wires and mediastinal clips along with left atrial appendage clip are all redemonstrated. Persistent cardiomegaly with new small right pleural effusion. Stable lateral left mid lung opacity consistent with rounded atelectasis or peripheral chronic consolidation. Degenerativ e change bilateral glenohumeral joints. IMPRESSION: Chronic changes and cardiomegaly with new small right pleural effusion.
[2021-04-08 13:25] LABS: Basophils % (A) 0 %; Eosinophils # (A) 0.5 k/uL (0-0.7); Eosinophils % (A) 8 %; HCT 44.4 % (34.0-46.0); HGB 15.1 gm/dL (11.4-16.0); Lymphocytes # (A) 0.8 k/uL (1.0-4.8); Lymphocytes % (A) 15 %; MCHC 33.9 g/dL (31.0-37.0); MCV 97.4 fL (80.0-100.0); Mean Platelet Volume 8.3; Monocytes # (A) 0.3 k/uL (0-1.0); Monocytes % (A) 5 %; Neutrophils # (A) 3.9 k/uL (1.3-7.7); Neutrophils % (A) 71 %; Platelet Count 120 k/uL (150-450); RBC 4.56 m/uL (3.80-5.40); RDW 14.4 % (11.5-15.5); WBC 5.5 k/uL (3.8-10.6)
[2021-04-08 13:37] LABS: INR 1.3 (<1.2); Partial Thromboplastin Time 28.4 sec (22.0-30.0); Prothrombin Time 13.5 sec (9.0-12.0)
[2021-04-08 13:41] LABS: ALT 27 U/L (4-34); AST 64 U/L (14-36); African American GFR (CKD) >90 (>60 ml/min/1.73 sqM); Albumin 3.8 g/dL (3.5-5.0); Alkaline Phosphatase 182 U/L (38-126); Anion Gap 12 mmol/L; Blood Urea Nitrogen 14 mg/dL (7-17); Calcium 9.5 mg/dL (8.4-10.2); Carbon Dioxide 24 mmol/L (22-30); Chloride 103 mmol/L (98-107); Glucose 162 mg/dL (74-99); Non-African American GFR(CKD) >90 (>60 ml/min/1.73 sqM); Sodium 139 mmol/L (137-145); Total Bilirubin 2.7 mg/dL (0.2-1.3); Total Protein 7.5 g/dL (6.3-8.2)
--- NOTE | 2021-04-08 14:30 | ED ---
General Adult HPI - General Chief complaint: Shortness of Breath Stated complaint: SOB Time Seen by Provider: 04/08/21 12:29 Source: patient, RN notes reviewed, old records reviewed Mode of arrival: wheelchair Limitations: no limitations - History of Present Illness Initial comments: 70-year-old female with recent diagnosis of liver cirrhosis and ascites presenting with abdominal distention, and difficulty breathing. Patient is scheduled to see gastroenterology in several weeks. She had a paracentesis performed about 2 weeks ago. She's had increased distention and has not developed some difficulty breathing secondary to her abdominal distention. No fever. No specific abdominal pain. - Related Data Home Medications Medication Instructions Recorded Confirmed Baclofen [Lioresal] 20 mg PO HS 01/22/16 04/08/21 Magnesium Oxide [Magnesium] 250 mg PO DAILY 01/16/17 04/08/21 Metoprolol Tartrate [Lopressor] 25 mg PO TID 01/16/17 04/08/21 Multivitamins, Thera [Multivitamin 1 tab PO DAILY 01/16/17 04/08/21 (formulary)] Pramipexole [Mirapex] 0.25 mg PO HS 01/16/17 04/08/21 Ferrous Sulfate [Iron] 325 mg PO DAILY 07/29/17 04/08/21 Furosemide [Lasix] 40 mg PO DAILY 12/20/17 04/08/21 Pravastatin Sodium [Pravachol] 10 mg PO HS 03/03/21 04/08/21 Semaglutide [Ozempic] 0.25 mg SQ MO 03/03/21 04/08/21 metFORMIN HCL [metFORMIN HCL ER] 1,000 mg PO AC-BID 04/08/21 04/08/21 Previous Rx's Medication Instructions Recorded Aspirin 325 mg PO DAILY #30 tab 04/06/17 Allergies Allergy/AdvReac Type Severity Reaction Status Date / Time Penicillins Allergy Unknown Verified 04/08/21 14:02 Childhood Review of Systems ROS Statement: Those systems with pertinent positive or pertinent negative responses have been documented in the HPI. ROS Other: All systems not noted in ROS Statement are negative. Past Medical History Past Medical History: Coronary Artery Disease (CAD), Diabetes Mellitus, Hyperlipidemia, Hypertension, Liver Disease, Osteoarthritis (OA) Additional Past Medical History / Comment(s): Obesity, neuropathy lower extremities, chronic back pain and pulmonary hypertension. R lower leg vein graph site from open heart surgery wound.rt.leg wound-HEALED, ascites, liver disease, History of Any Multi-Drug Resistant Organisms: None Reported Past Surgical History: Cholecystectomy, Coronary Bypass/CABG, Heart Catheterization, Orthopedic Surgery Additional Past Surgical History / Comment(s): RT carpel tunnel release sx , laser surgery on varicose veins , 2 VESSEL CABG. 3 THORACENTESIS post CABG, Past Anesthesia/Blood Transfusion Reactions: No Reported Reaction Past Psychological History: Anxiety Smoking Status: Former smoker Past Alcohol Use History: Rare Past Drug Use History: None Reported - Past Family History Mother Brother(s) Family Medical History: Cancer Additional Family Medical History / Comment(s): MOM FROM PERITONITIS Father Family Medical History: Myocardial Infarction ([place]) Additional Family Medical History / Comment(s): FROM [place] AGE 61 Brother(s) Family Medical History: Cancer, Coronary Artery Disease (CAD) Additional Family Medical History / Comment(s): ONE BROTHER HAD CANCER, ONE BROTHER HAD QUAD CABG. General Exam Limitations: no limitations General appearance: alert, in no apparent distress Head exam: Present: atraumatic, normocephalic Eye exam: Present: normal appearance, PERRL ENT exam: Present: normal exam Neck exam: Present: normal inspection. Absent: tenderness, meningismus Respiratory exam: Present: normal lung sounds bilaterally. Absent: respiratory distress, wheezes, rales Cardiovascular Exam: Present: regular rate, normal rhythm GI/Abdominal exam: Present: distended, other (Positive fluid wave). Absent: tenderness, guarding, rebound Extremities exam: Present: normal capillary refill, pedal edema. Absent: calf tenderness Neurological exam: Present: alert, oriented X3, CN II-XII intact. Absent: motor sensory deficit Psychiatric exam: Present: normal affect, normal mood Skin exam: Present: warm, dry, intact. Absent: cyanosis, diaphoretic Course Vital Signs 04/08/21 04/08/21 04/08/21 10:49 14:45 14:52 Temperature 97.6 F Pulse Rate 71 Pulse Rate [ 64 64 Mine Supervisor ] Respiratory 20 18 18 Rate Blood Pressure 159/66 Blood Pressure 142/65 143/65 [Left Arm] O2 Sat by Pulse 95 Oximetry 04/08/21 04/08/21 04/08/21 15:03 15:15 15:26 Temperature Pulse Rate Pulse Rate [ 61 61 64 Mine Supervisor ] Respiratory 18 16 18 Rate Blood Pressure Blood Pressure 146/64 141/65 146/64 [Left Arm] O2 Sat by Pulse Oximetry 04/08/21 15:36 Temperature Pulse Rate Pulse Rate [ 64 Mine Supervisor ] Respiratory 16 Rate Blood Pressure Blood Pressure 152/80 [Left Arm] O2 Sat by Pulse Oximetry - Reevaluation(s) Reevaluation #1: 04/08/21 14:[address] Alisha doe for interventional radiology, patient may be able to receive a paracentesis today. Medical Decision Making - Medical Decision Making 70-year-old female who had presented with abdominal distention, dyspnea, history of ascites. She does seem very distended, lungs are clear, chest x-ray is small effusion. She has stable hemoglobin, mild thrombocytopenia, normal white lites, normal albumin. Interventional radiology is able to perform a paracentesis while in the emergency department. With significant amount of fluid drained. Patient is observed after the procedure, she has a stable blood pressure, she is feeling quite good, her dyspnea is resolved. She is eager for discharge. - Lab Data Result diagrams: 04/08/21 12:58 04/08/21 12:58 Lab Results 04/08/21 04/08/21 04/08/21 Range/Units 12:58 12:58 12:58 WBC 5.5 (3.8-10.6) k/uL RBC 4.56 (3.80-5.40) m/uL Hgb 15.1 (11.4-16.0) gm/dL Hct 44.4 (34.0-46.0) % MCV 97.4 (80.0-100.0) fL MCH 33.0 (25.0-35.0) pg MCHC 33.9 (31.0-37.0) g/dL RDW 14.4 (11.5-15.5) % Plt Count 120 L (150-450) k/uL MPV 8.3 Neutrophils % 71 % Lymphocytes % 15 % Monocytes % 5 % Eosinophils % 8 % Basophils % 0 % Neutrophils # 3.9 (1.3-7.7) k/uL Lymphocytes # 0.8 L (1.0-4.8) k/uL Monocytes # 0.3 (0-1.0) k/uL Eosinophils # 0.5 (0-0.7) k/uL Basophils # 0.0 (0-0.2) k/uL PT 13.5 H (9.0-12.0) sec INR 1.3 H (<1.2) APTT 28.4 (22.0-30.0) sec Sodium 139 (137-145) mmol/L Potassium 4.0 (3.5-5.1) mmol/L Chloride 103 (98-107) mmol/L Carbon Dioxide 24 (22-30) mmol/L Anion Gap 12 mmol/L BUN 14 (7-17) mg/dL Creatinine 0.60 (0.52-1.04) mg/dL Est GFR (CKD-EPI)AfAm >90 (>60 ml/min/1.73 sqM) Est GFR (CKD-EPI)NonAf >90 (>60 ml/min/1.73 sqM) Glucose 162 H (74-99) mg/dL Calcium 9.5 (8.4-10.2) mg/dL Total Bilirubin 2.7 H (0.2-1.3) mg/dL AST 64 H (14-36) U/L ALT 27 (4-34) U/L Alkaline Phosphatase 182 H (38-126) U/L Total Protein 7.5 (6.3-8.2) g/dL Albumin 3.8 (3.5-5.0) g/dL Disposition Clinical Impression: Ascites Disposition: HOME SELF-CARE Condition: Fair Instructions (If sedation given, give patient instructions): Ascites (ED) Is patient prescribed a controlled substance at d/c from ED?: No Referrals: Hector Abbasi MD [Primary Care Provider] - 1-2 days Time of Disposition: 15:58
--- NOTE | 2021-04-08 16:02 | US ---
Ultrasound-guided paracentesis. DATE OF EXAM: 04/08/2021 CLINICAL HISTORY: Ascites The procedure was discussed with the patient. The risks, complications, benefits, and alternatives we re discussed and any questions were answered. Informed consent was obtained. The patient was placed s upine on the ultrasound table and prepped and draped in the usual sterile fashion. All elements of maximal barrier technique were utilized. Under ultrasound guidance, access into the right lower quadrant was obtained, via the paracentesis catheter system and direct ultrasound guidanc e. Approximately 4.4 liters of straw-colored fluid was removed. The patient was stable throughout the pr ocedure and remained stable upon discharge from Department of Radiology. IMPRESSION: Successful paracentesis under ultrasound guidance.
[2021-04-08 16:15] VITALS: BP 139/59; PULSE 68; RESP 18
== END 2021-04-08 16:16 | disposition home or self-care (01) ==
LOC: EC 10:47
DX: R18.8 Other ascites (principal); I25.10 Atherosclerotic heart disease of native coronary artery without angina pectoris; E11.9 Type 2 diabetes mellitus without complications; E78.5 Hyperlipidemia, unspecified; I10 Essential (primary) hypertension; I27.20 Pulmonary hypertension, unspecified; F41.9 Anxiety disorder, unspecified; M19.90 Unspecified osteoarthritis, unspecified site; Z79.82 Long term (current) use of aspirin; Z79.84 Long term (current) use of oral hypoglycemic drugs; Z90.49 Acquired absence of other specified parts of digestive tract; Z95.1 Presence of aortocoronary bypass graft; Z88.0 Allergy status to penicillin; Z87.891 Personal history of nicotine dependence
CPT/HCPCS: 36415; 49083; 71046; 80053; 85025; 85610; 85730

== ENCOUNTER 2021-04-23 12:20 | Day surgery (SDC) | payer MEDICARE ==
[2021-04-23 12:34] VITALS: RESP 16; TEMP 98.4
[2021-04-23 12:59] LABS: Mean Platelet Volume 7.2; Platelet Count 132 k/uL (150-450)
[2021-04-23 13:11] LABS: INR 1.3 (<1.2); Prothrombin Time 13.6 sec (9.0-12.0)
[2021-04-23 13:21] LABS: African American GFR (CKD) >90 (>60 ml/min/1.73 sqM); Non-African American GFR(CKD) >90 (>60 ml/min/1.73 sqM)
[2021-04-23] MEDS: ALBUMIN HUMAN 25% 50 ML in EMPTY BAG 1 BAG IVPB SCH ×2 (14:45→15:01)
[2021-04-23 15:20] VITALS: BP 124/68; PULSE 75
--- NOTE | 2021-04-23 15:54 | US ---
EXAMINATION TYPE: US paracentesis abd w/image DATE OF EXAM: 04/23/2021 COMPARISON: NONE HISTORY: Ascites. PROCEDURE: Maximal barrier technique was utilized. The skin overlying a suitable pocket of fluid was localized with ultrasound and the overlying skin was prepped and draped. Ultrasound was utilized with sterile technique. Lidocaine was used for local anesthesia and a skin ema made with a scalpel. Catheter was advanced under direct ultrasound guidance into a suitable pocket of fluid and approximately 5.4 liter s of there is fluid were removed. Catheter was withdrawn and hemostasis achieved. There is no immed iate complication; the patient is discharged in stable condition. IMPRESSION: STATUS POST ULTRASOUND GUIDED PARACENTESIS FOR PALLIATION OF ASCITES. THIS PROCEDURE WA S PERFORMED BY THE UNDERSIGNED.
== END 2021-04-23 15:30 | disposition home or self-care (01) ==
LOC: RADPROMAIN 12:20
PROVIDERS: ATTEND Obstetrics & Gynecology
DX: R18.8 Other ascites (principal); K74.60 Unspecified cirrhosis of liver
CPT/HCPCS: 49083; 82565; 85049; 85610; 36415; P9047

== ENCOUNTER 2021-05-05 12:21 | Day surgery (SDC) | payer MEDICARE ==
[2021-05-05 13:16] LABS: Mean Platelet Volume 7.9; Platelet Count 116 k/uL (150-450)
[2021-05-05 13:25] LABS: African American GFR (CKD) >90 (>60 ml/min/1.73 sqM); Glucose 193 mg/dL (74-99); Non-African American GFR(CKD) >90 (>60 ml/min/1.73 sqM)
[2021-05-05 13:35] LABS: INR 1.3 (<1.2); Prothrombin Time 13.7 sec (9.0-12.0)
[2021-05-05 13:41] VITALS: TEMP 98.2
[2021-05-05] MEDS: ALBUMIN HUMAN 25% 50 ML in EMPTY BAG 1 BAG IVPB SCH ×3 (13:42→15:04)
[2021-05-05 14:24] VITALS: RESP 18
[2021-05-05 15:02] VITALS: BP 139/67; PULSE 75
--- NOTE | 2021-05-05 15:44 | US ---
Ultrasound-guided paracentesis. DATE OF EXAM: 05/05/2021 CLINICAL HISTORY: Ascites The procedure was discussed with the patient. The risks, complications, benefits, and alternatives we re discussed and any questions were answered. Informed consent was obtained. The patient was placed s upine on the ultrasound table and prepped and draped in the usual sterile fashion. All elements of maximal barrier technique were utilized. Under ultrasound guidance, access into the left lower quadrant was obtained, via the paracentesis catheter system and direct ultrasound guidance . Approximately 5 liters of straw-colored fluid was removed. The patient was stable throughout the proc edure and remained stable upon discharge from Department of Radiology. IMPRESSION: Successful paracentesis under ultrasound guidance.
== END 2021-05-05 14:50 | disposition home or self-care (01) ==
LOC: RADPROMAIN 12:21
PROVIDERS: ATTEND Obstetrics & Gynecology
DX: R18.8 Other ascites (principal)
CPT/HCPCS: 49083; 82565; 82947; 85049; 85610; 36415; P9047

== ENCOUNTER 2021-05-15 12:43 | Day surgery (SDC) | payer MEDICARE ==
[2021-05-15 14:08] LABS: Basophils % (A) 1 %; Eosinophils # (A) 0.6 k/uL (0-0.7); Eosinophils % (A) 10 %; HCT 43.9 % (34.0-46.0); HGB 14.5 gm/dL (11.4-16.0); Lymphocytes # (A) 0.9 k/uL (1.0-4.8); Lymphocytes % (A) 16 %; MCH 31.5 pg (25.0-35.0); MCHC 33.1 g/dL (31.0-37.0); MCV 95.2 fL (80.0-100.0); Monocytes # (A) 0.4 k/uL (0-1.0); Monocytes % (A) 7 %; Neutrophils # (A) 3.9 k/uL (1.3-7.7); Neutrophils % (A) 65 %; Platelet Count 131 k/uL (150-450); RBC 4.61 m/uL (3.80-5.40); RDW 14.1 % (11.5-15.5); WBC 5.9 k/uL (3.8-10.6)
[2021-05-15 14:22] LABS: ALT 27 U/L (4-34); African American GFR (CKD) >90 (>60 ml/min/1.73 sqM); Anion Gap 10 mmol/L; Blood Urea Nitrogen 14 mg/dL (7-17); Calcium 9.6 mg/dL (8.4-10.2); Carbon Dioxide 26 mmol/L (22-30); Chloride 100 mmol/L (98-107); Glucose 110 mg/dL (74-99); Non-African American GFR(CKD) >90 (>60 ml/min/1.73 sqM); Sodium 136 mmol/L (137-145); Total Bilirubin 3.1 mg/dL (0.2-1.3)
[2021-05-15 14:23] LABS: Potassium 4.7 mmol/L (3.5-5.1)
[2021-05-15 14:24] LABS: AST 70 U/L (14-36); Albumin 3.5 g/dL (3.5-5.0); Alkaline Phosphatase 160 U/L (38-126); Total Protein 7.5 g/dL (6.3-8.2)
[2021-05-15 14:30] LABS: INR 1.3 (<1.2); Prothrombin Time 13.1 sec (9.0-12.0)
[2021-05-15 14:46] VITALS: RESP 16; TEMP 98.2
[2021-05-15 15:29] VITALS: BP 139/69; PULSE 65
--- NOTE | 2021-05-15 15:58 | US ---
Ultrasound-guided paracentesis. DATE OF EXAM: 05/15/2021 CLINICAL HISTORY: Ascites The procedure was discussed with the patient. The risks, complications, benefits, and alternatives we re discussed and any questions were answered. Informed consent was obtained. The patient was placed s upine on the ultrasound table and prepped and draped in the usual sterile fashion. All elements of maximal barrier technique were utilized. Under ultrasound guidance, access into the right lower quadrant was obtained, via the paracentesis catheter system and direct ultrasound guidanc e. Approximately 3.9 liters of straw-colored fluid was removed. The patient was stable throughout the pr ocedure and remained stable upon discharge from Department of Radiology. IMPRESSION: Successful paracentesis under ultrasound guidance.
== END 2021-05-15 15:35 | disposition home or self-care (01) ==
LOC: RADPROMAIN 12:43
PROVIDERS: ATTEND Obstetrics & Gynecology
DX: R18.8 Other ascites (principal)
CPT/HCPCS: 36415; 49083; 80053; 82105; 85025; 85610

== ENCOUNTER 2021-06-12 13:01 | Day surgery (SDC) | payer MEDICARE ==
[~2021-06-12 13:01] MED LIST changes: +ALBUMIN HUMAN 25% 50 ML in EMPTY BAG 1 BAG IVPB SCH; -ALPRAZolam 0.25 MG TAB PO STA; -HYDROmorphone 0.5 MG/0.5 ML SYRINGE IVP STA
--- NOTE | 2021-06-12 14:38 | US ---
Discontinued paracentesis HISTORY: Unspecified cirrhosis of the liver Ultrasound performed showing small amount of ascites. Patient elected to defer paracentesis at this time. IMPRESSION: Discontinued paracentesis
== END 2021-06-12 13:40 | disposition home or self-care (01) ==
LOC: RADPROMAIN 13:01
PROVIDERS: ATTEND Obstetrics & Gynecology
DX: K74.60 Unspecified cirrhosis of liver (principal)
CPT/HCPCS: 76705

== ENCOUNTER → 2021-06-19 | Outpatient (CLI) | payer MEDICARE ==
--- NOTE | 2021-06-19 10:02 | US ---
EXAMINATION TYPE: US liver DATE OF EXAM: 06/19/2021 COMPARISON: NONE CLINICAL HISTORY: K74.69 Other cirrhosis of liver. known cirrhosis EXAM MEASUREMENTS: Liver Length: 16.6 cm Gallbladder Wall: Surgically absent CBD: 1.1 cm Right Kidney: 10.4 x 4.0 x 5.1 cm Pancreas: wnl Liver: nodular in appearance heterogeneous Gallbladder: Surgically absent Evidence for sonographic Goncalves's sign: no CBD: dilated Right Kidney: wnl IMPRESSION: Suspect fatty liver.
== END | disposition home or self-care (01) ==
LOC: RADUSWWP 08:56
PROVIDERS: ATTEND Internal Medicine Gastroenterology
DX: K76.89 Other specified diseases of liver (principal)
CPT/HCPCS: 76705

== ENCOUNTER 2021-10-17 08:30 | Day surgery (SDC) | payer MEDICARE ==
[2021-10-14 11:45] VITALS: BMI 30.6
[~2021-10-17 08:30] MED LIST changes: -ALBUMIN HUMAN 25% 50 ML in EMPTY BAG 1 BAG IVPB SCH; +LACTATED RINGERS 1,000 ML IV SCH
[2021-10-17 09:09] LABS: Glucose,Whole Blood 193 mg/dL (75-99)
[2021-10-17 09:11] VITALS: TEMP 97.8
[2021-10-17] MEDS ORDERED: PROPOFOL 10 MG/ML 20 ML VIAL IV ONE (09:32)
--- NOTE | 2021-10-17 09:50 | P.PCN ---
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 PROCEDURE PERFORMED: Esophagogastroduodenoscopy with biopsy. PREOPERATIVE DIAGNOSIS: Cirrhosis of the liver/screening for esophageal varices. IV sedation per anesthesia. PROCEDURE: After informed consent was obtained, the patient was brought into the endoscopy unit. IV sedation was administered by Anesthesia under continuous monitoring. Initially the Olympus GIF-140 video endoscope was inserted into the mouth. Esophagus intubated without any difficulty. It was gradually advanced into the stomach and duodenum and carefully examined. The bulb and the second part of the duodenum appeared normal. The scope at this time was withdrawn to the stomach, adequately insufflated with air, and upon careful examination, mucosa of the antrum, had mild gastritis and biopsies were done from this area. The body appeared normal. Mucosa in the cardia and the fundus changes consist ent with portal hypertensive gastropathy. The scope was then withdrawn into the esophagus. The GE junction was located at 39 cm from the incisors.. A small mid and distal esophageal varices seen. The esophagus appeared normal. There were no erosions or ulcerations seen and the patient tolerated the procedure well. IMPRESSION: 1. Small mid and distal esophageal varices 2. Mild to moderate portal hypertensive gastropathy and mild antral gastritis RECOMMENDATIONS: The findings of this examination were discussed with the patient as well as a family. She was advised to follow with the biopsy results. Will plan a repeat upper endoscopy 3 years to follow esophageal varices. She'll be seen in office in 2-3 weeks.
[2021-10-17 09:59] VITALS: RESP 16
[2021-10-17 10:13] VITALS: BP 119/57; PULSE 55
== END 2021-10-17 10:46 | disposition home or self-care (01) ==
LOC: ORWHC2ENDO 08:30
PROVIDERS: ATTEND Internal Medicine Gastroenterology
DX: I85.00 Esophageal varices without bleeding (principal); K74.69 Other cirrhosis of liver; K76.6 Portal hypertension; K31.89 Other diseases of stomach and duodenum; I25.10 Atherosclerotic heart disease of native coronary artery without angina pectoris; I10 Essential (primary) hypertension; E11.9 Type 2 diabetes mellitus without complications
CPT/HCPCS: 43239; 88305; J2704

== ENCOUNTER → 2022-08-03 | Outpatient (CLI) | payer MEDICARE | END | disposition home or self-care (01) | LOC: LABWHC1 16:00 | PROVIDERS: ATTEND Internal Medicine Gastroenterology | DX: Z53.9 Procedure and treatment not carried out, unspecified reason (principal); R19.7 Diarrhea, unspecified ==

== ENCOUNTER → 2022-08-04 | Outpatient (CLI) | payer MEDICARE ==
--- NOTE | 2022-08-04 10:12 | US ---
EXAMINATION TYPE: US abdomen complete DATE OF EXAM: 08/04/2022 COMPARISON: NONE CLINICAL HISTORY: K75.81 K74.60 UNSPECIFIED CIRRHOSIS OF LIVER. Nausea/vomiting, abdominal pain, chol ecystectomy, cirrhosis TECHNIQUE: Multiple sonographic images of the abdomen are obtained. FINDINGS: EXAM MEASUREMENTS: Liver Length: 15.5 cm Gallbladder Wall: Surgically absent CBD: 0.8 cm Spleen: 14.5 cm Right Kidney: 10.0 x 4.8 x 4.6 cm Left Kidney: 10.4 x 5.2 x 5.5 cm Pancreas: Tail obscured by overlying bowel gas Liver: nodular, heterogeneous Gallbladder: Surgically absent Evidence for sonographic Goncalves's sign: no CBD: wnl Spleen: enlarged Right Kidney: no evidence of hydronephrosis Left Kidney: no evidence of hydronephrosis Upper IVC: wnl Abd Aorta: wnl The liver is homogenous. The intrahepatic portion of the IVC and proximal abdominal aorta are within normal limits. Common bile duct is unremarkable. The visualized portions of the pancreas are homog enous. Kidneys are symmetric and free of hydronephrosis. No renal lesions are seen. IMPRESSION: 1. Splenomegaly otherwise unremarkable study.
[2022-08-04 17:29] LABS: Cryptosporidium Antigen Negative (Negative)
== END | disposition home or self-care (01) ==
LOC: RADUSWWP 09:02
PROVIDERS: ATTEND Internal Medicine Gastroenterology
DX: K75.81 Nonalcoholic steatohepatitis (NASH) (principal); K74.60 Unspecified cirrhosis of liver; R16.1 Splenomegaly, not elsewhere classified; Z90.49 Acquired absence of other specified parts of digestive tract
CPT/HCPCS: 76700; 83630; 87045; 87046; 87324; 87328; 87329

== ENCOUNTER 2022-11-06 09:47 | Observation (INO) | payer MEDICARE ==
[2022-11-06 09:57] LABS: Glucose,Whole Blood 170 mg/dL (70-110)
--- NOTE | 2022-11-06 10:48 | ED ---
General Adult HPI - General Chief complaint: GI Bleed Stated complaint: vomiting Time Seen by Provider: 11/06/22 09:55 Source: patient, RN notes reviewed, old records reviewed Mode of arrival: ambulatory Limitations: no limitations - History of Present Illness Initial comments: This is a 72-year-old female who presents emergency Department after having vomited up black emesis. Patient was here earlier today getting blood work done an ultrasound for some liver issues she's been having. Patient states she went to her car at very nauseated and started vomiting. Patient states it was jet black. Patient states she's also diarrhea for 2 months. Patient denies any fever chills. Patient states out in the car she started coughing prior to her vomiting she felt short of breath but she no longer feels short of breath. Patient denies any recent fever chills. Patient denies any palpitations or chest pain. - Related Data Home Medications Medication Instructions Recorded Confirmed Baclofen [Lioresal] 20 mg PO HS 01/22/16 11/06/22 Magnesium Oxide [Magnesium] 250 mg PO DAILY 01/16/17 11/06/22 Multivitamins, Thera [Multivitamin 1 tab PO DAILY 01/16/17 11/06/22 (formulary)] Pramipexole [Mirapex] 0.25 mg PO HS 01/16/17 11/06/22 Ferrous Sulfate [Iron] 325 mg PO DAILY 07/29/17 11/06/22 Furosemide [Lasix] 20 mg PO DAILY 12/20/17 11/06/22 Spironolactone [Aldactone] 50 mg PO DAILY 05/15/21 11/06/22 Gabapentin 300 mg PO HS 06/12/21 11/06/22 Aspirin [Adult Low Dose Aspirin EC] 81 mg PO DAILY 10/14/21 11/06/22 Insulin Degludec [Tresiba 12 units SQ DAILY 11/06/22 11/06/22 Flextouch U-100 Pen] Pravastatin Sodium [Pravachol] 20 mg PO HS 11/06/22 11/06/22 Propranolol HCl [Propranolol HCl 80 mg PO DAILY 11/06/22 11/06/22 ER] Semaglutide [Ozempic] 1 mg SQ TH 11/06/22 11/06/22 Allergies Allergy/AdvReac Type Severity Reaction Status Date / Time Penicillins Allergy Unknown Verified 11/06/22 13:16 Childhood Review of Systems ROS Statement: Those systems with pertinent positive or pertinent negative responses have been documented in the HPI. ROS Other: All systems not noted in ROS Statement are negative. Past Medical History Past Medical History: Coronary Artery Disease (CAD), Diabetes Mellitus, Hyperlipidemia, Hypertension, Liver Disease, Osteoarthritis (OA) Additional Past Medical History / Comment(s): Obesity, neuropathy lower extremities, chronic back pain and pulmonary hypertension. R lower leg vein graph site from open heart surgery wound.rt.leg wound-HEALED, ascites, liver disease, History of Any Multi-Drug Resistant Organisms: None Reported Past Surgical History: Cholecystectomy, Coronary Bypass/CABG, Heart Catheterization, Orthopedic Surgery Additional Past Surgical History / Comment(s): RT carpel tunnel release sx , laser surgery on varicose veins , 2 VESSEL CABG. 3 THORACENTESIS post CABG, multiple paracentesis procedures Past Anesthesia/Blood Transfusion Reactions: No Reported Reaction Past Psychological History: Anxiety Smoking Status: Never smoker Past Alcohol Use History: Rare Past Drug Use History: None Reported - Past Family History Mother Brother(s) Family Medical History: Cancer Additional Family Medical History / Comment(s): MOM FROM PERITONITIS Father Family Medical History: Myocardial Infarction ([place]) Additional Family Medical History / Comment(s): FROM [place] AGE 61 Brother(s) Family Medical History: Cancer, Coronary Artery Disease (CAD) Additional Family Medical History / Comment(s): ONE BROTHER HAD CANCER, ONE BROTHER HAD QUAD CABG. General Exam - General Exam Comments Initial Comments: GENERAL: Patient is well-developed and well-nourished. Patient is nontoxic and well-hydrated and is in mild distress. ENT: Neck is soft and supple. No significant lymphadenopathy is noted. Oropharynx is clear. Moist mucous membranes. Neck has full range of motion without eliciting any pain. EYES: The sclera were anicteric and conjunctiva were pink and moist. Extraocular movements were intact and pupils were equal round and reactive to light. Eyelids were unremarkable. PULMONARY: Unlabored respirations. Good breath sounds bilaterally. No audible rales rhonchi or wheezing was noted. CARDIOVASCULAR: There is a regular rate and rhythm without any murmurs gallops or rubs. ABDOMEN: Soft and nontender with normal bowel sounds. No palpable organomegaly was noted. There is no palpable pulsatile mass. SKIN: Skin is clear with no lesions or rashes and otherwise unremarkable. NEUROLOGIC: Patient is alert and oriented x3. Cranial nerves II through XII are grossly intact. Motor and sensory are also intact. Normal speech, volume and content. Symmetrical smile. MUSCULOSKELETAL: Normal extremities with adequate strength and full range of motion. LYMPHATICS: No significant lymphadenopathy is noted PSYCHIATRIC: Normal psychiatric evaluation. Limitations: no limitations Course Vital Signs 11/06/22 11/06/22 11/06/22 09:51 10:55 12:42 Temperature 98.2 F Pulse Rate 64 64 72 Respiratory 18 18 18 Rate Blood Pressure 149/79 117/42 119/72 O2 Sat by Pulse 97 98 Oximetry Medical Decision Making - Medical Decision Making EKG was interpreted by myself shows sinus rhythm at 61 bpm DE interval is 202 QRS and QT intervals 414 QTC is 419. Patient's EKG shows no ST segment patient depression. Was pt. sent in by a medical professional or institution (, PA, PAPER PROCESSING MACHINE HELPER, urgent care, hospital, or jail...) When possible be specific @ -Dr. Marshall sent the patient in to be evaluated Did you speak to anyone other than the patient for history (EMS, parent, family, police, friend...)? What history was obtained from this source @ -Patient's sister did quite a bit of the history. Did you review nursing and triage notes (agree or disagree)? Why? @ -I reviewed and agree with nursing and triage notes Were old charts reviewed (outside hosp., previous admission, EMS record, old EKG, old radiological studies, urgent care reports/EKG's, jail records)? Report findings @ -I reviewed prior lab work as well as prior radiological studies Differential Diagnosis (chest pain, altered mental status, abdominal pain women, abdominal pain men, vaginal bleeding, weakness, fever, dyspnea, syncope, headache, dizziness, GI bleed, back pain, seizure, CVA, palpatations, mental health, musculoskeletal)? @ -Differential GI Bleed: Esophageal varices, aortoenteric fistula, Cyndi-Dillon, gastritis, peptic ulcer disease, diverticulosis, inflammatory bowel disease, hemorrhoids, fissure, colitis, malignancy, Meckels diverticulum, this is not meant to be an all- inclusive list. EKG interpreted by me (3pts min.). @ -As above X-rays interpreted by me (1pt min.). @ -None done CT interpreted by me (1pt min.). @ -None done U/S interpreted by me (1pt. min.). @ -None done What testing was considered but not performed or refused? (CT, X-rays, U/S, labs)? Why? @ -None What meds were considered but not given or refused? Why? @ -None Did you discuss the management of the patient with other professionals (professionals i.e. DrCindy, PA, PAPER PROCESSING MACHINE HELPER, lab, RT, psych nurse, elementary school social worker, lead sql developer, teacher, commanding officer homicide squad, case loader operator)? Give summary @ -I spoke with Dr. Abbasi he wanted the patient admitted he wanted a surgical consult Was smoking cessation discussed for >3mins.? @ -No Was critical care preformed (if so, how long)? @ -No Were there social determinants of health that impacted care today? How? (Homelessness, low income, unemployed, alcoholism, drug addiction, transpo rtation, low edu. Level, literacy, decrease access to med. care, residential, rehab)? @ -No Was there de-escalation of care discussed even if they declined (Discuss DNR or withdrawal of care, Hospice)? DNR status @ -No What co-morbidities impacted this encounter? (DM, HTN, Smoking, COPD, CAD, Cancer, CVA, ARF, Chemo, Hep., AIDS, mental health diagnosis, sleep apnea, morbid obesity)? @ -None Was patient admitted / discharged? Hospital course, mention meds given and route, prescriptions, significant lab abnormalities, going to OR and other pertinent info. @ -Patient had a gastric TEST that was positive. Patient did vomit while in the emergency department.. I spoke with Dr. Abbasi he agreed to admit the patient admitted the patient wrote admitting orders Undiagnosed new problem with uncertain prognosis? @ -No Drug Therapy requiring intensive monitoring for toxicity (Heparin, Nitro, Insulin, Cardizem)? @ -No Were any procedures done? @ -No Diagnosis/symptom? @ -Upper GI bleed Acute, or Chronic, or Acute on Chronic? @ -Acute Uncomplicated (without systemic symptoms) or Complicated (systemic symptoms)? @ -Complicated Side effects of treatment? @ -No Exacerbation, Progression, or Severe Exacerbation? @ -No Poses a threat to life or bodily function? How? (Chest pain, [place], [place], pneumonia, PE, COPD, DKA, ARF, appy, cholecystitis, CVA, Diverticulitis, Homicidal, Suicidal, threat to staff... and all critical care pts) @ -Yes this could lead to anemia which remained hypoxic lead 2 hypoperfusion and cause end organ dysfunction - Lab Data Result diagrams: 11/06/22 10:53 11/06/22 10:53 Lab Results 11/06/22 11/06/22 11/06/22 Range/Units 09:56 10:53 10:53 WBC 4.8 (3.8-10.6) k/uL RBC 3.89 (3.80-5.40) m/uL Hgb 13.0 (11.4-16.0) gm/dL Hct 37.3 (34.0-46.0) % MCV 96.0 (80.0-100.0) fL MCH 33.4 (25.0-35.0) pg MCHC 34.8 (31.0-37.0) g/dL RDW 13.6 (11.5-15.5) % Plt Count 88 L (150-450) k/uL MPV 7.3 Neutrophils % 68 % Lymphocytes % 15 % Monocytes % 5 % Eosinophils % 10 % Basophils % 1 % Neutrophils # 3.3 (1.3-7.7) k/uL Lymphocytes # 0.7 L (1.0-4.8) k/uL Monocytes # 0.3 (0-1.0) k/uL Eosinophils # 0.5 (0-0.7) k/uL Basophils # 0.0 (0-0.2) k/uL Manual Slide Review Performed PT 13.9 H (9.0-12.0) sec INR 1.4 H (<1.2) APTT 27.6 (22.0-30.0) sec Sodium (137-145) mmol/L Potassium (3.5-5.1) mmol/L Chloride (98-107) mmol/L Carbon Dioxide (22-30) mmol/L Anion Gap mmol/L BUN (7-17) mg/dL Creatinine (0.52-1.04) mg/dL Est GFR (CKD-EPI)AfAm (>60 ml/min/1.73 sqM) Est GFR (CKD-EPI)NonAf (>60 ml/min/1.73 sqM) Glucose (74-99) mg/dL POC Glucose (mg/dL) 170 H (70-110) mg/dL POC Glu Cannon Fire Direction Specialist ID Michaela Ring Calcium (8.4-10.2) mg/dL Total Bilirubin (0.2-1.3) mg/dL AST (14-36) U/L ALT (4-34) U/L Alkaline Phosphatase (38-126) U/L Total Protein (6.3-8.2) g/dL Albumin (3.5-5.0) g/dL Gastric Occult Blood (Negative) Blood Type Blood Type Recheck Bld Type Recheck Status Antibody Screen Spec Expiration Date 11/06/22 11/06/22 11/06/22 Range/Units 10:53 10:53 11:28 WBC (3.8-10.6) k/uL RBC (3.80-5.40) m/uL Hgb (11.4-16.0) gm/dL Hct (34.0-46.0) % MCV (80.0-100.0) fL MCH (25.0-35.0) pg MCHC (31.0-37.0) g/dL RDW (11.5-15.5) % Plt Count (150-450) k/uL MPV Neutrophils % % Lymphocytes % % Monocytes % % Eosinophils % % Basophils % % Neutrophils # (1.3-7.7) k/uL Lymphocytes # (1.0-4.8) k/uL Monocytes # (0-1.0) k/uL Eosinophils # (0-0.7) k/uL Basophils # (0-0.2) k/uL Manual Slide Review PT (9.0-12.0) sec INR (<1.2) APTT (22.0-30.0) sec Sodium 139 (137-145) mmol/L Potassium 5.1 (3.5-5.1) mmol/L Chloride 106 (98-107) mmol/L Carbon Dioxide 30 (22-30) mmol/L Anion Gap 3 mmol/L BUN 30 H (7-17) mg/dL Creatinine 0.94 (0.52-1.04) mg/dL Est GFR (CKD-EPI)AfAm 70 (>60 ml/min/1.73 sqM) Est GFR (CKD-EPI)NonAf 61 (>60 ml/min/1.73 sqM) Glucose 151 H (74-99) mg/dL POC Glucose (mg/dL) (70-110) mg/dL POC Glu Cannon Fire Direction Specialist ID Calcium 8.7 (8.4-10.2) mg/dL Total Bilirubin 3.6 H (0.2-1.3) mg/dL AST 53 H (14-36) U/L ALT 31 (4-34) U/L Alkaline Phosphatase 135 H (38-126) U/L Total Protein 6.5 (6.3-8.2) g/dL Albumin 3.3 L (3.5-5.0) g/dL Gastric Occult Blood Positive (Negative) Blood Type AB Positive Blood Type Recheck AB Pos Bld Type Recheck Status No Antibody Screen NEGATIVE Spec Expiration Date 11/09/20222352 Disposition Clinical Impression: Upper GI bleeding Disposition: ADMITTED IP TO THIS [facility] Referrals: Hector Abbasi MD [Primary Care Provider] - 1-2 days Time of Disposition: 12:50
[2022-11-06 11:07] LABS: Basophils % (A) 1 %; Eosinophils # (A) 0.5 k/uL (0-0.7); Eosinophils % (A) 10 %; HCT 37.3 % (34.0-46.0); Lymphocytes # (A) 0.7 k/uL (1.0-4.8); Lymphocytes % (A) 15 %; MCH 33.4 pg (25.0-35.0); MCHC 34.8 g/dL (31.0-37.0); Mean Platelet Volume 7.3; Monocytes # (A) 0.3 k/uL (0-1.0); Monocytes % (A) 5 %; Neutrophils # (A) 3.3 k/uL (1.3-7.7); Neutrophils % (A) 68 %; RBC 3.89 m/uL (3.80-5.40); RDW 13.6 % (11.5-15.5); WBC 4.8 k/uL (3.8-10.6)
[2022-11-06 11:18] LABS: INR 1.4 (<1.2); Partial Thromboplastin Time 27.6 sec (22.0-30.0); Prothrombin Time 13.9 sec (9.0-12.0)
[2022-11-06] MEDS ORDERED: ONDANSETRON 4 MG/2 ML VIAL IVP STA (11:21)
[2022-11-06 11:28] LABS: Albumin 3.3 g/dL (3.5-5.0); Calcium 8.7 mg/dL (8.4-10.2); Total Bilirubin 3.6 mg/dL (0.2-1.3); Total Protein 6.5 g/dL (6.3-8.2)
[2022-11-06 11:32] LABS: Potassium 5.1 mmol/L (3.5-5.1)
[2022-11-06] MEDS ORDERED: PANTOPRAZOLE 40 MG/10 ML VIAL IVP STA (11:37)
--- NOTE | 2022-11-06 11:47 | XR ---
EXAMINATION TYPE: XR chest 2V DATE OF EXAM: 11/06/2022 11:36 AM COMPARISON: Chest radiographs from 04/08/2021 TECHNIQUE: XR chest 2V Frontal and lateral views of the chest. CLINICAL INDICATION:Female, 72 years old with history of Difficulty breathing ; FINDINGS: Lungs/Pleura: There is flattening of the diaphragm with increased lucency of the lungs. No evidence o f pneumothorax, pleural effusion or focal consolidation. Chronic senescent parietal change. Pulmonary vascularity: Unremarkable. Heart/mediastinum: Cardiomediastinal silhouette is unremarkable. Atherosclerotic calcifications are seen in the aorta. Left atrial appendage occlusion devices present. Musculoskeletal: No acute osseous pathology. Midline sternotomy wires are noted and stable. IMPRESSION: 1. No acute cardiopulmonary disease process. 2. COPD changes.
[2022-11-06 11:53] LABS: Platelet Count 88 k/uL (150-450)
[2022-11-06] MEDS ORDERED: SODIUM CHLORIDE 0.9% 1,000 ML IV ONE (13:27)
[2022-11-06 14:19] LABS: Basophils % (A) 1 %; Eosinophils # (A) 0.5 k/uL (0-0.7); Eosinophils % (A) 8 %; HCT 40.1 % (34.0-46.0); HGB 13.9 gm/dL (11.4-16.0); Lymphocytes # (A) 0.8 k/uL (1.0-4.8); Lymphocytes % (A) 13 %; MCH 33.3 pg (25.0-35.0); MCHC 34.7 g/dL (31.0-37.0); MCV 95.9 fL (80.0-100.0); Mean Platelet Volume 7.9; Monocytes # (A) 0.3 k/uL (0-1.0); Monocytes % (A) 4 %; Neutrophils # (A) 4.5 k/uL (1.3-7.7); Neutrophils % (A) 73 %; RBC 4.18 m/uL (3.80-5.40); RDW 14.2 % (11.5-15.5); WBC 6.2 k/uL (3.8-10.6)
[2022-11-06 14:20] LABS: Platelet Count 95 k/uL (150-450)
[2022-11-06] MEDS ORDERED: DEXTROSE 50% SYRINGE 50 ML IVP PRN ×2 (15:33)
[2022-11-06 17:18] LABS: Glucose,Whole Blood 107 mg/dL (70-110)
[2022-11-06] MEDS ORDERED: PRAVASTATIN SODIUM 20 MG TAB PO SCH (21:00)
[2022-11-06] MEDS ORDERED: PRAMIPEXOLE 0.25 MG TAB PO SCH (21:00)
[2022-11-06] MEDS ORDERED: BACLOFEN 10 MG TAB PO SCH (21:00)
[2022-11-06] MEDS ORDERED: GABAPENTIN 300 MG CAP PO SCH (21:00)
[2022-11-06] MEDS: PANTOPRAZOLE 40 MG/10 ML VIAL IVP SCH (21:26)
[2022-11-07 00:07] LABS: Glucose,Whole Blood 92 mg/dL (70-110)
[2022-11-07 05:55] LABS: Glucose,Whole Blood 122 mg/dL (70-110)
[2022-11-07 08:04] VITALS: RESP 16; TEMP 97.5
[2022-11-07] MEDS ORDERED: NON FORMULARY DRUG (Insulin Degludec [Tresiba Flextouch U-100 Pen] 100 UNIT/ML Insuln.Pen) SQ SCH (09:00)
[2022-11-07] MEDS ORDERED: PROPRANOLOL LA 80 MG CAP.SA.24H PO SCH (09:00)
[2022-11-07] MEDS ORDERED: FUROSEMIDE 20 MG TAB PO SCH (09:00)
[2022-11-07] MEDS ORDERED: SPIRONOLACTONE 25 MG TAB PO SCH (09:00)
[2022-11-07] MEDS ORDERED: MAGNESIUM OXIDE 400 MG TAB PO SCH (09:00)
[2022-11-07] MEDS ORDERED: MULTIVITAMINS, THERA 1 EACH TAB PO SCH (09:00)
[2022-11-07] MEDS: PANTOPRAZOLE 40 MG/10 ML VIAL IVP SCH (09:05)
--- NOTE | 2022-11-07 09:56 | P.GSCN ---
History of Present Illness Consult date: 11/07/22 Reason for Consult: Upper GI bleed History of present illness: This a 72-year-old female who is admitted hospital with complaints of upper GI b leed. Patient had some melanotic stools. Patient denies any abdominal pain nausea vomiting. Past Medical History Past Medical History: Coronary Artery Disease (CAD), Diabetes Mellitus, Hyperlipidemia, Hypertension, Liver Disease, Osteoarthritis (OA) Additional Past Medical History / Comment(s): Obesity, neuropathy lower extremities, chronic back pain and pulmonary hypertension. R lower leg vein graph site from open heart surgery wound.rt.leg wound-HEALED, ascites, liver disease, History of Any Multi-Drug Resistant Organisms: None Reported Past Surgical History: Cholecystectomy, Coronary Bypass/CABG, Heart Catheterization, Orthopedic Surgery Additional Past Surgical History / Comment(s): RT carpel tunnel release sx , laser surgery on varicose veins , 2 VESSEL CABG. 3 THORACENTESIS post CABG, multiple paracentesis procedures Past Anesthesia/Blood Transfusion Reactions: No Reported Reaction Past Psychological History: Anxiety Additional Psychological History / Comment(s): PT LIVES alone IN A 3 STORY HOME -STAYS ON MAIN LEVEL. HAS 4 [address] STEPS. Smoking Status: Never smoker Past Alcohol Use History: Rare Additional Past Alcohol Use History / Comment(s): quit smoking 35 yrs. ago, 1ppd for 15 yrs. Never a heavy drinker. Past Drug Use History: None Reported - Past Family History Mother Brother(s) Family Medical History: Cancer Additional Family Medical History / Comment(s): MOM FROM PERITONITIS Father Family Medical History: Myocardial Infarction ([place]) Additional Family Medical History / Comment(s): FROM [place] AGE 61 Brother(s) Family Medical History: Cancer, Coronary Artery Disease (CAD) Additional Family Medical History / Comment(s): ONE BROTHER HAD CANCER, ONE BROTHER HAD QUAD CABG. Medications and Allergies Home Medications Medication Instructions Recorded Confirmed Type Baclofen [Lioresal] 20 mg PO HS 01/22/16 11/06/22 History Magnesium Oxide [Magnesium] 250 mg PO DAILY 01/16/17 11/06/22 History Multivitamins, Thera [Multivitamin 1 tab PO DAILY 01/16/17 11/06/22 History (formulary)] Pramipexole [Mirapex] 0.25 mg PO HS 01/16/17 11/06/22 History Ferrous Sulfate [Iron] 325 mg PO DAILY 07/29/17 11/06/22 History Furosemide [Lasix] 20 mg PO DAILY 12/20/17 11/06/22 History Spironolactone [Aldactone] 50 mg PO DAILY 05/15/21 11/06/22 History Gabapentin 300 mg PO HS 06/12/21 11/06/22 History Aspirin [Adult Low Dose Aspirin EC] 81 mg PO DAILY 10/14/21 11/06/22 History Insulin Degludec [Tresiba 12 units SQ DAILY 11/06/22 11/06/22 History Flextouch U-100 Pen] Pravastatin Sodium [Pravachol] 20 mg PO HS 11/06/22 11/06/22 History Propranolol HCl [Propranolol HCl 80 mg PO DAILY 11/06/22 11/06/22 History ER] Semaglutide [Ozempic] 1 mg SQ TH 11/06/22 11/06/22 History Allergies Allergy/AdvReac Type Severity Reaction Status Date / Time Penicillins Allergy Unknown Verified 11/06/22 13:16 Childhood Surgical - Exam Vital Signs Temp Pulse Resp BP 98.2 F 64 18 149/79 11/06/22 09:51 11/06/22 09:51 11/06/22 09:51 11/06/22 09:51 - General well developed, well nourished, no distress - Eyes PERRL - ENT normal pinna - Neck no masses - Respiratory normal expansion - Cardiovascular Rhythm: regular - Abdomen Abdomen: soft, non tender Results - Labs 11/06/22 14:03 11/06/22 10:53 Abnormal Lab Results - Last 24 Hours (Table) 11/06/22 11/06/22 11/06/22 Range/Units 09:56 10:53 10:53 Plt Count 88 L (150-450) k/uL Lymphocytes # 0.7 L (1.0-4.8) k/uL PT 13.9 H (9.0-12.0) sec INR 1.4 H (<1.2) BUN (7-17) mg/dL Glucose (74-99) mg/dL POC Glucose (mg/dL) 170 H (70-110) mg/dL Hemoglobin A1c (0.0-6.0) % Total Bilirubin (0.2-1.3) mg/dL AST (14-36) U/L Alkaline Phosphatase (38-126) U/L Albumin (3.5-5.0) g/dL 11/06/22 11/06/22 11/06/22 Range/Units 10:53 14:03 14:03 Plt Count 95 L (150-450) k/uL Lymphocytes # 0.8 L (1.0-4.8) k/uL PT (9.0-12.0) sec INR (<1.2) BUN 30 H (7-17) mg/dL Glucose 151 H (74-99) mg/dL POC Glucose (mg/dL) (70-110) mg/dL Hemoglobin A1c 6.1 H (0.0-6.0) % Total Bilirubin 3.6 H (0.2-1.3) mg/dL AST 53 H (14-36) U/L Alkaline Phosphatase 135 H (38-126) U/L Albumin 3.3 L (3.5-5.0) g/dL 11/07/22 Range/Units 05:53 Plt Count (150-450) k/uL Lymphocytes # (1.0-4.8) k/uL PT (9.0-12.0) sec INR (<1.2) BUN (7-17) mg/dL Glucose (74-99) mg/dL POC Glucose (mg/dL) 122 H (70-110) mg/dL Hemoglobin A1c (0.0-6.0) % Total Bilirubin (0.2-1.3) mg/dL AST (14-36) U/L Alkaline Phosphatase (38-126) U/L Albumin (3.5-5.0) g/dL Diabetes panel 11/06/22 11/06/22 Range/Units 10:53 14:03 Sodium 139 (137-145) mmol/L Potassium 5.1 (3.5-5.1) mmol/L Chloride 106 (98-107) mmol/L Carbon Dioxide 30 (22-30) mmol/L BUN 30 H (7-17) mg/dL Creatinine 0.94 (0.52-1.04) mg/dL Glucose 151 H (74-99) mg/dL Hemoglobin A1c 6.1 H (0.0-6.0) % Calcium 8.7 (8.4-10.2) mg/dL AST 53 H (14-36) U/L ALT 31 (4-34) U/L Alkaline Phosphatase 135 H (38-126) U/L Total Protein 6.5 (6.3-8.2) g/dL Albumin 3.3 L (3.5-5.0) g/dL Calcium panel 11/06/22 Range/Units 10:53 Calcium 8.7 (8.4-10.2) mg/dL Albumin 3.3 L (3.5-5.0) g/dL Pituitary panel 11/06/22 Range/Units 10:53 Sodium 139 (137-145) mmol/L Potassium 5.1 (3.5-5.1) mmol/L Chloride 106 (98-107) mmol/L Carbon Dioxide 30 (22-30) mmol/L BUN 30 H (7-17) mg/dL Creatinine 0.94 (0.52-1.04) mg/dL Glucose 151 H (74-99) mg/dL Calcium 8.7 (8.4-10.2) mg/dL Adrenal panel 11/06/22 Range/Units 10:53 Sodium 139 (137-145) mmol/L Potassium 5.1 (3.5-5.1) mmol/L Chloride 106 (98-107) mmol/L Carbon Dioxide 30 (22-30) mmol/L BUN 30 H (7-17) mg/dL Creatinine 0.94 (0.52-1.04) mg/dL Glucose 151 H (74-99) mg/dL Calcium 8.7 (8.4-10.2) mg/dL Total Bilirubin 3.6 H (0.2-1.3) mg/dL AST 53 H (14-36) U/L ALT 31 (4-34) U/L Alkaline Phosphatase 135 H (38-126) U/L Total Protein 6.5 (6.3-8.2) g/dL Albumin 3.3 L (3.5-5.0) g/dL Assessment and Plan Assessment: Upper GI bleed. Patient will be scheduled for EGD Wednesday. Patient did express that she would like to go home and come back. If her labs today are stable this may be reasonable. She will be ordered for EGD on Wednesday.
[2022-11-07 11:22] LABS: Glucose,Whole Blood 207 mg/dL (70-110)
[2022-11-07 12:17] LABS: HCT 33.9 % (37.2-46.3); HGB 11.5 g/dL (12.0-15.0); Immature Platelet Fraction 2.6 % (1.1-6.1); MCH 32.4 pg (27.0-32.0); MCHC 33.9 g/dL (32.0-37.0); MCV 95.5 fL (80.0-97.0); Mean Platelet Volume 10.4 fL (9.5-12.2); NRBC Per 100 WBC 0 /100 WBCS (0.0-0.0); Platelet Count 70 X 10*3/uL (140-440); RBC 3.55 X 10*6/uL (4.10-5.20); RDW 13.8 % (11.5-14.5); WBC 4.44 X 10*3/uL (4.50-10.00)
[2022-11-07 13:26] LABS: African American GFR (CKD) 59.4 (60.0-200.0); Albumin 3.1 g/dL (3.8-4.9); Albumin/Globulin Ratio 1.26 (1.60-3.17); Anion Gap 8.2 mmol/L (10.00-18.00); BUN/Creat Ratio 23.61 Ratio (12.00-20.00); Blood Urea Nitrogen 25.5 mg/dL (9.0-27.0); Calcium 8.8 mg/dL (8.7-10.3); Carbon Dioxide 25.9 mmol/L (20.0-27.5); Globulin 2.5 g/dL (1.6-3.3); Non-African American GFR(CKD) 51.2 (60.0-200.0); Potassium 4.2 mmol/L (3.5-5.5); Total Bilirubin 3.9 mg/dL (0.30-1.20); Total Protein 5.6 g/dL (6.2-8.2)
[2022-11-07 14:12] VITALS: BP 106/50; PULSE 57
--- NOTE | 2022-11-08 15:57 | P.HPIM ---
History of Present Illness H&P Date: 11/07/22 Chief Complaint: Coffee-ground emesis 72-year-old female who presents emergency Department after having vomited up black emesis. Patient was here earlier today getting blood work done an ultrasound for some liver issues she's been having. Patient states she went to her car at very nauseated and started vomiting. Patient states it was jet black. Patient states she's also diarrhea for 2 months. Patient denies any fever chills. Patient states out in the car she started coughing prior to her vomiting she felt short of breath but she no longer feels short of breath. Patient denies any recent fever chills. Patient denies any palpitations or chest pain. Bladder completed in ED reveals a WBC of 4.8, hemoglobin of 13.0 and platelet count of 88, sodium 139, potassium 5.1, BUN/creatinine of 30/0.94 and blood glucose of 151; patient was found to be stool occult positive in ED Review of Systems REVIEW OF SYSTEMS: CONSTITUTIONAL: No fever, no malaise, no fatigue. HEENT: No recent visual problems or hearing problems. Denied any sore throat. CARDIOVASCULAR: No chest pain, orthopnea, PND, no palpitations, no syncope. PULMONARY: No shortness of breath, no cough, no hemoptysis. GASTROINTESTINAL: No diarrhea, no nausea, no vomiting, no abdominal pain. NEUROLOGICAL: No headaches, no weakness, no numbness. HEMATOLOGICAL: Denies any bleeding or petechiae. GENITOURINARY: Denies any burning micturition, frequency, or urgency. MUSCULOSKELETAL/RHEUMATOLOGICAL: Denies any joint pain, swelling, or any muscle pain. ENDOCRINE: Denies any polyuria or polydipsia. The rest of the 14-point review of systems is negative. Past Medical History Past Medical History: Coronary Artery Disease (CAD), Diabetes Mellitus, Hyperlipidemia, Hypertension, Liver Disease, Osteoarthritis (OA) Additional Past Medical History / Comment(s): Obesity, neuropathy lower extremities, chronic back pain and pulmonary hypertension. R lower leg vein graph site from open heart surgery wound.rt.leg wound-HEALED, ascites, liver disease, History of Any Multi-Drug Resistant Organisms: None Reported Past Surgical History: Cholecystectomy, Coronary Bypass/CABG, Heart Catheterization, Orthopedic Surgery Additional Past Surgical History / Comment(s): RT carpel tunnel release sx , laser surgery on varicose veins , 2 VESSEL CABG. 3 THORACENTESIS post CABG, multiple paracentesis procedures Past Anesthesia/Blood Transfusion Reactions: No Reported Reaction Past Psychological History: Anxiety Additional Psychological History / Comment(s): PT LIVES alone IN A 3 STORY HOME -STAYS ON MAIN LEVEL. HAS 4 [address]. Smoking Status: Never smoker Past Alcohol Use History: Rare Additional Past Alcohol Use History / Comment(s): quit smoking 35 yrs. ago, 1ppd for 15 yrs. Never a heavy drinker. Past Drug Use History: None Reported - Past Family History Mother Brother(s) Family Medical History: Cancer Additional Family Medical History / Comment(s): MOM FROM PERITONITIS Father Family Medical History: Myocardial Infarction ([place]) Additional Family Medical History / Comment(s): FROM [place] AGE 61 Brother(s) Family Medical History: Cancer, Coronary Artery Disease (CAD) Additional Family Medical History / Comment(s): ONE BROTHER HAD CANCER, ONE BROTHER HAD QUAD CABG. Medications and Allergies Home Medications Medication Instructions Recorded Confirmed Type Baclofen [Lioresal] 20 mg PO HS 01/22/16 11/06/22 History Magnesium Oxide [Magnesium] 250 mg PO DAILY 01/16/17 11/06/22 History Multivitamins, Thera [Multivitamin 1 tab PO DAILY 01/16/17 11/06/22 History (formulary)] Pramipexole [Mirapex] 0.25 mg PO HS 01/16/17 11/06/22 History Ferrous Sulfate [Iron] 325 mg PO DAILY 07/29/17 11/06/22 History Furosemide [Lasix] 20 mg PO DAILY 12/20/17 11/06/22 History Spironolactone [Aldactone] 50 mg PO DAILY 05/15/21 11/06/22 History Gabapentin 300 mg PO HS 06/12/21 11/06/22 History Aspirin [Adult Low Dose Aspirin EC] 81 mg PO DAILY 10/14/21 11/06/22 History Insulin Degludec [Tresiba 12 units SQ DAILY 11/06/22 11/06/22 History Flextouch U-100 Pen] Pravastatin Sodium [Pravachol] 20 mg PO HS 11/06/22 11/06/22 History Propranolol HCl [Propranolol HCl 80 mg PO DAILY 11/06/22 11/06/22 History ER] Semaglutide [Ozempic] 1 mg SQ TH 11/06/22 11/06/22 History Pantoprazole [Protonix] 40 mg PO DAILY 30 Days #30 tab 11/07/22 Rx Allergies Allergy/AdvReac Type Severity Reaction Status Date / Time Penicillins Allergy Unknown Verified 11/06/22 13:16 Childhood Physical Exam Vitals: Vital Signs Temp Pulse Pulse Resp BP BP Pulse Ox 11/07/22 07:00 97.5 F L 66 16 112/46 98 11/07/22 03:47 65 18 11/07/22 00:09 98.0 F 63 18 125/65 98 11/06/22 21:26 65 18 11/06/22 19:56 97.9 F 62 18 117/52 99 11/06/22 15:00 97.6 F 65 18 154/82 96 11/06/22 14:50 78 18 124/70 100 11/06/22 12:42 72 18 119/72 98 11/06/22 10:55 64 18 117/42 97 11/06/22 09:51 98.2 F 64 18 149/79 Intake and Output 11/06/22 11/07/22 11/07/22 22:59 06:59 14:59 Other: # Voids 1 2 PHYSICAL EXAMINATION: GENERAL: The patient is alert and oriented x3, not in any acute distress. Well developed, well nourished. HEENT: Pupils are round and equally reacting to light. EOMI. No scleral icterus. No conjunctival pallor. Normocephalic, atraumatic. No pharyngeal erythema. No thyromegaly. CARDIOVASCULAR: S1 and S2 present. No murmurs, rubs, or gallops. PULMONARY: Chest is clear to auscultation, no wheezing or crackles. ABDOMEN: Soft, nontender, nondistended, normoactive bowel sounds. No palpable organomegaly. MUSCULOSKELETAL: No joint swelling or deformity. EXTREMITIES: No cyanosis, clubbing, or pedal edema. NEUROLOGICAL: Gross neurological examination did not reveal any focal deficits. SKIN: No rashes. Results CBC & Chem 7: 11/07/22 06:48 11/07/22 06:48 Labs: Abnormal Lab Results - Last 24 Hours (Table) 11/06/22 11/06/22 11/06/22 Range/Units 09:56 10:53 10:53 Plt Count 88 L (150-450) k/uL Lymphocytes # 0.7 L (1.0-4.8) k/uL PT 13.9 H (9.0-12.0) sec INR 1.4 H (<1.2) BUN (7-17) mg/dL Glucose (74-99) mg/dL POC Glucose (mg/dL) 170 H (70-110) mg/dL Hemoglobin A1c (0.0-6.0) % Total Bilirubin (0.2-1.3) mg/dL AST (14-36) U/L Alkaline Phosphatase (38-126) U/L Albumin (3.5-5.0) g/dL 11/06/22 11/06/22 11/06/22 Range/Units 10:53 14:03 14:03 Plt Count 95 L (150-450) k/uL Lymphocytes # 0.8 L (1.0-4.8) k/uL PT (9.0-12.0) sec INR (<1.2) BUN 30 H (7-17) mg/dL Glucose 151 H (74-99) mg/dL POC Glucose (mg/dL) (70-110) mg/dL Hemoglobin A1c 6.1 H (0.0-6.0) % Total Bilirubin 3.6 H (0.2-1.3) mg/dL AST 53 H (14-36) U/L Alkaline Phosphatase 135 H (38-126) U/L Albumin 3.3 L (3.5-5.0) g/dL 11/07/22 Range/Units 05:53 Plt Count (150-450) k/uL Lymphocytes # (1.0-4.8) k/uL PT (9.0-12.0) sec INR (<1.2) BUN (7-17) mg/dL Glucose (74-99) mg/dL POC Glucose (mg/dL) 122 H (70-110) mg/dL Hemoglobin A1c (0.0-6.0) % Total Bilirubin (0.2-1.3) mg/dL AST (14-36) U/L Alkaline Phosphatase (38-126) U/L Albumin (3.5-5.0) g/dL Thrombosis Risk Factor Assmnt - Choose All That Apply Each Factor Represents 1 point: Obesity (BMI >25) Each Risk Factor Represents 2 Points: Age 61-74 years Thrombosis Risk Factor Assessment Total Risk Factor Score: 3 Thrombosis Risk Factor Assessment Level: Moderate Risk Assessment and Plan Assessment: 1. Acute upper GI bleed - Patient reported coffee-ground emesis that has been going on along with some diarrhea for past 2 months; patient does have an outpatient follow-up scheduled - Patient is stool guaiac positive; we will admit for close observation and monitor H&H closely - We will consult general surgery for possible EGD/colonoscopy 2. Hypertension; propranolol 80 mg daily, Lasix 20 mg daily and Aldactone 50 mg daily 3. Hyperlipidemia; pravastatin 20 mg daily at bedtime 4. Diabetes mellitus; we will monitor Accu-Cheks before meals and at bedtime with insulin sliding scale 5. Chronic liver disease; currently on Aldactone and Lasix
[2022-11-12] MEDS ORDERED: NON FORMULARY DRUG (Semaglutide [Ozempic] 1 MG/0.75 ML Each) SQ SCH (15:30)
== END 2022-11-07 14:58 | disposition home or self-care (01) ==
LOC: EC 09:47 → 6NMEDSUR 13:35
PROVIDERS: ADMIT Family Medicine; ATTEND Family Medicine
DX: K92.2 Gastrointestinal hemorrhage, unspecified (principal); I25.10 Atherosclerotic heart disease of native coronary artery without angina pectoris; E78.5 Hyperlipidemia, unspecified; I10 Essential (primary) hypertension; E11.40 Type 2 diabetes mellitus with diabetic neuropathy, unspecified; G89.29 Other chronic pain; M54.9 Dorsalgia, unspecified; I27.20 Pulmonary hypertension, unspecified; F41.9 Anxiety disorder, unspecified; K76.9 Liver disease, unspecified; E66.9 Obesity, unspecified; Z95.1 Presence of aortocoronary bypass graft; Z79.899 Other long term (current) drug therapy; Z79.82 Long term (current) use of aspirin; Z79.4 Long term (current) use of insulin; Z88.0 Allergy status to penicillin
CPT/HCPCS: 96361 ×3; 96376 ×2; 96374; 96375; 99285; 36415; 93005; 86900; 86901; 80053 ×2; 85025; 85027; 85610; 85730; 86850; 82271; 83036; 71046; G0378 ×2; J2405; C9113 ×2

== ENCOUNTER → 2022-11-06 | Outpatient (CLI) | payer MEDICARE ==
--- NOTE | 2022-11-06 08:14 | US ---
EXAMINATION TYPE: US liver DATE OF EXAM: 11/06/2022 COMPARISON: Renal ultrasound 08/04/2022, CT abdomen 11/25/2021, liver ultrasound 06/19/2021 CLINICAL HISTORY: K74.69. known cirrhosis TECHNIQUE: Multiple sonographic images of the right upper quadrant are obtained. FINDINGS: EXAM MEASUREMENTS: Liver Length: 16.7 cm Gallbladder Wall: Surgically absent CBD: 1.0 cm Right Kidney: 10.2 x 4.4 x 5.0 cm Pancreas: wnl Liver: heterogeneous, trace amount of free fluid adjacent to left lobe Gallbladder: Surgically absent CBD: wnl Right Kidney: wnl Diffusely heterogenous liver with some surface nodularity identified. No focal lesion demonstrated. T race perihepatic ascites. Gallbladder surgically absent. Common bile duct is within normal limits for cholecystectomy. Right kidney is within normal limits without evidence of hydronephrosis, solid mass , or nephrolithiasis. The pancreas is within normal limits. IMPRESSION: 1. Diffusely heterogenous liver with surface nodularity consistent with reported cirrhosis. No focal lesion identified. 2. Trace perihepatic ascites. 3. Postcholecystectomy changes.
[2022-11-06 11:04] LABS: African American GFR (CKD) 58.1 (60.0-200.0); Albumin 3.6 g/dL (3.8-4.9); Albumin/Globulin Ratio 1.29 (1.60-3.17); Anion Gap 6.8 mmol/L (10.00-18.00); BUN/Creat Ratio 22.18 Ratio (12.00-20.00); Blood Urea Nitrogen 24.4 mg/dL (9.0-27.0); Calcium 9.5 mg/dL (8.7-10.3); Carbon Dioxide 27.2 mmol/L (20.0-27.5); Globulin 2.8 g/dL (1.6-3.3); Non-African American GFR(CKD) 50.1 (60.0-200.0); Potassium 5.3 mmol/L (3.5-5.5); Total Bilirubin 3.2 mg/dL (0.30-1.20); Total Protein 6.4 g/dL (6.2-8.2)
[2022-11-06 11:44] LABS: Basophils # (A) 0.04 X 10*3/uL (0.00-0.10); Basophils % (A) 0.8 %; Eosinophils # (A) 0.53 X 10*3/uL (0.04-0.35); Eosinophils % (A) 10.6 %; HCT 38.7 % (37.2-46.3); HGB 13.3 g/dL (12.0-15.0); Immature Grans, Automated 0.4 %; Lymphocytes # (A) 0.65 X 10*3/uL (0.90-5.00); MCH 32.8 pg (27.0-32.0); MCHC 34.4 g/dL (32.0-37.0); MCV 95.6 fL (80.0-97.0); Mean Platelet Volume 10.3 fL (9.5-12.2); Monocytes # (A) 0.42 X 10*3/uL (0.20-1.00); Monocytes % (A) 8.4 %; NRBC Per 100 WBC 0 /100 WBCS (0.0-0.0); Neutrophils # (A) 3.34 X 10*3/uL (1.80-7.70); Neutrophils % (A) 66.8 %; Platelet Count 89 X 10*3/uL (140-440); RBC 4.05 X 10*6/uL (4.10-5.20); RDW 13.6 % (11.5-14.5)
== END | disposition home or self-care (01) ==
LOC: RADUSWWP 07:33
PROVIDERS: ATTEND Internal Medicine Gastroenterology
DX: K76.89 Other specified diseases of liver (principal); R18.8 Other ascites; Z90.49 Acquired absence of other specified parts of digestive tract
CPT/HCPCS: 36415; 76705; 80053; 82105; 85025

== ENCOUNTER → 2022-11-06 | Outpatient (CLI) | payer MEDICARE ==
--- NOTE | 2022-11-09 08:48 | MM ---
Reason for Exam: Screening (asymptomatic). Last mammogram was performed 3 year(s) and 3 month(s) ago. Patient History: Menarche at age 12. First Full-Term at age 23. Postmenopausal. Other cancer. Risk Values: Jesusita 5 year model risk: 1.6%. NCI Lifetime model risk: 4.1%. Prior Study Comparison: 12/01/2012 Bilateral Screening Mammogram, [facility]. 12/04/2013 Bilateral Screening Mammogram, [facility]. 08/10/2019 Bilateral Screening Mammogram, [facility]. Tissue Density: There are scattered fibroglandular densities. Findings: Analyzed By CAD. A few scattered and loosely grouped benign-appearing round calcifications in the bilateral breasts are redemonstrated. There is a 1.5 cm elongated focal asymmetric density in the left breast slightly outer aspect 2 cm distance from nipple that is more prominent from prior studies. Overall Assessment: Incomplete: need additional imaging evaluation, BI-RAD 0 Management: Diagnostic Breast Ultrasound of the left breast. Targeted ultrasound left breast. Electronically signed and approved by: Jordan Cao M.D.
== END | disposition home or self-care (01) ==
LOC: RADMAMWWP 07:37
PROVIDERS: ATTEND Obstetrics & Gynecology
DX: Z12.31 Encounter for screening mammogram for malignant neoplasm of breast (principal); Z78.0 Asymptomatic menopausal state
CPT/HCPCS: 77063; 77067

== ENCOUNTER 2022-11-12 08:04 | Day surgery (SDC) | payer MEDICARE ==
[2022-11-11 08:51] VITALS: BMI 30.4
[~2022-11-12 08:04] MED LIST changes: -LACTATED RINGERS 1,000 ML IV SCH; +LIDOCAINE 1% (10MG/ML) FOR IV START INTRADERMA PRN
[2022-11-12 08:43] VITALS: RESP 16; TEMP 98.7
[2022-11-12] MEDS: LACTATED RINGERS 1,000 ML IV SCH ×2 (08:45→08:57)
[2022-11-12 08:46] LABS: Glucose,Whole Blood 134 mg/dL (70-110)
[2022-11-12] MEDS ORDERED: LIDOCAINE 2% INJ 20 MG/ML (2 ML VIAL) ONE (08:59)
[2022-11-12] MEDS ORDERED: PROPOFOL 10 MG/ML 20 ML VIAL IV ONE (08:59)
--- NOTE | 2022-11-12 09:01 | P.GSHP ---
History of Present Illness H&P Date: 11/12/22 Chief Complaint: GI bleed Is a 72-year-old female who had a recent hospital admission melanotic stools. Patient presents today for EGD. To evaluate for possible upper GI bleed Past Medical History Past Medical History: Coronary Artery Disease (CAD), Diabetes Mellitus, Hyperlipidemia, Hypertension, Liver Disease, Osteoarthritis (OA) Additional Past Medical History / Comment(s): Obesity, neuropathy lower ex tremities, chronic back pain and pulmonary hypertension. R lower leg vein graph site from open heart surgery wound.rt.leg wound-HEALED, ascites, liver disease, RECENT INPT FOR GI BLEED-11/06/22 History of Any Multi-Drug Resistant Organisms: None Reported Past Surgical History: Cholecystectomy, Coronary Bypass/CABG, Heart Catheterization, Orthopedic Surgery Additional Past Surgical History / Comment(s): RT carpel tunnel release sx , laser surgery on varicose veins , 2 VESSEL CABG. 3 THORACENTESIS post CABG, multiple paracentesis procedures, COLONOSCOPY/EGD Past Anesthesia/Blood Transfusion Reactions: No Reported Reaction Smoking Status: Former smoker - Past Family History Mother Brother(s) Family Medical History: Cancer Additional Family Medical History / Comment(s): MOM FROM PERITONITIS Father Family Medical History: Myocardial Infarction ([place]) Additional Family Medical History / Comment(s): FROM [place] AGE 61 Brother(s) Family Medical History: Cancer, Coronary Artery Disease (CAD) Additional Family Medical History / Comment(s): ONE BROTHER HAD CANCER, ONE BRO THER HAD QUAD CABG. Medications and Allergies Home Medications Medication Instructions Recorded Confirmed Type Baclofen [Lioresal] 20 mg PO HS 01/22/16 11/12/22 History Magnesium Oxide [Magnesium] 250 mg PO DAILY 01/16/17 11/12/22 History Multivitamins, Thera [Multivitamin 1 tab PO DAILY 01/16/17 11/12/22 History (formulary)] Pramipexole [Mirapex] 0.25 mg PO HS 01/16/17 11/12/22 History Ferrous Sulfate [Iron] 325 mg PO DAILY 07/29/17 11/12/22 History Furosemide [Lasix] 20 mg PO BID 12/20/17 11/12/22 History Spironolactone [Aldactone] 100 mg PO DAILY 05/15/21 11/12/22 History Gabapentin 300 mg PO HS 06/12/21 11/12/22 History Aspirin [Adult Low Dose Aspirin EC] 81 mg PO DAILY 10/14/21 11/12/22 History Insulin Degludec [Tresiba 12 units SQ DAILY 11/06/22 11/12/22 History Flextouch U-100 Pen] Pravastatin Sodium [Pravachol] 20 mg PO HS 11/06/22 11/12/22 History Propranolol HCl [Propranolol HCl 80 mg PO DAILY 11/06/22 11/12/22 History ER] Semaglutide [Ozempic] 1 mg SQ TH 11/06/22 11/12/22 History Pantoprazole [Protonix] 40 mg PO DAILY 30 Days #30 tab 11/07/22 11/12/22 Rx Allergies Allergy/AdvReac Type Severity Reaction Status Date / Time Penicillins Allergy Unknown Verified 11/12/22 08:26 Childhood Surgical - Exam Vital Signs Temp Pulse Resp BP Pulse Ox 98.7 F 61 16 145/63 100 11/12/22 08:17 11/12/22 08:17 11/12/22 08:17 11/12/22 08:17 11/12/22 08:17 - General well developed, well nourished, no distress - Eyes PERRL - ENT normal pinna - Neck no masses - Respiratory normal expansion - Cardiovascular Rhythm: regular - Abdomen Abdomen: soft, non tender Results - Labs Abnormal Lab Results - Last 24 Hours (Table) 11/12/22 Range/Units 08:40 POC Glucose (mg/dL) 134 H (70-110) mg/dL Assessment and Plan Assessment: Recent history of present bleed. Patient will undergo EGD.
--- NOTE | 2022-11-12 09:10 | P.OP ---
Date of Procedure: 11/12/22 Preoperative Diagnosis: GI bleed Postoperative Diagnosis: Antral gastritis Procedure(s) Performed: EGD Anesthesia: MAC Surgeon: Oseas Cannon Pathology: other (Antrum) Condition: stable Disposition: PACU Description of Procedure: The patient's placed on the endoscopy table in the lateral position. She received IV sedation. The gastroscope placed oropharynx passed in the esophagus and stomach. Scope then placed through the pylorus. The first and second portion of the duodenum appeared normal. Scope was then brought back the antrum this. Mildly inflamed. A biopsies performed. There is no evidence of any significant peptic ulcer disease. The scope was unretroflexed and remainder of the stomach appeared normal. The GE junction was at 40 cm. The distal esophagus appeared normal. The proximal esophagus. Normal. Scope withdrawn for patient. There was no evidence of any upper GI bleed. The patient will need to be scheduled for colonoscopy.
[2022-11-12 09:24] LABS: Glucose,Whole Blood 118 mg/dL (70-110)
[2022-11-12 09:52] VITALS: BP 107/52; PULSE 59
== END 2022-11-12 10:15 | disposition home or self-care (01) ==
LOC: ORWHC2ENDO 08:04
PROVIDERS: ATTEND Surgery
DX: K29.50 Unspecified chronic gastritis without bleeding (principal); I25.10 Atherosclerotic heart disease of native coronary artery without angina pectoris; E11.9 Type 2 diabetes mellitus without complications; E78.5 Hyperlipidemia, unspecified; I10 Essential (primary) hypertension; M19.90 Unspecified osteoarthritis, unspecified site; E66.9 Obesity, unspecified; I27.20 Pulmonary hypertension, unspecified; Z90.89 Acquired absence of other organs; Z90.49 Acquired absence of other specified parts of digestive tract; Z95.1 Presence of aortocoronary bypass graft; Z87.891 Personal history of nicotine dependence; Z79.899 Other long term (current) drug therapy
CPT/HCPCS: 88305; 43239; J2704; J2001

== ENCOUNTER → 2022-11-16 | Outpatient (CLI) | payer MEDICARE ==
--- NOTE | 2022-11-16 09:40 | USB ---
Reason for Exam: Additional evaluation requested from abnormal screening. Patient History: Menarche at age 12. First Full-Term at age 23. Postmenopausal. Other cancer. Risk Values: Jesusita 5 year model risk: 1.6%. NCI Lifetime model risk: 4.1%. Technique: Method: Targeted. Prior Study Comparison: 12/04/2013 Bilateral Screening Mammogram, [facility]. 08/10/2019 Bilateral Screening Mammogram, [facility]. 11/06/2022 Bilateral MG 3D screening mammo w/cad, [facility]. Findings: The lateral section of the breast of the left breast, the axilla of the left breast and the retroareolar of the left breast were scanned. Hypoechoic mass with irregular margins taller than it is wide measuring approximately 1.1 cm x 8.5 cm at the left 3:00 position. No abnormal adenopathy visualized. Overall Assessment: Highly suggestive of malignancy, BI-RAD 5 Management: Ultrasound Core Biopsy of the left breast. A clinical breast exam by your physician is recommended on an annual basis and results should be correlated with mammographic findings. This exam should not preclude additional follow-up of suspicious palpable abnormalities. Results were given to the patient verbally at the time of exam. Electronically signed and approved by: Von Mendez M.D. Radiologis
== END | disposition home or self-care (01) ==
LOC: RADUSWWP 08:26
PROVIDERS: ATTEND Obstetrics & Gynecology
DX: N63.20 Unspecified lump in the left breast, unspecified quadrant (principal); R92.8 Other abnormal and inconclusive findings on diagnostic imaging of breast; Z78.0 Asymptomatic menopausal state

== ENCOUNTER → 2022-11-25 | Outpatient (CLI) | payer MEDICARE ==
--- NOTE | 2022-11-25 15:04 | US ---
EXAMINATION TYPE: US transvaginal DATE OF EXAM: 11/25/2022 COMPARISON: NONE CLINICAL HISTORY: N95.0. Post menopausal bleeding, heavy vaginal bleeding for 1 week, spotting now TECHNIQUE: Transvaginal (TV). Date of LMP: unknown EXAM MEASUREMENTS: Uterus: 6.0 x 4.3 x 5.6 cm Endometrial Stripe: 0.7 cm Right Ovary: unable to visualize Left Ovary: unable to visualize 1. Uterus: Retroverted solid areas (fibroids) = 2.4 x 2.6 x 2.5cm right fundus and 2.2 x 2.5 x 2.0cm left fundus 2. Endometrium: upper limits of normal 3. Right Ovary: Obscured by overlying bowel gas 4. Left Ovary: Obscured by overlying bowel gas 5. Bilateral Adnexa: dilated vessels left adnexa 6. Posterior cul-de-sac: free fluid A few heterogeneous small fibroids are present. IMPRESSION: Fibroid uterus with nonsimple free fluid in the pelvis. Advise follow-up. Consider contra st-enhanced CT and/or MRI follow-up to further evaluate.
== END | disposition home or self-care (01) ==
LOC: RADUSWWP 14:09
PROVIDERS: ATTEND Obstetrics & Gynecology
DX: D25.9 Leiomyoma of uterus, unspecified (principal); N95.0 Postmenopausal bleeding
CPT/HCPCS: 76830

== ENCOUNTER → 2022-12-02 | Day surgery (SDC) | payer MEDICARE ==
--- NOTE | 2022-12-09 10:30 | MM ---
Reason for Exam: Post Procedure Mammogram. Last screening mammogram was performed less than 1 month ago. Patient History: Menarche at age 12. First Full-Term at age 23. Postmenopausal. Other cancer. Risk Values: Jesusita 5 year model risk: 1.6%. NCI Lifetime model risk: 4.1%. Prior Study Comparison: 12/01/2012 Bilateral Screening Mammogram, [facility]. 12/04/2013 Bilateral Screening Mammogram, [facility]. 08/10/2019 Bilateral Screening Mammogram, [facility]. 11/06/2022 Bilateral MG 3D screening mammo w/cad, [facility]. 11/16/2022 Left US breast workup limited LT, [facility]. Tissue Density: Left: There are scattered fibroglandular densities. Pathology Description: Location: 3 o'clock. Marker Left Behind. Cores: 4 Gauge: 13 The procedure of ultrasound guided core biopsy was explained to the patient. Benefits, alternatives, and risks were discussed. An informed consent was then obtained. The patient was placed in supine positioning for imaging and for the procedure. The overlying skin was prepped and draped in usual sterile fashion. Lidocaine with epinephrine was used as anesthetic into the skin and subcutaneous tissue up to area of concern in the left breast. Under ultrasound guidance, a 12-gauge vacuum assisted biopsy gun device was used to obtain 4 core samples. Following this, a biopsy clip was left in lesion. The patient tolerated the procedure well without any immediate complication. The patient was kept in the radiology department for short stay after the procedure and then discharged home in stable condition. Postprocedure mammogram: The patient was transferred to mammography for physician ordered post procedure mammogram for clip placement verification. Post procedure mammogram demonstrates biopsy clip to have migrated 6 mm posteriorly. Impression: Successful, uncomplicated ultrasound guided core biopsy of area of concern in the left breast, full pathology results to follow. Pathology Results: Result: Malignant, Ductal carcinoma in situ, cribriform type. BREAST, LEFT, THREE O'CLOCK, ULTRASOUND GUIDED NEEDLE CORE BIOPSY: Ductal carcinoma in situ, intermediate nuclear grade, cribriform and solid patterns. See comment. Overall Assessment: Malignant Assessment: MG diagnostic mammo LT wo CAD. - Left: Known biopsy proven malignancy, BI-RAD 6. DCIS-consider open biopsy. Management: Surgical Consultation of the left breast. Electronically signed and approved by: Tyshawn Gonzalez D.O.
== END ==
LOC: RADUSWWP 07:43
PROVIDERS: ATTEND Surgery
DX: D05.12 Intraductal carcinoma in situ of left breast (principal); Z78.0 Asymptomatic menopausal state
CPT/HCPCS: 88305; 77065; 19083; A4648

== ENCOUNTER → 2022-12-15 | Outpatient (CLI) | payer MEDICARE ==
[2022-12-15 15:57] LABS: Basophils # (A) 0.02 X 10*3/uL (0.00-0.10); Basophils % (A) 0.4 %; Eosinophils # (A) 0.25 X 10*3/uL (0.04-0.35); Eosinophils % (A) 5.5 %; HCT 40.1 % (37.2-46.3); HGB 13.5 g/dL (12.0-15.0); Immature Grans, Automated 0.2 %; Lymphocytes # (A) 0.71 X 10*3/uL (0.90-5.00); Lymphocytes % (A) 15.5 %; MCH 32.8 pg (27.0-32.0); MCHC 33.7 g/dL (32.0-37.0); MCV 97.6 fL (80.0-97.0); Mean Platelet Volume 10.1 fL (9.5-12.2); Monocytes # (A) 0.38 X 10*3/uL (0.20-1.00); Monocytes % (A) 8.3 %; NRBC Per 100 WBC 0 /100 WBCS (0.0-0.0); Neutrophils # (A) 3.21 X 10*3/uL (1.80-7.70); Neutrophils % (A) 70.1 %; Platelet Count 106 X 10*3/uL (140-440); RBC 4.11 X 10*6/uL (4.10-5.20); RDW 13.7 % (11.5-14.5); WBC 4.58 X 10*3/uL (4.50-10.00)
== END | disposition home or self-care (01) ==
LOC: LABPAT 09:45
PROVIDERS: ATTEND Obstetrics & Gynecology
DX: Z01.812 Encounter for preprocedural laboratory examination (principal)
CPT/HCPCS: 36415; 85025

== ENCOUNTER 2022-12-22 05:46 | Day surgery (SDC) | payer MEDICARE ==
--- NOTE | 2022-12-21 07:26 | P.HPOB ---
History of Present Illness H&P Date: 12/21/22 Chief Complaint: Postmenopausal bleeding This patient is a pleasant 72-year-old 2 para 2 female who presents for evaluation of recurrent postmenopausal bleeding. Patient had episode of bleeding in 2020 and at that time ultrasound showed endometrium to be 7 mm an endometrial biopsy was negative. Patient was doing well however had recurrent bleeding most recently this year. Repeat ultrasound again shows the endometrium to be only 7 mm with a small retroverted uterus and small fibroid. Patient now presents for evaluation with hysteroscopy and D&C. Review of Systems Genitourinary: Reports as per HPI Menstruation: Reports postmenopausal Past Medical History Past Medical History: Coronary Artery Disease (CAD), Cancer, Diabetes Mellitus, GI Bleed, Hyperlipidemia, Hypertension, Liver Disease, Osteoarthritis (OA), Vascular Disorder Additional Past Medical History / Comment(s): Post menopausal vaginal bleeding/intermittent, newly diagnosed L breast cancer/recent biopsy-pt to have lumpectomy 12/2022, IDDM, neuropathy lower extremities, 10/2022 upper and lower GI bleed, rectocele, chronic back pain, denies pulmonary hypertension, cirrhosis/fatty liver, ascities with multiple paracentesis, R lower leg vein graph site from open heart surgery dry wound/past WCC, L lower leg discolored/scaley, post CABG/pleural effusions with thoracentesises, varicose veins bilateral legs, bilateral lower leg edema/wraps. History of Any Multi-Drug Resistant Organisms: None Reported Past Surgical History: Cholecystectomy, Coronary Bypass/CABG, Heart Catheterization, Orthopedic Surgery Additional Past Surgical History / Comment(s): L breast biopsy, R carpel tunnel release sx, laser surgery on varicose veins, 2 VESSEL CABG in 2006, THORACENTESIS x 3 post CABG, multiple paracentesis procedures Past Anesthesia/Blood Transfusion Reactions: No Reported Reaction Additional Past Anesthesia/Blood Transfusion Reaction / Comment(s): Pt has never had blood transfusion. Smoking Status: Former smoker Past Alcohol Use History: None Reported Past Drug Use History: None Reported - Past Family History Mother Brother(s) Family Medical History: Cancer Additional Family Medical History / Comment(s): MOM FROM PERITONITIS/DIVERTICULITIS WITH BOWEL BURST Father Family Medical History: Myocardial Infarction ([place]) Additional Family Medical History / Comment(s): FROM [place] AGE 62 Brother(s) Family Medical History: Cancer, Coronary Artery Disease (CAD) Additional Family Medical History / Comment(s): ONE BROTHER HAD CANCER, ONE BROTHER HAD QUAD CABG. Medications and Allergies Home Medications Medication Instructions Recorded Confirmed Type Baclofen [Lioresal] 20 mg PO HS 01/22/16 12/18/22 History Multivitamins, Thera [Multivitamin 1 tab PO QAM 01/16/17 12/18/22 History (formulary)] Pramipexole [Mirapex] 0.25 mg PO HS 01/16/17 12/18/22 History Furosemide [Lasix] 20 mg PO BID 12/20/17 12/18/22 History Spironolactone [Aldactone] 100 mg PO QAM 05/15/21 12/18/22 History Gabapentin 300 mg PO HS 06/12/21 12/18/22 History Aspirin [Adult Low Dose Aspirin EC] 81 mg PO QAM 10/14/21 12/18/22 History Insulin Degludec [Tresiba 12 units SQ QA 11/06/22 12/18/22 History Flextouch U-100 Pen] Pravastatin Sodium [Pravachol] 20 mg PO QAM 11/06/22 12/18/22 History Propranolol HCl [Propranolol HCl 80 mg PO QAM 11/06/22 12/18/22 History ER] Semaglutide [Ozempic] 0.5 mg SQ TH 11/06/22 12/18/22 History Dicyclomine [Bentyl] 10 mg PO TID PRN 12/18/22 12/18/22 History Pantoprazole [Protonix] 40 mg PO QAM 12/18/22 12/18/22 History Allergies Allergy/AdvReac Type Severity Reaction Status Date / Time Penicillins Allergy Unknown Verified 12/18/22 10:42 Childhood Exam - OBG Physical Exam Abdomen: bowel sounds normal, no diffuse tenderness, no bruit present, no gu arding noted, no hepatomegaly, no splenomegaly, no mass Vulva: both: normal Vagina: normal moisture, no discharge Cervix: no lesion, no discharge Uterus: normal size (Patient has large protruding rectocele with vaginal prolapse), normal contour Results Ultrasound as above Assessment and Plan Assessment: This is a pleasant 72-year-old 2 para 2 female with postmenopausal bleeding who presents for hysteroscopy and D&C for further evaluation. I discussed the surgery and risks with the patient including risks of infection, bleeding, possible uterine perforation. All the patient's questions are answered and a written consent is obtained. (1) Post-menopausal bleeding Status: Acute Code(s): N95.0 - POSTMENOPAUSAL BLEEDING SNOMED Code(s): 19000827
[~2022-12-22 05:46] MED LIST changes: -LIDOCAINE 1% (10MG/ML) FOR IV START INTRADERMA PRN; +Pre Op ABX Message 1 EACH MISC MISCELLANE ONE
[2022-12-22] MEDS ORDERED: ONDANSETRON 4 MG/2 ML VIAL IVP ONE (06:02)
[2022-12-22] MEDS ORDERED: HYDROmorphone 0.5 MG/0.5 ML SYRINGE IVP PRN (06:02)
[2022-12-22] MEDS ORDERED: MORPHINE SULFATE 2 MG/ML SYRINGE IV PRN (06:02)
[2022-12-22] MEDS ORDERED: LACTATED RINGERS 1,000 ML IV SCH (06:02)
[2022-12-22 06:40] LABS: Glucose,Whole Blood 110 mg/dL (70-110)
[2022-12-22] MEDS ORDERED: PROPOFOL 10 MG/ML 20 ML VIAL IV ONE (06:47)
[2022-12-22] MEDS ORDERED: MIDAZOLAM 2 MG/2 ML VIAL ONE (06:47)
[2022-12-22] MEDS ORDERED: KETOROLAC 15 MG/ML 1 ML VIAL ONE (06:47)
[2022-12-22] MEDS ORDERED: LIDOCAINE 2% INJ 20 MG/ML (2 ML VIAL) ONE (06:47)
[2022-12-22] MEDS ORDERED: fentaNYL (PF) 50 MCG/ML 2 ML AMP ONE (06:47)
--- NOTE | 2022-12-22 07:26 | P.OP ---
Date of Procedure: 12/22/22 Preoperative Diagnosis: Post menopausal bleeding Postoperative Diagnosis: Same Procedure(s) Performed: #1: Hysteroscopy. #2: Dilation and curettage Anesthesia: MAC Surgeon: Matt Husain Estimated Blood Loss (ml): 10 Urine output (ml): 25 Pathology: other (Uterine curettings) Condition: stable Disposition: PACU Operative Findings: This patient had an atrophic endometrium with a approximately 1 cm or so submucosal benign appearing fibroid Description of Procedure: This patient is taken to the operating room where she is laid in the supine position. She subsequently undergoes general mask anesthesia without incident. With an adequate level of anesthesia she's placed in dorsal lithotomy position. She has a vaginal perineal prep and drape. Examination under anesthesia shows a protruding rectocele. She is some vaginal apex prolapse. There is not a significant cystocele. I placed a weighted speculum posteriorly. The bladder is drained for 25 mL of clear urine. I then grabbed the cervix anteriorly with an Allis clamp. Uterus is then gently sounded to approximately 6-1/2 cm. Gentle dilation is then done at this time to allow the hysteroscope easily and the uterine cavity. Hysteroscopy is performed and the uterine cavity appears atrophic however there is a 1-1-1/2 cm posterior submucosal fibroid. This does appear benign. With this done the hysteroscope was removed. Cervix is dilated more to allow a curette easily into the uterine cavity. A gentle but thorough 4 quadrant curettage is done. It is obvious that this fibroid is submucosal is not going to be able to be removed. Again appears benign. This point the procedure is ended. The Allis clamp and weighted speculum were removed. All counts are correct 3. There are no complications. Patient is awakened from anesthesia and taken recovery room satisfactory condition.
[2022-12-22 07:33] VITALS: TEMP 98.3
[2022-12-22 08:04] VITALS: RESP 16
[2022-12-22 10:30] VITALS: BP 135/73; PULSE 58
== END 2022-12-22 11:07 | disposition home or self-care (01) ==
LOC: OR 05:46
PROVIDERS: ATTEND Obstetrics & Gynecology
DX: N95.0 Postmenopausal bleeding (principal); E11.9 Type 2 diabetes mellitus without complications; I25.10 Atherosclerotic heart disease of native coronary artery without angina pectoris; I10 Essential (primary) hypertension; E78.5 Hyperlipidemia, unspecified; M19.90 Unspecified osteoarthritis, unspecified site; Z90.49 Acquired absence of other specified parts of digestive tract; Z95.1 Presence of aortocoronary bypass graft; Z98.890 Other specified postprocedural states; Z87.891 Personal history of nicotine dependence; Z83.79 Family history of other diseases of the digestive system; Z82.49 Family history of ischemic heart disease and other diseases of the circulatory system; Z79.82 Long term (current) use of aspirin; Z79.899 Other long term (current) drug therapy; Z88.0 Allergy status to penicillin; Z79.84 Long term (current) use of oral hypoglycemic drugs
CPT/HCPCS: 88305; 58558; J2250; J2405; J3010; J1885; J2704; J2001

== ENCOUNTER 2022-12-25 07:20 | Day surgery (SDC) | payer MEDICARE ==
[~2022-12-25 07:20] MED LIST changes: +ACETAMINOPHEN TAB 500 MG TAB PO PRN; +DEXAMETHASONE SOD PHOSPHATE 4 MG/ML 1 ML VIAL IV ONE; +HEPARIN SODIUM,PORCINE/PF 5,000 UNIT/0.5 ML SYRINGE SQ PRN; +HYDROmorphone 0.5 MG/0.5 ML SYRINGE IVP PRN; +LACTATED RINGERS 1,000 ML IV SCH; +MIDAZOLAM 2 MG/2 ML VIAL IV PRN; +ONDANSETRON 4 MG/2 ML VIAL IVP ONE
[2022-12-25 08:16] LABS: Glucose,Whole Blood 121 mg/dL (70-110)
[2022-12-25] MEDS ORDERED: ALPRAZolam 0.25 MG TAB ONE (08:18)
--- NOTE | 2022-12-25 08:26 | P.GSHP ---
History of Present Illness H&P Date: 12/25/22 Chief Complaint: Left breast cancer 72-year-old female known to our service. Seen in the office 12/17 after recent breast workup. Patient had a recent screening mammogram showing a new density left breast. Ultrasound showed a less than 1 cm BIRADS 5 lesion. 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 ER/AK positive per verbal discussion with pathology. No family history of breast cancer. She is asymptomatic. Patient has a personal history of cervical cancer and is scheduled for a D&C to be evaluated for possible uterine cancer. Patient has a history of cirrhosis diagnosed during cholecystectomy a few years ago. Recent INR 1.4. Etiology for cirrhosis thought to be fatty liver. Recent platelet levels 106. Past Medical History Past Medical History: Coronary Artery Disease (CAD), Diabetes Mellitus, Hyperlip idemia, Hypertension, Liver Disease, Osteoarthritis (OA) Additional Past Medical History / Comment(s): Obesity, neuropathy lower extremities, chronic back pain and pulmonary hypertension. R lower leg vein graph site from open heart surgery wound.rt.leg wound-HEALED, ascites, liver disease, History of Any Multi-Drug Resistant Organisms: None Reported Past Surgical History: Cholecystectomy, Coronary Bypass/CABG, Heart Catheterization, Orthopedic Surgery Additional Past Surgical History / Comment(s): RT carpel tunnel release sx , laser surgery on varicose veins , 2 VESSEL CABG. 3 THORACENTESIS post CABG, multiple paracentesis procedures Past Anesthesia/Blood Transfusion Reactions: No Reported Reaction Past Psychological History: Anxiety Additional Psychological History / Comment(s): PT LIVES alone IN A 3 STORY HOME -STAYS ON MAIN LEVEL. HAS 4 [address] STEPS. Smoking Status: Former smoker Past Alcohol Use History: Occasional Additional Past Alcohol Use History / Comment(s): quit smoking 35 yrs. ago, 1ppd for 15 yrs. Never a heavy drinker. Past Drug Use History: None Reported - Past Family History Mother Brother(s) Family Medical History: Cancer Additional Family Medical History / Comment(s): MOM FROM PERITONITIS/DIVERTICULITIS WITH BOWEL BURST Father Family Medical History: Myocardial Infarction ([place]) Additional Family Medical History / Comment(s): FROM [place] AGE 62 Brother(s) Family Medical History: Cancer, Coronary Artery Disease (CAD) Additional Family Medical History / Comment(s): ONE BROTHER HAD CANCER, ONE BROTHER HAD QUAD CABG. Medications and Allergies Home Medications Medication Instructions Recorded Confirmed Type Baclofen [Lioresal] 20 mg PO HS 01/22/16 12/23/22 History Multivitamins, Thera [Multivitamin 1 tab PO QAM 01/16/17 12/23/22 History (formulary)] Pramipexole [Mirapex] 0.25 mg PO HS 01/16/17 12/23/22 History Furosemide [Lasix] 20 mg PO BID 12/20/17 12/23/22 History Spironolactone [Aldactone] 100 mg PO QAM 05/15/21 12/23/22 History Gabapentin 300 mg PO HS 06/12/21 12/23/22 History Aspirin [Adult Low Dose Aspirin EC] 81 mg PO QAM 10/14/21 12/23/22 History Insulin Degludec [Tresiba 12 units SQ QA 11/06/22 12/23/22 History Flextouch U-100 Pen] Pravastatin Sodium [Pravachol] 20 mg PO QA 11/06/22 12/23/22 History Propranolol HCl [Propranolol HCl 80 mg PO QA 11/06/22 12/23/22 History ER] Semaglutide [Ozempic] 0.5 mg SQ TH 11/06/22 12/23/22 History Dicyclomine [Bentyl] 10 mg PO TID PRN 12/18/22 12/23/22 History Pantoprazole [Protonix] 40 mg PO QA 12/18/22 12/23/22 History Ibuprofen [Motrin] 600 mg PO Q6HR PRN #30 tab 12/22/22 12/23/22 Rx Allergies Allergy/AdvReac Type Severity Reaction Status Date / Time Penicillins Allergy Unknown Verified 12/23/22 15:36 Childhood Surgical - Exam Physical exam: General: Well-developed, well-nourished HEENT: Normocephalic, sclerae nonicteric Right breast: No masses, no adenopathy Left breast: No masses, no adenopathy, ecchymosis around the areola Abdomen: Nontender, nondistended Extremities: No edema Neuro: Alert and oriented Assessment and Plan (1) Breast cancer, left Narrative/Plan: 72-year-old female with stage 0 left breast cancer. Options reviewed with the patient and her family in the office and again by phone. Patient is interested in breast conservation. She declined visit with plastic surgery and is not interested in mastectomy at this time. We discussed the option of sentinel lymph node biopsy. The patient does have a density on mammogram however given her age, the pathologic findings at this time, and the patient's personal history of cirrhosis and the associated increased risks on surgical bleeding and healing we decided to hold off on any sentinel lymph node sampling at this time . She is agreeable. We'll proceed with left breast wire localization lumpectomy. Risks of bleeding, infection, scarring, numbness, possible need for further surgery, recurrence, need for radiation all discussed. She understands and wishes to proceed. Current Visit: Yes Status: Acute Code(s): C50.912 - MALIGNANT NEOPLASM OF UNSPECIFIED SITE OF LEFT FEMALE BREAST SNOMED Code(s): 479149905
--- NOTE | 2022-12-25 08:26 | P.NAPBC ---
NAPBC Queries - NAPBC Queries Was patient's case review presented at [facility] tumor board? If no, comment.: No (Scheduled to be presented next week) Was patient's pathology reviewed at [facility]? If no, comment.: Yes Was breast conservation surgery offered? If no, comment.: Yes Was sentinel node biopsy offered? If no, comment.: Yes Was diagnosis confirmed by percutaneous core biopsy? If no, comment.: Yes Is patient mastectomy patient?: No Was a preop referral to reconstructive surgeon offered?: Yes Clinical Stage: 0
[2022-12-25] MEDS ORDERED: LIDOCAINE 1%-EPI 1:100,000 20 ML VIAL SQ ONE (09:00)
[2022-12-25] MEDS ORDERED: fentaNYL (PF) 50 MCG/ML 2 ML AMP ONE (10:08)
[2022-12-25] MEDS ORDERED: MIDAZOLAM 2 MG/2 ML VIAL ONE (10:08)
[2022-12-25] MEDS ORDERED: PROPOFOL 10 MG/ML 20 ML VIAL IV ONE (10:08)
[2022-12-25] MEDS ORDERED: BUPIVACAINE (PF) 0.25% 30 ML VIAL SQ ONE ×2 (10:34→10:43)
[2022-12-25] MEDS ORDERED: NALOXONE 0.4 MG/ML 1 ML VIAL IV PRN (10:59)
[2022-12-25 11:01] VITALS: TEMP 98
--- NOTE | 2022-12-25 11:06 | P.OP ---
Date of Procedure: 12/25/22 Procedure(s) Performed: PREOPERATIVE DIAGNOSIS: Left breast cancer POSTOPERATIVE DIAGNOSIS: Same PROCEDURE: Left Breast wire localization lumpectomy SURGEON: Baldev EBL: Minimal ANESTHESIA: General COMPLICATIONS: None OPERATIVE PROCEDURE: Patient was placed on the operating room table in the supine position. The preoperative imaging showed the guidewire relatively superficial in the breast. A clip was 12 mm posterior to the wire. The lesion was localized by ultrasound and there had been previous clip migration posteriorly per radiology. The wire entrance site was then addressed. This was present at the 3:00 location. A curvilinear incision was made adjacent to the wire entrance site. I followed the wire down into the breast tissue. An adequate lumpectomy specimen then took place around the wire. Margins of 1.5-2 cm worth attempted to be achieved. Anteriorly we were just underneath the skin of the areola and lateral aspect of the nipple. The specimen was painted the 6 different colors. One doing the painting however I flipped the medial and lateral colors so medial was orange and lateral was yellow in this case. Clips were used to identify the lumpectomy cavity. The subcutaneous tissues were closed using 3-0 Vicryl sutures. The skin was closed using a running 4-0 Monocryl stitch. Skin glue was then applied. DISPOSITION: Stable to recovery room
[2022-12-25 11:45] VITALS: RESP 15
[2022-12-25 12:03] VITALS: BP 132/58; PULSE 61
--- NOTE | 2023-01-01 13:19 | MM ---
Reason for Exam: Post Procedure Mammogram. Last screening mammogram was performed 2 month(s) ago. Patient History: Menarche at age 12. First Full-Term at age 23. Postmenopausal. Breast cancer, left, age 72. 12/02/2022, Malignant US biopsy breast VAD LT on the left side. Prior Study Comparison: 08/10/2019 Bilateral Screening Mammogram, [facility]. 11/06/2022 Bilateral MG 3D screening mammo w/cad, [facility]. 12/02/2022 Left MG diagnostic mammo LT wo CAD., [facility]. Tissue Density: Left: There are scattered fibroglandular densities. Pathology Description: Location: 3 o'clock. Needle Type: 5 cm Kopan The procedure of needle localization with wire placement and than surgical excision was explained to the patient. Benefits, alternatives, and risks were discussed. An informed consent was then obtained. The shortest pathway for procedure was chosen. Shortest pathway was lateral approach. The mass was targeted due to biopsy clip migration. The overlying skin was prepped and draped in usual sterile fashion. Lidocaine was used as anesthetic into the skin and subcutaneous tissue up to the level of area of concern. A 5 cm needle was used. It was placed via constant ultrasound guidance. At this point, wire was placed and the needle was withdrawn. The wire was fixed to patient's skin. Images were marked for surgeon. The patient tolerated the procedure well without any immediate complication. The patient was kept in the radiology department for short stay after the procedure and then taken to surgery for surgical excision. Targeted mass and biopsy clip with wire are identified in specimen mammogram. The patient was kept in hospital for short stay after the procedure and then discharged home in stable condition. Impression: Successful, uncomplicated needle localization with wire placement and surgical excision of left breast mass, full pathology results to follow. Pathology Results: Result: Malignant, Ductal carcinoma in situ, solid type. LEFT BREAST, LUMPECTOMY: Low to intermediate grade ductal carcinoma in situ (DCIS), involving intraductal papilloma. Cauterized DCIS focally involves the superior and posterior margins, and is less than 1 mm from the anterior margin. See Surgical Pathology Cancer Case Summary. Overall Assessment: Malignant Assessment: MG diagnostic mammo LT wo CAD. - Left: Known biopsy proven malignancy, BI-RAD 6. Management: Surgical Consultation of the left breast. Electronically signed and approved by: Tyshawn Gonzalez D.O. [facility]
== END 2022-12-25 12:18 | disposition home or self-care (01) ==
LOC: OR 07:20
PROVIDERS: ATTEND Surgery
DX: D05.12 Intraductal carcinoma in situ of left breast (principal); E11.9 Type 2 diabetes mellitus without complications; I25.10 Atherosclerotic heart disease of native coronary artery without angina pectoris; I10 Essential (primary) hypertension; E78.5 Hyperlipidemia, unspecified; M19.90 Unspecified osteoarthritis, unspecified site; F41.9 Anxiety disorder, unspecified; F10.90 Alcohol use, unspecified, uncomplicated; E66.9 Obesity, unspecified; I27.20 Pulmonary hypertension, unspecified; G89.29 Other chronic pain; Z90.49 Acquired absence of other specified parts of digestive tract; Z95.5 Presence of coronary angioplasty implant and graft; Z95.1 Presence of aortocoronary bypass graft; Z98.890 Other specified postprocedural states; Z87.891 Personal history of nicotine dependence; Z82.49 Family history of ischemic heart disease and other diseases of the circulatory system; Z83.79 Family history of other diseases of the digestive system; Z79.82 Long term (current) use of aspirin; Z79.4 Long term (current) use of insulin; Z79.899 Other long term (current) drug therapy; Z88.0 Allergy status to penicillin
CPT/HCPCS: 19301; 88307; 77065; 76098; C1819; J2250; J1100; J0690; J2405; J3010; J2704; J1644

== ENCOUNTER 2023-01-11 06:12 | Day surgery (SDC) | payer MEDICARE ==
[~2023-01-11 06:12] MED LIST changes: -DEXAMETHASONE SOD PHOSPHATE 4 MG/ML 1 ML VIAL IV ONE; -HYDROmorphone 0.5 MG/0.5 ML SYRINGE IVP PRN; -LACTATED RINGERS 1,000 ML IV SCH; -MIDAZOLAM 2 MG/2 ML VIAL IV PRN; -ONDANSETRON 4 MG/2 ML VIAL IVP ONE
[2023-01-11] MEDS ORDERED: droPERidol 5 MG/2 ML VIAL IVP ONE (06:37)
[2023-01-11] MEDS ORDERED: LIDOCAINE 1% (10MG/ML) FOR IV START INTRADERMA PRN (06:37)
[2023-01-11] MEDS ORDERED: DEXAMETHASONE SOD PHOSPHATE 4 MG/ML 1 ML VIAL IV ONE (06:37)
[2023-01-11] MEDS ORDERED: LACTATED RINGERS 1,000 ML IV SCH (06:37)
[2023-01-11] MEDS ORDERED: ONDANSETRON 4 MG/2 ML VIAL IVP ONE (06:37)
[2023-01-11] MEDS ORDERED: HYDROmorphone 0.5 MG/0.5 ML SYRINGE IVP PRN (07:00)
[2023-01-11 07:04] LABS: Glucose,Whole Blood 137 mg/dL (70-110)
[2023-01-11] MEDS ORDERED: MIDAZOLAM 2 MG/2 ML VIAL IVP ONE (07:09)
[2023-01-11] MEDS ORDERED: SUCCINYLCHOLINE CHLORIDE 200 MG/10 ML VIAL IV ONE (07:22)
[2023-01-11] MEDS ORDERED: PROPOFOL 10 MG/ML 20 ML VIAL IV ONE (07:22)
[2023-01-11] MEDS ORDERED: ePHEDrine 50 MG/ML 1 ML VIAL ONE (07:22)
[2023-01-11] MEDS ORDERED: fentaNYL (PF) 50 MCG/ML 2 ML AMP ONE (07:22)
[2023-01-11] MEDS ORDERED: LIDOCAINE 2% INJ 20 MG/ML (2 ML VIAL) ONE (07:22)
[2023-01-11] MEDS ORDERED: BUPIVACAINE (PF) 0.25% 30 ML VIAL SQ ONE ×2 (07:25→08:04)
[2023-01-11] MEDS ORDERED: SODIUM CHLORIDE 0.9% 100 ML BAG ONE (07:45)
[2023-01-11] MEDS ORDERED: ceFAZolin 1,000 MG VIAL ONE (07:45)
[2023-01-11] MEDS ORDERED: SODIUM CHLORIDE 0.9% 100 ML with ceFAZolin 2,000 MG IV ONE ×2 (07:50)
[2023-01-11 08:38] VITALS: TEMP 97.7
[2023-01-11] MEDS ORDERED: NALOXONE 0.4 MG/ML 1 ML VIAL IV PRN (08:38)
--- NOTE | 2023-01-11 08:40 | P.OP ---
Date of Procedure: 01/11/23 Procedure(s) Performed: PREOPERATIVE DIAGNOSIS: Left breast cancer POSTOPERATIVE DIAGNOSIS: Same PROCEDURE: Left breast re-lumpectomy SURGEON: Baldev EBL: 5 mL ANESTHESIA: General COMPLICATIONS: None OPERATIVE PROCEDURE: Patient was placed on the operating room table in the supine position. The breast was prepped and draped sterilely. The previous incision was excised using a scalpel. Entrance into the subcutaneous tissues took place using electrocautery. The seroma lumpectomy cavity was entered. Fl uid was evacuated. The previous Vicryl sutures holding the lumpectomy site closed were removed. I then removed the superior and posterior margin extending around most margins slightly. Thickness of the reexcision lumpectomy was approximately 8-10 mm. Anteriorly where the margin was 1 mm we were beneath the skin surface so no further margin was able to be taken there. The subcutaneous tissues were then closed using interrupted 3-0 Vicryl sutures. The skin was closed using a running 4-0 Monocryl stitch. Skin glue was then applied. DISPOSITION: Stable to recovery room
[2023-01-11 09:22] VITALS: RESP 16
[2023-01-11 09:29] VITALS: BP 126/56; PULSE 72
== END 2023-01-11 09:51 | disposition home or self-care (01) ==
LOC: OR 06:12
PROVIDERS: ATTEND Surgery
DX: C50.912 Malignant neoplasm of unspecified site of left female breast (principal); I25.10 Atherosclerotic heart disease of native coronary artery without angina pectoris; I10 Essential (primary) hypertension; E11.42 Type 2 diabetes mellitus with diabetic polyneuropathy; Z87.891 Personal history of nicotine dependence; Z79.4 Long term (current) use of insulin; Z79.899 Other long term (current) drug therapy; Z88.0 Allergy status to penicillin; Z98.890 Other specified postprocedural states; Z95.1 Presence of aortocoronary bypass graft
CPT/HCPCS: 19301; J2250; J0330; J1100; J2405; J0690; J3010; J2704; J1644; J2001

== ENCOUNTER → 2023-02-02 | Outpatient (CLI) | payer MEDICARE ==
--- NOTE | 2023-02-02 09:53 | US ---
EXAMINATION TYPE: US abdomen complete DATE OF EXAM: 02/02/2023 COMPARISON: US 2022, US 2021, CT 2021 CLINICAL INDICATION: Female, 72 years old with history of R18.8 OTHER ASCITES; Hx cholecystectomy, ci rrhosis. Ascites. TECHNIQUE: Multiple sonographic images of the abdomen are obtained. FINDINGS: EXAM MEASUREMENTS: Liver Length: 15.6 cm Gallbladder Wall: Surgically absent CBD: 0.73 cm Spleen: 13.9 cm Right Kidney: 11.6 x 5.1 x 4.8 cm Left Kidney: 10.6 x 5.1 x 5.4 cm [employer]PER NOTES: Limited due to gas. Pancreas: Limited visibility. Liver: Appears very coarse and heterogeneous with increased echogenicity. Gallbladder: Surgically absent CBD: Limited, portions seen measured 0.73 cm Spleen: Slightly enlarged. Right Kidney: No hydronephrosis or masses seen Left Kidney: No hydronephrosis or masses seen Upper IVC: Appears wnl Abd Aorta: Distal segment and iliacs were obscured. Pancreas is poorly visualized due to overlying bowel gas. The liver demonstrates coarse heterogenous echotexture with increased echogenicity and surface nodularity consistent with known cirrhosis. This appearance limits evaluation for lesions. No focal lesion within these limitations. Gallbladder is surgically absent. Common bile duct is within normal limits for postcholecystectomy. S pleen is at the top and are normal for size. Both kidneys are unremarkable without evidence of hydron ephrosis, solid mass, or nephrolithiasis. Upper IVC appears within normal limits. The visualized port ions of the abdominal aorta are within normal limits. The distal segment and iliacs are obscured by o verlying bowel gas. Mild to moderate volume ascites demonstrated throughout the abdomen. Prominent sp lenic vein posterior to the pancreatic body. IMPRESSION: 1. Diffusely heterogenous coarsened liver with surface nodularity consistent with reported cirrhosis. No focal lesion identified. 2. Small to moderate volume ascites. 3. Postcholecystectomy changes.
[2023-02-02 15:56] LABS: ALT 24 U/L (8-44); AST 46 U/L (13-35); Albumin 3.3 d/dL (3.8-4.9); Albumin/Globulin Ratio 1.27 Ratio (1.60-3.17); Alkaline Phosphatase 157 U/L (41-126); BUN/Creat Ratio 19.27 Ratio (12.00-20.00); Blood Urea Nitrogen 21.2 mg/dL (9.0-27.0); Carbon Dioxide 27.6 mmol/L (21.6-31.8); Chloride 106 mmol/L (96-109); Globulin 2.6 d/dL (1.6-3.3); Glucose 125 mg/dL (70-110); Potassium 4.2 mmol/L (3.5-5.5); Sodium 143 mmol/L (135-145); Total Bilirubin 3.6 mg/dL (0.3-1.2); Total Protein 5.9 d/dL (6.2-8.2)
[2023-02-02 17:10] LABS: Basophils # (A) 0.02 X 10*3/uL (0.00-0.10); Basophils % (A) 0.5 %; Eosinophils # (A) 0.08 X 10*3/uL (0.04-0.35); HCT 38.9 % (37.2-46.3); HGB 12.6 d/dL (12.0-15.0); Lymphocytes # (A) 0.53 X 10*3/uL (0.90-5.00); Lymphocytes % (A) 13.3 %; MCH 31.7 pg (27.0-32.0); MCHC 32.4 d/dL (32.0-37.0); MCV 97.7 FL (80.0-97.0); Monocytes # (A) 0.45 X 10*3/uL (0.20-1.00); Monocytes % (A) 11.3 %; NRBC Per 100 WBC 0 X 10*3/uL (0.00-0.01); Neutrophils # (A) 2.91 X 10*3/uL (1.80-7.70); Neutrophils % (A) 72.6 %; Platelet Count 90 X 10*3/uL (140-440); RBC 3.98 X 10*6/uL (4.10-5.20); RBC Morphology Normal (Normal)
[2023-02-02 19:04] LABS: Gliadin AB IgA, Deaminated Negative (Negative); Gliadin AB IgA, Unit 1.5 U/mL; Gliadin AB IgG, Deaminated Negative (Negative); Gliadin AB IgG, Unit 0.5 U/mL
[2023-02-02 20:37] LABS: INR 1.17 sec (0.93-1.11); Prothrombin Time 13.1 sec (9.9-11.9)
== END | disposition home or self-care (01) ==
LOC: RADUSWWP 07:30
PROVIDERS: ATTEND Internal Medicine Gastroenterology
DX: K74.69 Other cirrhosis of liver (principal); R18.8 Other ascites; R14.0 Abdominal distension (gaseous); Z90.49 Acquired absence of other specified parts of digestive tract
CPT/HCPCS: 76700; 80053; 82105; 82140; 83516; 85025; 85610

== ENCOUNTER → 2023-02-16 | Outpatient (CLI) | payer MEDICARE ==
[2023-02-16 11:05] LABS: Basophils # (A) 0.04 X 10*3/uL (0.00-0.10); Basophils % (A) 0.7 %; Eosinophils # (A) 0.21 X 10*3/uL (0.04-0.35); Eosinophils % (A) 3.7 %; HCT 40.1 % (37.2-46.3); HGB 13.6 d/dL (12.0-15.0); Lymphocytes # (A) 1.17 X 10*3/uL (0.90-5.00); Lymphocytes % (A) 20.6 %; MCH 31.9 pg (27.0-32.0); MCHC 33.9 d/dL (32.0-37.0); MCV 93.9 FL (80.0-97.0); Mean Platelet Volume 10.9 FL (9.5-12.2); Monocytes # (A) 0.56 X 10*3/uL (0.20-1.00); Monocytes % (A) 9.8 %; NRBC Per 100 WBC 0 X 10*3/uL (0.00-0.01); Neutrophils # (A) 3.69 X 10*3/uL (1.80-7.70); Neutrophils % (A) 64.8 %; Platelet Count 111 X 10*3/uL (140-440); RBC 4.27 X 10*6/uL (4.10-5.20); RDW 13.8 % (11.5-14.5); WBC 5.69 X 10*3/uL (4.50-10.00)
[2023-02-16 11:17] LABS: ALT 27 U/L (8-44); AST 53 U/L (13-35); Albumin 3.7 d/dL (3.8-4.9); Albumin/Globulin Ratio 1.12 Ratio (1.60-3.17); Alkaline Phosphatase 189 U/L (41-126); BUN/Creat Ratio 15.08 Ratio (12.00-20.00); Blood Urea Nitrogen 18.1 mg/dL (9.0-27.0); Calcium 9.3 mg/dL (8.7-10.3); Carbon Dioxide 30.6 mmol/L (21.6-31.8); Chloride 100 mmol/L (96-109); Globulin 3.3 d/dL (1.6-3.3); Glucose 108 mg/dL (70-110); Potassium 4.3 mmol/L (3.5-5.5); Sodium 140 mmol/L (135-145); Total Bilirubin 2.7 mg/dL (0.3-1.2)
== END | disposition home or self-care (01) ==
LOC: LABWHC1 07:51
PROVIDERS: ATTEND Nurse Practitioner Family
DX: K74.69 Other cirrhosis of liver (principal)
CPT/HCPCS: 36415; 80053; 85025

== ENCOUNTER → 2023-02-25 | Outpatient (CLI) | payer MEDICARE ==
--- NOTE | 2023-02-25 12:11 | BD ---
EXAMINATION TYPE: Axial Bone Density DATE OF EXAM: 02/25/2023 CLINICAL HISTORY: 72 years old Female. ICD-10 CODE: M85.88 OT DISRD OF BONE DENSITY AND STRUCTURE, OT Height: 64.5" Weight: 180.8lbs FRAX RISK QUESTIONS: Alcohol (3 or more units per day): No Family History (Parent hip fracture): No Glucocorticoids (More than 3mos): No (Ex: prednisone, prednisolone, methylprednisolone, dexamethasone, and hydrocortisone). History of Fracture in Adulthood: No Secondary Osteoporosis: 1. Type 1 Diabetes: No 2. Hyperthyroidism: No 3. Menopause before 45: No 4. Malnutrition: No 5. Chronic liver disease: Yes, cirrhosis of liver, dx about 5 years ago Rheumatoid Arthritis: No Current Tobacco Use: No RISK FACTORS HISTORY OF: Hip Fracture (Right/Left): No Spine Fracture: No History of Wrist Fracture: No Surgery to Spine/Hip(right/left)/Wrist (right/left): No Family History of Osteoporosis: Yes, maternal grandmother Active: Yes Diet low in dairy products/other sources of calcium: No Postmenopausal woman: Yes Lost more than 2 inches in height since high school: Yes Frequent falls: No Poor Health: Fair health Hyperparathyroidism: No Adrenal Insufficiency: No MEDICATIONS: Prednisone or other steroids: No Thyroid Medications: No Osteoporosis Medications: No Additional Medications: Insulin, Ozempic additional mediations and health concerns scanned into PACS Additional History: Additional health history scanned into PACS EXAM MEASUREMENTS: Bone mineral densitometry was performed using the [employer]. Bone mineral density as measured about the Lumbar spine is: ----- L1-L4(G/cm2): 1.481 T Score Values are as follows: ----- L1: 2.1 ----- L2: 2.3 ----- L3: 2.8 ----- L4: 2.7 ----- L1-L4: 2.5 Z Score Values are as follows: ----- L1: 3.3 ----- L2: 3.5 ----- L3: 3.9 ----- L4: 3.8 ----- L1-L4: 3.7 Bone mineral density has: decreased -2.9% since study of: 08/10/2019 Bone mineral density about the R hip (g/cm2): 0.996 Bone mineral density about the L hip (g/cm2): 1.026 T Score values are as follows: -----R Neck: -0.3 -----L Neck: -0.5 -----R Total: -0.1 -----L Total: 0.1 Z Score values are as follows: -----R Neck: 1.2 -----L Neck: 0.9 -----R Total: 1.1 -----L Total: 1.3 Bone mineral density has: decreased -4.6% since study of: 08/10/2019 FRAX%s: The graph provided illustrates a 8.0% chance for a major osteoporotic fx and a 0.7% chance fo r the hips probability for fx in 10 years time. IMPRESSION: Normal (Values between +1 and -1 indicate normal bone mass). Consider repeating this study in 5 year s or sooner if there is some new clinical indication. NOTE: T-SCORE=SD OF THE YOUNG ADULT MEAN.
== END | disposition home or self-care (01) ==
LOC: RADBDWWP 11:26
PROVIDERS: ATTEND Internal Medicine Hematology & Oncology
DX: M85.88 Other specified disorders of bone density and structure, other site (principal); D05.12 Intraductal carcinoma in situ of left breast; D69.6 Thrombocytopenia, unspecified; E11.9 Type 2 diabetes mellitus without complications
CPT/HCPCS: 77080

== ENCOUNTER → 2023-03-30 | Outpatient (CLI) | payer MEDICARE ==
[2023-03-30 15:32] LABS: Basophils # (A) 0.02 X 10*3/uL (0.00-0.10); Basophils % (A) 0.4 %; Eosinophils # (A) 0.18 X 10*3/uL (0.04-0.35); Eosinophils % (A) 3.9 %; HCT 40.6 % (37.2-46.3); HGB 13.8 d/dL (12.0-15.0); Lymphocytes # (A) 0.65 X 10*3/uL (0.90-5.00); Lymphocytes % (A) 14.1 %; MCH 31.9 pg (27.0-32.0); Mean Platelet Volume 10.7 FL (9.5-12.2); Monocytes % (A) 6.5 %; NRBC Per 100 WBC 0 X 10*3/uL (0.00-0.01); Neutrophils # (A) 3.44 X 10*3/uL (1.80-7.70); Neutrophils % (A) 74.9 %; Platelet Count 87 X 10*3/uL (140-440); RBC 4.32 X 10*6/uL (4.10-5.20); RDW 13.9 % (11.5-14.5)
[2023-03-30 16:06] LABS: INR 1.15 sec (0.93-1.11); Prothrombin Time 12.9 sec (9.9-11.9)
[2023-03-30 16:58] LABS: ALT 31 U/L (8-44); AST 50 U/L (13-35); Albumin 3.8 d/dL (3.8-4.9); Albumin/Globulin Ratio 1.23 Ratio (1.60-3.17); Alkaline Phosphatase 174 U/L (41-126); BUN/Creat Ratio 24.92 Ratio (12.00-20.00); Blood Urea Nitrogen 32.4 mg/dL (9.0-27.0); Calcium 9.8 mg/dL (8.7-10.3); Carbon Dioxide 28.9 mmol/L (21.6-31.8); Chloride 101 mmol/L (96-109); Globulin 3.1 d/dL (1.6-3.3); Glucose 186 mg/dL (70-110); Potassium 4.3 mmol/L (3.5-5.5); Sodium 140 mmol/L (135-145); Total Bilirubin 3.3 mg/dL (0.3-1.2); Total Protein 6.9 d/dL (6.2-8.2)
== END | disposition home or self-care (01) ==
LOC: LABWHC1 08:22
PROVIDERS: ATTEND Internal Medicine Gastroenterology
DX: K74.69 Other cirrhosis of liver (principal); K74.60 Unspecified cirrhosis of liver; K75.81 Nonalcoholic steatohepatitis (NASH)
CPT/HCPCS: 36415; 80053; 82105; 85025; 85610

== ENCOUNTER → 2023-06-14 | Outpatient (CLI) | payer MEDICARE ==
--- NOTE | 2023-06-14 08:24 | US ---
EXAMINATION TYPE: US liver DATE OF EXAM: 06/14/2023 COMPARISON: Abdominal ultrasound 02/02/2023 CLINICAL INDICATION: Female, 72 years old with history of K74.69 OTHER CIRRHOSIS OF LIVER; known cirr hosis, cholecystectomy TECHNIQUE: Multiple sonographic images of the right upper quadrant are obtained. FINDINGS: EXAM MEASUREMENTS: Liver Length: 16.9 cm Gallbladder Wall: Surgically absent CBD: 1.0 cm Right Kidney: 10.2 x 4.0 x 4.7 cm [employer]PER[employer] DIVISION NOTES:difficult to penetrate, bowel gas and habitus limits exam Pancreas: portion seen appear wnl Liver: nodular and difficult to penetrate Gallbladder: Surgically absent CBD: upper limit of normal Right Kidney: wnl The visualized portions of the pancreas are unremarkable. Liver demonstrates nodular appearance with coarsened echotexture and surface nodularity. This limits evaluation for focal lesions. No focal lesi on identified. Gallbladder is surgically absent. Common bile duct is within normal limits for post ch olecystectomy. Right kidney is unremarkable without evidence of hydronephrosis, nephrolithiasis, or s olid mass. IMPRESSION: 1. Hepatic cirrhosis without focal lesion identified. 2. Post cholecystectomy.
[2023-06-14 16:53] LABS: Basophils # (A) 0.03 X 10*3/uL (0.00-0.10); Basophils % (A) 0.6 %; Eosinophils # (A) 0.32 X 10*3/uL (0.04-0.35); Eosinophils % (A) 6.4 %; Lymphocytes # (A) 0.81 X 10*3/uL (0.90-5.00); Lymphocytes % (A) 16.2 %; MCH 31.1 pg (27.0-32.0); MCHC 33.3 d/dL (32.0-37.0); MCV 93.3 FL (80.0-97.0); Mean Platelet Volume 10.7 FL (9.5-12.2); Monocytes # (A) 0.55 X 10*3/uL (0.20-1.00); NRBC Per 100 WBC 0 X 10*3/uL (0.00-0.01); Neutrophils # (A) 3.27 X 10*3/uL (1.80-7.70); Neutrophils % (A) 65.4 %; Platelet Count 92 X 10*3/uL (140-440); RBC 3.86 X 10*6/uL (4.10-5.20)
[2023-06-14 17:02] LABS: ALT 30 U/L (8-44); AST 43 U/L (13-35); Albumin 3.6 d/dL (3.8-4.9); Albumin/Globulin Ratio 1.24 Ratio (1.60-3.17); Alkaline Phosphatase 179 U/L (41-126); BUN/Creat Ratio 18.82 Ratio (12.00-20.00); Blood Urea Nitrogen 20.7 mg/dL (9.0-27.0); Calcium 9.4 mg/dL (8.7-10.3); Carbon Dioxide 26.4 mmol/L (21.6-31.8); Chloride 104 mmol/L (96-109); Globulin 2.9 d/dL (1.6-3.3); Glucose 116 mg/dL (70-110); Potassium 4.7 mmol/L (3.5-5.5); Sodium 141 mmol/L (135-145); Total Bilirubin 2.4 mg/dL (0.3-1.2); Total Protein 6.5 d/dL (6.2-8.2)
[2023-06-14 19:12] LABS: INR 1.31 sec (0.93-1.11); Prothrombin Time 13.9 sec (9.9-11.9)
== END | disposition home or self-care (01) ==
LOC: RADUSWWP 07:45
PROVIDERS: ATTEND Internal Medicine Gastroenterology
DX: K74.69 Other cirrhosis of liver (principal); K75.81 Nonalcoholic steatohepatitis (NASH); Z90.49 Acquired absence of other specified parts of digestive tract
CPT/HCPCS: 76705; 80053; 82105; 85025; 85610

== ENCOUNTER → 2023-07-27 | Outpatient (CLI) | payer MEDICARE ==
[2023-07-27 18:20] LABS: Basophils # (A) 0.02 X 10*3/uL (0.00-0.10); Basophils % (A) 0.4 %; Eosinophils # (A) 0.11 X 10*3/uL (0.04-0.35); Eosinophils % (A) 2.5 %; HCT 36.1 % (37.2-46.3); HGB 11.8 g/dL (12.0-15.0); Lymphocytes # (A) 0.66 X 10*3/uL (0.90-5.00); Lymphocytes % (A) 14.8 %; MCHC 32.7 g/dL (32.0-37.0); MCV 88.7 FL (80.0-97.0); Mean Platelet Volume 11.4 FL (9.5-12.2); Monocytes # (A) 0.35 X 10*3/uL (0.20-1.00); Monocytes % (A) 7.8 %; NRBC Per 100 WBC 0 X 10*3/uL (0.00-0.01); Neutrophils # (A) 3.31 X 10*3/uL (1.80-7.70); Neutrophils % (A) 74.3 %; Platelet Count 91 X 10*3/uL (140-440); RBC 4.07 X 10*6/uL (4.10-5.20); RDW 13.9 % (11.5-14.5); WBC 4.46 X 10*3/uL (4.50-10.00)
[2023-07-27 18:39] LABS: INR 1.41 sec (0.93-1.11); Prothrombin Time 14.9 sec (9.9-11.9)
[2023-07-27 18:52] LABS: ALT 26 U/L (8-44); AST 47 U/L (13-35); Albumin 3.5 g/dL (3.8-4.9); Albumin/Globulin Ratio 1.09 Ratio (1.60-3.17); Alkaline Phosphatase 180 U/L (41-126); BUN/Creat Ratio 23.91 Ratio (12.00-20.00); Blood Urea Nitrogen 26.3 mg/dL (9.0-27.0); Calcium 9.2 mg/dL (8.7-10.3); Carbon Dioxide 24.8 mmol/L (21.6-31.8); Chloride 99 mmol/L (96-109); Globulin 3.2 g/dL (1.6-3.3); Glucose 220 mg/dL (70-110); Potassium 4.2 mmol/L (3.5-5.5); Sodium 137 mmol/L (135-145); Total Bilirubin 2.8 mg/dL (0.3-1.2); Total Protein 6.7 g/dL (6.2-8.2)
== END | disposition home or self-care (01) ==
LOC: LABWHC1 13:42
PROVIDERS: ATTEND Internal Medicine Gastroenterology
DX: K74.60 Unspecified cirrhosis of liver (principal); K75.81 Nonalcoholic steatohepatitis (NASH)
CPT/HCPCS: 36415; 80053; 85025; 85610

== ENCOUNTER 2023-09-03 08:57 | Day surgery (SDC) | payer MEDICARE ==
[2023-09-03 09:41] LABS: Mean Platelet Volume 8.3; Platelet Count 113 k/uL (150-450)
[2023-09-03 09:51] LABS: INR 1.3 (<1.2); Prothrombin Time 13.3 sec (10.0-12.5)
[2023-09-03 09:52] LABS: African American GFR (CKD) 70 (>60 ml/min/1.73 sqM); Glucose 295 mg/dL (74-99); Non-African American GFR(CKD) 61 (>60 ml/min/1.73 sqM)
[2023-09-03 10:15] VITALS: RESP 18; TEMP 98.1
--- NOTE | 2023-09-03 15:42 | US ---
EXAMINATION TYPE: US paracentesis diagnostic abd w/image DATE OF EXAM: 09/03/2023 CLINICAL HISTORY: 73-year-old female R1 8.8, other ascites, referred for diagnostic paracentesis The procedure was discussed with the patient. The risks, complications, benefits, and alternatives we re discussed and any questions were answered. Informed consent was obtained. The patient was placed s upine on the ultrasound table and prepped and draped in the usual sterile fashion. All elements of maximal barrier technique were utilized. Ultrasound was utilized to determine the precise skin entry site along the left lower quadrant/left f lank. A 5 Portuguese one-step catheter and trocar technique was utilized to access the ascites collection under direct ultrasound guidance. Approximately 2.6 L of straw-colored fluid was removed. Total 120 mL sample was labeled for laborator y analysis. Catheter was removed, hemostasis obtained, and a dressing placed. The patient was stable throughout the procedure and remained stable upon discharge from Department of Radiology. IMPRESSION: Successful therapeutic and diagnostic paracentesis under ultrasound guidance. Total 2.6 L of fluid re moved. Laboratory analysis pending.
[2023-09-03 16:39] VITALS: BP 117/68; PULSE 88
[2023-09-03 20:38] LABS: Appearance,BF Slightly Cloudy (Clear)
[2023-09-03 21:20] LABS: T. Protein, Body Fluid Source Paracentesis Fluid; Total Protein, Body Fluid 938 mg/dL
[2023-09-03 21:36] LABS: Albumin, Fluid Source Paracentesis Fluid
== END 2023-09-03 11:45 | disposition home or self-care (01) ==
LOC: RADPROMAIN 08:57
PROVIDERS: ATTEND Internal Medicine Gastroenterology
DX: R18.8 Other ascites (principal); K75.81 Nonalcoholic steatohepatitis (NASH); K74.60 Unspecified cirrhosis of liver
CPT/HCPCS: 49083; 82042; 82565; 82947; 84157; 85049; 85610; 87070; 87075; 87205; 88108; 88305; 88341; 88342; 89050

== ENCOUNTER → 2023-09-23 | Outpatient (CLI) | payer MEDICARE ==
--- NOTE | 2023-09-23 15:55 | XR ---
EXAMINATION TYPE: XR sacrum coccyx DATE OF EXAM: 09/23/2023 COMPARISON: NONE HISTORY: 73-year-old female M53.3 Sacrococcygeal pain TECHNIQUE: 3 views FINDINGS: There may be mild subarticular sclerosis of the SI joints. Mild degenerative change of the pubic symphysis. Smooth delineation to the arcuate lines of the sacrum. Pelvic fluid legs. No displac ed or angulated sacral or coccygeal fracture is seen. Moderate to advanced spondylotic change visuali zed lower lumbar spine. IMPRESSION: 1. 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 Some degenerative change of the pubic symphysis as well. 2. No displaced or angulated tailbone fracture seen.
== END | disposition home or self-care (01) ==
LOC: RADXRMAIN 10:14
PROVIDERS: ATTEND Family Medicine
DX: M53.3 Sacrococcygeal disorders, not elsewhere classified (principal)
CPT/HCPCS: 72220

== ENCOUNTER 2023-10-05 08:47 | Day surgery (SDC) | payer MEDICARE ==
[2023-10-05] MEDS ORDERED: ALBUMIN HUMAN 25% 50 ML in EMPTY BAG 1 BAG IVPB ONE (09:09)
[2023-10-05 09:47] LABS: Anisocytosis Slight; Basophils % (A) 0 %; Eosinophils # (A) 0.2 k/uL (0-0.7); Eosinophils % (A) 3 %; HCT 38.4 % (34.0-46.0); HGB 12.7 gm/dL (11.4-16.0); Lymphocytes # (A) 0.7 k/uL (1.0-4.8); Lymphocytes % (A) 13 %; MCH 29.6 pg (25.0-35.0); MCHC 33.1 g/dL (31.0-37.0); MCV 89.5 fL (80.0-100.0); Mean Platelet Volume 8.1; Monocytes # (A) 0.4 k/uL (0-1.0); Monocytes % (A) 7 %; Neutrophils % (A) 75 %; Platelet Count 127 k/uL (150-450); RBC 4.29 m/uL (3.80-5.40); RDW 16.6 % (11.5-15.5); WBC 5.3 k/uL (3.8-10.6)
[2023-10-05 09:55] LABS: INR 1.4 (<1.2); Prothrombin Time 14.1 sec (10.0-12.5)
[2023-10-05 10:03] LABS: ALT 32 U/L (4-34); AST 54 U/L (14-36); African American GFR (CKD) 59 (>60 ml/min/1.73 sqM); Albumin 3.3 g/dL (3.5-5.0); Alkaline Phosphatase 321 U/L (38-126); Anion Gap 3 mmol/L; Bilirubin, Delta 0.6 mg/dL (0.0-0.2); Bilirubin,Unconjugated 2.5 mg/dL (0.0-1.1); Blood Urea Nitrogen 27 mg/dL (7-17); Carbon Dioxide 28 mmol/L (22-30); Chloride 103 mmol/L (98-107); Glucose 273 mg/dL (74-99); Non-African American GFR(CKD) 51 (>60 ml/min/1.73 sqM); Potassium 4.6 mmol/L (3.5-5.1); Sodium 134 mmol/L (137-145); Total Bilirubin 3.1 mg/dL (0.2-1.3); Total Protein 7.2 g/dL (6.3-8.2)
[2023-10-05 10:04] VITALS: TEMP 98.1
[2023-10-05 11:06] VITALS: RESP 16
[2023-10-05 11:35] VITALS: BP 117/56; PULSE 80
--- NOTE | 2023-10-05 14:32 | US ---
EXAMINATION TYPE: US paracentesis abd w/image DATE OF EXAM: 10/05/2023 10:48 AM CLINICAL INDICATION:Female, 73 years old with history of K74.60 ascites; COMPARISON: 09/03/2023. ATTENDING: Dr. Royer Marte PROCEDURE: Informed consent was obtained. The risks of the procedure were extensively explained incl uding risk of damage to surrounding bowel with perforation and need for additional procedures. Proced ure was performed in the ultrasound procedure suite. Ultrasound imaging of the abdomen demonstrate as citic fluid. An appropriate access site was localized to the left lower abdomen. Timeout was taken pe r protocol. The skin was prepped and draped in the usual sterile fashion and then locally anesthetize d with 1% lidocaine. The peritoneal cavity was then accessed via a 5-Spanish one-step needle/catheter . Approximately 2700 cc of clear straw-colored fluid was obtained. Postprocedural imaging of the ab domen demonstrate a minimal amount of abdominal fluid. Patient tolerated procedure well without immediate complication. Hemostasis at the procedural site w as obtained with a sterile bandage placed. The patient was monitored in the holding area following th e procedure and was subsequently discharged in stable condition. IMPRESSION: Ultrasound guided paracentesis, with approximately 2700 cc of clear straw-colored fluid drained. No immediate complications were evident.
[2023-10-05 19:04] LABS: Appearance,BF Slightly Cloudy (Clear)
== END 2023-10-05 11:20 | disposition home or self-care (01) ==
LOC: RADPROMAIN 08:47
PROVIDERS: ATTEND Internal Medicine Gastroenterology
DX: R18.8 Other ascites (principal)
CPT/HCPCS: 36415; 49083; 80048; 80076; 82105; 85025; 85610; 87070; 87075; 87205; 89050

== ENCOUNTER → 2023-10-22 | Outpatient (CLI) | payer MEDICARE ==
--- NOTE | 2023-10-22 13:19 | MM ---
Reason for Exam: Follow-up at short interval from prior study. Last screening mammogram was performed 12 month(s) ago. Patient History: Menarche at age 12. First Full-Term at age 23. Postmenopausal. Breast cancer, left, age 72. 12/25/2022, Lumpectomy on the Left side. 12/25/2022, Malignant US breast localization LT on the left side. 12/02/2022, Malignant US biopsy breast VAD LT on the left side. Prior Study Comparison: 11/06/2022 Bilateral MG 3D screening mammo w/cad, [facility]. 11/16/2022 Left US breast workup limited LT, [facility]. 12/02/2022 Left MG diagnostic mammo LT wo CAD., [facility]. 12/25/2022 Left MG diagnostic mammo LT wo CAD., [facility]. Tissue Density: There are scattered fibroglandular densities. Findings: Analyzed By CAD. The pattern is symmetrical. Pattern appears stable. Coarse calcifications are grouped in the outer right breast. Scattered benign-appearing round calcifications are present. Lumpectomy clips are within the outer left breast. No suspicious groups of microcalcifications, spiculated or lobular masses, architectural distortion or other secondary signs of malignancy are mammographically apparent. Overall Assessment: Incomplete: need additional imaging evaluation, BI-RAD 0 Management: Diagnostic Breast Ultrasound of the left breast. A negative mammogram report should not preclude additional follow up of suspicious palpable abnormalities. Patient should continue monthly self breast exam. A clinical breast exam by your physician is recommended on an annual basis and results should be correlated with mammographic findings. Electronically signed and approved by: Osmin Sorenson D.O. Radiologis
--- NOTE | 2023-10-22 14:37 | USB ---
Reason for Exam: Clinical finding. Patient History: Menarche at age 12. First Full-Term at age 23. Postmenopausal. Breast cancer, left, age 72. 12/25/2022, Lumpectomy on the Left side. 12/25/2022, Malignant US breast localization LT on the left side. 12/02/2022, Malignant US biopsy breast VAD LT on the left side. Technique: Method: Whole Breast Handheld. Prior Study Comparison: 11/06/2022 Bilateral MG 3D screening mammo w/cad, [facility]. 12/02/2022 Left MG diagnostic mammo LT wo CAD., [facility]. 12/25/2022 Left MG diagnostic mammo LT wo CAD., [facility]. Findings: The whole breast of the left breast, the axilla of the left breast and the retroareolar of the left breast were scanned. No suspicious solid or cystic masses are identified. There may be a tiny duct or seroma at the 3:00 position 1 cm from the nipple left breast. This area measures 0.8 x 0.2 x 0.4 cm.. Overall Assessment: Probably benign, BI-RAD 3 Management: Diagnostic Breast Ultrasound of the left breast in 6 months. A clinical breast exam by your physician is recommended on an annual basis and results should be correlated with mammographic findings. This exam should not preclude additional follow-up of suspicious palpable abnormalities. Results were given to the patient verbally at the time of exam. Electronically signed and approved by: Osmin Sorenson D.O. Radiologis
== END | disposition home or self-care (01) ==
LOC: RADMAMWWP 12:52
PROVIDERS: ATTEND Surgery
DX: R92.323 Mammographic fibroglandular density, bilateral breasts (principal); Z85.3 Personal history of malignant neoplasm of breast; Z78.0 Asymptomatic menopausal state
CPT/HCPCS: 77066; 76641; G0279; 77062

== ENCOUNTER 2023-11-09 08:52 | Day surgery (SDC) | payer MEDICARE ==
[2023-11-09 09:24] LABS: Mean Platelet Volume 8.3; Platelet Count 160 k/uL (150-450)
[2023-11-09 09:28] LABS: INR 1.4 (<1.2); Prothrombin Time 14.7 sec (10.0-12.5)
[2023-11-09 09:36] VITALS: TEMP 98
[2023-11-09 10:46] VITALS: BP 129/72; PULSE 76; RESP 12
--- NOTE | 2023-11-09 11:24 | US ---
Ultrasound-guided paracentesis. DATE OF EXAM: 11/09/2023 CLINICAL HISTORY: Ascites The procedure was discussed with the patient. The risks, complications, benefits, and alternatives we re discussed and any questions were answered. Informed consent was obtained. The patient was placed s upine on the ultrasound table and prepped and draped in the usual sterile fashion. All elements of maximal barrier technique were utilized. Under ultrasound guidance, access into the right lower quadrant was obtained, via the paracentesis catheter system and direct ultrasound guidanc e. Approximately 3.7 liters of straw-colored fluid was removed. The patient was stable throughout the pr ocedure and remained stable upon discharge from Department of Radiology. IMPRESSION: Successful paracentesis under ultrasound guidance.
== END 2023-11-09 10:45 | disposition home or self-care (01) ==
LOC: RADPROMAIN 08:52
PROVIDERS: ATTEND Internal Medicine Gastroenterology
DX: R18.8 Other ascites (principal)
CPT/HCPCS: 36415; 49083; 85049; 85610

== ENCOUNTER 2023-11-29 12:57 | Day surgery (SDC) | payer MEDICARE ==
[2023-11-29] MEDS ORDERED: ALBUMIN HUMAN 25% 50 ML in EMPTY BAG 1 BAG IVPB SCH (13:00)
[2023-11-29 14:26] VITALS: BP 133/82; PULSE 77; RESP 18; TEMP 97.9
== END 2023-11-29 13:30 | disposition home or self-care (01) ==
LOC: RADPROMAIN 12:57
PROVIDERS: ATTEND Internal Medicine Gastroenterology
DX: Z53.8 Procedure and treatment not carried out for other reasons (principal); R18.8 Other ascites

== ENCOUNTER 2023-11-30 12:41 | Day surgery (SDC) | payer MEDICARE ==
[2023-11-30 13:17] LABS: Mean Platelet Volume 7.8; Platelet Count 148 k/uL (150-450)
[2023-11-30 13:35] LABS: African American GFR (CKD) 64 (>60 ml/min/1.73 sqM); Glucose 225 mg/dL (74-99); Non-African American GFR(CKD) 55 (>60 ml/min/1.73 sqM)
[2023-11-30 13:37] LABS: INR 1.3 (<1.2)
[2023-11-30 13:51] VITALS: RESP 16; TEMP 98.3
[2023-11-30 15:13] VITALS: BP 117/57; PULSE 66
--- NOTE | 2023-11-30 16:14 | US ---
Ultrasound-guided paracentesis. DATE OF EXAM: 11/30/2023 CLINICAL HISTORY: Ascites The procedure was discussed with the patient. The risks, complications, benefits, and alternatives we re discussed and any questions were answered. Informed consent was obtained. The patient was placed s upine on the ultrasound table and prepped and draped in the usual sterile fashion. All elements of maximal barrier technique were utilized. Under ultrasound guidance, access into the right lower quadrant was obtained, via the paracentesis catheter system and direct ultrasound guidanc e. Approximately 3.7 liters of straw-colored fluid was removed. The patient was stable throughout the pr ocedure and remained stable upon discharge from Department of Radiology. IMPRESSION: Successful paracentesis under ultrasound guidance.
== END 2023-11-30 14:50 | disposition home or self-care (01) ==
LOC: RADPROMAIN 12:41
PROVIDERS: ATTEND Internal Medicine Gastroenterology
DX: R18.8 Other ascites (principal)
CPT/HCPCS: 36415; 49083; 82565; 82947; 85049; 85610

== ENCOUNTER 2023-12-11 19:16 | Emergency (ER) | payer MEDICARE ==
[2023-12-11 19:39] VITALS: RESP 18; TEMP 98.7
--- NOTE | 2023-12-11 20:01 | ED ---
ENT HPI - General Chief complaint: ENT Stated complaint: Nose bleed Time Seen by Provider: 12/11/23 19:26 Source: patient Mode of arrival: ambulatory Limitations: no limitations - History of Present Illness Initial comments: 73-year-old female on aspirin presenting to the ED with a chief complaint of epistaxis. Patient states earlier today started experiencing nosebleed primarily of her left nose. Due to it not stopping went to an urgent care who packed her nose bilaterally. She was advised that she can remove the packing out of her right nostril today however was advised to keep packing in the left nostril until tomorrow. 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 Patient presenting to the ED because she was concerned that she started to have a little bit of blood going to the back of her throat and was worried that she may be bleeding through the packing as when she dabs the packing in her left nostril she notices faint amount of blood on the paper towel. No difficulties breathing. No other complaints at this time. - Related Data Home Medications Medication Instructions Recorded Confirmed Baclofen [Lioresal] 20 mg PO HS 01/22/16 11/30/23 Pramipexole [Mirapex] 0.25 mg PO HS 01/16/17 11/30/23 Furosemide [Lasix] 40 mg PO BID 12/20/17 11/30/23 Spironolactone [Aldactone] 150 mg PO QAM 05/15/21 11/30/23 Gabapentin 300 mg PO HS 06/12/21 11/30/23 Aspirin [Adult Low Dose Aspirin EC] 81 mg PO QAM 10/14/21 11/30/23 Insulin Degludec [Tresiba 30 units SQ QA 11/06/22 11/30/23 Flextouch U-100 Pen] Pravastatin Sodium [Pravachol] 20 mg PO QAM 11/06/22 11/30/23 Propranolol HCl [Propranolol HCl 80 mg PO QAM 11/06/22 11/30/23 ER] Pantoprazole [Protonix] 40 mg PO QAM 12/18/22 11/30/23 Semaglutide [Ozempic] 0.5 mg SQ WEEKLY 08/27/23 11/30/23 Magnesium 250 mg PO DAILY 11/03/23 11/30/23 Apixaban [Eliquis] 2.5 mg PO BID 11/29/23 11/30/23 Allergies Allergy/AdvReac Type Severity Reaction Status Date / Time Penicillins Allergy Unknown Verified 12/11/23 19:25 Childhood Review of Systems ROS Statement: Those systems with pertinent positive or pertinent negative responses have been documented in the HPI. ROS Other: All systems not noted in ROS Statement are negative. Past Medical History Past Medical History: Coronary Artery Disease (CAD), Cancer, Diabetes Mellitus, Hyperlipidemia, Hypertension, Liver Disease, Osteoarthritis (OA) Additional Past Medical History / Comment(s): Obesity, neuropathy lower extremities, chronic back pain and pulmonary hypertension. lt lower leg poor circulation per pt, chirrohsis, ascites, Left breast Cancer- 2022, in remission. Pt on liver transplant list at [facility], ASCITES, vericose vein banded 11/2023. Thrombus in portal vein. History of Any Multi-Drug Resistant Organisms: None Reported Past Surgical History: Cholecystectomy, Coronary Bypass/CABG, Heart Cathet erization, Orthopedic Surgery Additional Past Surgical History / Comment(s): RT carpel tunnel release sx , laser surgery on varicose veins , 2 VESSEL CABG. 3 THORACENTESIS post CABG, multiple paracentesis procedures, left breast lumpectomy x2, D&C Past Anesthesia/Blood Transfusion Reactions: No Reported Reaction Past Psychological History: Anxiety Smoking Status: Former smoker Past Alcohol Use History: None Reported Past Drug Use History: None Reported - Past Family History Mother Brother(s) Family Medical History: Cancer Additional Family Medical History / Comment(s): MOM FROM PERITONITIS/DIVERTICULITIS WITH BOWEL BURST Father Family Medical History: Myocardial Infarction ([place]) Additional Family Medical History / Comment(s): FROM [place] AGE 62 Brother(s) Family Medical History: Cancer, Coronary Artery Disease (CAD) Additional Family Medical History / Comment(s): ONE BROTHER HAD CANCER, ONE BROTHER HAD QUAD CABG. General Exam Limitations: no limitations General appearance: alert, in no apparent distress ENT exam: Present: normal oropharynx (No posterior oropharyngeal drainage of blood.), other (Packing in right nostril dry, unsaturated. Packing in left nostril does have some saturation with blood however does not appear fully saturated. There is no bleeding through the packing.) Respiratory exam: Present: normal lung sounds bilaterally Cardiovascular Exam: Present: regular rate GI/Abdominal exam: Present: soft Neurological exam: Present: alert, oriented X3 Skin exam: Present: warm, dry Course Vital Signs 12/11/23 19:22 Temperature 98.7 F Pulse Rate 67 Respiratory 18 Rate Blood Pressure 130/66 O2 Sat by Pulse 100 Oximetry Medical Decision Making - Medical Decision Making Was pt. sent in by a medical professional or institution (MICHELLE Woodruff, SECONDARY SET UP MAN, urgent care, hospital, or alf...) When possible be specific @ -No Did you speak to anyone other than the patient for history (EMS, parent, family, police, friend...)? What history was obtained from this source @ -No Did you review nursing and triage notes (agree or disagree)? Why? @ -I reviewed and agree with nursing and triage notes Were old charts reviewed (outside hosp., previous admission, EMS record, old EKG, old radiological studies, urgent care reports/EKG's, alf records)? Report findings @ -No old charts were reviewed Differential Diagnosis (chest pain, altered mental status, abdominal pain women, abdominal pain men, vaginal bleeding, weakness, fever, dyspnea, syncope, headache, dizziness, GI bleed, back pain, seizure, CVA, palpatations, mental health, musculoskeletal)? @ -Facial trauma, nasal tumor, coagulopathy. This not meant to be an all- inclusive list. EKG interpreted by me (3pts min.). @ -None X-rays interpreted by me (1pt min.). @ -None done CT interpreted by me (1pt min.). @ -None done U/S interpreted by me (1pt. min.). @ -None done What testing was considered but not performed or refused? (CT, X-rays, U/S, labs)? Why? @ -None What meds were considered but not given or refused? Why? @ -None Did you discuss the management of the patient with other professionals (professionals i.e. MICHELLE Woodruff, SECONDARY SET UP MAN, lab, RT, psych nurse, rn social services, director content marketing, teacher, chief marketing officer, top case assembler)? Give summary @ -No Was smoking cessation discussed for >3mins.? @ -No Was critical care preformed (if so, how long)? @ -No Were there social determinants of health that impacted care today? How? (Homelessness, low income, unemployed, alcoholism, drug addiction, transp ortation, low edu. Level, literacy, decrease access to med. care, senior living, rehab)? @ -No Was there de-escalation of care discussed even if they declined (Discuss DNR or withdrawal of care, Hospice)? DNR status @ -No What co-morbidities impacted this encounter? (DM, HTN, Smoking, COPD, CAD, Cancer, CVA, ARF, Chemo, Hep., AIDS, mental health diagnosis, sleep apnea, morbid obesity)? @ -None Was patient admitted / discharged? Hospital course, mention meds given and route, prescriptions, significant lab abnormalities, going to OR and other pertinent info. @ -Discharge 73-year-old female presents to the ED with complaints of epistaxis. Notes onset of epistaxis today. No trauma. Had her nose packed at urgent care prior to arrival however since then, noted that she has had some minimal blood draining into the back of her throat and is worried as every time she dabs the packing in her left nostril there is a blood tinge on the paper towel. On examination no significant draining of blood in the oropharynx. Packing in the right nose appears unsaturated and dry. Packing in the left nose appears dry and does not appear fully saturated. Is not bleeding through the packing. Offered repacking however at this time patient declines. Patient started on antibiotics by urgent care which she was advised to continue as prescribed. Discharged home in stable condition. Discussed return precautions with patient who verbalized agreement. Undiagnosed new problem with uncertain prognosis? @ -No Drug Therapy requiring intensive monitoring for toxicity (Heparin, Nitro, Insulin, Cardizem)? @ -No Were any procedures done? @ -No Diagnosis/symptom? @ -Epistaxis Acute, or Chronic, or Acute on Chronic? @ -Acute Uncomplicated (without systemic symptoms) or Complicated (systemic symptoms)? @ -Uncomplicated Side effects of treatment? @ -No Exacerbation, Progression, or Severe Exacerbation? @ -No Poses a threat to life or bodily function? How? (Chest pain, USA, MA, pneumonia, PE, COPD, DKA, ARF, appy, cholecystitis, CVA, Diverticulitis, Homicidal, Suicidal, threat to staff... and all critical care pts) @ -No Disposition Clinical Impression: Epistaxis Disposition: HOME SELF-CARE Condition: Good Instructions (If sedation given, give patient instructions): Nosebleed (ED) Additional Instructions: Please return to the Emergency Department if symptoms worsen or any other concerns. Please take antibiotics as prescribed. Return if significant amount of blood through the packing. Is patient prescribed a controlled substance at d/c from ED?: No Referrals: Hector Abbasi MD [Primary Care Provider] - 1-2 days Time of Disposition: 20:10
[2023-12-11 20:56] VITALS: BP 124/67; PULSE 66
== END 2023-12-11 20:24 | disposition home or self-care (01) ==
LOC: EC 19:16
DX: R04.0 Epistaxis (principal); Z88.0 Allergy status to penicillin; Z87.891 Personal history of nicotine dependence
CPT/HCPCS: 99283

== ENCOUNTER 2023-12-24 12:34 | Emergency (ER) | payer MEDICARE ==
[2023-12-24 13:16] VITALS: TEMP 98.1
--- NOTE | 2023-12-24 13:29 | ED ---
General Adult HPI - General Chief complaint: Nausea/Vomiting/Diarrhea Stated complaint: Vomiting Time Seen by Provider: 12/24/23 12:58 Source: patient, RN notes reviewed Mode of arrival: EMS Limitations: no limitations - History of Present Illness Initial comments: Patient is a 73-year-old female presenting to the emergency department with nausea vomiting. Patient had EGD done yesterday with banding of 6 varices. Patient has nonalcoholic fatty liver disease. Patient does have some discomfort that she states is chest however points to the lower chest and agrees that it is epigastric on exam. Patient has had some streaks of blood in her emesis. Patient has vomited approximately 10 times - Related Data Home Medications Medication Instructions Recorded Confirmed Baclofen [Lioresal] 20 mg PO HS 01/22/16 12/24/23 Pramipexole [Mirapex] 0.25 mg PO HS 01/16/17 12/24/23 Furosemide [Lasix] 40 mg PO AC-BID 12/20/17 12/24/23 Spironolactone [Aldactone] 150 mg PO QAM 05/15/21 12/24/23 Gabapentin 300 mg PO HS 06/12/21 12/24/23 Insulin Degludec [Tresiba 34 units SQ QAM 11/06/22 12/24/23 Flextouch U-100 Pen] Pravastatin Sodium [Pravachol] 20 mg PO QAM 11/06/22 12/24/23 Propranolol HCl [Propranolol HCl 80 mg PO QAM 11/06/22 12/24/23 ER] Pantoprazole [Protonix] 60 mg PO QAM 12/18/22 12/24/23 Semaglutide [Ozempic] 0.5 mg SQ TH 08/27/23 12/24/23 Magnesium 250 mg PO DAILY 11/03/23 12/24/23 Aspirin EC [Ecotrin] 325 mg PO DAILY 12/24/23 12/24/23 LORazepam 0.5 mg PO BID PRN 12/24/23 12/24/23 Allergies Allergy/AdvReac Type Severity Reaction Status Date / Time Penicillins Allergy Unknown Verified 12/24/23 14:14 Childhood Review of Systems ROS Statement: Those systems with pertinent positive or pertinent negative responses have been documented in the HPI. ROS Other: All systems not noted in ROS Statement are negative. Constitutional: Denies: fever Eyes: Denies: eye pain ENT: Denies: ear pain Respiratory: Denies: cough Cardiovascular: Reports: as per HPI Endocrine: Reports: fatigue Gastrointestinal: Reports: as per HPI, hematemesis Genitourinary: Denies: dysuria Musculoskeletal: Denies: back pain Past Medical History Past Medical History: Coronary Artery Disease (CAD), Cancer, Diabetes Mellitus, Hyperlipidemia, Hypertension, Liver Disease, Osteoarthritis (OA) Additional Past Medical History / Comment(s): Obesity, neuropathy lower extremities, chronic back pain and pulmonary hypertension. lt lower leg poor circulation per pt, chirrohsis, ascites, Left breast Cancer- 2022, in remission. Pt on liver transplant list at [facility], ASCITES, vericose vein banded 11/2023 . Thrombus in portal vein. History of Any Multi-Drug Resistant Organisms: None Reported Past Surgical History: Cholecystectomy, Coronary Bypass/CABG, Heart Catheterization, Orthopedic Surgery Additional Past Surgical History / Comment(s): RT carpel tunnel release sx , laser surgery on varicose veins , 2 VESSEL CABG. 3 THORACENTESIS post CABG, multiple paracentesis procedures, left breast lumpectomy x2, D&C Past Anesthesia/Blood Transfusion Reactions: No Reported Reaction Past Psychological History: Anxiety Smoking Status: Former smoker Past Alcohol Use History: None Reported Past Drug Use History: None Reported - Past Family History Mother Brother(s) Family Medical History: Cancer Additional Family Medical History / Comment(s): MOM FROM PERITONITIS/DIVERTICULITIS WITH BOWEL BURST Father Family Medical History: Myocardial Infarction ([place]) Additional Family Medical History / Comment(s): FROM [place] AGE 62 Brother(s) Family Medical History: Cancer, Coronary Artery Disease (CAD) Additional Family Medical History / Comment(s): ONE BROTHER HAD CANCER, ONE BROTHER HAD QUAD CABG. General Exam Limitations: no limitations General appearance: alert, in no apparent distress Head exam: Present: normocephalic Eye exam: Present: scleral icterus ENT exam: Present: normal exam Neck exam: Present: normal inspection Respiratory exam: Present: normal lung sounds bilaterally Cardiovascular Exam: Present: regular rate, normal rhythm Expanded Peripheral pulses: 2+: Radial (R), Radial (L), Dorsalis Pedis (R), Dorsalis Pedis (L) GI/Abdominal exam: Present: soft, tenderness (Mild to moderate epigastric tenderness to palpation), normal bowel sounds. Absent: distended, guarding, rebound, rigid, pulsatile mass Extremities exam: Present: normal inspection Neurological exam: Present: alert Psychiatric exam: Present: normal affect, normal mood Skin exam: Present: other (Mild jaundice appearance) Course Vital Signs 12/24/23 12/24/23 12/24/23 12:54 14:09 15:21 Temperature 98.1 F Pulse Rate 73 76 74 Respiratory 20 18 18 Rate Blood Pressure 126/74 101/46 107/43 O2 Sat by Pulse 99 98 97 Oximetry EKG Findings - EKG Results: EKG: interpreted by ERMD, sinus rhythm, normal axis, normal QRS, normal ST/T Medical Decision Making - Medical Decision Making Was pt. sent in by a medical professional or institution (, PA, NEWSPAPER COLUMNIST, urgent care, hospital, or skilled nursing...) When possible be specific @ -No Did you speak to anyone other than the patient for history (EMS, parent, family, police, friend...)? What history was obtained from this source @ -Family is present and provides information as far as patient seeing Dr. Moon and Dr. Aragon from [facility] Did you review nursing and triage notes (agree or disagree)? Why? @ -I reviewed and agree with nursing and triage notes Were old charts reviewed (outside hosp., previous admission, EMS record, old EKG, old radiological studies, urgent care reports/EKG's, skilled nursing records)? Report findings @ -Previous labs reviewed. Hemoglobin stable. Differential Diagnosis (chest pain, altered mental status, abdominal pain women, abdominal pain men, vaginal bleeding, weakness, fever, dyspnea, syncope, headache, dizziness, GI bleed, back pain, seizure, CVA, palpatations, mental health, musculoskeletal)? @ -Differential GI Bleed: Esophageal varices, aortoenteric fistula, Cyndi-Dillon, gastritis, peptic ulcer disease, diverticulosis, inflammatory bowel disease, hemorrhoids, fissure, colitis, malignancy, Meckels diverticulum, this is not meant to be an all-inclusive list. EKG interpreted by me (3pts min.). @ -As above X-rays interpreted by me (1pt min.). @ -Chest and abdominal x-ray showed no acute process CT interpreted by me (1pt min.). @ -None done U/S interpreted by me (1pt. min.). @ -None done What testing was considered but not performed or refused? (CT, X-rays, U/S, labs)? Why? @ -None What meds were considered but not given or refused? Why? @ -None Did you discuss the management of the patient with other professionals (professionals i.e. Dr., PA, NEWSPAPER COLUMNIST, lab, RT, psych nurse, group social worker, family resource management professor, teacher, chief customer officer, lining caser)? Give summary @ -Case was discussed with Dr. Saucedo from [facility] who will accept transfer. Was smoking cessation discussed for >3mins.? @ -No Was critical care preformed (if so, how long)? @ -No Were there social determinants of health that impacted care today? How? (Homelessness, low income, unemployed, alcoholism, drug addiction, transportation, low edu. Level, literacy, decrease access to med. care, correction, rehab)? @ -No Was there de-escalation of care discussed even if they declined (Discuss DNR or withdrawal of care, Hospice)? DNR status @ -No What co-morbidities impacted this encounter? (DM, HTN, Smoking, COPD, CAD, Cancer, CVA, ARF, Chemo, Hep., AIDS, mental health diagnosis, sleep apnea, morbid obesity)? @ -None Was patient admitted / discharged? Hospital course, mention meds given and route, prescriptions, significant lab abnormalities, going to OR and other pertinent info. @ -Patient reevaluated and still had symptoms. Patient given additional Zofran and small dose of morphine. Patient and family again updated on results and plan. Patient will be transferred to [facility]. Dr. Saucedo to except. Undiagnosed new problem with uncertain prognosis? @ -No Drug Therapy requiring intensive monitoring for toxicity (Heparin, Nitro, Insulin, Cardizem)? @ -No Were any procedures done? @ -No Diagnosis/symptom? @ -Upper GI hemorrhage Acute, or Chronic, or Acute on Chronic? @ -Acute Uncomplicated (without systemic symptoms) or Complicated (systemic symptoms)? @ -Default Side effects of treatment? @ -No Exacerbation, Progression, or Severe Exacerbation? @ -No Poses a threat to life or bodily function? How? (Chest pain, USA, AL, pneumonia, PE, COPD, DKA, ARF, appy, cholecystitis, CVA, Diverticulitis, Homicidal, Suicidal, threat to staff... and all critical care pts) @ -No - Lab Data Result diagrams: 12/24/23 13:28 12/24/23 13:28 Lab Results 12/24/23 12/24/23 12/24/23 Range/Units 13:28 13:28 13:28 WBC 5.4 (3.8-10.6) k/uL RBC 4.32 (3.80-5.40) m/uL Hgb 12.6 (11.4-16.0) gm/dL Hct 38.6 (34.0-46.0) % MCV 89.3 (80.0-100.0) fL MCH 29.1 (25.0-35.0) pg MCHC 32.7 (31.0-37.0) g/dL RDW 17.5 H (11.5-15.5) % Plt Count 142 L (150-450) k/uL MPV 8.3 Neutrophils % 83 % Lymphocytes % 9 % Monocytes % 5 % Eosinophils % 1 % Basophils % 0 % Neutrophils # 4.4 (1.3-7.7) k/uL Lymphocytes # 0.5 L (1.0-4.8) k/uL Monocytes # 0.3 (0-1.0) k/uL Eosinophils # 0.1 (0-0.7) k/uL Basophils # 0.0 (0-0.2) k/uL Anisocytosis Slight PT 14.5 H (10.0-12.5) sec INR 1.4 H (<1.2) APTT 28.5 (22.0-30.0) sec Sodium 136 L (137-145) mmol/L Potassium 4.4 (3.5-5.1) mmol/L Chloride 103 (98-107) mmol/L Carbon Dioxide 23 (22-30) mmol/L Anion Gap 10 mmol/L BUN 46 H (7-17) mg/dL Creatinine 1.14 H (0.52-1.04) mg/dL Est GFR (CKD-EPI)AfAm 55 (>60 ml/min/1.73 sqM) Est GFR (CKD-EPI)NonAf 48 (>60 ml/min/1.73 sqM) Glucose 82 (74-99) mg/dL Calcium 9.3 (8.4-10.2) mg/dL Total Bilirubin 5.7 H (0.2-1.3) mg/dL AST 61 H (14-36) U/L ALT 31 (4-34) U/L Alkaline Phosphatase 239 H (38-126) U/L Troponin I (0.000-0.034) ng/mL Total Protein 7.3 (6.3-8.2) g/dL Albumin 3.3 L (3.5-5.0) g/dL Amylase 75 (30-110) U/L Lipase 234 (23-300) U/L 12/24/23 Range/Units 13:28 WBC (3.8-10.6) k/uL RBC (3.80-5.40) m/uL Hgb (11.4-16.0) gm/dL Hct (34.0-46.0) % MCV (80.0-100.0) fL MCH (25.0-35.0) pg MCHC (31.0-37.0) g/dL RDW (11.5-15.5) % Plt Count (150-450) k/uL MPV Neutrophils % % Lymphocytes % % Monocytes % % Eosinophils % % Basophils % % Neutrophils # (1.3-7.7) k/uL Lymphocytes # (1.0-4.8) k/uL Monocytes # (0-1.0) k/uL Eosinophils # (0-0.7) k/uL Basophils # (0-0.2) k/uL Anisocytosis PT (10.0-12.5) sec INR (<1.2) APTT (22.0-30.0) sec Sodium (137-145) mmol/L Potassium (3.5-5.1) mmol/L Chloride (98-107) mmol/L Carbon Dioxide (22-30) mmol/L Anion Gap mmol/L BUN (7-17) mg/dL Creatinine (0.52-1.04) mg/dL Est GFR (CKD-EPI)AfAm (>60 ml/min/1.73 sqM) Est GFR (CKD-EPI)NonAf (>60 ml/min/1.73 sqM) Glucose (74-99) mg/dL Calcium (8.4-10.2) mg/dL Total Bilirubin (0.2-1.3) mg/dL AST (14-36) U/L ALT (4-34) U/L Alkaline Phosphatase (38-126) U/L Troponin I <0.012 (0.000-0.034) ng/mL Total Protein (6.3-8.2) g/dL Albumin (3.5-5.0) g/dL Amylase (30-110) U/L Lipase (23-300) U/L Disposition Clinical Impression: Upper GI hemorrhage Disposition: OTHER INSTITUTION NOT DEFINED Is patient prescribed a controlled substance at d/c from ED?: No Referrals: Hector Abbasi MD [Primary Care Provider] - 1-2 days Time of Disposition: 15:54 - Out of Hospital Transfer - Req. Specs Out of Hospital Transfer - Requested Specifics: Medical ICU
[2023-12-24] MEDS: SODIUM CHLORIDE 0.9% 1,000 ML IV STA (13:31)
[2023-12-24] MEDS: PANTOPRAZOLE 40 MG/10 ML VIAL IVP STA (13:32)
[2023-12-24] MEDS: ONDANSETRON 4 MG/2 ML VIAL IVP STA ×3 (13:32→18:24)
[2023-12-24 13:50] LABS: Anisocytosis Slight; Basophils % (A) 0 %; Eosinophils # (A) 0.1 k/uL (0-0.7); Eosinophils % (A) 1 %; HCT 38.6 % (34.0-46.0); HGB 12.6 gm/dL (11.4-16.0); Lymphocytes # (A) 0.5 k/uL (1.0-4.8); Lymphocytes % (A) 9 %; MCH 29.1 pg (25.0-35.0); MCHC 32.7 g/dL (31.0-37.0); MCV 89.3 fL (80.0-100.0); Mean Platelet Volume 8.3; Monocytes # (A) 0.3 k/uL (0-1.0); Monocytes % (A) 5 %; Neutrophils # (A) 4.4 k/uL (1.3-7.7); Neutrophils % (A) 83 %; Platelet Count 142 k/uL (150-450); RBC 4.32 m/uL (3.80-5.40); RDW 17.5 % (11.5-15.5); WBC 5.4 k/uL (3.8-10.6)
[2023-12-24 14:02] LABS: ALT 31 U/L (4-34); AST 61 U/L (14-36); African American GFR (CKD) 55 (>60 ml/min/1.73 sqM); Albumin 3.3 g/dL (3.5-5.0); Alkaline Phosphatase 239 U/L (38-126); Amylase 75 U/L (30-110); Anion Gap 10 mmol/L; Blood Urea Nitrogen 46 mg/dL (7-17); Calcium 9.3 mg/dL (8.4-10.2); Carbon Dioxide 23 mmol/L (22-30); Chloride 103 mmol/L (98-107); Glucose 82 mg/dL (74-99); Lipase 234 U/L (23-300); Non-African American GFR(CKD) 48 (>60 ml/min/1.73 sqM); Potassium 4.4 mmol/L (3.5-5.1); Sodium 136 mmol/L (137-145); Total Bilirubin 5.7 mg/dL (0.2-1.3); Total Protein 7.3 g/dL (6.3-8.2)
[2023-12-24 14:14] LABS: INR 1.4 (<1.2); Partial Thromboplastin Time 28.5 sec (22.0-30.0); Prothrombin Time 14.5 sec (10.0-12.5)
[2023-12-24] MEDS: SODIUM CHLORIDE 0.9% 500 ML 500 ML IV STA (14:27)
--- NOTE | 2023-12-24 14:29 | XR ---
EXAMINATION TYPE: XR chest 1V portable DATE OF EXAM: 12/24/2023 2:07 PM CLINICAL INDICATION:Female, 73 years old with history of abdominal pain; [facility] COMPARISON: Chest radiographs from 11/06/2022 TECHNIQUE: XR chest 1V portable Frontal view of the chest. FINDINGS: Lungs/Pleura: There is no evidence of pleural effusion, focal consolidation, or pneumothorax. Pulmonary vascularity: Unremarkable. Heart/mediastinum: Cardiomediastinal silhouette is unremarkable. Atherosclerotic calcifications are seen in the aorta. Left atrial appendage occlusion device is present. Musculoskeletal: No acute osseous pathology. Midline sternotomy wires are noted. Other findings: None Lines/Tubes: IMPRESSION: No acute cardiopulmonary disease/process.
--- NOTE | 2023-12-24 14:30 | XR ---
EXAMINATION TYPE: XR KUB DATE OF EXAM: 12/24/2023 2:07 PM CLINICAL INDICATION:Female, 73 years old with history of abdominal pain; COMPARISON: None. TECHNIQUE: One radiographic view of the abdomen was obtained. FINDINGS: The bowel gas pattern is nonspecific without dilated loops of small or large bowel. There i s no evidence for organomegaly or pneumoperitoneum. The osseous structures are intact. No abnormal calcifications are present. Fecal material and gas are demonstrated throughout the colon and rectum. IMPRESSION: Nonspecific bowel gas pattern without radiographic evidence for acute process.
[2023-12-24] MEDS: MORPHINE SULFATE 2 MG/ML SYRINGE IVP STA ×2 (14:34→18:21)
[2023-12-24] MEDS: cefTRIAXone IN SWFI 1,000 MG/10 ML SYRINGE IVP STA (16:23)
[2023-12-24 22:45] VITALS: RESP 18
[2023-12-25 00:12] VITALS: BP 115/58; PULSE 64
== END 2023-12-25 00:35 | disposition other institution (70) ==
LOC: EC 12:34
DX: K92.2 Gastrointestinal hemorrhage, unspecified (principal); Z87.891 Personal history of nicotine dependence; Z88.0 Allergy status to penicillin
CPT/HCPCS: 36415; 93005; 80053; 82150; 83690; 84484; 85025; 85610; 85730; 71045; 74018; 99285; 96374; 96375; 96376; 96361; J2405; J0696; J2270; C9113

== ENCOUNTER → 2024-01-24 | Outpatient (CLI) | payer MEDICARE | END | disposition home or self-care (01) | LOC: LABWHC1 16:12 | PROVIDERS: ATTEND Family Medicine | DX: I81 Portal vein thrombosis (principal); I82.401 Acute embolism and thrombosis of unspecified deep veins of right lower extremity | CPT/HCPCS: 36415; 85610 ==

== ENCOUNTER → 2024-01-26 | Outpatient (CLI) | payer MEDICARE ==
[2024-01-26 11:37] LABS: INR 1.7 (<1.2); Prothrombin Time 17.6 sec (10.0-12.5)
== END | disposition home or self-care (01) ==
LOC: LABWHC1 11:09
PROVIDERS: ATTEND Family Medicine
DX: I82.401 Acute embolism and thrombosis of unspecified deep veins of right lower extremity (principal); I81 Portal vein thrombosis
CPT/HCPCS: 36415; 85610

== ENCOUNTER 2024-01-27 12:31 | Emergency (ER) | payer MEDICARE ==
--- NOTE | 2024-01-27 14:35 | ED ---
ENT HPI - General Chief complaint: ENT Stated complaint: Nose bleeding issue-blood thinners Time Seen by Provider: 01/27/24 13:46 Source: patient, family, RN notes reviewed, old records reviewed Mode of arrival: wheelchair Limitations: no limitations - History of Present Illness Initial comments: This is a 73-year-old female to the ER for evaluation of recurrent epistaxis nosebleed here in the ER, patient has no active bleeding currently history of cirrhosis, history of recurrent nosebleeds. Patient has no symptoms of lightheadedness dizziness weakness or syncope MD complaint: epistaxis -: days(s) Location: nose Severity: moderate Severity scale (1-10): 4 Consistency: intermittent Improves with: none Worsens with: none Associated Symptoms: other (0) - Related Data Home Medications Medication Instructions Recorded Confirmed Baclofen [Lioresal] 20 mg PO HS 01/22/16 01/11/24 Pramipexole [Mirapex] 0.25 mg PO DAILY 01/16/17 01/11/24 Furosemide [Lasix] 40 mg PO DAILY 12/20/17 01/11/24 Spironolactone [Aldactone] 150 mg PO DAILY 05/15/21 01/11/24 Gabapentin 300 mg PO HS 06/12/21 01/11/24 Insulin Degludec [Tresiba 40 units SQ QAM 11/06/22 01/11/24 Flextouch U-100 Pen] Pravastatin Sodium [Pravachol] 10 mg PO DAILY 11/06/22 01/11/24 Pantoprazole [Protonix] 40 mg PO QAM 12/18/22 01/11/24 Semaglutide [Ozempic] 0.5 mg SQ 08/27/23 01/11/24 Magnesium 250 mg PO DAILY 11/03/23 01/11/24 Aspirin EC [Ecotrin] 325 mg PO DAILY 12/24/23 01/11/24 LORazepam 0.5 mg PO BID PRN 12/24/23 01/11/24 Warfarin [Coumadin] 2.5 mg PO DAILY 01/11/24 01/11/24 hydrOXYzine HCL [Atarax] 25 mg PO TID PRN 01/11/24 01/11/24 Allergies Allergy/AdvReac Type Severity Reaction Status Date / Time Penicillins Allergy Unknown Verified 05/21/24 17:08 Childhood Review of Systems ROS Statement: Those systems with pertinent positive or pertinent negative responses have been documented in the HPI. ROS Other: All systems not noted in ROS Statement are negative. Past Medical History Past Medical History: Coronary Artery Disease (CAD), Cancer, Diabetes Mellitus, Hyperlipidemia, Hypertension, Liver Disease, Osteoarthritis (OA) Additional Past Medical History / Comment(s): Obesity, neuropathy lower extremities, chronic back pain and pulmonary hypertension. lt lower leg poor circulation per pt, chirrohsis, ascites, Left breast Cancer- 2022, in remission. Pt on liver transplant list at [facility], ASCITES, vericose vein banded 11/2023. 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 DVT History of Any Multi-Drug Resistant Organisms: None Reported Past Surgical History: Cholecystectomy, Coronary Bypass/CABG, Heart Catheterization, Orthopedic Surgery Additional Past Surgical History / Comment(s): RT carpel tunnel release sx , laser surgery on varicose veins , 2 VESSEL CABG. 3 THORACENTESIS post CABG, multiple paracentesis procedures, left breast lumpectomy x2, D&C Past Anesthesia/Blood Transfusion Reactions: No Reported Reaction Past Psychological History: Anxiety Smoking Status: Former smoker Past Alcohol Use History: None Reported Past Drug Use History: None Reported - Past Family History Mother Brother(s) Family Medical History: Cancer Additional Family Medical History / Comment(s): MOM FROM PERITONITIS/DIVERTICULITIS WITH BOWEL BURST Father Family Medical History: Myocardial Infarction ([place]) Additional Family Medical History / Comment(s): FROM [place] AGE 62 Brother(s) Family Medical History: Cancer, Coronary Artery Disease (CAD) Additional Family Medical History / Comment(s): ONE BROTHER HAD CANCER, ONE BROTHER HAD QUAD CABG. General Exam Limitations: no limitations General appearance: alert, in no apparent distress Head exam: Present: atraumatic, normocephalic, normal inspection Eye exam: Present: normal appearance, PERRL, EOMI. Absent: scleral icterus, conjunctival injection, periorbital swelling ENT exam: Present: normal exam, mucous membranes moist Neck exam: Present: normal inspection. Absent: tenderness, meningismus, lymphadenopathy Respiratory exam: Present: normal lung sounds bilaterally. Absent: respiratory distress, wheezes, rales, rhonchi, stridor Cardiovascular Exam: Present: regular rate, normal rhythm, normal heart sounds. Absent: systolic murmur, diastolic murmur, rubs, gallop, clicks GI/Abdominal exam: Present: soft, normal bowel sounds. Absent: distended, tenderness, guarding, rebound, rigid Extremities exam: Present: normal inspection, full ROM, normal capillary refill. Absent: tenderness, pedal edema, joint swelling, calf tenderness Back exam: Present: normal inspection Neurological exam: Present: alert, oriented X3, CN II-XII intact Psychiatric exam: Present: normal affect, normal mood Skin exam: Present: warm, dry, intact, normal color. Absent: rash Course Vital Signs 01/27/24 01/27/24 12:48 15:55 Temperature 98.4 F 98.7 F Pulse Rate 69 72 Respiratory 20 16 Rate Blood Pressure 98/41 116/51 O2 Sat by Pulse 98 100 Oximetry - Reevaluation(s) Reevaluation #1: Medical records reviewed Reevaluation #2: Patient symptoms unchanged Reevaluation #3: Patient informed of results and questions answered Reevaluation #4: Was pt. sent in by a medical professional or institution (, PA, PROFESSIONAL SHOPPER, urgent care, hospital, or skilled nursing...) When possible be specific @ -no Did you speak to anyone other than the patient for history (EMS, parent, family, police, friend...)? What history was obtained from this source @ -no Did you review nursing and triage notes (agree or disagree)? Why? @ -agree Are old charts reviewed (outside hosp., previous admission, EMS record, old EKG, old radiological studies, urgent care reports/EKG's, skilled nursing records)? Report findings @ -yes Differential Diagnosis (chest pain, altered mental status, abdominal pain women, abdominal pain men, vaginal bleeding, weakness, fever, dyspnea, syncope, headache, dizziness, GI bleed, back pain, seizure, CVA, palpatations, mental health, musculoskeletal)? @ -prior EKG interpreted by me (3pts min.). @ -yes X-rays interpreted by me (1pt min.). @ -no CT interpreted by me (1pt min.). @ -no U/S interpreted by me (1pt. min.). @ -no What testing was considered but not performed or refused? (CT, X-rays, U/S, lab s)? Why? @ -none What meds were considered but not given or refused? Why? @ -none Did you discuss the management of the patient with other professionals (professionals i.e. , PA, PROFESSIONAL SHOPPER, lab, RT, psych nurse, social security benefits interviewer, plastic fixture builder, teacher, senior administrative services officer, correctional case records supervisor)? Give summary @ -no Was smoking cessation discussed for >3mins.? @ -no Was critical care preformed (if so, how long)? @ -no Were there social determinants of health that impacted care today? How? (Homelessness, low income, unemployed, alcoholism, drug addiction, transportation, low edu. Level, literacy, decrease access to med. care, [facility], rehab)? @ -none Was there de-escalation of care discussed even if they declined (Discuss DNR or withdrawal of care, Hospice)? DNR status @ -no What co-morbidities impacted this encounter? (DM, HTN, Smoking, COPD, CAD, Cancer, CVA, ARF, Chemo, Hep., AIDS, mental health diagnosis, sleep apnea, morbid obesity)? @ -none Was patient admitted / discharged? Hospital course, mention meds given and route, prescriptions, significant lab abnormalities, going to OR and other pertinent info. @ - 73 female with recurrent nosebleed. No active bleeding here in the ER patient can be discharged home Discharge Undiagnosed new problem with uncertain prognosis? @ -no Drug Therapy requiring intensive monitoring for toxicity (Heparin, Nitro, Insulin, Cardizem)? @ -no Were any procedures done? @ -no Diagnosis/symptom? @ -Epistaxis Acute, or Chronic, or Acute on Chronic? @ -Acute Uncomplicated (without systemic symptoms) or Complicated (systemic symptoms)? @ -Complicated Side effects of treatment? @ -no Exacerbation, Progression, or Severe Exacerbation? @ -exacerbation Poses a threat to life or bodily function? How? (Chest pain, [place], [place], pneumonia, PE, COPD, DKA, ARF, appy, cholecystitis, CVA, Diverticulitis, Homicidal, Suicidal, threat to staff... and all critical care pts) @ -no Medical Decision Making - Medical Decision Making 73 female with recurrent nosebleed. No active bleeding here in the ER patient can be discharged home Disposition Clinical Impression: Epistaxis Disposition: HOME SELF-CARE Condition: Good Instructions (If sedation given, give patient instructions): Nosebleed (ED) Is patient prescribed a controlled substance at d/c from ED?: No Referrals: Hector Abbasi MD [Primary Care Provider] - 1-2 days Time of Disposition: 15:00
[2024-01-27] MEDS: SODIUM CHLORIDE 0.9% 500 ML 500 ML IV STA (15:26)
[2024-01-27] MEDS: SILVER NITRATE APPLICATOR 1 EACH STICK..EA. TOPICAL STA (15:27)
[2024-01-27 16:00] VITALS: BP 116/51; PULSE 72; RESP 16; TEMP 98.7
== END 2024-01-27 16:01 | disposition home or self-care (01) ==
LOC: EC 12:31
DX: R04.0 Epistaxis (principal); Z88.0 Allergy status to penicillin; Z87.891 Personal history of nicotine dependence
CPT/HCPCS: 99283

== ENCOUNTER → 2024-01-31 | Outpatient (CLI) | payer MEDICARE ==
[2024-01-31 14:49] LABS: INR 1.8 (<1.2); Partial Thromboplastin Time 34.9 sec (22.0-30.0)
== END | disposition home or self-care (01) ==
LOC: LABWHC1 13:53
PROVIDERS: ATTEND Internal Medicine Gastroenterology
DX: K75.81 Nonalcoholic steatohepatitis (NASH) (principal)
CPT/HCPCS: 36415; 85610; 85730

== ENCOUNTER → 2024-02-14 | Outpatient (CLI) | payer MEDICARE ==
[2024-02-14 17:17] LABS: INR 2.1 (<1.2); Partial Thromboplastin Time 39.4 sec (22.0-30.0); Prothrombin Time 21.2 sec (10.0-12.5)
[2024-02-15 03:54] LABS: ALT 24 U/L (8-44); AST 50 U/L (13-35); Albumin 3.4 g/dL (3.8-4.9); Albumin/Globulin Ratio 1.26 Ratio (1.60-3.17); Alkaline Phosphatase 312 U/L (41-126); BUN/Creat Ratio 21.88 Ratio (12.00-20.00); Blood Urea Nitrogen 52.5 mg/dL (9.0-27.0); Calcium 8.7 mg/dL (8.7-10.3); Carbon Dioxide 14.2 mmol/L (21.6-31.8); Chloride 93 mmol/L (96-109); Globulin 2.7 g/dL (1.6-3.3); Glucose 290 mg/dL (70-110); Potassium 4.8 mmol/L (3.5-5.5); Sodium 122 mmol/L (135-145); Total Bilirubin 4.8 mg/dL (0.3-1.2); Total Protein 6.1 g/dL (6.2-8.2)
== END | disposition home or self-care (01) ==
LOC: LABWHC1 15:30
PROVIDERS: ATTEND Family Medicine
DX: I81 Portal vein thrombosis (principal); K74.60 Unspecified cirrhosis of liver
CPT/HCPCS: 36415; 80053; 85610; 85730